=== PATIENT | male | born 1960 | race Caucasian/White ===

== ENCOUNTER 2017-11-12 07:11 | Emergency (ER) | payer OTHER, SELFPAY ==
[2017-11-12 07:16] VITALS: BP 146/86; PULSE 82; RESP 16; TEMP 36.5; O2SAT 99
--- NOTE | 2017-11-12 07:34 | DI.RAD_ITS ---
SYMPTOM/DIAGNOSIS: PAIN LET ASPECT OF DISTAL THUMB LEFT THUMB: Three views. No acute bone or joint abnormality identified. The soft tissues are unremarkable. IMPRESSION: No acute abnormality.
--- NOTE | 2017-11-12 07:57 | W.ED.GENAD ---
Discharge Plan Disposition Patient Disposition: HOME Condition: Good Discharge Details Chief Complaint: Orthopedic Clinical Impression: Contusion Primary Care Provider: Susie Keating ED Provider: Fidel Walker Home Meds and New Rx's Prescriptions: New acetaminophen [Mapap Extra Strength] 500 MG tablet 1,000 mg PO Q6H 5 Days Qty: 60 RF: 0 ibuprofen [Motrin IB] 200 MG tablet 600 mg PO Q6H 5 Days Qty: 60 RF: 0 No Action potassium chloride 10 MEQ capsule, extended release 10 meq PO DAILY Qty: 90 RF: 12 cyanocobalamin (vitamin B-12) [Vitamin B-12] 1,000 MCG tablet 500 mcg PO DAILY Qty: 90 RF: 12 omeprazole 40 MG capsule,delayed release(DR/EC) 40 mg PO BID Qty: 180 RF: 12 metformin [Glucophage] 1,000 MG tablet 1 tab PO BID Qty: 180 RF: 4 insulin aspart U-100 [Novolog Flexpen U-100 Insulin] 100 UNIT/1 ML insulin pen 60 SQ AC Qty: 4 RF: 12 sitagliptin [Januvia] 100 MG tablet 100 mg PO DAILY Qty: 90 RF: 12 atenolol 100 MG tablet 100 mg PO DAILY Qty: 90 RF: 12 lisinopril 40 MG tablet 40 mg PO DAILY Qty: 90 RF: 12 empagliflozin [Jardiance] 25 MG tablet 0.5 - 1 tab PO DAILY Qty: 90 RF: 11 atorvastatin 40 MG tablet 40 mg PO DAILY Qty: 90 RF: 12 gabapentin [Neurontin] 300 MG capsule 300 mg PO TID Qty: 90 RF: 12 Pen Needle, Diabetic [Ultra-Fine Micro Pen Needle] 1 EACH DIS.NEEDLE Miscellaneous TID Qty: 90 RF: 11 albuterol sulfate [ProAir HFA] 8.5 GM HFA aerosol inhaler 1 - 2 puff Inhalation Q4H PRN Qty: 3 RF: 12 tadalafil [Cialis] 5 mg tablet 5 mg PO DAILY Qty: 90 RF: 4 aspirin 81 MG tablet,chewable 81 mg PO DAILY RF: 0 insulin glargine [Lantus Solostar U-100 Insulin] 100 UNIT/1 ML insulin pen 38 unit SQ BID RF: 0 Discharge Instructions Instructions: Contusion in Adults (ED) Additional Instructions: Please use Tylenol, Motrin and ice to your thumb. If you notice any worsening of your symptoms, or any new symptoms such as vomiting, diarrhea, fever, chills, shortness of breath, chest pain, numbness, weakness, or fainting , please return immediately to the emergency department for reevaluation. Please follow up with your primary care provider as soon as possible for reassessment and reevaluation. As always, it was a pleasure participating in your medical care today. Referrals: Susie Keating MD, MD [Primary Care Provider] - Medical Decision Making This is a pleasant 57-year-old male who presents with pain in his left nondominant thumb. He struck it yesterday while taking something out of a bag. He had no laceration. No crush injury. Currently he has a small amount of burning on the lateral aspect, at the distal tip of the thumb. No evidence of trauma or laceration otherwise normal sensation normal movement. We will get an x-ray to evaluate for any potential fracture although I feel this unlikely. We will recommend Tylenol, Motrin and ice on an outpatient basis. X-ray results have returned demonstrate no evidence of significant acute fracture or foreign body. Patient will be discharged home. I have extensively reviewed the treatment plan and discharge instructions with the patient. I have addressed all patient concerns at this time. The patient was made aware of what symptoms to monitor for that would warrant a return to the emergency department. Discussed the plan with the patient, they demonstrate verbal understanding and agreement with our assessment and plan at this time. HPI General Date/Time Provider Initiated Documentation: 11/12/17 07:33. HPI Narrative: This is a 57-year-old male with past medical history of diabetes, hypertension, and high cholesterol who presents today for evaluation of thumb pain. He states yesterday he was pulling his golf club out of the golf bag when his hand slipped and hit the ceiling. It was his thumb that hit it on the lateral aspect. Since then he has had mild pain in the area. He has smoked some marijuana and states that this did help a little, but denies taking any Tylenol or Motrin or using ice. He is right-hand dominant. He denies any numbness or tingling, but does admit to a mild burning sensation on the lateral aspect of the distal tip of the thumb. Is able to flex and extend it well, and has no other complaints. He denies any lacerations, or any previous trauma. There is no exacerbation of his pain except with movement and palpation. He denies any recent surgeries, IV or illicit drug use, or pertinent family history. Related Data Home Medications Medication Instructions Recorded Confirmed potassium chloride 10 meq PO DAILY #90 tab-cap 11/12/17 11/12/17 cyanocobalamin (vitamin B-12) 500 mcg PO DAILY #90 tab 02/09/17 11/12/17 [Vitamin B-12] insulin aspart U-100 [Novolog 60 SQ AC #4 box 02/09/17 Flexpen U-100 Insulin] metformin [Glucophage] 1 tab PO BID #180 tab-cap 02/09/17 11/12/17 omeprazole 40 mg PO BID #180 tab-cap 02/09/17 11/12/17 sitagliptin [Januvia] 100 mg PO DAILY #90 tab-cap 02/09/17 11/12/17 aspirin 81 mg PO DAILY 02/19/17 11/12/17 atenolol 100 mg PO DAILY #90 tab-cap 02/23/17 11/12/17 empagliflozin [Jardiance] 0.5 - 1 tab PO DAILY #90 tab 02/23/17 lisinopril 40 mg PO DAILY #90 tab-cap 02/23/17 11/12/17 atorvastatin 40 mg PO DAILY #90 tab-cap 03/30/17 11/12/17 gabapentin [Neurontin] 300 mg PO TID #90 tab-cap 05/24/17 11/12/17 albuterol sulfate [Proair Hfa] 1 - 2 puff INHALATION Q4H PRN #3 06/08/17 11/12/17 inhaler tadalafil 5 mg tablet 5 mg PO DAILY #90 tab 11/11/17 11/12/17 acetaminophen [Mapap Extra 1,000 mg PO Q6H 5 Days #60 tab 11/12/17 Strength] ibuprofen [Motrin Ib] 600 mg PO Q6H 5 Days #60 tab 11/12/17 insulin glargine [Lantus Solostar] 38 unit SQ BID 11/12/17 11/12/17 Previous Rx's Medication Instructions Recorded potassium chloride 10 meq PO DAILY #90 tab-cap 11/12/16 cyanocobalamin (vitamin B-12) 500 mcg PO DAILY #90 tab 02/09/17 [Vitamin B-12] metformin [Glucophage] 1 tab PO BID #180 tab-cap 02/09/17 omeprazole 40 mg PO BID #180 tab-cap 02/09/17 sitagliptin [Januvia] 100 mg PO DAILY #90 tab-cap 02/09/17 atenolol 100 mg PO DAILY #90 tab-cap 02/23/17 empagliflozin [Jardiance] 0.5 - 1 tab PO DAILY #90 tab 02/23/17 lisinopril 40 mg PO DAILY #90 tab-cap 02/23/17 atorvastatin 40 mg PO DAILY #90 tab-cap 03/30/17 gabapentin [Neurontin] 300 mg PO TID #90 tab-cap 05/24/17 albuterol sulfate [Proair Hfa] 1 - 2 puff INHALATION Q4H PRN #3 06/08/17 inhaler tadalafil 5 mg tablet 5 mg PO DAILY #90 tab 11/11/17 acetaminophen [Mapap Extra 1,000 mg PO Q6H 5 Days #60 tab 11/12/17 Strength] ibuprofen [Motrin Ib] 600 mg PO Q6H 5 Days #60 tab 11/12/17 Allergies Allergy/AdvReac Type Severity Reaction Status Date / Time tiotropium bromide Allergy Severe PT STATES Unverified 06/29/17 11:28 [From Spiriva with SPIR[facility]] CAUSED CHEST PAINS cyclobenzaprine AdvReac Severe DRY MOUTH Unverified 06/29/17 11:28 WOOL AdvReac Intermediate BREAK OUT Uncoded 02/21/17 10:56 General Stated Complaint: Orthopedic JOSE: 4 Review of Systems Review of Systems All systems reviewed & are unremarkable except as noted in HPI and below PFSH Family History Mother Chronic type B viral hepatitis Diabetes Depression Hyperlipidemia Father Chronic type B viral hepatitis Neoplasm Sister Heart disease Brother No problems noted. Brother No problems noted. Daughter Depression Daughter Depression Medical History Asthma Barretts esophagus Diabetes mellitus type II, uncontrolled Diabetic neuropathy associated with diabetes mellitus due to underlying condition Essential hypertension History of colon polyps Hyperlipidemia Social History Smoking/Tobacco Use Status: Former Tobacco Use Surgical History Colonoscopy - IV Sedation (04/15/10) EGD - IV Sedation MULTIPLE NECK OPERATIONS Open Carpal Tunnel release TITANIUM PLATE PUT IN Tonsillectomy Vasectomy Exam Narrative Exam Narrative: 1.Const: Well-nourished, Well-developed, appearing stated age 2.Eyes: PERRL, no conjunctival injection, and symmetrical lids. 3.ENT: Atraumatic external nose and ears. Moist MM. Neck: Symmetric, trachea midline, No thyromegaly. 4.CVS: +S1/S2, No murmurs or gallops. Peripheral pulses 2+ and equal in all extremities. Brisk capillary refill in all extremities. 5.RESP: Unlabored respiratory effort. Clear to auscultation bilaterally. No wheezes rales or rhonchi 6.GI: Soft, Nontender/Nondistended, No hepatosplenomegaly. No guarding or rebound. 7.MSK: Normocephalic/Atraumatic, Extremities w/o deformity or ttp No cyanosis or clubbing, Normal movement of all extremities, normal flexion extension of the distal tip of the thumb. Normal movement at all joints. No crepitus. No deformity. No bleeding or bruising. No evidence of laceration or trauma. Normal sensation, good two-point discrimination. 8.Skin: Warm, Dry. No rashes or lesions. 9.Neuro: biological science aide II-XII grossly intact. Sensation grossly intact, no focal neurologic deficits. 10.Psych: (AAO) x3. Appropriate mood and affect Course Vital Signs Temperature 36.5 C 11/12/17 07:16 Pulse 82 11/12/17 07:16 Respiratory Rate 16 11/12/17 07:16 Blood Pressure 146/86 H 11/12/17 07:16 Pulse Oximetry 99 11/12/17 07:16 Temperature 36.5 C 11/12/17 07:16 Temperature Source Temporal Artery Scan 11/12/17 07:16 Pulse 82 11/12/17 07:16 Respiratory Rate 16 11/12/17 07:16 Respiratory Effort 11/12/17 07:19 Blood Pressure 146/86 H 11/12/17 07:16 Blood Pressure Position Sitting 11/12/17 07:16 Pulse Oximetry 99 11/12/17 07:16 Oxygen Delivery Method Room Air 11/12/17 07:16 Oxygen Flow Rate 0 11/12/17 07:16 Pain Level 5 11/12/17 07:16
== END 2017-11-12 08:14 | disposition home or self-care (01) ==
LOC: ER 08:27
PROVIDERS: Emergency Provider Student in an Organized Health Care Education/Training Program; PCP Family Medicine
DX: S60.012A Contusion of left thumb without damage to nail, initial encounter (principal); W22.8XXA Striking against or struck by other objects, initial encounter; Y93.53 Activity, golf; E11.9 Type 2 diabetes mellitus without complications; Z79.4 Long term (current) use of insulin; I10 Essential (primary) hypertension
CPT/HCPCS: 99283; 73140

== ENCOUNTER 2017-11-22 05:33 | Emergency (ER) | payer OTHER, SELFPAY ==
[2017-11-22 05:37] VITALS: BP 135/75; PULSE 81; RESP 20; TEMP 36.5; O2SAT 97
--- NOTE | 2017-11-22 05:53 | W.ED.GENAD ---
Discharge Plan Disposition Patient Disposition: HOME Condition: Stable Discharge Details Chief Complaint: Cellulitis Clinical Impression: Cellulitis of axilla, right Primary Care Provider: Susie Keating ED Provider: Samuel Lyons Home Meds and New Rx's Prescriptions: New doxycycline hyclate 100 mg tablet 100 mg PO BID Qty: 20 RF: 0 Continue cyanocobalamin (vitamin B-12) [Vitamin B-12] 1,000 MCG tablet 500 mcg PO DAILY Qty: 90 RF: 12 omeprazole 40 MG capsule,delayed release(DR/EC) 40 mg PO BID Qty: 180 RF: 12 metformin [Glucophage] 1,000 MG tablet 1 tab PO BID Qty: 180 RF: 4 insulin aspart U-100 [Novolog Flexpen U-100 Insulin] 100 UNIT/1 ML insulin pen 60 SQ AC Qty: 4 RF: 12 sitagliptin [Januvia] 100 MG tablet 100 mg PO DAILY Qty: 90 RF: 12 atenolol 100 MG tablet 100 mg PO DAILY Qty: 90 RF: 12 lisinopril 40 MG tablet 40 mg PO DAILY Qty: 90 RF: 12 empagliflozin [Jardiance] 25 MG tablet 0.5 - 1 tab PO DAILY Qty: 90 RF: 11 atorvastatin 40 MG tablet 40 mg PO DAILY Qty: 90 RF: 12 gabapentin [Neurontin] 300 MG capsule 300 mg PO TID Qty: 90 RF: 12 Pen Needle, Diabetic [Ultra-Fine Micro Pen Needle] 1 EACH DIS.NEEDLE Miscellaneous TID Qty: 90 RF: 11 albuterol sulfate [ProAir HFA] 8.5 GM HFA aerosol inhaler 1 - 2 puff Inhalation Q4H PRN Qty: 3 RF: 12 tadalafil [Cialis] 5 mg tablet 5 mg PO DAILY Qty: 90 RF: 4 potassium chloride 10 mEq capsule, extended release 10 meq PO DAILY Qty: 90 RF: 12 aspirin 81 MG tablet,chewable 81 mg PO DAILY RF: 0 insulin glargine [Lantus Solostar U-100 Insulin] 100 UNIT/1 ML insulin pen 38 unit SQ BID RF: 0 Discharge Instructions Instructions: Cellulitis (ED) Discharge Data Discharge Physician: Samuel Lyons Medical Decision Making Patient here with a day of right armpit redness that has appearance of cellulitis, no abscess on exam or bedside u/s at htis time. Has no redness of the left arm pit, the lesion feels most likely a cyst and appears to have small area of cellulitis of the buttock. No significant tenderness or crepitus of any lesion so doubt nec fasc. will start doxy (avoiding bactrim given hx of DM to avoid hyperkalemia) and have him f/u with pcp and return precautions given Differential Diagnosis mrsa, cellulitis HPI General Mode of arrival: ambulatory. Date/Time Provider Initiated Documentation: 11/22/17 05:35. Limitations to Documentation: no limitations. Information obtained by: patient. History of Present Illness 57 year old M presents to the emergency department with the chief complaint of right armpit redness, described as mild, with intensity rated at 4. Quality is described as burning, and is localized to the upper extremity. Patient reports no radiation. Patient started experiencing this day(s) (1) No relieving factors improve symptom(s), No exacerbating factors reported . Patient notes no other symptoms.. Patient did receive the following treatments prior to arrival, none Related Data Home Medications Medication Instructions Recorded Confirmed cyanocobalamin (vitamin B-12) 500 mcg PO DAILY #90 tab 02/09/17 11/22/17 [Vitamin B-12] insulin aspart U-100 [Novolog 60 SQ AC #4 box 02/09/17 Flexpen U-100 Insulin] metformin [Glucophage] 1 tab PO BID #180 tab-cap 02/09/17 11/22/17 omeprazole 40 mg PO BID #180 tab-cap 02/09/17 11/22/17 sitagliptin [Januvia] 100 mg PO DAILY #90 tab-cap 02/09/17 11/22/17 aspirin 81 mg PO DAILY 02/19/17 11/22/17 atenolol 100 mg PO DAILY #90 tab-cap 02/23/17 11/22/17 empagliflozin [Jardiance] 0.5 - 1 tab PO DAILY #90 tab 02/23/17 11/22/17 lisinopril 40 mg PO DAILY #90 tab-cap 02/23/17 11/22/17 atorvastatin 40 mg PO DAILY #90 tab-cap 03/30/17 11/22/17 gabapentin [Neurontin] 300 mg PO TID #90 tab-cap 05/24/17 11/22/17 albuterol sulfate [ProAir HFA] 1 - 2 puff INHALATION Q4H PRN #3 06/08/17 11/22/17 inhaler tadalafil 5 mg tablet 5 mg PO DAILY #90 tab 11/11/17 11/22/17 insulin glargine [Lantus Solostar 38 unit SQ BID 11/12/17 11/22/17 U-100 Insulin] potassium chloride ER 10 mEq 10 meq PO DAILY #90 tab-cap 11/16/17 11/22/17 capsule,extended release doxycycline hyclate 100 mg PO BID #20 tab 11/22/17 Previous Rx's Medication Instructions Recorded cyanocobalamin (vitamin B-12) 500 mcg PO DAILY #90 tab 02/09/17 [Vitamin B-12] metformin [Glucophage] 1 tab PO BID #180 tab-cap 02/09/17 omeprazole 40 mg PO BID #180 tab-cap 02/09/17 sitagliptin [Januvia] 100 mg PO DAILY #90 tab-cap 02/09/17 atenolol 100 mg PO DAILY #90 tab-cap 02/23/17 empagliflozin [Jardiance] 0.5 - 1 tab PO DAILY #90 tab 02/23/17 lisinopril 40 mg PO DAILY #90 tab-cap 02/23/17 atorvastatin 40 mg PO DAILY #90 tab-cap 03/30/17 gabapentin [Neurontin] 300 mg PO TID #90 tab-cap 05/24/17 albuterol sulfate [ProAir HFA] 1 - 2 puff INHALATION Q4H PRN #3 06/08/17 inhaler tadalafil 5 mg tablet 5 mg PO DAILY #90 tab 11/11/17 potassium chloride ER 10 mEq 10 meq PO DAILY #90 tab-cap 11/16/17 capsule,extended release doxycycline hyclate 100 mg PO BID #20 tab 11/22/17 Allergies Allergy/AdvReac Type Severity Reaction Status Date / Time tiotropium bromide Allergy Severe PT STATES Unverified 11/22/17 05:41 [From Spiriva with [facility]] CAUSED CHEST PAINS cyclobenzaprine AdvReac Severe DRY MOUTH Unverified 11/22/17 05:41 WOOL AdvReac Intermediate BREAK OUT Uncoded 11/22/17 05:41 General Stated Complaint: Cellulitis JOSE: 3 Review of Systems Review of Systems All systems reviewed & are unremarkable except as noted in HPI and below Constitutional Denies chills, Denies fever(s) and Denies weakness Cardiovascular Denies chest pain and Denies dyspnea Respiratory Denies dyspnea Gastrointestinal Denies abdominal pain, Denies nausea and Denies vomiting Genitourinary Denies dysuria Musculoskeletal Denies joint swelling Integumentary/Breasts Reports rash Neurologic Denies weakness Psychiatric Denies depression Endocrine Denies cold intolerance and Denies heat intolerance Allergic/Immunologic Reports urticaria PFSH Family History Mother Chronic type B viral hepatitis Diabetes Depression Hyperlipidemia Father Chronic type B viral hepatitis Neoplasm Sister Heart disease Brother No problems noted. Brother No problems noted. Daughter Depression Daughter Depression Medical History Asthma Barretts esophagus Diabetes mellitus type II, uncontrolled Diabetic neuropathy associated with diabetes mellitus due to underlying condition Essential hypertension History of colon polyps Hyperlipidemia Social History Smoking/Tobacco Use Status: Former Tobacco Use Surgical History Colonoscopy - IV Sedation (04/15/10) EGD - IV Sedation MULTIPLE NECK OPERATIONS Open Carpal Tunnel release TITANIUM PLATE PUT IN Tonsillectomy Vasectomy Exam Const General: no acute distress Orientation: alert HENMT Head: normal to inspection Ears: external ears normal General nose exam: external nose normal Mouth: moist mucous membranes Eyes General: appearance normal, both eyes and all related structures Neck Neck: normal visual inspection Resp Effort & Inspection: normal respiratory effort and able to speak in complete sentences Cardio Rate: regular rate Skin General skin exam: other (erythema of the right arm pit about 3x4cm, no fluctuance, has small 2cm firm mobile lesion in left arm pit without redness, 1x2cm area of redness of left mid buttock without drainage) Neuro General: alert and oriented x3 Extrem General: normal to inspection Psych Mental Status: mental status grossly normal Course Vital Signs Temperature 36.5 C 11/22/17 05:37 Pulse 81 11/22/17 05:37 Respiratory Rate 20 11/22/17 05:37 Blood Pressure 135/75 11/22/17 05:37 Pulse Oximetry 97 11/22/17 05:37 Temperature 36.5 C 11/22/17 05:37 Temperature Source Temporal Artery Scan 11/22/17 05:37 Pulse 81 11/22/17 05:37 Respiratory Rate 20 11/22/17 05:37 Respiratory Effort 11/22/17 05:37 Blood Pressure 135/75 11/22/17 05:37 Blood Pressure Position Sitting 11/22/17 05:37 Pulse Oximetry 97 11/22/17 05:37 Oxygen Delivery Method Room Air 11/22/17 05:37 Oxygen Flow Rate 0 11/22/17 05:37 Pain Level 5 11/22/17 05:37
[2017-11-22] MEDS: Doxycycline Hyclate 100 MG CAP PO (06:18)
[2017-11-22 06:25] VITALS: BP 135/75; PULSE 81; RESP 20; TEMP 36.5; O2SAT 97
== END 2017-11-22 06:08 | disposition home or self-care (01) ==
PROVIDERS: Emergency Provider Emergency Medicine; PCP Family Medicine
DX: L03.111 Cellulitis of right axilla (principal); E11.9 Type 2 diabetes mellitus without complications; Z79.4 Long term (current) use of insulin; I10 Essential (primary) hypertension
CPT/HCPCS: 99283

== ENCOUNTER 2017-12-01 06:52 | Outpatient (CLI) | payer OTHER, SELFPAY | END 2017-12-01 07:12 | PROVIDERS: PCP Family Medicine; Visit Provider Family Medicine | DX: E11.40 Type 2 diabetes mellitus with diabetic neuropathy, unspecified (principal) | CPT/HCPCS: 36415; 83036 ==

== ENCOUNTER 2018-03-08 09:17 | Outpatient (CLI) | payer OTHER, SELFPAY ==
[2018-03-08 17:19] LABS: COMMENT (LAB VIEW ONLY) 116.81 mg/dL
[2018-03-08 17:34] LABS: ALT 93 U/L (12-78); AST 42 U/L (15-37); Albumin 4.1 g/dL (3.4-5.0); Alkaline Phosphatase 110 U/L (46-116); Anion Gap 7.4 mmol/L (3-11); BUN 23 mg/dL (7-18); Bilirubin, Total 0.5 mg/dL (0.2-1.0); CO2 29.6 mmol/L (21.0-32.0); CREATININE 1.53 mg/dL (0.70-1.30); Calcium 9.3 mg/dL (8.5-10.1); Chloride 101 mmol/L (98-107); Cholesterol 148 mg/dL (50-200); Estimated GFR 46.98 (mL/min/1.73m2); Glucose 158 mg/dL (70-100); HDL Cholesterol 42 mg/dL (40-60); LDL CHOLESTEROL 74 mg/dL (<100); Potassium 4.7 mmol/L (3.5-5.1); Sodium 138 mmol/L (136-145); Total Protein 7.9 g/dL (6.4-8.2); Triglyceride 188 mg/dL (30-150)
[2018-03-08 17:43] LABS: Hemoglobin A1C 8.1 % (4.5-6.2)
== END 2018-03-08 09:37 ==
PROVIDERS: PCP Family Medicine; Visit Provider Family Medicine
DX: E11.9 Type 2 diabetes mellitus without complications (principal); I10 Essential (primary) hypertension
CPT/HCPCS: 36415; 80053; 80061; 83721; 82043; 82570; 83036

== ENCOUNTER 2018-03-15 10:38 | Outpatient (CLI) | payer OTHER, SELFPAY ==
--- NOTE | 2018-03-15 09:20 | DI.RAD_ITS ---
SYMPTOM/DIAGNOSIS: COUGH, SOB, R05 PA AND LATERAL CHEST: Comparison is made with 21 February 2017. Cardiac and mediastinal contours have a normal appearance. The lungs are well inflated and clear. No infiltrate or effusion is seen. There is no evidence of pneumothorax or rib fracture IMPRESSION: Negative chest x-ray
== END 2018-03-15 10:58 ==
PROVIDERS: PCP Family Medicine; Visit Provider Family Medicine
DX: R05 Cough (principal); R06.02 Shortness of breath
CPT/HCPCS: 71046

== ENCOUNTER 2018-03-17 01:57 | Outpatient (CLI) | payer OTHER, SELFPAY ==
[2018-03-17] MEDS: Inhaler, Assist Device 1 EACH MC (11:09)
[2018-03-17] MEDS: Albuterol HFA 18 GM 200 PUFF INH IH (11:09)
--- NOTE | 2018-03-22 14:24 | PFT_ITS ---
PULMONARY FUNCTION TEST DATE OF SERVICE: March 17, 2018 REQUESTING PROVIDER: Dr. Susie Keating Spirometry shows no evidence of obstructive airways disease, but there is significant bronchodilator response. Lung volumes show no evidence of restriction. Diffusion capacity normal. Airways resistance normal. IMPRESSION: While there is no evidence of obstructive or restrictive lung disease, there is significant bronchodilator response, which is likely related to better patient effort. Intrathroacic large airway obstruction also should be evaluated clinically, as there is a flattening of the flow volume loop on the expiratory portion. Clinical correlation recommended. When this study was compared to previous one from 04/14/10, the patient has an overall 750 cc's decline in FVC and FEV1 has declined by 200 cc's. LASHONDA/rafiq
== END 2018-03-17 02:17 ==
PROVIDERS: PCP Family Medicine; Visit Provider Family Medicine
DX: R06.02 Shortness of breath (principal)
CPT/HCPCS: 94060; 94150; 94726; 94729

== ENCOUNTER 2018-03-21 06:48 | Emergency (ER) | payer OTHER, SELFPAY ==
[2018-03-21 06:52] VITALS: BP 121/73; PULSE 97; RESP 19; TEMP 36.4; O2SAT 97
--- NOTE | 2018-03-21 07:21 | DI.RAD_ITS ---
SYMPTOM/DIAGNOSIS; S/P FALL, R/O ACUTE FX RIGHT WRIST: No fracture or dislocation is seen. There are mild degenerative changes at the first carpal, metacarpal joint IMPRESSION: No acute abnormality.
--- NOTE | 2018-03-21 07:21 | DI.CT_ITS ---
SYMPTOM/DIAGNOSIS: S/P FALL AND LOC, R/O ACUTE PROCESS NONCONTRAST HEAD CT: There are no prior comparison exams. No intracranial hemorrhage or skull fracture is seen. The ventricles are normal in size. The sinuses and mastoid air cells appear clear. The orbits are unremarkable. IMPRESSION: Negative head CT. CT CERVICAL SPINE: There has been a previous anterior fusion at C5-6. There are degenerative disc changes, greatest at C6-7 and C4-5. There is no evidence of fracture or subluxation. IMPRESSION: Post surgical and degenerative changes. No acute abnormality.
--- NOTE | 2018-03-21 07:21 | DI.RAD_ITS ---
SYMPTOM/DIAGNOSIS: S/P FALL, R/O ACUTE FX RIGHT TIBIA AND FIBULA: No fracture is identified. There are prominent heel spurs. There is a coarse calcification in the plantar aspect of the foot. There are mild degenerative changes at the ankle. IMPRESSION: No acute abnormality.
--- NOTE | 2018-03-21 07:26 | ED.GENADUL_ITS ---
Discharge Plan Disposition Patient Disposition: HOME Condition: Stable Discharge Details Chief Complaint: Trauma Clinical Impression: Fall, Multiple contusions Primary Care Provider: Susie Keating ED Provider: Soraya Johnson Home Meds and New Rx's Prescriptions: Continued Symbicort 160-4.5 mcg/actuation HFA aerosol inhaler 2 puff IH BID Qty: 10.2 RF: 5 metformin [Glucophage] 1,000 mg tablet 1,000 mg PO BID Qty: 180 RF: 4 Januvia 100 mg tablet 100 mg PO DAILY Qty: 90 RF: 12 cyanocobalamin (vitamin B-12) [Vitamin B-12] 1,000 mcg tablet 500 mcg PO DAILY Qty: 90 RF: 12 ProAir HFA 8.5 GM HFA aerosol inhaler 1 - 2 puff Inhalation Q4H PRN Qty: 3 RF: 12 pen needle, diabetic [Ultra-Thin II Ins Pen Mclain] 29 gauge x 1/2 needle .ROUTE .MEDSUPPLY Qty: 100 RF: 6 OneTouch Ultra Blue Test Strip strip .ROUTE .MEDSUPPLY Qty: 400 RF: 5 omeprazole 40 mg capsule,delayed release(DR/EC) 40 mg PO BID Qty: 180 RF: 12 Novolog Flexpen U-100 Insulin 100 unit/mL insulin pen 60 unit subcut AC Qty: 60 RF: 3 potassium chloride 10 mEq capsule, extended release 10 meq PO DAILY Qty: 90 RF: 12 atenolol 100 mg tablet 100 mg PO DAILY Qty: 90 RF: 12 Jardiance 25 mg tablet 25 mg PO DAILY Qty: 90 RF: 11 atorvastatin 40 mg tablet 40 mg PO DAILY Qty: 90 RF: 12 lisinopril 40 mg tablet 40 mg PO DAILY Qty: 90 RF: 12 aspirin 81 MG tablet,chewable 81 mg PO DAILY RF: 0 Lantus Solostar U-100 Insulin 100 UNIT/1 ML insulin pen 38 unit SQ BID RF: 0 No Action gabapentin [Neurontin] 300 mg capsule 300 mg PO TID Qty: 90 RF: 12 Discharge Instructions Instructions: Contusion in Adults (ED), Fall Prevention (ED) Additional Instructions: Please return immediately to the emergency department if you develop any new or worsening symptoms or if you become otherwise concerned. It is extremely important that you make an appointment to be seen by your primary care doctor as soon as possible in follow-up for this visit. Referrals: Susie Keating MD, [place] [Primary Care Provider] - Discharge Data Discharge Date/Time-TO BE ENTERED AT DEPARTURE: 03/21/18 11:15 Medical Decision Making <Shona Sy DO - Last Filed: 03/22/18 10:36> 57-year-old male with a history of fibromyalgia, asthma, diabetes, obesity who presents status post fall yesterday morning. States he thinks he may have missed a step coming out of his apartment but is unsure and states he had a period where he blacked out. Admits to headache, right-sided neck and shoulder pain, right wrist pain, right lower back pain, and right proximal leg pain. No LOC or vomiting. No chest pain, abdominal pain. No evidence of trauma to head. Normal ENT exam. C-spine/T-spine/L-spine nontender. Normal range of motion of bilateral upper extremities and I do not see any indication for shoulder or clavicle x-rays. Chest and abdomen nontender. No pain with range of motion or tenderness to bilateral hips and bilateral knees. There is tenderness to palpation and superficial abrasions noted to the proximal right tibia. He has right wrist snuffbox tenderness. He has tenderness to palpation to right medial malleolus but there is no edema, pain with range of motion, ecchymosis or edema and I do not see an indication for ankle x-ray. Will obtain a CT head and C-spine, right wrist x-ray, and right tibia x-ray. As patient is unsure of the cause of fall, will obtain labs as well as ekg. EKG notes a rate of 87, sinus, no acute ST findings. 0745 -- Case endorsed to Dr. Johnson to f/u on labs and imaging and if negative, ok to discharge home. Medical Records Medical records reviewed: Yes I reviewed the patient's medical records. ECG Data Attestation: I personally reviewed and interpreted this ECG (s) as follows: Interpretation: 0742 --rate of 87, sinus, no acute ST elevation or depression. QTc 419. QRS 79. <Soraya Johnson MD - Last Filed: 03/31/18 13:43> Received signout from Dr. Sy at time of shift change, labs, imaging pending. Patient ambulating about the emergency department prior to imaging resulted, requesting discharge to home, stating that he feels well. imaging personally visualized by myself in conjunction with radiology, radiology reports as follows: RIGHT WRIST: No fracture or dislocation is seen. There are mild degenerative changes at the first carpal, metacarpal joint IMPRESSION: No acute abnormality. RIGHT TIBIA AND FIBULA: No fracture is identified. There are prominent heel spurs. There is a coarse calcification in the plantar aspect of the foot. There are mild degenerative changes at the ankle. IMPRESSION: No acute abnormality. NONCONTRAST HEAD CT: There are no prior comparison exams. No intracranial hemorrhage or skull fracture is seen. The ventricles are normal in size. The sinuses and mastoid air cells appear clear. The orbits are unremarkable. IMPRESSION: Negative head CT. CT CERVICAL SPINE: There has been a previous anterior fusion at C5-6. There are degenerative disc changes, greatest at C6-7 and C4-5. There is no evidence of fracture or subluxation. IMPRESSION: Post surgical and degenerative changes. No acute abnormality. Labs nondiagnostic, creatinine 1.5 with recent value 1.2. Patient states to me that he is quite sure that fall was mechanical, that he simply missed the step. He denies having any preceding symptoms or loss of consciousness. He is requesting discharge. I had a lengthy discussion with the patient regarding return to emergency department precautions, home care, and importance of outpatient follow-up with his primary care doctor. Patient verbalized understanding of the plan and is amenable. Medical Records Medical records reviewed: Yes I reviewed the patient's medical records. Lab Data Lab results reviewed: Yes I reviewed the patient's lab results. Laboratory Tests Range/Units 03/21/18 03/21/18 08:00 08:00 WBC (4.4-10.8) k/cumm 7.93 RBC (4.50-6.00) m/cumm 4.42 L Hgb (13.5-17.5) g/dL 13.8 Hct (40.0-50.0) % 42.8 MCV (80-95) fL 96.8 H MCH (27.0-33.0) pg 31.2 MCHC (32.0-36.0) g/dL 32.2 RDW (11.8-14.1) % 13.9 Plt Count (130-400) x1000/uL 169 MPV (8.0-11.0) fL 10.4 Immature Gran % 0.3 Neutrophils % 59.9 Lymphocytes % 27.5 Monocytes % 8.4 Eosinophils % 3.5 Basophils % 0.4 Absolute Neutrophils (1.2-6.7) k/cumm 4.75 Absolute Lymphocytes (1.2-3.4) k/cumm 2.18 Absolute Monocytes (0.11-0.7) k/cumm 0.67 Absolute Eosinophils (0.0-0.7) k/cumm 0.28 Absolute Basophils (0.0-0.2) k/cumm 0.03 Sodium (136-145) mmol/L 137 Potassium (3.5-5.1) mmol/L 4.8 Chloride (98-107) mmol/L 102 Carbon Dioxide (21.0-32.0) mmol/L 23.7 Anion Gap (3-11) mmol/L 11.3 H BUN (7-18) mg/dL 26 H Creatinine (0.70-1.30) mg/dL 1.51 H Estimated GFR/1.73 m2 (mL/min/1.73m2) 47.70 Glucose (70-100) mg/dL 258 H Calcium (8.5-10.1) mg/dL 9.0 Magnesium (1.8-2.4) mg/dL 1.6 L Total Bilirubin (0.2-1.0) mg/dL 0.4 AST (15-37) U/L 49 H ALT (12-78) U/L 109 H Alkaline Phosphatase (46-116) U/L 99 Troponin I (0.00-0.06) ng/mL < 0.02 Total Protein (6.4-8.2) g/dL 7.6 Albumin (3.4-5.0) g/dL 3.6 HPI <Shona Sy DO - Last Filed: 03/22/18 10:36> General Mode of arrival: ambulatory . Date/Time Provider Initiated Documentation: 03/21/18 07:07 . Limitations to Documentation: no limitations . Information obtained by: patient . HPI Narrative: Pt is a 57yo male with a history of fibromyalgia, asthma, diabetes, GERD, hypertension, hyperlipidemia and obesity who presents with right neck, right shoulder, right wrist, right lower back and right leg pain after fall yesterday morning. Patient states he was walking out of his apartment building and thinks he may have missed a step but states he is unsure and all he remembers is everything going black and he woke up on the ground. Patient denies any chest pain, shortness of breath, palpitations or dizziness at any time prior to or since fall. Patient has not taken anything for pain. Patient states he drank 3 beers last night watching the game to help with the pain. Patient does complain of some frontal headache and thinks he may have hit the back of his head but he denies any LOC or vomiting. Related Data Home Medications Medication Instructions Recorded Confirmed aspirin 81 mg PO DAILY 02/19/17 03/22/18 ProAir HFA 1 - 2 puff INHALATION Q4H PRN #3 06/08/17 03/22/18 inhaler Lantus Solostar U-100 Insulin 38 unit SQ BID 11/12/17 03/22/18 cyanocobalamin (vit B-12) 1,000 500 mcg PO DAILY #90 tab 12/09/17 03/22/18 mcg tablet metformin 1,000 mg tablet 1,000 mg PO BID #180 tab-cap 12/09/17 03/22/18 sitagliptin 100 mg tablet 100 mg PO DAILY #90 tab-cap 12/09/17 03/22/18 blood sugar diagnostic strips #400 each 02/14/18 03/22/18 pen needle, diabetic 29 gauge x #100 each 02/14/18 03/22/18 1/2 insulin aspart U- 100 100 unit/mL 60 unit SUBCUT AC #60 ml 02/17/18 03/22/18 subcutaneous pen omeprazole 40 mg capsule,delayed 40 mg PO BID #180 tab-cap 02/17/18 03/22/18 release potassium chloride ER 10 mEq 10 meq PO DAILY #90 tab-cap 02/17/18 03/22/18 capsule,extended release atenolol 100 mg tablet 100 mg PO DAILY #90 tab-cap 03/03/18 03/22/18 atorvastatin 40 mg tablet 40 mg PO DAILY #90 tab-cap 03/03/18 03/22/18 empagliflozin 25 mg tablet 25 mg PO DAILY #90 tab 03/03/18 03/22/18 lisinopril 40 mg tablet 40 mg PO DAILY #90 tab-cap 03/03/18 03/22/18 budesonide-formoterol HFA 160 2 puff IH BID #10.2 gm 03/15/18 03/22/18 mcg-4.5 mcg/actuation aerosol inhaler gabapentin 300 mg capsule 300 mg PO TID #90 tab-cap 03/22/18 03/22/18 Previous Rx's Medication Instructions Recorded ProAir HFA 1 - 2 puff INHALATION Q4H PRN #3 06/08/17 inhaler cyanocobalamin (vit B-12) 1,000 500 mcg PO DAILY #90 tab 12/09/17 mcg tablet metformin 1,000 mg tablet 1,000 mg PO BID #180 tab-cap 12/09/17 sitagliptin 100 mg tablet 100 mg PO DAILY #90 tab-cap 12/09/17 blood sugar diagnostic strips #400 each 02/14/18 pen needle, diabetic 29 gauge x #100 each 02/14/18 1/2 insulin aspart U- 100 100 unit/mL 60 unit SUBCUT AC #60 ml 02/17/18 subcutaneous pen omeprazole 40 mg capsule,delayed 40 mg PO BID #180 tab-cap 02/17/18 release potassium chloride ER 10 mEq 10 meq PO DAILY #90 tab-cap 02/17/18 capsule,extended release atenolol 100 mg tablet 100 mg PO DAILY #90 tab-cap 03/03/18 atorvastatin 40 mg tablet 40 mg PO DAILY #90 tab-cap 03/03/18 empagliflozin 25 mg tablet 25 mg PO DAILY #90 tab 03/03/18 lisinopril 40 mg tablet 40 mg PO DAILY #90 tab-cap 03/03/18 budesonide-formoterol HFA 160 2 puff IH BID #10.2 gm 03/15/18 mcg-4.5 mcg/actuation aerosol inhaler gabapentin 300 mg capsule 300 mg PO TID #90 tab-cap 03/22/18 Allergies Allergy/AdvReac Type Severity Reaction Status Date / Time tiotropium bromide Allergy Severe PT STATES Verified 03/22/18 15:56 [From Spiriva with SPIRIVA [facility]] CAUSED CHEST PAINS cyclobenzaprine AdvReac Severe DRY MOUTH Verified 03/22/18 15:56 General Stated Complaint: Trauma JOSE: 3 Review of Systems <Shona Sy DO - Last Filed: 03/22/18 10:36> Review of Systems All systems reviewed & are unremarkable except as noted in HPI and below Constitutional Reports as per HPI, Denies chills and Denies fever(s) Eyes Denies blurry vision ENT Denies dizziness, Denies sore throat and Denies throat swelling Cardiovascular Denies chest pain and Denies dyspnea Respiratory Denies cough and Denies dyspnea Gastrointestinal Denies abdominal pain, Denies diarrhea and Denies vomiting Genitourinary Denies hematuria and Denies dysuria Musculoskeletal Reports back pain and Denies numbness Integumentary/Breasts Denies lesions and Denies rash Neurologic Denies dizziness, Denies focal weakness and Denies numbness Allergic/Immunologic Denies throat swelling PFSH <Shona Sy DO - Last Filed: 03/22/18 10:36> Medical History Diabetic retinopathy (Chronic ~11/30/17) Ulcer of foot (Chronic 03/30/17) Tubular adenoma (Chronic 04/01/17) Sebaceous cyst (Chronic 03/19/14) Persistent testicular pain (Chronic) Partial edentulism, unspecified (Chronic) Lumbar radiculopathy (Chronic 06/25/14) Increased body mass index (Chronic) Hyperlipidemia (Chronic 09/06/12) Foot callus (Chronic 01/14/15) Essential hypertension (Chronic 11/08/12) Diabetic neuropathy (Chronic 12/06/12) Diabetic nephropathy associated with type 2 diabetes mellitus (Chronic 03/19/14) Degeneration of cervical intervertebral disc (Chronic) Carpal tunnel syndrome (Resolved) Barretts esophagus (Chronic) Balance disorder (Chronic 06/24/15) Asthma (Chronic) Cyanocobalamin deficiency (Resolved 10/13/10) Asthma Barretts esophagus Diabetes mellitus type II, uncontrolled Diabetic neuropathy associated with diabetes mellitus due to underlying condition Essential hypertension History of colon polyps Hyperlipidemia Surgical History Colonoscopy - IV Sedation (04/15/10) EGD - IV Sedation MULTIPLE NECK OPERATIONS Open Carpal Tunnel release TITANIUM PLATE PUT IN Tonsillectomy Vasectomy Family History Mother Chronic type B viral hepatitis Diabetes Depression Hyperlipidemia Father Chronic type B viral hepatitis Cancer Diabetes Hypertension Hyperlipidemia Sister Heart disease Brother Alcohol abuse Depression Hypertension Heart disease Hyperlipidemia Substance abuse Brother No problems noted. Daughter Depression Daughter Depression Social History household members: spouse highest education level completed: GED or equivalent current occupational status: disabled pets and animals: No frequency: 1-2 times per week duration: 15-30 minutes/day Smoking and Tabacco status: Former Tobacco Use quit date: 02/15/13 how long ago did patient quit smokin06/03/13- QUIT 3-4 YRS AGO. second hand exposure: Yes alcohol intake: current alcohol intake frequency: a few times a month Alcohol type: hard liquor substance use type: marijuana tray/anglican: No preference special tray needs: No Exam <Shona Sy DO - Last Filed: 03/22/18 10:36> Const General: cooperative, healthy appearing and no acute distress HENMT Head: normal to inspection Face and sinus: normal facial exam Eyes General: appearance normal, both eyes and all related structures Pupils: PERRL EOM: EOM intact bilaterally Neck Neck: normal visual inspection and No submandibular swelling Lymphatic: no lymphadenopathy noted Chest Chest: normal inspection of the chest and no tenderness Resp Effort & Inspection: normal respiratory effort and able to speak in complete sentences Auscultation: clear to auscultation bilaterally Cardio Rate: regular rate Rhythm: regular rhythm GI Inspection: normal to inspection and no abdominal wall ecchymosis Palpation: soft, not firm, not rigid and nontender Auscultation: normal bowel sounds Back/Spine/Pelvis Cervical Spine: cervical muscular tenderness (bilateral) and No cervical spinal tenderness Thoracic/Lumbar Spine: thoracic and lumbar spine normal to inspection, No thoracic spinal tenderness and No lumbar spinal tenderness Pelvis: no pain with anterior-posterior compression Skin General skin exam: no rashes or lesions noted Neuro General: alert, awake, oriented x3, gait normal and moves all extremities Cognition: normal cognition Speech: speech normal Motor: muscle tone normal throughout Sensory Exam: no sensory deficits noted Extrem Right upper extremity: shoulder/upper arm Details: normal to inspection and normal ROM; no tenderness, elbow/forearm Details: normal to inspection and normal ROM; no tenderness, wrist Details: tenderness Location: of the anatomic snuffbox and hand Details: normal to inspection and normal ROM of fingers; no tenderness Left upper extremity: shoulder/upper arm Details: inspection abnormal and normal ROM; no tenderness and no swelling, elbow/forearm Details: normal to inspection and normal ROM; no tenderness and no swelling, wrist Details: normal to inspection; no tenderness and no swelling and hand Details: normal ROM of fingers Right lower extremity: hip/thigh Details: normal ROM; no tenderness and no swelling, knee Details: normal ROM; no tenderness and no swelling, lower leg Details: tenderness Location: of the proximal tibia and abrasion (Superficial noted on lateral aspect of proximal leg), ankle Details: tenderness (No deformity, no pain with range of motion.) Location: of the medial malleolus; no swelling and foot Details: normal capillary refill, normal to inspection and vascular exam Details: dorsalis pedis pulse present and posterior tibial pulse present Left lower extremity: normal to inspection, full ROM, hip/thigh Details: normal to inspection and normal ROM; no tenderness, knee Details: normal to inspection and normal ROM; no tenderness, ankle Details: normal to inspection and normal ROM; no tenderness and foot Details: normal to inspection and vascular exam Details: dorsalis pedis pulse present and posterior tibial pulse present; no tenderness Other: Chronic appearing nonpitting edema to bilateral lower extremities Psych Appearance: grossly normal Mental Status: mental status grossly normal Speech and Movement: speech and movement normal Affect: normal affect Course <Shona Sy, DO - Last Filed: 03/22/18 10:36> Vital Signs Temperature 97.5 F L 03/21/18 06:52 Pulse 97 H 03/21/18 06:52 Respiratory Rate 03/21/18 06:52 Blood Pressure 121/73 03/21/18 06:52 Pulse Oximetry 97 03/21/18 06:52 Temperature 97.5 F L 03/21/18 06:52 Temperature Source Temporal Artery Scan 03/21/18 06:52 Pulse 97 H 03/21/18 06:52 Respiratory Rate 03/21/18 06:52 Respiratory Effort Non-Labored 03/21/18 06:58 Blood Pressure 121/73 03/21/18 06:52 Blood Pressure Position Sitting 03/21/18 06:52 Pulse Oximetry 97 03/21/18 06:52 Oxygen Delivery Method Room Air 03/21/18 06:52 Oxygen Flow Rate 0 03/21/18 06:52 Pain Level 8 03/21/18 06:52 Sign Out <Shona Sy DO - Last Filed: 03/22/18 10:36> Sign Out Data: Sign Out Comment: Follow-up on labs and imaging and final disposition. Last updated by Shona Sy DO at 03/21/18 07:48
[2018-03-21 08:16] LABS: Abs Immature Grans 0.02 k/cumm (0.0-0.09); Absolute Basophil Count 0.03 k/cumm (0.0-0.2); Absolute Eosinophil Count 0.28 k/cumm (0.0-0.7); Absolute Lymphocyte Count 2.18 k/cumm (1.2-3.4); Absolute Monocyte Count 0.67 k/cumm (0.11-0.7); Absolute Neutrophil Count 4.75 k/cumm (1.2-6.7); Basophils % 0.4; Eosinophils % 3.5; HCT 42.8 % (40.0-50.0); HGB 13.8 g/dL (13.5-17.5); Immature Grans % 0.3; Lymphocytes % 27.5; Mean Corp. HGB Concentration 32.2 g/dL (32.0-36.0); Mean Corpuscular Hemoglobin 31.2 pg (27.0-33.0); Mean Corpuscular Volume 96.8 fL (80-95); Mean Platelet Volume 10.4 fL (8.0-11.0); Monocytes % 8.4; Neutrophils % 59.9; Platelet Count 169 x1000/uL (130-400); RBC 4.42 m/cumm (4.50-6.00); RBC Distribution Width 13.9 % (11.8-14.1); White Blood Cell Count 7.93 k/cumm (4.4-10.8)
[2018-03-21 08:27] LABS: ALT 109 U/L (12-78); AST 49 U/L (15-37); Albumin 3.6 g/dL (3.4-5.0); Alkaline Phosphatase 99 U/L (46-116); Anion Gap 11.3 mmol/L (3-11); BUN 26 mg/dL (7-18); Bilirubin, Total 0.4 mg/dL (0.2-1.0); CO2 23.7 mmol/L (21.0-32.0); CREATININE 1.51 mg/dL (0.70-1.30); Chloride 102 mmol/L (98-107); Glucose 258 mg/dL (70-100); Magnesium 1.6 mg/dL (1.8-2.4); Potassium 4.8 mmol/L (3.5-5.1); Sodium 137 mmol/L (136-145); Total Protein 7.6 g/dL (6.4-8.2)
[2018-03-21 08:28] LABS: Troponin I < 0.02 ng/mL (0.00-0.06)
== END 2018-03-21 11:15 | disposition home or self-care (01) ==
PROVIDERS: Physician Assistant; Emergency Provider Student in an Organized Health Care Education/Training Program; PCP Family Medicine
DX: M25.531 Pain in right wrist (principal); R51 Headache; M54.2 Cervicalgia; M25.511 Pain in right shoulder; M54.5 Low back pain; S80.811A Abrasion, right lower leg, initial encounter; I10 Essential (primary) hypertension; E11.9 Type 2 diabetes mellitus without complications; W10.8XXA Fall (on) (from) other stairs and steps, initial encounter; Z79.4 Long term (current) use of insulin
CPT/HCPCS: 36415; 80053; 93005; 99285; 70450; 72125; 73110; 73590; 83735; 84484; 85025; 93010

== ENCOUNTER 2018-04-20 10:29 | Outpatient (CLI) | payer OTHER, SELFPAY ==
--- NOTE | 2018-04-20 10:00 | DI.RAD_ITS ---
SYMPTOMS/DIAGNOSIS: LOW BACK PAIN, LUMBAR RADICULOPATHY, M54.16, FELL 6 WKS AGO LUMBAR SPINE: AP, lateral and bilateral oblique views. Comparison 02/02/12. There are five lumbar type vertebral bodies. There is normal alignment. No spondylolysis or spondylolisthesis is identified. There is a disc space narrowing and a vacuum disc at L 5 - S 1. Endplate osteophytes are seen in the lumbar spine particularly at the L 3 - 4 through L 5 - S 1 disc level. Degenerative changes of the facets are present at multiple levels. No acute fractures or subluxations are seen. There is extensive calcium in the abdominal aorta. IMPRESSION: Moderate degenerative changes in the lumbar spine.
== END 2018-04-20 10:49 ==
PROVIDERS: PCP Family Medicine; Visit Provider Family Medicine
DX: M54.16 Radiculopathy, lumbar region (principal); M47.27 Other spondylosis with radiculopathy, lumbosacral region
CPT/HCPCS: 72110

== ENCOUNTER 2018-05-23 19:31 | Outpatient (REF) | payer OTHER, SELFPAY | END 2018-05-23 19:51 | LOC: LBN 19:31 | PROVIDERS: PCP Family Medicine; Visit Provider Family Medicine | DX: J06.9 Acute upper respiratory infection, unspecified (principal) | CPT/HCPCS: 87449 ==

== ENCOUNTER 2018-05-28 07:33 | Emergency (ER) | payer OTHER, SELFPAY ==
[2018-05-28 07:40] VITALS: BP 166/103; PULSE 85; RESP 16; TEMP 36.5; O2SAT 97
--- NOTE | 2018-05-28 13:12 | ED.GENADUL_ITS ---
Discharge Plan Disposition Patient Disposition: HOME Condition: Stable Discharge Details Chief Complaint: Sorethroat Clinical Impression: Sialadenitis Primary Care Provider: Susie Keating ED Provider: Fidel Otero Home Meds and New Rx's Prescriptions: No Action prednisone 20 mg tablet See Rx Instructions PO DAILY Qty: 11 RF: 0 metformin [Glucophage] 1,000 mg tablet 1,000 mg PO BID Qty: 180 RF: 4 Januvia 100 mg tablet 100 mg PO DAILY Qty: 90 RF: 12 cyanocobalamin (vitamin B-12) [Vitamin B-12] 1,000 mcg tablet 500 mcg PO DAILY Qty: 90 RF: 12 gabapentin [Neurontin] 300 mg capsule 300 mg PO TID Qty: 90 RF: 12 albuterol sulfate [ProAir HFA] 8.5 GM HFA aerosol inhaler 1 - 2 puff Inhalation Q4H PRN Qty: 3 RF: 12 pen needle, diabetic [Ultra-Thin II Ins Pen [place]] 29 gauge x 1/2 needle .ROUTE .MEDSUPPLY Qty: 100 RF: 6 OneTouch Ultra Blue Test Strip strip .ROUTE .MEDSUPPLY Qty: 400 RF: 5 omeprazole 40 mg capsule,delayed release(DR/EC) 40 mg PO BID Qty: 180 RF: 12 Novolog Flexpen U-100 Insulin 100 unit/mL insulin pen 60 unit subcut AC Qty: 60 RF: 3 potassium chloride 10 mEq capsule, extended release 10 meq PO DAILY Qty: 90 RF: 12 atenolol 100 mg tablet 100 mg PO DAILY Qty: 90 RF: 12 Jardiance 25 mg tablet 25 mg PO DAILY Qty: 90 RF: 11 atorvastatin 40 mg tablet 40 mg PO DAILY Qty: 90 RF: 12 lisinopril 40 mg tablet 40 mg PO DAILY Qty: 90 RF: 12 aspirin 81 MG tablet,chewable 81 mg PO DAILY RF: 0 Lantus Solostar U-100 Insulin 100 UNIT/1 ML insulin pen 38 unit SQ BID RF: 0 Discharge Instructions Additional Instructions: 1. Drink plenty of fluids. 2. Continue all medications as prescribed. 3. Acetaminophen 1000mg every 4 hours (up to 5 time a day) and/or ibuprofen 600mg every 6 hours as needed for fever or pain. 4. Use sour candies 5. Frequent warm compresses. Return to the Emergency Department (ED) if your condition worsens, does not improve as expected, or for ANY other concerns. Specifically, return if you have new or uncontrolled pain, worsening fever, difficulty breathing, vomiting, or are unable to drink fluids. Referrals: ENT,[facility] [OTHER] - Medical Decision Making 58-year-old who presents with worsening right submandibular swelling, pain, and tenderness over the past few days. Onset associated with a viral syndrome. Of note, swelling feels subjectively improved from earlier in the morning. Exam is significant for local submandibular fullness and tenderness consistent with sialadenitis. Bedside ultrasound diagnostic for glandular hyperplasia with no evidence of abscess. Discussed likely diagnosis being viral in nature versus bacterial, especially in the setting of improved symptoms of swelling and discomfort since onset. Discharged with plan for OTC analgesia, sour lemon candies, warm compresses, and ENT follow-up. Pt evaluated immediately prior to discharge with improved symptoms, normal vital signs, and tolerating PO. The patient feels appropriate for discharge home. Discussed clinical/diagnostic findings. Discharged with a clear plan for outpatient follow up. Given usual and customary return instructions prior to discharge. Medical Records Medical records reviewed: Yes I reviewed the patient's medical records. Imaging Data Radiologic Study: Attestation: I personally reviewed and interpreted this imaging study as follows: Imaging: Ultrasound (Bedside soft tissue) My impression: Limited soft tissue bedside Ultrasound. Findings include submandibular glandular hyperplasia. Images obtained, reviewed, and interpreted independently by myself. Images saved on ultrasound system for review. HPI Is a 8-year-old gent with a past medical history which includes IDDM, asthma, MADDIE, arthritis, and hypertension. Recently diagnosed with the flu and had generalized flulike symptoms. These have improved. However he has noted increased discomfort and swelling in his right submandibular region. Denies a significant soft tissue swelling of his oral tissues or difficulty swallowing. Denies fever/chills, dyspnea, palpitations, or chest pressure. He has had no recent trauma. General Date/Time Provider Initiated Documentation: 05/28/18 09:10 . Related Data Home Medications Medication Instructions Recorded Confirmed aspirin 81 mg PO DAILY 02/19/17 05/28/18 albuterol sulfate [ProAir HFA] 1 - 2 puff INHALATION Q4H PRN #3 06/08/17 05/28/18 inhaler Lantus Solostar U-100 Insulin 38 unit SQ BID 11/12/17 05/28/18 cyanocobalamin (vit B-12) 1,000 500 mcg PO DAILY #90 tab 12/09/17 05/28/18 mcg tablet metformin 1,000 mg tablet 1,000 mg PO BID #180 tab-cap 12/09/17 05/28/18 sitagliptin 100 mg tablet 100 mg PO DAILY #90 tab-cap 12/09/17 05/28/18 blood sugar diagnostic strips #400 each 02/14/18 05/23/18 pen needle, diabetic 29 gauge x #100 each 02/14/18 05/23/18 1/2 insulin aspart U- 100 100 unit/mL 60 unit SUBCUT AC #60 ml 02/17/18 05/28/18 subcutaneous pen omeprazole 40 mg capsule,delayed 40 mg PO BID #180 tab-cap 02/17/18 05/28/18 release potassium chloride ER 10 mEq 10 meq PO DAILY #90 tab-cap 02/17/18 05/28/18 capsule,extended release atenolol 100 mg tablet 100 mg PO DAILY #90 tab-cap 03/03/18 05/28/18 atorvastatin 40 mg tablet 40 mg PO DAILY #90 tab-cap 03/03/18 05/28/18 empagliflozin 25 mg tablet 25 mg PO DAILY #90 tab 03/03/18 05/28/18 lisinopril 40 mg tablet 40 mg PO DAILY #90 tab-cap 03/03/18 05/28/18 gabapentin 300 mg capsule 300 mg PO TID #90 tab-cap 03/22/18 05/28/18 prednisone 20 mg tablet See Rx Instructions PO DAILY #11 05/23/18 05/28/18 tab Previous Rx's Medication Instructions Recorded albuterol sulfate [ProAir HFA] 1 - 2 puff INHALATION Q4H PRN #3 06/08/17 inhaler cyanocobalamin (vit B-12) 1,000 500 mcg PO DAILY #90 tab 12/09/17 mcg tablet metformin 1,000 mg tablet 1,000 mg PO BID #180 tab-cap 12/09/17 sitagliptin 100 mg tablet 100 mg PO DAILY #90 tab-cap 12/09/17 blood sugar diagnostic strips #400 each 02/14/18 pen needle, diabetic 29 gauge x #100 each 12/31/18 1/2 insulin aspart U- 100 100 unit/mL 60 unit SUBCUT AC #60 ml 02/17/18 subcutaneous pen omeprazole 40 mg capsule,delayed 40 mg PO BID #180 tab-cap 02/17/18 release potassium chloride ER 10 mEq 10 meq PO DAILY #90 tab-cap 02/17/18 capsule,extended release atenolol 100 mg tablet 100 mg PO DAILY #90 tab-cap 03/03/18 atorvastatin 40 mg tablet 40 mg PO DAILY #90 tab-cap 03/03/18 empagliflozin 25 mg tablet 25 mg PO DAILY #90 tab 03/03/18 lisinopril 40 mg tablet 40 mg PO DAILY #90 tab-cap 03/03/18 gabapentin 300 mg capsule 300 mg PO TID #90 tab-cap 03/22/18 prednisone 20 mg tablet See Rx Instructions PO DAILY #11 05/23/18 tab Allergies Allergy/AdvReac Type Severity Reaction Status Date / Time tiotropium bromide Allergy Severe PT STATES Verified 05/28/18 07:45 [From Spiriva with SPIRIVA [employer]] CAUSED CHEST PAINS cyclobenzaprine AdvReac Severe DRY MOUTH Verified 05/28/18 07:45 General Stated Complaint: Sorethroat JOSE: 3 Review of Systems Review of Systems All systems reviewed & are unremarkable except as noted in HPI and below PFSH Medical History Diabetic retinopathy (Chronic ~11/30/17) Ulcer of foot (Chronic 03/30/17) Tubular adenoma (Chronic 04/01/17) Sebaceous cyst (Chronic 03/19/14) Persistent testicular pain (Chronic) Partial edentulism, unspecified (Chronic) Lumbar radiculopathy (Chronic 06/25/14) Increased body mass index (Chronic) Hyperlipidemia (Chronic 09/06/12) Foot callus (Chronic 01/14/15) Essential hypertension (Chronic 11/08/12) Diabetic neuropathy (Chronic 12/06/12) Diabetic nephropathy associated with type 2 diabetes mellitus (Chronic 03/19/14) Degeneration of cervical intervertebral disc (Chronic) Carpal tunnel syndrome (Resolved) Barretts esophagus (Chronic) Balance disorder (Chronic 06/24/15) Asthma (Chronic) Cyanocobalamin deficiency (Resolved 10/13/10) Asthma Barretts esophagus Diabetes mellitus type II, uncontrolled Diabetic neuropathy associated with diabetes mellitus due to underlying condition Essential hypertension History of colon polyps Hyperlipidemia Surgical History Colonoscopy - IV Sedation (04/15/10) EGD - IV Sedation MULTIPLE NECK OPERATIONS Open Carpal Tunnel release TITANIUM PLATE PUT IN Tonsillectomy Vasectomy Family History Mother Chronic type B viral hepatitis Diabetes Depression Hyperlipidemia Father Chronic type B viral hepatitis Cancer Diabetes Hypertension Hyperlipidemia Sister Heart disease Brother Alcohol abuse Depression Hypertension Heart disease Hyperlipidemia Substance abuse Brother No problems noted. Daughter Depression Daughter Depression Social History Smoking/Tobacco Use Status: Former Tobacco Use Quit Date: 02/15/13 Second Hand Exposure: Yes Alcohol Intake: current Alcohol Intake frequency: a few times a month Alcohol type: hard liquor Drug use: Occasionally Substance use type: marijuana Household members: spouse Pets and animals: No Duration: 15-30 minutes/day Frequency: 1-2 times per week Ara/Zoroastrianism: No preference Special ara needs: No Do you feel safe at home: Yes Do you feel safe in your relationship?: Yes Exam Narrative Exam Narrative: Nursing note and vital signs have been reviewed and noted. GENERAL: alert, active, no acute distress, well -hydrated, well-nourished HEENT: atraumatic/normocephalic, PERRLA, EOMI, conjunctiva clear, external ears/canals normal, nasal mucosa normal; tender mass palpable right submandibular region consistent with sialadenitis. NECK: supple, full range of motion CARDIOVASCULAR: nl pulses, no edema PULMONARY: nl effort, no audible wheezing or stridor ABDOMEN: non-distended EXTREMITY: normal muscle tone, all joints with FROM, no deformity NUERO: normal mentation, moving all extremities, normal stance and gait, PSYCH: alert and oriented SKIN: no new rashes or lesions Course Vital Signs Temperature 97.7 F 05/28/18 07:40 Pulse 85 05/28/18 07:40 Respiratory Rate 16 05/28/18 07:40 Blood Pressure 166/103 H 05/28/18 07:40 Pulse Oximetry 97 05/28/18 07:40 Temperature 97.7 F 05/28/18 07:40 Temperature Source Temporal Artery Scan 05/28/18 07:40 Pulse 85 05/28/18 07:40 Respiratory Rate 16 05/28/18 07:40 Respiratory Effort Non-Labored 05/28/18 07:43 Blood Pressure 166/103 H 05/28/18 07:40 Blood Pressure Position Sitting 05/28/18 07:40 Pulse Oximetry 97 05/28/18 07:40 Oxygen Delivery Method Room Air 05/28/18 07:40 Oxygen Flow Rate 0 05/28/18 07:40 Pain Level 5 05/28/18 09:30
--- NOTE | 2018-05-30 09:45 | NUR.NOTE ---
Nursing Note: Faxed tp ENT the referral and the MD note for follow up. Cierra Brown.
== END 2018-05-28 09:29 | disposition home or self-care (01) ==
PROVIDERS: Emergency Provider Emergency Medicine; PCP Family Medicine
DX: K11.21 Acute sialoadenitis (principal); I10 Essential (primary) hypertension
CPT/HCPCS: 99284

== ENCOUNTER 2018-07-18 05:39 | Outpatient (CLI) | payer OTHER, SELFPAY ==
[2018-07-18 07:53] LABS: Hemoglobin A1C 8.7 % (4.5-6.2)
== END 2018-07-18 05:59 ==
PROVIDERS: PCP Family Medicine; Visit Provider Family Medicine
DX: E11.21 Type 2 diabetes mellitus with diabetic nephropathy (principal)
CPT/HCPCS: 36415; 83036

== ENCOUNTER 2018-07-21 10:44 | Outpatient (REF) | payer OTHER, SELFPAY ==
--- NOTE | 2018-07-21 09:30 | SKI_PTH ---
PATIENT: Reji Krishnamurthy LOC: [facility] U#:[id number] AGE/SX: 58/M ROOM: RE07/21/[address]: Susie Keating MD, DC : 1960 BED: DIS: 07/21/2018 SPEC #: [id number] RECD: 07/21/18 12:30 STATUS: OFELIA REQ #: [id number] SHAYY: 07/21/18 09:[address]: Susie Keating DEPT: Surgical Specimen RECD BY: Yaima Mejía Tissues: 1 - SKIN BIOPSY(SHAVE/PUNCH) Procedures: SKIN LEVEL 4 Comments: [id number]
== END 2018-07-21 11:04 ==
LOC: LBN 10:44
PROVIDERS: PCP Family Medicine; Visit Provider Family Medicine
DX: D18.01 Hemangioma of skin and subcutaneous tissue (principal)
CPT/HCPCS: 88305

== ENCOUNTER 2018-07-29 09:06 | Day surgery (SDC) | payer OTHER, SELFPAY ==
[2018-07-29 09:20] VITALS: BP 121/73; PULSE 79; RESP 18; TEMP 37; O2SAT 95
--- NOTE | 2018-07-29 10:49 | SKI_PTH ---
PATIENT: Reji Krishnamurthy LOC: [facility] U#:[id number] AGE/SX: 58/M ROOM: RE07/29/[address]: Haley Greene : 1960 BED: DIS: 07/29/2018 SPEC #: [id number] RECD: 07/29/18 12:10 STATUS: OFELIA REQ #: [id number] SHAYY: 07/29/18 10:[address]: Haley Greene DEPT: Surgical Specimen RECD BY: Yaima Mejía ENTERED: 07/29/18 12:11 SP TYPE: NAKIA ALBA DR: Susie Keating MD, DC Tissues: 1 - SKIN CYST/TAG/DEBRIDEMENT Procedures: SKIN BIOPSY LEVEL 3 Comments: [id number]
--- NOTE | 2018-07-29 11:09 | W.PM.DSUDISC ---
Discharge Plan Disposition Patient Disposition: HOME Condition: Good Discharge Details Reason For Visit: excision cyst Attending Provider: Haley Greene Primary Care Provider: Susie Keating Home Meds and New Rx's Prescriptions: No Action gabapentin [Neurontin] 300 mg capsule 300 mg PO BID RF: 0 metformin [Glucophage] 1,000 mg tablet 1,000 mg PO BID Qty: 180 RF: 4 Januvia 100 mg tablet 100 mg PO DAILY Qty: 90 RF: 12 cyanocobalamin (vitamin B-12) [Vitamin B-12] 1,000 mcg tablet 500 mcg PO DAILY Qty: 90 RF: 12 Novolog Flexpen U-100 Insulin 100 unit/mL insulin pen 60 unit subcut AC RF: 0 doxycycline hyclate 100 mg capsule 100 mg PO BID Qty: 14 RF: 0 albuterol sulfate [ProAir HFA] 8.5 GM HFA aerosol inhaler 1 - 2 puff Inhalation Q4H PRN Qty: 3 RF: 12 EnovexTouch Ultra Blue Test Strip strip .ROUTE .MEDSUPPLY Qty: 400 RF: 5 omeprazole 40 mg capsule,delayed release(DR/EC) 40 mg PO BID Qty: 180 RF: 12 potassium chloride 10 mEq capsule, extended release 10 meq PO DAILY Qty: 90 RF: 12 atenolol 100 mg tablet 100 mg PO DAILY Qty: 90 RF: 12 Jardiance 25 mg tablet 25 mg PO DAILY Qty: 90 RF: 11 atorvastatin 40 mg tablet 40 mg PO DAILY Qty: 90 RF: 12 lisinopril 40 mg tablet 40 mg PO DAILY Qty: 90 RF: 12 pen needle, diabetic [Ultra-Thin II Ins Pen [place]] 29 gauge x 1/2 needle .ROUTE .MEDSUPPLY Qty: 100 RF: 6 Lantus Solostar U-100 Insulin 100 unit/mL (3 mL) insulin pen 38 unit subcut BID Qty: 60 RF: 7 aspirin 81 MG tablet,chewable 81 mg PO DAILY RF: 0 Discharge Instructions Additional Instructions: Caring for Your Incision You?ll need to help care for your incision after surgery and certain medical procedures. To close an incision, your healthcare provider used stitches (sutures), special strips of surgical tape called Steri-Strips, surgical debra, or surgical skin glue. Follow the tips on this sheet to help stop bleeding, speed healing, and prevent infection of your incision. Pain Control Use ice! Ice keeps the swelling down and swelling is what causes pain. Never apply ice directly to the skin. Wrap it in a towel or cloth. Apply ice 20 minutes on and 20 minutes off for pain control. Use as needed. Take tylenol 325 mg by mouth with food every 4 hours as needed for pain. Or ibuprofen 400 mg by mouth with food every 4 hours as needed for pain. Do not take tylenol if you have a history of heavy drinking , hepatits C or liver problems. Do not take ibuprofen if you have a history of stomach ulcers/problems, bleeding problem or kidney issues. Types of incision closures - Surgical stitches (sutures) are placed by sewing the edges of an incision together with surgical thread. Sutures are either absorbable or non-absorbable. Absorbable sutures break down in the body over time. Non-absorbable sutures need to be removed. Home care - Always wash your hands before touching your incision. -Keep the incision clean, dry, and out of water, keep the incision out of water. -Do not to pick at the scabs. Scabs help protect the wound. -You can take a shower in 24 hours and wash the incision with soap and water. Pat dry/don?t scrub. It?s OK to wash around the incision. But don?t spray water directly on it. -Pat stitches dry if they get wet. Don't rub. -Check the incision site daily for pain, redness, drainage, swelling, or separation of the incision edges. -If there is a bandage (dressing) over the incision, change this every 24 hours as instructed by your provider. Using clean hands change the dressing as directed by your healthcare provider. Always wash your hands before changing your dressing. -Make sure any clothing that touches the incision is loose-fitting. This will prevent rubbing. If the incision is on the head, keep your child from wearing caps or other head coverings. These may rub against the incision. -Try to avoid from rough play, contact sports, or physical activities for two weeks. This can put you at risk of opening the incision. -Make sure you avoid doing things that could cause dirt or sweat to get in or on the incision. As your incision heals, the skin may appear pink or red. It may also feel slightly bumpy or raised. This is called a healing ridge. Over time, the color should fade and the raised skin will become less noticeable. Care for specific closures -Sutures or debra. Once you no longer need to keep these dry, clean the incision or wound daily, generally after the first 24 hours. First remove the bandage using clean hands. Then wash the area gently with soap and warm water. Use a wet cotton swab to loosen and remove any blood or crust that forms. After cleaning, put a thin layer of antibiotic ointment on. Then put on a new bandage. Follow-up care [place] or sutures generally need to be removed in 7-10 days. 5 days for the face. Be sure to return for suture or staple removal as directed. If dissolving stitches were used in your mouth, these will not need to be removed. They should fall out or dissolve on their own. If tape closures were used, remove them yourself when your healthcare provider tells you to if they have not fallen off on their own. When to seek medical care Call your healthcare provider right away if you have any of these: - More pain, redness, swelling, bleeding, or foul-smelling discharge around the incision area - Fever of 101?F (38.3?C) or higher, or as directed by your child's healthcare provider - Shaking chills - Vomiting or nausea that doesn?t go away - Numbness, coldness, or tingling around the incision area, or changes in skin color - Opening of the sutures or wound Stitches or debra come apart or fall out or surgical tape falls off before 7 days, or as directed by your healthcare provider Activity:: no strenuous activity or heavy lifintg x 72 hrs Remove Dressings/Wound Care:: 24 hours Shower/Bathe:: 24 hours Diet:: Carb Counting DS: Diagnosis Discharge Diagnosis (1) Sebaceous cyst of scrotum: Status: Acute
--- NOTE | 2018-07-29 11:23 | ROE_ITS ---
Date of service: 07/29/18 Time of Service: 11:21 Operative Note DATE OF PROCEDURE: 07/29/18 PRE-OP DIAGNOSIS: infected danielle cysts x2 POST-OP DIAGNOSIS: same PROCEDURE: excision of cycsts x2 SURGEON: Haley Greene ANESTHESIA: local ESTIMATED BLOOD LOSS: 5 PATHOLOGY: other COMPLICATIONS: None Patient was transported to: same day Patient's condition: stable Indications: infection Procedure Description: Procedure Name Lesion Removal: danielle cyst x2 infected PMx, PSx, and social Hx are reviewed and updated in [facility] . Indication The patient is seen at the request of the PCP. The pt presents for lesion removal. We have discussed this procedure, including option of not performing surgery, technique of surgery and potential for bleeding/infection/scarring/need for removal of more tissue and post-procedural care. Patient is able to do post procedural dressing changes and understands what is expected. OBJECTIVE: Patient appears well. Vitals are normal. The patient has no allergies to lidocaine or suture material. The patient not on any blood thinners. Informed consent was obtained prior to beginning the procedure. The area was marked and doubled checked/ID?ed with the pt. PAUSE for the CAUSE completed. The risks of lesion removal include but are not limited to: bleeding, infection, scarring, reoccurrence, and the need for removal of more tissue, and complications of anesthesia. Location ASSESSMENT: The lesion is _Cm in size. Differential diagnosis includes:_ Location: LEFT post mid upper thigh and posterior scrotume- each is 1cm Procedural Sedation .25% Marcaine _20cc Technique Patient appears well. Vitals are normal. The patient has no allergies to marcaine or suture material. The patient not on any blood thinners. THe pt has no hostory of keloids or problems with healing in the past. Skin: see HPI Informed consent was obtained prior to beginning the procedure. The area was marked and doubled checked/ID?ed with the pt. PAUSE for the CAUSE completed. The risks of lesion removal include but are not limited to: bleeding, infection, scarring, reoccurrence, and the need for removal of more tissue, and complications of anesthesia. After informed consent was obtained, using Chloroprep for cleansing and 1% Buffered Lidocaine for anesthetic; using sterile technique, PROCEDURE: excision of infect ed sebaceous cyst was performed. The lesion is _1cm in sizex2 . The incision was 1.5_Cm long x2. An Antibiotic salve and sterile dressing is applied, and wound care instructions provided. The procedure was well tolerated without complications. The scrotum was closed w/ vicryl adn should fall out, Plan: The patient will follow up in 10 days for suture removal (the wound on the leg was closed w/ prolene adn this will need to be removed) and review of pathology. If there is any bleeding/redness/drainage/swelling/pain or tenderness- call the clinic. Patient was given instructions in wound care, acivity, warning signs, appointment for follow up. If the patient has any questions or concerns, should call our clinic or go to ER/urgent care after hours. Patient expressed understanding in directions for care and was given a written copy of instructions. Rx=none Pt tolerated the procedure well without complications Patient was given instruction in activity restrictions, wound care and dressing changes. Medication usage, diet, warning signs to look for (and what to do if they occur), and an appointment for follow-up. see SDU d/c summary
== END 2018-07-29 11:40 | disposition home or self-care (01) ==
PROVIDERS: PCP Family Medicine; Visit Provider Surgery
PROC: (CPT 11422; principal; 2018-07-29 10:00)
DX: L72.3 Sebaceous cyst (principal); E11.22 Type 2 diabetes mellitus with diabetic chronic kidney disease; E11.42 Type 2 diabetes mellitus with diabetic polyneuropathy
CPT/HCPCS: 11422; 11402; 88304; 88305

== ENCOUNTER 2018-09-14 09:20 | Emergency (ER) | payer OTHER, SELFPAY ==
[2018-09-14 09:24] VITALS: BP 131/90; PULSE 80; RESP 16; TEMP 36.8; O2SAT 100
--- NOTE | 2018-09-14 09:24 | ED.GENADUL_ITS ---
Discharge Plan Disposition Patient Disposition: HOME Condition: Good Discharge Details Chief Complaint: Orthopedic Clinical Impression: Trapezius muscle spasm, Contusion of knee, Acute neck pain Primary Care Provider: Susie Keating ED Provider: Dotty Pollard Home Meds and New Rx's Prescriptions: New diazepam [Valium] 5 mg tablet 5 mg PO TID PRN (Reason: muscle spasm) Qty: 7 RF: 0 Continued gabapentin [Neurontin] 300 mg capsule 300 mg PO BID RF: 0 metformin [Glucophage] 1,000 mg tablet 1,000 mg PO BID Qty: 180 RF: 4 Januvia 100 mg tablet 100 mg PO DAILY Qty: 90 RF: 12 cyanocobalamin (vitamin B-12) [Vitamin B-12] 1,000 mcg tablet 500 mcg PO DAILY Qty: 90 RF: 12 albuterol sulfate [ProAir HFA] 8.5 GM HFA aerosol inhaler 1 - 2 puff Inhalation Q4H PRN Qty: 3 RF: 12 (DME) OneTouch Ultra Blue Test Strip strip See Dose Instructions .ROUTE .MEDSUPPLY Qty: 400 RF: 5 omeprazole 40 mg capsule,delayed release(DR/EC) 40 mg PO BID Qty: 180 RF: 12 potassium chloride 10 mEq capsule, extended release 10 meq PO DAILY Qty: 90 RF: 12 atenolol 100 mg tablet 100 mg PO DAILY Qty: 90 RF: 12 Jardiance 25 mg tablet 25 mg PO DAILY Qty: 90 RF: 11 atorvastatin 40 mg tablet 40 mg PO DAILY Qty: 90 RF: 12 lisinopril 40 mg tablet 40 mg PO DAILY Qty: 90 RF: 12 (DME) pen needle, diabetic [Ultra-Thin II Ins Pen [place]] 29 gauge x 1/2 needle See Dose Instructions .ROUTE .MEDSUPPLY Qty: 100 RF: 6 Lantus Solostar U-100 Insulin 100 unit/mL (3 mL) insulin pen 38 unit subcut BID Qty: 60 RF: 7 Novolog Flexpen U-100 Insulin 100 unit/mL insulin pen 60 unit subcut AC Qty: 60 RF: 4 aspirin 81 MG tablet,chewable 81 mg PO DAILY RF: 0 Discharge Instructions Instructions: Contusion in Adults (ED), Muscle Spasm (ED), Neck Pain (ED) Additional Instructions: Encourage hydration. Tylenol and ibuprofen as needed for discomfort. You may try topical options to help with the discomfort such as Salonpas or Lidoderm patches. He may use Valium as needed to help with muscle spasm of the neck. Please encourage gentle stretching and frequent ambulation. In regard to the right knee, encourage rest, ice, elevation. You may continue the Jose A wrap to help with compression and stability. Please follow-up with primary care in 1 week for reevaluation if symptoms persist. If you develop weakness, increased pain, sensation changes, fever/chills or other new/worsening symptoms please seek care urgently once again. Referrals: Susie Keating MD, [place] [Primary Care Provider] - Discharge Data Discharge Date/Time-TO BE ENTERED AT DEPARTURE: 09/14/18 10:38 Medical Decision Making Patient is a 58 year old male with complicated past medical history presenting today with c/c of bilateral knee and neck pain. Fell out of bed last night and landed on hands and knees. No LOC, did not strike his head. Was able to ambulate immediately after. No visual changes, no weakness, no sensory deficits. States initially he had no pain but now has severe neck and right knee pain. Knee is without visual or palpable deformity on exam. Ligamentously intact. Full ROM. No effusion. He is point tender over the patella. Will obtain XR to evaluate for possible fx of patella. Patietn able to straight leg raise. Patient is also endorsing severe neck pain, worse on the left side. Patient has had multiple surgeries in the past, unclear as to what surgeries does not have been. States that his pain is largely improved after his last surgery. No midline tenderness. Limited ROM, particularly with extension, unclear if this is new or from previous injuries. Neuro exam is intact. Trauma exam is otherwise benign Spoke with the radiologist regarding patient's imaging. Advised that the C5-C6 fusion appears unchanged, no acute fracture or bony abnormality. The x-rays of the right knee show degenerative changes but no acute fracture dislocation. Discussed these findings with the patient. We will place the patient right knee. Encourage rest, ice, elevation. Tylenol and ibuprofen for discomfort. In regard to the neck pain, he does have pain running along the trapezius with associated with tightness. I feel that he is likely suffering muscle spasm. Will prescribe muscle relaxant to help with symptomatic management. I advised him to follow-up with his primary care within the next week for reevaluation if symptoms persist. He was given strict return precautions. All his questions and concerns were addressed this plan. Patient was advised not to drive while taking the Valium. Reports he takes the bus. HPI General Mode of arrival: ambulatory . Date/Time Provider Initiated Documentation: 09/14/18 09:23 . Limitations to Documentation: no limitations . Information obtained by: patient and RN notes reviewed . HPI Narrative: Patient is a 58-year-old male, extensive past medical history, with chief complaint of bilateral knee and neck pain after fall last night. He reports that he fell out of bed and awoke on his hands and knees next to his bed. States that he did not go for furniture at the time that he felt. States that immediately he was not endorsing any discomfort, was able to get up, ambulate about the house and go back to bed. However, when he woke normal time this morning, he noted severe bilateral knee pain, worse in the right than the left and neck pain. Patient has had surgery in the neck historically x3. Was not having any neck pain since most recent surgical intervention. Denies striking his head, no loss of consciousness. No headache. Denies other injuries from the incident. Patient is not on any anticoagulants. He has not had surgery in these historically per Related Data Home Medications Medication Instructions Recorded Confirmed aspirin 81 mg PO DAILY 02/19/17 09/14/18 albuterol sulfate [ProAir HFA] 1 - 2 puff INHALATION Q4H PRN #3 06/08/17 09/14/18 inhaler cyanocobalamin (vitamin B-12) 500 mcg PO DAILY #90 tab 12/09/17 09/14/18 1,000 mcg tablet metformin 1,000 mg tablet 1,000 mg PO BID #180 tab-cap 12/09/17 09/14/18 sitagliptin 100 mg tablet 100 mg PO DAILY #90 tab-cap 12/09/17 09/14/18 blood sugar diagnostic #400 each 02/14/18 08/02/18 omeprazole 40 mg capsule,delayed 40 mg PO BID #180 tab-cap 02/17/18 09/14/18 release potassium chloride 10 mEq 10 meq PO DAILY #90 tab-cap 02/17/18 09/14/18 capsule,extended release atenolol 100 mg tablet 100 mg PO DAILY #90 tab-cap 03/03/18 09/14/18 atorvastatin 40 mg tablet 40 mg PO DAILY #90 tab-cap 03/03/18 09/14/18 empagliflozin 25 mg tablet 25 mg PO DAILY #90 tab 03/03/18 09/14/18 lisinopril 40 mg tablet 40 mg PO DAILY #90 tab-cap 03/03/18 09/14/18 gabapentin 300 mg capsule 300 mg PO BID tab-cap 05/31/18 09/14/18 pen needle, diabetic 29 gauge x #100 each 06/07/18 08/02/18 1/2 insulin glargine 100 unit/mL (3 38 unit SUBCUT BID #60 ml 07/03/18 09/14/18 mL) subcutaneous pen insulin aspart U-100 100 unit/mL 60 unit SUBCUT AC #60 ml 08/04/18 09/14/18 (3 mL) subcutaneous pen diazepam [Valium] 5 mg PO TID PRN #7 tab 09/14/18 Previous Rx's Medication Instructions Recorded albuterol sulfate [ProAir HFA] 1 - 2 puff INHALATION Q4H PRN #3 06/08/17 inhaler cyanocobalamin (vitamin B-12) 500 mcg PO DAILY #90 tab 12/09/17 1,000 mcg tablet metformin 1,000 mg tablet 1,000 mg PO BID #180 tab-cap 12/09/17 sitagliptin 100 mg tablet 100 mg PO DAILY #90 tab-cap 12/09/17 blood sugar diagnostic #400 each 02/14/18 omeprazole 40 mg capsule,delayed 40 mg PO BID #180 tab-cap 02/17/18 release potassium chloride 10 mEq 10 meq PO DAILY #90 tab-cap 02/17/18 capsule,extended release atenolol 100 mg tablet 100 mg PO DAILY #90 tab-cap 03/03/18 atorvastatin 40 mg tablet 40 mg PO DAILY #90 tab-cap 03/03/18 empagliflozin 25 mg tablet 25 mg PO DAILY #90 tab 03/03/18 lisinopril 40 mg tablet 40 mg PO DAILY #90 tab-cap 03/03/18 pen needle, diabetic 29 gauge x #100 each 06/07/18 1/2 insulin glargine 100 unit/mL (3 38 unit SUBCUT BID #60 ml 07/03/18 mL) subcutaneous pen insulin aspart U-100 100 unit/mL 60 unit SUBCUT AC #60 ml 08/04/18 (3 mL) subcutaneous pen diazepam [Valium] 5 mg PO TID PRN #7 tab 09/14/18 Allergies Allergy/AdvReac Type Severity Reaction Status Date / Time tiotropium bromide Allergy Severe PT STATES Verified 08/08/18 15:10 [From Spiriva with SPIRIVA [facility]] CAUSED CHEST PAINS cyclobenzaprine AdvReac Severe DRY MOUTH Verified 08/08/18 15:10 General JOSE: 3 Review of Systems Constitutional Reports as per HPI, Denies chills, Denies fatigue, Denies fever(s), Denies headache(s) and Denies weakness Eyes Reports as per HPI, Denies blurry vision, Denies change in vision and Denies loss of vision ENT Denies abnormal hearing, Denies headache(s) and Reports neck pain Cardiovascular Reports as per HPI, Denies chest pain and Denies dyspnea Respiratory Reports as per HPI, Denies cough, Denies pain on inspiration, Denies pain with cough and Denies dyspnea Gastrointestinal Reports as per HPI, Denies abdominal pain, Denies nausea and Denies vomiting Genitourinary Reports as per HPI and Denies urinary incontinence Musculoskeletal Reports as per HPI, Denies abnormal gait, Reports back pain (chronic back pain), Reports arthralgias (bilateral knees), Denies joint swelling, Denies limited range of motion and Reports neck pain Integumentary/Breasts Reports as per HPI and Denies rash Neurologic Reports as per HPI, Denies abnormal hearing, Denies abnormal movements, Denies abnormal speech, Denies abnormal gait, Denies headache(s), Denies lack of sports medicine coordinator rdination, Denies focal weakness, Denies loss of vision, Denies seizure-like activity, Denies paresthesias and Denies weakness Endocrine Denies fatigue [facility] Medical History Asthma Asthma (Chronic) Balance disorder (Chronic 06/24/15) Barretts esophagus Barretts esophagus (Chronic) Carpal tunnel syndrome (Resolved) Cyanocobalamin deficiency (Resolved 10/13/10) Degeneration of cervical intervertebral disc (Chronic) Diabetes mellitus type II, uncontrolled Diabetic nephropathy associated with type 2 diabetes mellitus (Chronic 03/19/14) Diabetic neuropathy (Chronic 12/06/12) Diabetic neuropathy associated with diabetes mellitus due to underlying condition Diabetic retinopathy (Chronic ~11/30/17) Essential hypertension Essential hypertension (Chronic 11/08/12) Foot callus (Chronic 01/14/15) History of colon polyps Hyperlipidemia Hyperlipidemia (Chronic 09/06/12) Increased body mass index (Chronic) Lumbar radiculopathy (Chronic 06/25/14) Partial edentulism, unspecified (Chronic) Persistent testicular pain (Chronic) Sebaceous cyst (Chronic 03/19/14) Sebaceous cyst of scrotum (Acute) Tubular adenoma (Chronic 04/01/17) Ulcer of foot (Chronic 03/30/17) Surgical History Colonoscopy - IV Sedation (04/15/10) EGD - IV Sedation MULTIPLE NECK OPERATIONS Open Carpal Tunnel release TITANIUM PLATE PUT IN Tonsillectomy Vasectomy Social History Smoking/Tobacco Use Status: Never Second Hand Exposure: Yes Alcohol Intake: current Alcohol Intake frequency: a few times a month Alcohol type: hard liquor Drug use: Occasionally Substance use type: marijuana Household members: spouse Pets and animals: No Duration: 15-30 minutes/day Frequency: 1-2 times per week Ara/Anglican: No preference Special ara needs: No Do you feel safe at home: Yes Do you feel safe in your relationship?: Yes Exam Const General: cooperative, healthy appearing, comfortable, no acute distress, well developed and well groomed Nutritional Appearance: well nourished and obese Orientation: alert, awake and oriented x3 HENMT Head: normal to inspection, no palpable skull fracture, normocephalic and atraumatic Ears: hearing grossly normal bilaterally, external ears normal and TM's normal bilaterally General nose exam: external nose normal Mouth: oral mucosae normal, lip normal, tongue normal and No moist mucous membranes abnormal (patient appears dry) Throat: posterior oropharynx normal Eyes General: appearance normal, both eyes and all related structures Visual Mathew: normal visual mathew by confrontation Alignment and Position: alignment normal Periorbital: periorbital findings normal Eyelids: eyelids normal Conjunctivae: conjunctivae normal Pupils: PERRL EOM: EOM intact bilaterally Neck Neck: no lymphadenopathy, no meningeal signs, trachea midline and supple Chest Chest: normal inspection of the chest, normal palpation of entire chest wall, no crepitus and no localized rib tenderness Resp Effort & Inspection: normal respiratory effort, able to speak in complete sentences and no respiratory distress Auscultation: clear to auscultation bilaterally, no rales, no rhonchi and no wheezes Cardio Rate: regular rate Rhythm: regular rhythm Heart Sounds: S1 normal and S2 normal GI Inspection: normal to inspection, no abdominal wall ecchymosis, no edema, non- distended and obesity Palpation: soft, no hepatosplenomegaly, not firm, no guarding, no pulsatile masses, not rigid and nontender Auscultation: normal bowel sounds Back/Spine/Pelvis Back: no CVA tenderness Cervical Spine: loss of normal cervical lordosis, scars present (midline incision, well healed), No cervical spinal tenderness (pain on left side, no midline tenderness), No step off deformity and cervical ROM abnormal (limited extension) Thoracic/Lumbar Spine: thoracic and lumbar spine normal to inspection, thoraco- lumbar ROM normal, No thoraco-lumbar ROM limited, No thoraco-lumbar spasm and No thoracic spinal tenderness Pelvis: no pain with anterior-posterior compression and no pain with lateral compression Skin General skin exam: no rashes or lesions noted Lesions: no lesions Rashes: no rashes Trauma: no lacerations or abrasions Wounds: no wounds Neuro General: alert, awake, oriented x3, gait normal, tone normal and moves all extremities Cranial Nerves: CN's II-XI intact bilaterally Cognition: normal cognition Speech: speech normal Gait: normal gait Motor: muscle tone normal throughout and strength 5/5 throughout Sensory Exam: no sensory deficits noted (no saddle paresthesias) Extrem General: normal capillary refill, no pedal edema, no calf tenderness and normal gait Right lower extremity: full ROM, normal capillary refill, no joint enlargement and knee Details: tenderness Location: of the patella (diffuse), normal ROM and knee ligament exam normal Details: anterior drawer test normal, posterior drawer test normal, valgus stress test normal and varus stress test normal; no swelling; no edema Left lower extremity: normal to inspection, full ROM, normal capillary refill, no joint enlargement and knee Details: normal to inspection, normal ROM and knee ligament exam normal Details: anterior drawer test normal, posterior drawer test normal, valgus stress test normal and varus stress test normal; no swelling; no edema Psych Appearance: grossly normal and well kempt Mental Status: mental status grossly normal Speech and Movement: speech and movement normal
--- NOTE | 2018-09-14 10:33 | DI.CT_ITS ---
SYMPTOMS/DIAGNOSIS: FALL, PAIN ON LT SIDE, HX OF HARDWARE CERVICAL SPINE CT: The noncontrast enhanced examination was carried out according to the usual protocol. There is straightening of the normal cervical lordosis which may be on the basis of spasm or positioning. The vertebral bodies are intact with note made of fusion of the bodies of C 5 and C 6. Disc narrowing is noted at C 4 - 5 and C 6 - 7 and hypertrophic changes are evident. There is some bony compromise of the left neural foramen at C 6 - 7 bilaterally. The facet joints are intact. Posterior elements are intact. The odontoid is intact and is closely applied to the anterior arch of C 1. SUMMARY: No evidence of an acute fracture or subluxation.
--- NOTE | 2018-09-14 10:45 | DI.RAD_ITS ---
SYMPTOMS/DIAGNOSIS: FELL ON PATELLA LAST NIGHT RIGHT KNEE: The medial and lateral tibiofemoral joints are well maintained and hypertrophic spurring is identified at the insertion of the quadriceps tendon on the patella.
[2018-09-14] MEDS: diazePAM 5 MG TAB PO (11:20)
[2018-09-14] MEDS: Lidocaine 5% Patch 1 PATCH TP (11:20)
--- NOTE | 2018-09-14 11:42 | NUR.NOTE ---
mario wrapped applied to r knee dc/rx reviewed with pt ambulatory steady on dc Nursing Note:
== END 2018-09-14 10:38 | disposition home or self-care (01) ==
PROVIDERS: Emergency Provider Physician Assistant; PCP Family Medicine
DX: M62.830 Muscle spasm of back (principal); S80.01XA Contusion of right knee, initial encounter; M54.2 Cervicalgia; W06.XXXA Fall from bed, initial encounter
CPT/HCPCS: 99284; 72125; 73564

== ENCOUNTER 2018-12-16 00:55 | Outpatient (CLI) | payer OTHER, SELFPAY ==
[2018-12-16 08:17] LABS: Hemoglobin A1C 8.9 % (4.5-6.2)
[2018-12-16 08:59] LABS: ALT 100 U/L (16-63); AST 44 U/L (15-37); Albumin 3.9 g/dL (3.4-5.0); Alkaline Phosphatase 97 U/L (46-116); Anion Gap 12.2 mmol/L (3-11); BUN 20 mg/dL (7-18); Bilirubin, Total 0.4 mg/dL (0.2-1.0); CO2 22.8 mmol/L (21.0-32.0); CREATININE 1.24 mg/dL (0.70-1.30); Calcium 8.8 mg/dL (8.5-10.1); Calculated LDL 71 mg/dL; Chloride 104 mmol/L (98-107); Cholesterol 157 mg/dL (50-200); Estimated GFR 59.67 (mL/min/1.73m2); Glucose 167 mg/dL (70-100); HDL Cholesterol 37 mg/dL (40-60); Potassium 4.6 mmol/L (3.5-5.1); Sodium 139 mmol/L (136-145); Total Protein 7.3 g/dL (6.4-8.2); Triglyceride 245 mg/dL (30-150)
[2018-12-16 09:41] LABS: COMMENT (LAB VIEW ONLY) 70.47 mg/dL
== END 2018-12-16 01:15 ==
PROVIDERS: PCP Family Medicine; Visit Provider Family Medicine
DX: I10 Essential (primary) hypertension (principal); E11.21 Type 2 diabetes mellitus with diabetic nephropathy
CPT/HCPCS: 36415; 80053; 80061; 82043; 82570; 83036

== ENCOUNTER 2019-02-27 14:17 | Outpatient (CLI) | payer OTHER, SELFPAY ==
--- NOTE | 2019-02-27 14:36 | DI.RAD_ITS ---
EXAM: XR LUMBAR SPINE COMPLETE INDICATION: pain M54.9 DORSALGIA. COMPARISON: Lumbar Spine Complete from 04/20/2018 TECHNIQUE: 2D digital imaging was performed. FINDINGS: There are 5 lumbar type vertebral bodies. There is no spondylolysis or spondylolisthesis. There are endplate osteophytes throughout the lumbar spine. At L5-S1, there is disc space narrowing and vacuu m disc present. There are degenerative changes of the facet joints. Atherosclerosis of the abdomina l aorta is noted. No acute fracture or subluxation is seen. IMPRESSION: Moderate degenerative changes seen in the lumbar spine.
== END 2019-02-27 14:37 ==
PROVIDERS: PCP Family Medicine; Visit Provider Internal Medicine
DX: M54.5 Low back pain (principal); M51.37 Other intervertebral disc degeneration, lumbosacral region; M47.817 Spondylosis without myelopathy or radiculopathy, lumbosacral region
CPT/HCPCS: 72110

== ENCOUNTER 2019-03-23 10:54 | Outpatient (CLI) | payer OTHER, SELFPAY ==
[2019-03-23 13:48] LABS: Hemoglobin A1C 9.6 % (3.8-5.6)
[2019-03-24 08:56] LABS: PSA, Screening 0.9 ng/mL (0.0-3.5)
== END 2019-03-23 11:14 ==
PROVIDERS: PCP Family Medicine; Visit Provider Family Medicine
DX: Z00.00 Encounter for general adult medical examination without abnormal findings (principal); Z13.1 Encounter for screening for diabetes mellitus; Z12.5 Encounter for screening for malignant neoplasm of prostate
CPT/HCPCS: 36415; 84153; 83036

== ENCOUNTER 2019-04-18 02:41 | Outpatient (CLI) | payer OTHER, SELFPAY ==
--- NOTE | 2019-04-18 13:30 | DI.CTLCSR_ITS ---
EXAM: CT CHEST LUNG CANCER SCREEN CLINICAL HISTORY: z12.2 Screening for lung cancer z87.891 pers hx nicotine dependence, TECHNIQUE: Low-dose noncontrast COMPARISON: RIGHT RIBS PA CXR-3 VIEWS from 02/21/2017 XR CHEST 2V PA LATERAL from 03/15/2018 FINDINGS: The heart size is normal. Coronary artery calcifications and mild aortic calcifications are seen. There are no pleural or pericardial effusions or evidence of adenopathy. There is mild bilateral sym metric gynecomastia. The visualized portions of the upper abdominal organs are unremarkable. No pul monary nodules are identified. No suspicious bony lesions are seen. IMPRESSION: Lung rads category 1, negative. Annual low-dose screening chest CT is recommended.
== END 2019-04-18 03:01 ==
PROVIDERS: PCP Family Medicine; Visit Provider Family Medicine
DX: Z12.2 Encounter for screening for malignant neoplasm of respiratory organs (principal); Z87.891 Personal history of nicotine dependence; N62 Hypertrophy of breast
CPT/HCPCS: G0297

== ENCOUNTER 2019-08-07 22:35 | Outpatient (REF) | payer OTHER, SELFPAY ==
--- NOTE | 2019-08-07 16:00 | SKI_PTH ---
PATIENT: Reji Krishnamurthy LOC: [facility] U#:[id number] AGE/SX: 59/M ROOM: RE08/07/[address]: Susie Keating MD, DC : 1960 BED: DIS: 08/07/2019 SPEC #: [id number] RECD: 08/08/19 12:37 STATUS: OFELIA REQ #: [id number] SHAYY: 08/07/19 16:[address]: Susie Keating DEPT: Surgical Specimen RECD BY: Yaima Mejía Tissues: 1 - SKIN BIOPSY(SHAVE/PUNCH) Procedures: SKIN LEVEL 4 Comments: [id number]
== END 2019-08-07 22:55 ==
LOC: LBN 22:35
PROVIDERS: PCP Family Medicine; Visit Provider Family Medicine
DX: L82.1 Other seborrheic keratosis (principal)
CPT/HCPCS: 88305

== ENCOUNTER 2019-09-20 07:30 | Outpatient (CLI) | payer OTHER, SELFPAY ==
--- NOTE | 2019-09-20 07:59 | DI.RAD_ITS ---
EXAM: XR CERVICAL SPINE COMP 4-5V CLINICAL HISTORY: neck and arm pain,CERVICAL RADICULOPATHY C 6,M54.12 TECHNIQUE: COMPARISON: CR CERV SP.WITH OBL OR FLEX/EXT from 11/22/2012 FINDINGS: Seven views were obtained. There is an anterior fusion with plate and screw fixation at the C5-6 lev el. There are moderate hypertrophic changes of the endplates and facet joints throughout the cervica l region. There is a moderate cervical kyphosis. There is disc space narrowing at C6-7. Neural foramina on the left appear narrowed at the C5-6 C6-7 and C7-T1 levels. Neural foramina on th e right appear narrowed at the C5-6 and C6-7 levels. No additional significant bony findings. Prevertebral soft tissues appear intact. IMPRESSION: Degenerative changes of the cervical spine with C5-6 anterior fusion as described above.
== END 2019-09-20 07:50 ==
PROVIDERS: PCP Family Medicine; Visit Provider Family Medicine
DX: M47.22 Other spondylosis with radiculopathy, cervical region (principal); M40.202 Unspecified kyphosis, cervical region
CPT/HCPCS: 72050

== ENCOUNTER 2019-11-07 02:43 | Outpatient (CLI) | payer OTHER, SELFPAY ==
[2019-11-07 10:43] LABS: Hemoglobin A1C 8.7 % (<5.7)
[2019-11-07 10:56] LABS: ALT 90 U/L (16-63); AST 38 U/L (15-37); Albumin 3.6 g/dL (3.4-5.0); Alkaline Phosphatase 116 U/L (46-116); Anion Gap 9.4 mmol/L (3-11); BUN 28 mg/dL (7-18); Bilirubin, Total 0.6 mg/dL (0.2-1.0); CO2 25.6 mmol/L (21.0-32.0); CREATININE 1.47 mg/dL (0.70-1.30); Calcium 8.8 mg/dL (8.5-10.1); Chloride 105 mmol/L (98-107); Estimated GFR 48.86 (mL/min/1.73m2); Glucose 203 mg/dL (74-106); Potassium 4.9 mmol/L (3.5-5.1); Sodium 140 mmol/L (136-145)
[2019-11-10 17:05] LABS: Herpesvirus 7 IgM Ab <1:20
== END 2019-11-07 03:03 ==
PROVIDERS: PCP Family Medicine; Visit Provider Family Medicine
DX: E11.65 Type 2 diabetes mellitus with hyperglycemia (principal); L98.9 Disorder of the skin and subcutaneous tissue, unspecified
CPT/HCPCS: 36415; 80053; 86790; 83036

== ENCOUNTER 2019-11-29 01:40 | Outpatient (CLI) | payer OTHER, SELFPAY ==
--- NOTE | 2019-11-29 06:30 | DI.MRI_ITS ---
EXAM: MR CERVICAL SPINE WO/W CLINICAL HISTORY: C5-6 radiculopathy-HAD SX IN PAST,RADICULOPATHY,M54.12 TECHNIQUE: Multiplanar multisequence MRI of the cervical spine was performed. CONTRAST MATERIAL: IV Contrast: 20 ML of Dotarem contrast administered. COMPARISON: CR XR CERVICAL SPINE COMP 4-5V from 09/20/2019 FINDINGS: BONES: Vertebral body heights are maintained. Postsurgical changes of anterior cervical disc fusion a t C5 and C6 is again noted. Alignment is normal. Bone marrow signal intensity is within normal limit s. CERVICAL CORD: Craniovertebral junction is unremarkable. The cervical cord is normal size and signal intensity. No lesion is present. SOFT TISSUES: Unremarkable. ENHANCEMENT: No suspicious enhancement identified. C2-3: No disc herniation or bulge is identified. No significant central spinal canal or neural forami nal stenosis. C3-4: No disc herniation or bulge is identified. No significant central spinal canal or neural forami nal stenosis C4-5: Asymmetric prominence of the osteophyte disc complex to the right. Mild narrowing of the centr al spinal canal. Mild narrowing of the right neural foramen. No left neural foraminal stenosis. C5-6: No disc herniation or bulge is identified. No significant central spinal canal stenosis. Mild bilateral neural foraminal narrowing. C6-7: Prominence of the osteophyte disc complex. Mild narrowing of the central spinal canal. Modera te narrowing of the right neural foramen and moderately severe narrowing of the left neural foramen. C7-T1: Mild diffuse disc bulge. No significant central spinal canal or neural foraminal stenosis IMPRESSION: 1. Status post anterior cervical disc fusion at C5-C6. 2. Degenerative changes in the cervical spine particularly at C4-5 and C6-C7 resulting in mild centra l spinal canal stenosis and neural foraminal stenosis as described above. The findings are most marke d at the C6-C7 level. DATA REPOSITORY:
[2019-11-29] MEDS: Gadoterate meglumine 20 ML VIAL 10 ML IVP (09:45)
== END 2019-11-29 02:00 ==
PROVIDERS: PCP Family Medicine; Visit Provider Family Medicine
DX: M47.22 Other spondylosis with radiculopathy, cervical region (principal); M48.02 Spinal stenosis, cervical region; Z98.1 Arthrodesis status
CPT/HCPCS: 72156

== ENCOUNTER 2020-02-13 03:12 | Outpatient (CLI) | payer OTHER, SELFPAY ==
[2020-02-13 07:49] LABS: Hemoglobin A1C 8.7 % (<5.7)
[2020-02-13 08:30] LABS: COMMENT (LAB VIEW ONLY) 96.07 mg/dL; Microalb ug/mg Crea 29.1 ug/mg Cr
[2020-02-13 08:33] LABS: ALT 87 U/L (16-63); AST 39 U/L (15-37); Albumin 3.9 g/dL (3.4-5.0); Alkaline Phosphatase 108 U/L (46-116); Anion Gap 10.2 mmol/L (3-11); BUN 18 mg/dL (7-18); Bilirubin, Total 0.6 mg/dL (0.2-1.0); CO2 25.8 mmol/L (21.0-32.0); CREATININE 1.47 mg/dL (0.70-1.30); Calcium 8.6 mg/dL (8.5-10.1); Calculated LDL 69 mg/dL (<100); Chloride 104 mmol/L (98-107); Cholesterol 161 mg/dL (<200); Estimated GFR 48.86 (mL/min/1.73m2); Glucose 137 mg/dL (74-106); HDL Cholesterol 43 mg/dL (40-60); Potassium 4.5 mmol/L (3.5-5.1); Sodium 140 mmol/L (136-145); Total Protein 7.3 g/dL (6.4-8.2); Triglyceride 245 mg/dL (<150)
[2020-02-13 17:36] LABS: PSA, Screening 0.8 ng/mL (0.0-4.5)
== END 2020-02-13 03:32 ==
PROVIDERS: PCP Family Medicine; Visit Provider Family Medicine
DX: Z00.00 Encounter for general adult medical examination without abnormal findings (principal); I10 Essential (primary) hypertension; E11.21 Type 2 diabetes mellitus with diabetic nephropathy; Z12.5 Encounter for screening for malignant neoplasm of prostate
CPT/HCPCS: 36415; 80053; 80061; 84153; 82043; 82570; 83036

== ENCOUNTER 2020-04-08 10:23 | Outpatient (REF) | payer OTHER, SELFPAY ==
[2020-04-11 09:12] LABS: 2-Hydroxy Ethyl Flurazepam Not Detected ng/mL (Cutoff: 10); 6-monoacetylmorphine Not Detected ng/mL (Cutoff: 25); Alpha-Hydroxy Midazolam Not Detected ng/mL (Cutoff: 10); Alpha-Hydroxy Triazolam Not Detected ng/mL (Cutoff: 10); Alpha-Hydroxyalprazolam Not Detected ng/mL (Cutoff: 10); Alpha-OH-alprazolam Glucuronid Not Detected ng/mL (Cutoff: 50); Alprazolam Not Detected ng/mL (Cutoff: 10); Amphetamines Negative ng/mL (Cutoff: 500); Barbiturates Negative ng/mL (Cutoff: 200); Buprenorphine Not Detected ng/mL (Cutoff: 5); Chlordiazepoxide Not Detected ng/mL (Cutoff: 10); Clobazam Not Detected ng/mL (Cutoff: 10); Clonazepam Not Detected ng/mL (Cutoff: 10); Cocaine Negative ng/mL (Cutoff: 150); Codeine Not Detected ng/mL (Cutoff: 25); Comment Normal; Creatinine, U 71.5 mg/dL; Diazepam Not Detected ng/mL (Cutoff: 10); Dihydrocodeine Not Detected ng/mL (Cutoff: 25); EDDP Not Detected ng/mL (Cutoff: 25); Fentanyl Not Detected ng/mL (Cutoff: 2); Flurazepam Not Detected ng/mL (Cutoff: 10); Hydrocodone Not Detected ng/mL (Cutoff: 25); Hydromorphone Not Detected ng/mL (Cutoff: 25); Hydromorphone-3-beta-glucuroni Not Detected ng/mL (Cutoff: 100); Lorazepam Not Detected ng/mL (Cutoff: 10); Lorazepam Glucuronide Not Detected ng/mL (Cutoff: 50); Meperidine Not Detected ng/mL (Cutoff: 25); Methadone Not Detected ng/mL (Cutoff: 25); Midazolam Not Detected ng/mL (Cutoff: 10); Morphine Not Detected ng/mL (Cutoff: 25); N-Desmethylclobazam Not Detected ng/mL (Cutoff: 200); N-desmethyltapentadol Not Detected ng/mL (Cutoff: 50); Naloxone Not Detected ng/mL (Cutoff: 25); Norbuprenorphine Not Detected ng/mL (Cutoff: 5); Norfentanyl Not Detected ng/mL (Cutoff: 2); Norhydrocodone Not Detected ng/mL (Cutoff: 25); Normeperidine Not Detected ng/mL (Cutoff: 25); Noroxycodone Not Detected ng/mL (Cutoff: 25); Noroxymorphone Not Detected ng/mL (Cutoff: 25); O-desmethyltramadol Not Detected ng/mL (Cutoff: 25); Oxazepam Glucuronide Not Detected ng/mL (Cutoff: 50); Phencyclidine Negative ng/mL (Cutoff: 25); Prazepam Not Detected ng/mL (Cutoff: 10); Propoxyphene Not Detected ng/mL (Cutoff: 25); Specific Gravity 1.012; Tapentadol Not Detected ng/mL (Cutoff: 25); Temazepam Not Detected ng/mL (Cutoff: 10); Temazepam Glucuronide Not Detected ng/mL (Cutoff: 50); Tetrahydrocannabinol Presumptive Positive ng/mL (Cutoff: 50); Tramadol Not Detected ng/mL (Cutoff: 25); Triazolam Not Detected ng/mL (Cutoff: 10); Zolpidem Phenyl-4-Carboxy acid Not Detected ng/mL (Cutoff: 10)
[2020-04-16 23:36] LABS: Carboxy-THC Interpretation Positive.; Delta-9 CarboxyThc by LC-MS/MS 32 ng/mL (Cutoff:<3)
== END 2020-04-08 10:24 | disposition home or self-care (01) ==
LOC: LBN 10:23
PROVIDERS: PCP Family Medicine; Visit Provider Nurse Practitioner Family
DX: M54.12 Radiculopathy, cervical region (principal); Z79.899 Other long term (current) drug therapy
CPT/HCPCS: 80307; 80347; 80349; 80364

== ENCOUNTER 2020-06-28 01:38 | Outpatient (CLI) | payer OTHER, SELFPAY ==
[2020-06-28 13:37] LABS: Hemoglobin A1C 8.1 % (<5.7)
== END 2020-06-28 01:39 | disposition home or self-care (01) ==
LOC: LOS 01:38
PROVIDERS: PCP Family Medicine; Visit Provider Family Medicine
DX: E11.9 Type 2 diabetes mellitus without complications (principal)
CPT/HCPCS: 36415; 83036

== ENCOUNTER 2020-09-17 08:56 | Outpatient (CLI) | payer OTHER, SELFPAY ==
[2020-09-17 09:32] LABS: Hemoglobin A1C 8.7 % (<5.7)
[2020-09-17 10:07] LABS: ALT 66 U/L (16-63); AST 33 U/L (15-37); Albumin 4.1 g/dL (3.4-5.0); Alkaline Phosphatase 105 U/L (46-116); Anion Gap 9.5 mmol/L (3-11); BUN 18 mg/dL (7-18); Bilirubin, Total 0.6 mg/dL (0.2-1.0); CO2 27.5 mmol/L (21.0-32.0); CREATININE 1.3 mg/dL (0.70-1.30); Calcium 9.2 mg/dL (8.5-10.1); Chloride 104 mmol/L (98-107); Estimated GFR 56.12 (mL/min/1.73m2); Glucose 144 mg/dL (74-106); Potassium 4.9 mmol/L (3.5-5.1); Sodium 141 mmol/L (136-145); Total Protein 7.8 g/dL (6.4-8.2)
== END 2020-09-17 08:57 | disposition home or self-care (01) ==
LOC: LBO 09:08
PROVIDERS: PCP Family Medicine; Visit Provider Family Medicine
DX: N28.9 Disorder of kidney and ureter, unspecified (principal); E11.9 Type 2 diabetes mellitus without complications
CPT/HCPCS: 36415; 80053; 83036

== ENCOUNTER 2020-10-25 03:31 | Outpatient (CLI) | payer OTHER, SELFPAY ==
[2020-10-25 14:15] LABS: Abs Immature Grans 0.01 10^3/uL (0.0-0.06); Absolute Basophil Count 0.03 10^3/uL (0.0-0.2); Absolute Eosinophil Count 0.15 10^3/uL (0.0-0.7); Absolute Monocyte Count 0.47 10^3/uL (0.1-0.8); Absolute Neutrophil Count 3.51 10^3/uL (1.2-6.7); Basophils % 0.5; Eosinophils % 2.6; HCT 39.6 % (40.0-50.0); HGB 12.3 g/dL (13.5-17.5); Immature Grans % 0.2; Lymphocytes % 27.7; MCH 28.4 pg (27.0-33.0); MCHC 31.1 % (32.0-36.0); MCV 91.5 fL (80-95); MPV 10.3 fL (8.0-11.0); Monocytes % 8.1; Neutrophils % 60.9; Nucleated RBC 0 %; Platelet Count 146 10^3/uL (130-400); RBC 4.33 10^6/uL (4.36-5.78); RDW 15.1 % (11.8-14.1); RDW-SD 50.8 fL; WBC 5.77 10^3/uL (4.4-10.8)
[2020-10-25 14:40] LABS: Hemoglobin A1C 7.8 % (<5.7)
[2020-10-25 15:04] LABS: ALT 53 U/L (16-63); AST 26 U/L (15-37); Albumin 3.7 g/dL (3.4-5.0); Alkaline Phosphatase 96 U/L (46-116); Anion Gap 8.3 mmol/L (3-11); BUN 15 mg/dL (7-18); Bilirubin, Total 0.4 mg/dL (0.2-1.0); CO2 26.7 mmol/L (21.0-32.0); CREATININE 1.2 mg/dL (0.70-1.30); Calcium 8.4 mg/dL (8.5-10.1); Chloride 106 mmol/L (98-107); Glucose 178 mg/dL (74-106); Potassium 4.3 mmol/L (3.5-5.1); Sodium 141 mmol/L (136-145)
== END 2020-10-25 03:32 | disposition home or self-care (01) ==
LOC: LBO 03:31
PROVIDERS: PCP Family Medicine; Visit Provider Family Medicine
DX: E11.9 Type 2 diabetes mellitus without complications (principal); R19.7 Diarrhea, unspecified
CPT/HCPCS: 36415; 80053; 83036; 85025

== ENCOUNTER 2021-01-29 01:20 | Outpatient (CLI) | payer OTHER, SELFPAY ==
[2021-01-29 08:34] LABS: Hemoglobin A1C 6.4 % (<5.7)
[2021-01-29 09:04] LABS: ALT 68 U/L (16-63); AST 34 U/L (15-37); Albumin 3.7 g/dL (3.4-5.0); Alkaline Phosphatase 117 U/L (46-116); Anion Gap 6.1 mmol/L (3-11); BUN 13 mg/dL (7-18); Bilirubin, Total 0.5 mg/dL (0.2-1.0); CO2 28.9 mmol/L (21.0-32.0); CREATININE 1.2 mg/dL (0.70-1.30); Calcium 8.7 mg/dL (8.5-10.1); Calculated LDL 73 mg/dL (<100); Chloride 105 mmol/L (98-107); Cholesterol 141 mg/dL (<200); Glucose 61 mg/dL (74-106); HDL Cholesterol 49 mg/dL (40-60); Potassium 4.3 mmol/L (3.5-5.1); Sodium 140 mmol/L (136-145); Total Protein 7.1 g/dL (6.4-8.2); Triglyceride 99 mg/dL (<150)
== END 2021-01-29 01:21 | disposition home or self-care (01) ==
PROVIDERS: PCP Family Medicine; Visit Provider Family Medicine
DX: Z00.00 Encounter for general adult medical examination without abnormal findings (principal); E11.65 Type 2 diabetes mellitus with hyperglycemia; E78.5 Hyperlipidemia, unspecified
CPT/HCPCS: 36415; 80053; 80061; 83036; 84443

== ENCOUNTER 2021-03-20 07:09 | Emergency (ER) | payer OTHER, SELFPAY ==
[2021-03-20 07:15] VITALS: BP 106/75; PULSE 96; RESP 12; TEMP 36.6; O2SAT 97
--- NOTE | 2021-03-20 07:15 | DI.RAD_ITS ---
Exam(s) XR ANKLE LT COMPLETE EXAM: XR ANKLE LT COMPLETE CLINICAL HISTORY: left medial and lateral ankle pain TECHNIQUE: COMPARISON: No exams were available for comparison FINDINGS: Three views were obtained. There are degenerative changes of the joints of the ankle and hindfoot. There is no evidence of acute fracture or dislocation. IMPRESSION: RADIATION DOSE DELIVERED: Total DLP
--- NOTE | 2021-03-20 07:15 | DI.RAD_ITS ---
Exam(s) XR SHOULDER LT COMPLETE 2+V EXAM: XR SHOULDER LT COMPLETE 2+V CLINICAL HISTORY: fall, left shoulder pain TECHNIQUE: COMPARISON: No exams were available for comparison FINDINGS: Five views were obtained. There is no evidence of acute fracture or dislocation. There is deformity of the humeral head which appears to be old. There are moderate degenerative changes at the glenohu meral and acromioclavicular joints. IMPRESSION: RADIATION DOSE DELIVERED: Total DLP
--- NOTE | 2021-03-20 07:15 | DI.CT_ITS ---
Exam(s) CT HEAD CERVICAL SPINE WO EXAM: CT HEAD CERVICAL SPINE WO COMPARISON: CT CT CERVICAL SPINE WO from 09/14/2018 FINDINGS: CT examination of the cervical spine was performed without contrast administration. There is C5-6 fusion with anterior plate and screw fixation. There is no evidence of acute fracture or dislocation. There are degenerative changes particularly at C5-6 and C6-7. There may be some nohemy e chronic narrowing of the spinal canal on the AP diameter secondary to these hypertrophic endplate c hanges. There is no evidence of acute cervical spine fracture or dislocation. Intervertebral disc spaces are well maintained. Tracheolaryngeal structures appear intact. No cervical mass or adenopathy. Noncontrast cranial CT was performed. Ventricular system is normal in appearance. No evidence of acute intracranial hemorrhage, mass effect, or midline shift. No calvarial fracture. The orbital and temporal bone structures appear intact. Visualized mastoid air cells and paranasal sinuses appear clear. IMPRESSION: No evidence of acute cervical spine injury. No evidence of acute intracranial injury. RADIATION DOSE DELIVERED: 2,185.13mGy.cm Total DLP 2,185.13mGy.cm Total DLP CTDIvol DATA REPOSITORY: All CT scans at this facility are submitted to the National Radiology Data Registry (NRDR) Dose Index Registry (DIR) with the [employer] ([employer]). RADIATION OPTIMIZATION: All CT scans at this facility use at least one of these dose optimization te chniques: automated exposure control; mA and/or kV adjustment per patient size (includes targeted exa ms where dose is matched to clinical indication); or iterative reconstruction.
--- NOTE | 2021-03-20 07:25 | W.ED.GENAD ---
Discharge Plan Disposition Patient Disposition: HOME Condition: Improving Discharge Details Clinical Impression: Contusion of ankle or foot, left Primary Care Provider: Susie Keating ED Provider: Max Monroe Home Meds and New Rx's Prescriptions: New methocarbamol 500 mg tablet 500 mg PO Q6H PRN (Reason: Back pain or spasm) Qty: 14 RF: 0 Continued atenolol 100 mg tablet 100 mg PO DAILY Qty: 90 RF: 12 (DME) blood sugar diagnostic Strip See Dose Instructions .ROUTE .MEDSUPPLY Qty: 400 RF: 5 lisinopril 40 mg tablet 40 mg PO DAILY Qty: 90 RF: 12 omeprazole 40 mg capsule,delayed release(DR/EC) 40 mg PO BID Qty: 180 RF: 12 (DME) pen needle, diabetic [Ultra-Thin II Ins Pen [place]] 29 gauge x 1/2 needle See Dose Instructions .ROUTE .MEDSUPPLY Qty: 100 RF: 6 Januvia 100 mg tablet 100 mg PO DAILY Qty: 90 RF: 12 Ozempic 1 mg/dose (2 mg/1.5 mL) pen injector 1 mg subcut QWEEK Qty: 9 RF: 5 gabapentin [Neurontin] 300 mg capsule 300 mg PO BID Qty: 180 RF: 5 albuterol sulfate [ProAir HFA] 8.5 GM HFA aerosol inhaler 1 - 2 puff Inhalation Q4H PRN Qty: 3 RF: 12 sildenafil 100 mg tablet 100 mg PO DAILY PRN (Reason: sexual activity) Qty: 7 RF: 4 insulin aspart U-100 [Novolog Flexpen U-100 Insulin] 100 unit/mL (3 mL) insulin pen 60 unit subcut AC Qty: 60 RF: 6 Lantus Solostar U-100 Insulin 100 unit/mL (3 mL) insulin pen 55 unit subcut BID Qty: 0 RF: 0 (DME) blood-glucose meter Misc See Rx Instructions .ROUTE .MEDSUPPLY Qty: 1 RF: 0 triamcinolone acetonide 0.1 % cream 1 applic topical BID Qty: 80 RF: 4 atorvastatin 40 mg tablet 40 mg PO DAILY Qty: 90 RF: 12 aspirin 81 MG tablet,chewable 81 mg PO DAILY RF: 0 Discharge Instructions Instructions: Contusion in Adults (ED) Additional Instructions: Apply ice to areas of discomfort. Tylenol as needed for pain. May use methocarbamol, as prescribed, as needed for muscular pain or spasm of the back. You may have increasing muscular soreness over the next 24 hours. Return to the emergency department for any concerns. Medical Decision Making <Fidel Walker DO - Last Filed: 03/20/21 07:37> 60-year-old male with a past medical history of type 2 diabetes, Martin's esophagus, asthma, presents today for evaluation after fall. Patient states she was walking his into the hospital when he slipped on the ice, hit his head, had pain in his neck and his left ankle and left shoulder. He denies any loss of consciousness. He is on an aspirin but he is not on any blood thinners otherwise. He does have diminished sensation regularly in his lower extremities secondary to his diabetes, but does state that he has denied burning sensation in his left ankle which is atypical. He denies any chest or abdominal pain. He denies any other complaints at this time... Worse with movement. Improved by nothing. Patient has been placed in c-collar. Physical exam demonstrates midline tenderness over C6. No thoracic or lumbar spine tenderness. Mild tenderness in the left ankle. Minimal tenderness over the left AC joint. We will get x-rays for these location, and imaging of the neck. Will monitor closely and reassess. Does not want anything for pain currently. <Max Monroe MD - Last Filed: 03/20/21 09:57> Patient with unremarkable CT of the head and cervical spine. Degenerative changes present of the ankle and hindfoot, no fracture or dislocation. Patient did begin to develop some lumbar back tightness and discomfort. He was referred for a lumbar spine x-ray unremarkable process. We will place him on methocarbamol for lumbar strain. He is stable and appropriate for outpatient management. HPI <Fidel Walker DO - Last Filed: 03/20/21 07:37> General Date/Time Provider Initiated Documentation: 03/20/21 07:22. HPI Narrative: 60-year-old male with a past medical history of type 2 diabetes, Martin's esophagus, asthma, presents today for evaluation after fall. Patient states she was walking his into the hospital when he slipped on the ice, hit his head, had pain in his neck and his left ankle and left shoulder. He denies any loss of consciousness. He is on an aspirin but he is not on any blood thinners otherwise. He does have diminished sensation regularly in his lower extremities secondary to his diabetes, but does state that he has denied burning sensation in his left ankle which is atypical. He denies any chest or abdominal pain. He denies any other complaints at this time... Worse with movement. Improved by nothing. Patient has been placed in c-collar. Related Data Home Medications Medication Instructions Recorded Confirmed aspirin 81 mg PO DAILY 02/19/17 03/20/21 albuterol sulfate [ProAir HFA] 1 - 2 puff INHALATION Q4H PRN #3 06/08/17 03/20/21 inhaler sildenafil 100 mg tablet 100 mg PO DAILY PRN #7 tab 04/29/20 03/20/21 insulin aspart U-100 100 unit/mL 60 unit SUBCUT AC #60 ml 06/19/20 03/20/21 (3 mL) subcutaneous pen gabapentin 300 mg capsule 300 mg PO BID #180 tab-cap 10/07/20 03/20/21 semaglutide 1 mg/dose (2 mg/1.5 1 mg SUBCUT QWEEK #9 ml 10/07/20 03/20/21 mL) subcutaneous pen injector insulin glargine 100 unit/mL (3 55 unit SUBCUT BID #0 ml 10/30/20 03/20/21 mL) subcutaneous pen blood-glucose meter #1 ea 12/02/20 03/20/21 atenolol 100 mg tablet 100 mg PO DAILY #90 tab-cap 12/16/20 03/20/21 blood sugar diagnostic #400 each 12/16/20 03/20/21 lisinopril 40 mg tablet 40 mg PO DAILY #90 tab-cap 12/16/20 03/20/21 omeprazole 40 mg capsule,delayed 40 mg PO BID #180 tab-cap 12/16/20 03/20/21 release pen needle, diabetic 29 gauge x #100 each 12/16/20 03/20/2102/16 sitagliptin 100 mg tablet 100 mg PO DAILY #90 tab-cap 12/16/20 03/20/21 triamcinolone acetonide 0.1 % 1 applic TOPICAL BID #80 g 12/23/20 03/20/21 topical cream atorvastatin 40 mg tablet 40 mg PO DAILY #90 tab-cap 01/20/21 03/20/21 methocarbamol 500 mg PO Q6H PRN #14 tab 03/20/21 Previous Rx's Medication Instructions Recorded albuterol sulfate [ProAir HFA] 1 - 2 puff INHALATION Q4H PRN #3 06/08/17 inhaler sildenafil 100 mg tablet 100 mg PO DAILY PRN #7 tab 04/29/20 insulin aspart U-100 100 unit/mL 60 unit SUBCUT AC #60 ml 06/19/20 (3 mL) subcutaneous pen gabapentin 300 mg capsule 300 mg PO BID #180 tab-cap 10/07/20 semaglutide 1 mg/dose (2 mg/1.5 1 mg SUBCUT QWEEK #9 ml 10/07/20 mL) subcutaneous pen injector insulin glargine 100 unit/mL (3 55 unit SUBCUT BID #0 ml 10/30/20 mL) subcutaneous pen blood-glucose meter #1 ea 12/02/20 atenolol 100 mg tablet 100 mg PO DAILY #90 tab-cap 12/16/20 blood sugar diagnostic #400 each 12/16/20 lisinopril 40 mg tablet 40 mg PO DAILY #90 tab-cap 12/16/20 omeprazole 40 mg capsule,delayed 40 mg PO BID #180 tab-cap 12/16/20 release pen needle, diabetic 29 gauge x #100 each 12/16/20 12 sitagliptin 100 mg tablet 100 mg PO DAILY #90 tab-cap 12/16/20 triamcinolone acetonide 0.1 % 1 applic TOPICAL BID #80 g 12/23/20 topical cream atorvastatin 40 mg tablet 40 mg PO DAILY #90 tab-cap 01/20/21 methocarbamol 500 mg PO Q6H PRN #14 tab 03/20/21 Allergies Allergy/AdvReac Type Severity Reaction Status Date / Time tiotropium bromide Allergy Severe PT STATES Verified 03/20/21 07:54 [From Spiriva with SPIRIVA [facility]] CAUSED CHEST PAINS cyclobenzaprine AdvReac Severe DRY MOUTH Verified 03/20/21 07:54 General Stated Complaint: Trauma JOSE: 3 Review of Systems <DO Mitchell Layton Last Filed: 03/20/21 07:37> All systems reviewed & are unremarkable except as noted in HPI and below PFSH <Fidel Walker DO - Last Filed: 03/20/21 07:37> All Active Problems (Updated 03/20/21 @ 08:33 by Max Monroe MD) Contusion of ankle or foot, left (Acute) Bruise of both arms (Acute) Renal insufficiency (Chronic) Peripheral neuropathy (Acute) Cervical radiculopathy at C6 (Acute) Diabetes mellitus type 2, uncontrolled (Acute) Hidradenitis axillaris (Acute) Diabetic retinopathy (Chronic ~11/30/17) 11/30/17 [place]; MILD/RIGHT EYE-KB 03/25/20 [place]; MILD LEFT EYE-KB Persistent testicular pain (Chronic) LOW TESTOSTERONE; reduced libido Partial edentulism, unspecified (Chronic) upper Lumbar radiculopathy (Chronic 06/25/14) Increased body mass index (Chronic) Hyperlipidemia (Chronic 09/06/12) Essential hypertension (Chronic 11/08/12) Diabetic neuropathy (Chronic 12/06/12) Diabetic nephropathy associated with type 2 diabetes mellitus (Chronic 03/19/14) Degeneration of cervical intervertebral disc (Chronic) C-6; S/P SURGERY 2000; REPEAT FIXATION 2001. Disability secondary to pain. Barretts esophagus (Chronic) Balance disorder (Chronic 06/24/15) Asthma (Chronic) Annual physical exam (Acute 11/19/16) Medical History Acute bilateral thoracic back pain (06/24/15) Alcohol abuse Arthritis, lumbar spine xray 04/2018 Calcaneal spur of right foot (02/23/17) Chest pain (11/24/16) 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) Cyst Diabetes mellitus type II, uncontrolled Diabetic neuropathy associated with diabetes mellitus due to underlying condition Diarrhea Epistaxis (11/14/15) Foot callus (01/14/15) History of colon polyps Hypokalemia (11/12/16) Inflamed skin tag (09/18/14) Left carpal tunnel syndrome Piriformis syndrome of right side (07/30/16) Sebaceous cyst of scrotum Shoulder pain Smoker Tubular adenoma (04/01/17) Ulcer of foot (03/30/17) URI (upper respiratory infection) Surgical History Colonoscopy - IV Sedation (04/15/10) EGD - IV Sedation 04/15/10 10/03/12 History of esophagogastroduodenoscopy History of surgical procedure MULTIPLE NECK OPERATIONS Open Carpal Tunnel release Status post carpal tunnel release Status post tonsillectomy Status post vasectomy TITANIUM PLATE PUT IN Tonsillectomy Vasectomy Family History Mother , ? NC at age 74. Chronic type B viral hepatitis Diabetes Depression Hyperlipidemia Cancer Father , HEPATIC CANCER at age 56. Chronic type B viral hepatitis Cancer Diabetes Hypertension Hyperlipidemia Sister , < 1 MONTH Heart disease Brother Alcohol abuse Depression Hypertension Heart disease Hyperlipidemia Substance abuse Brother No problems noted. Daughter Depression Daughter Depression Social History Smoking/Tobacco Use Status: Former Tobacco Use tobacco type: cigarettes, pipe and cigars Quit Date: 02/15/13 Tobacco: How many years used: 14 Second Hand Exposure: Yes Smoking risk assessment performed?: Yes Alcohol Intake: current Alcohol Intake frequency: holidays/special occasions only Alcohol type: beer and hard liquor Drug use: Occasionally Substance use type: marijuana Caregiver/Support person: No Household members: spouse Housing: apartment Number of Children: 2 number of grandchildren: 3 Do you need help understanding health information?: Often Pets and animals: No Sexually active: Yes Do you think of yourself as: straight/heterosexual Current gender identity: male What is your relationship status?: How often do you talk on the phone with friends or family?: once per week How often do you get together with friends or relatives?: once per week Do you belong to any clubs or organized social groups?: no Panel score (0-1 are the most socially isolated patients): 1 Duration: 15-30 minutes/day Frequency: 3-4 times per week Ara/Oriental Orthodox: No preference Special ara needs: No Seatbelt use: sometimes Helmet use: No Drive 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 3.ENT: Atraumatic external nose and ears. Moist MM. Neck: Symmetric, trachea midline, No thyromegaly. There is no evidence of raccoon eyes, steward sign, CSF rhinorrhea, mastoid tenderness, cranial crepitus, hemotympanum, exophthalmos, or hyphema. Patient demonstrates intact dentition with no signs of tooth avulsion or fracture, no signs of jaw deformity, no evidence of a LeFort's fracture, with an intact palate, nose and orbital region. There is no evidence of a nasal septal hematoma. No proptosis. Jaw closes symmetrically. Airway is clear. 4.CVS: +S1/S2, No murmurs or gallops. Peripheral pulses 2+ and equal in all extremities. Brisk capillary refill in all extremities. 5.RESP: Unlabored respiratory effort. Clear to auscultation bilaterally. No wheezes rales or rhonchi 6.GI: Soft, Nontender/Nondistended, No hepatosplenomegaly. No guarding or rebound. 7.MSK: No tenderness in the thighs, knees Or upper extremities. Mild subjective achiness over the AC joint. Good strength movements of the upper extremities bilaterally. Left ankle demonstrates mild swelling and edema in the medial lateral aspect. Mild tenderness over the proximal foot. Patient is able to flex and extend the ankle otherwise. No tenderness over the mid or proximal tib/fib. Mild midline C5-C6 tenderness. No tenderness over the scalp. No tenderness over the thoracic or lumbar spine. 8.Skin: Warm, Dry. No rashes or lesions. 9.Neuro: consulting nurse II-XII grossly intact. Sensation grossly intact, no focal neurologic deficits. 10.Psych: (AAO) x3. Appropriate mood and affect Course <Fidel Walker DO - Last Filed: 03/20/21 07:37> Vital Signs Vital signs: Vital Signs Temperature 36.6 C 03/20/21 07:15 Pulse 96 H 03/20/21 07:15 Respiratory Rate 12 03/20/21 07:15 Blood Pressure 106/75 03/20/21 07:15 Pulse Oximetry 97 03/20/21 07:15 Temperature 36.6 C 03/20/21 07:15 Temperature Source Temporal Artery Scan 03/20/21 07:15 Pulse 96 H 03/20/21 07:15 Respiratory Rate 12 03/20/21 07:15 Blood Pressure 106/75 03/20/21 07:15 Blood Pressure Position Sitting 03/20/21 07:15 Pulse Oximetry 97 03/20/21 07:15 Oxygen Delivery Method Room Air 03/20/21 07:15 Oxygen Flow Rate 0 03/20/21 07:15 Pain Level 7 03/20/21 07:15 Sign Out <Fidel Walker DO - Last Filed: 03/20/21 07:37> Sign Out Data: Sign Out Comment: Follow-up on CT scan and x-rays after fall. Last updated by Fidel Walker DO at 03/20/21 07:57
--- NOTE | 2021-03-20 08:30 | DI.RAD_ITS ---
Exam(s) XR LUMBAR SPINE AP, LAT EXAM: XR LUMBAR SPINE AP, LAT CLINICAL HISTORY: fall, pain TECHNIQUE: COMPARISON: CR XR LUMBAR SPINE COMPLETE from 02/27/2019 FINDINGS: Three views were obtained. There is a mild right convex lumbar scoliosis. There are moderate hypert rophic degenerative changes involving the facet joints and endplates throughout the lumbar region. T here is loss of disc height, particularly at L4-5 and L5-S1, consistent with disc degeneration. There is no evidence of acute fracture or dislocation. IMPRESSION: DJD, no evidence of acute injury. RADIATION DOSE DELIVERED: Total DLP
[2021-03-20] MEDS: Methocarbamol 500 MG TAB 1000 MG PO (08:35)
[2021-03-20] MEDS: Acetaminophen 500 MG TAB 1000 MG PO (08:35)
== END 2021-03-20 11:26 | disposition home or self-care (01) ==
PROVIDERS: Emergency Provider Emergency Medicine; PCP Family Medicine
DX: S90.02XA Contusion of left ankle, initial encounter (principal); M54.2 Cervicalgia; M25.512 Pain in left shoulder; S09.8XXA Other specified injuries of head, initial encounter; W00.0XXA Fall on same level due to ice and snow, initial encounter
CPT/HCPCS: 99284; 70450; 72100; 72125; 73030; 73610; 99283

== ENCOUNTER 2021-05-14 03:18 | Outpatient (CLI) | payer OTHER, SELFPAY ==
[2021-05-14 14:06] LABS: Hemoglobin A1C 9.2 % (<5.7)
[2021-05-15 15:02] LABS: COMMENT (LAB VIEW ONLY) 94.12 mg/dL; Microalb ug/mg Crea 37.4 ug/mg Cr
== END 2021-05-14 03:19 | disposition home or self-care (01) ==
LOC: LBO 03:18
PROVIDERS: PCP Family Medicine; Visit Provider Family Medicine
DX: E11.9 Type 2 diabetes mellitus without complications (principal)
CPT/HCPCS: 36415; 82043; 82570; 83036

== ENCOUNTER 2021-06-05 11:13 | Outpatient (CLI) | payer OTHER, SELFPAY ==
[2021-06-05 10:23] LABS: Anion Gap 6.7 mmol/L (3-11); BUN 20 mg/dL (7-18); CO2 24.3 mmol/L (21.0-32.0); CREATININE 1.3 mg/dL (0.70-1.30); Calcium 8.6 mg/dL (8.5-10.1); Chloride 99 mmol/L (98-107); Estimated GFR 55.94 (mL/min/1.73m2); Glucose 451 mg/dL (74-106); Potassium 4.7 mmol/L (3.5-5.1); Sodium 130 mmol/L (136-145)
[2021-06-05 10:31] LABS: Hemoglobin A1C 9.5 % (<5.7)
== END 2021-06-05 11:14 | disposition home or self-care (01) ==
LOC: LBO 11:14
PROVIDERS: PCP Family Medicine; Visit Provider Family Medicine
DX: E11.9 Type 2 diabetes mellitus without complications (principal); U07.1 COVID-19
CPT/HCPCS: 36415; 80048; 83036

== ENCOUNTER 2021-08-11 03:50 | Outpatient (CLI) | payer OTHER, SELFPAY ==
[2021-08-11 16:04] LABS: ALT 66 U/L (16-63); AST 26 U/L (15-37); Albumin 3.8 g/dL (3.4-5.0); Alkaline Phosphatase 120 U/L (46-116); BUN 23 mg/dL (7-18); Bilirubin, Total 0.5 mg/dL (0.2-1.0); CREATININE 1.4 mg/dL (0.70-1.30); Calcium 9.1 mg/dL (8.5-10.1); Chloride 103 mmol/L (98-107); Estimated GFR 51.35 (mL/min/1.73m2); Glucose 258 mg/dL (74-106); Potassium 4.4 mmol/L (3.5-5.1); Sodium 138 mmol/L (136-145); Total Protein 7.9 g/dL (6.4-8.2)
== END 2021-08-11 03:51 | disposition home or self-care (01) ==
PROVIDERS: PCP Family Medicine; Visit Provider Family Medicine
DX: E11.9 Type 2 diabetes mellitus without complications (principal)
CPT/HCPCS: 36415; 80053; 83036

== ENCOUNTER 2021-08-18 06:51 | Emergency (ER) | payer OTHER, SELFPAY ==
[2021-08-18 06:59] VITALS: BP 133/61; PULSE 72; RESP 18; TEMP 36.5; O2SAT 98
[2021-08-18 07:35] VITALS: BP 109/69; PULSE 73; O2SAT 98
--- NOTE | 2021-08-18 07:46 | ED.GENADUL_ITS ---
Discharge Plan Disposition Patient Disposition: HOME Condition: Stable Discharge Details Clinical Impression: Abnormality, skin, Foot callus Primary Care Provider: Susie Keating ED Provider: Hima Woo Home Meds and New Rx's Prescriptions: New clindamycin HCl 300 mg capsule 300 mg PO QID 7 Days Qty: 28 0RF No Action atenolol 100 mg tablet 100 mg PO DAILY Qty: 90 12RF (DME) blood sugar diagnostic Strip See Dose Instructions .ROUTE .MEDSUPPLY Qty: 400 5RF Dose Instruction: As directed Rx Instructions: As directed AC and HS E11.40 lisinopril 40 mg tablet 40 mg PO DAILY Qty: 90 12RF omeprazole 40 mg capsule,delayed release(DR/EC) 40 mg PO BID Qty: 180 12RF Januvia 100 mg tablet 100 mg PO DAILY Qty: 90 12RF (DME) FreeStyle Taylor 2 Sensor Kit See Rx Instructions .Route Qty: 1 12RF Rx Instructions: As directed; E11.9 (DME) FreeStyle Taylor 2 Goessel Misc See Rx Instructions .Route Qty: 1 2RF Rx Instructions: As directed. E11.9 Ozempic 1 mg/dose (2 mg/1.5 mL) pen injector 1 mg subcut QWEEK Qty: 9 5RF gabapentin [Neurontin] 300 mg capsule 300 mg PO BID Qty: 180 5RF Tresiba FlexTouch U-200 200 unit/mL (3 mL) insulin pen 64 unit subcut BID Qty: 27 4RF albuterol sulfate [ProAir HFA] 8.5 GM HFA aerosol inhaler 1 - 2 puff Inhalation Q4H PRN Qty: 3 12RF sildenafil 100 mg tablet 100 mg PO DAILY PRN (Reason: sexual activity) Qty: 7 4RF Rx Instructions: administer 30 minutes to 4 hours before activity (DME) blood-glucose meter Misc See Rx Instructions .ROUTE .MEDSUPPLY Qty: 1 0RF Rx Instructions: TID testing. E11.9 (Accu check) atorvastatin 40 mg tablet 40 mg PO DAILY Qty: 90 12RF insulin aspart U-100 [Novolog Flexpen U-100 Insulin] 100 unit/mL (3 mL) insulin pen 60 unit subcut AC Qty: 60 6RF (DME) pen needle, diabetic [Ultra-Thin II Ins Pen [place]] 29 gauge x 1/2 needle See Dose Instructions .ROUTE .MEDSUPPLY Qty: 100 6RF Dose Instruction: As directed Rx Instructions: As directed aspirin 81 MG tablet,chewable 81 mg PO DAILY Discharge Instructions Instructions: Acute Wounds (ED) Additional Instructions: Please follow-up with your accounts receivable bookkeeper as soon as possible. Please check your feet daily. Please return to the emergency department if you develop any redness swelling fevers chills or any other signs of infection. Medical Decision Making 61-year-old male history of diabetes presents with skin changes to bilateral feet in the setting of recently having bunions excised at base of bilateral fifth digits, blood blister appearance on right foot without erythema induration or lymphangitic streaking, serous material below skin surface plantar aspect of left foot, mild warmth to the site without erythema or lymphangitic streaking. Afebrile nontoxic. Findings likely the result of recent callus removal. Must consider early infection. Given diabetic high risk for skin infection of the feet will start on clindamycin will encourage close follow-up with accounts receivable bookkeeper and strict return precautions given to return to the emergency department for any worsening symptoms. HPI General Date/Time Provider Initiated Documentation: 08/18/21 07:24 . HPI Narrative: 61-year-old male history of diabetes recent bunion shaving performed by his accounts receivable bookkeeper last week presents with slight discoloration to his skin near bunion removal. Denies fevers chills nausea vomiting redness or streaking up the leg or systemic signs of illness. His accounts receivable bookkeeper out of town until mid month. At which point he has a follow-up appointment Related Data Home Medications Medication Instructions Recorded Confirmed aspirin 81 mg chewable tablet 81 mg PO DAILY 02/19/17 08/18/21 albuterol sulfate 90 mcg/actuation 1 - 2 puff inhalation Q4H PRN ##3 06/08/17 08/18/21 aerosol inhaler (ProAir HFA) sildenafil 100 mg tablet 100 mg PO DAILY PRN sexual 04/29/20 08/18/21 activity #7 tabs gabapentin 300 mg capsule 300 mg PO BID #180 tab-caps 10/07/20 08/18/21 (Neurontin) semaglutide 1 mg/dose (2 mg/1.5 1 mg (0.75 mL) subcut QWEEK #9 mL 10/07/20 08/18/21 mL) subcutaneous pen injector (Ozempic) blood-glucose meter #1 ea 12/02/20 08/18/21 atenolol 100 mg tablet 100 mg PO DAILY #90 tab-caps 12/16/20 08/18/21 blood sugar diagnostic #400 ea 12/16/20 08/18/21 lisinopril 40 mg tablet 40 mg PO DAILY #90 tab-caps 12/16/20 08/18/21 omeprazole 40 mg capsule,delayed 40 mg PO BID #180 tab-caps 12/16/20 08/18/21 release sitagliptin 100 mg tablet (Januvia) 100 mg PO DAILY #90 tab-caps 12/16/20 08/18/21 atorvastatin 40 mg tablet 40 mg PO DAILY #90 tab-caps 01/20/21 08/18/21 insulin aspart U-100 100 unit/mL 60 unit (0.6 mL) subcut AC #60 mL 04/06/21 08/18/21 (3 mL) subcutaneous pen (Novolog Flexpen U-100 Insulin aspart) flash glucose scanning reader #1 ea 05/28/21 08/18/21 (FreeStyle Taylor 2 Goessel) flash glucose sensor (FreeStyle #1 ea 05/28/21 08/18/21 Taylor 2 Sensor kit) pen needle, diabetic 29 gauge x #100 ea 07/07/21 08/18/21 1/2 (Ultra-Thin II Insulin Pen [place]) insulin degludec 200 unit/mL (3 64 unit (0.32 mL) subcut BID #27 mL 08/14/21 08/18/21 mL) subcutaneous pen (Tresiba FlexTouch U-200 insulin) clindamycin HCl 300 mg capsule 300 mg PO QID 7 days #28 caps 08/18/21 Previous Rx's Medication Instructions Recorded albuterol sulfate 90 mcg/actuation 1 - 2 puff inhalation Q4H PRN ##3 06/08/17 aerosol inhaler (ProAir HFA) sildenafil 100 mg tablet 100 mg PO DAILY PRN sexual 04/29/20 activity #7 tabs gabapentin 300 mg capsule 300 mg PO BID #180 tab-caps 10/07/20 (Neurontin) semaglutide 1 mg/dose (2 mg/1.5 1 mg (0.75 mL) subcut QWEEK #9 mL 10/07/20 mL) subcutaneous pen injector (Ozempic) blood-glucose meter #1 ea 12/02/20 atenolol 100 mg tablet 100 mg PO DAILY #90 tab-caps 12/16/20 blood sugar diagnostic #400 ea 12/16/20 lisinopril 40 mg tablet 40 mg PO DAILY #90 tab-caps 12/16/20 omeprazole 40 mg capsule,delayed 40 mg PO BID #180 tab-caps 12/16/20 release sitagliptin 100 mg tablet (Januvia) 100 mg PO DAILY #90 tab-caps 12/16/20 atorvastatin 40 mg tablet 40 mg PO DAILY #90 tab-caps 01/20/21 insulin aspart U-100 100 unit/mL 60 unit (0.6 mL) subcut AC #60 mL 04/06/21 (3 mL) subcutaneous pen (Novolog Flexpen U-100 Insulin aspart) flash glucose scanning reader #1 ea 05/28/21 (FreeStyle Taylor 2 Goessel) flash glucose sensor (FreeStyle #1 ea 05/28/21 Taylor 2 Sensor kit) pen needle, diabetic 29 gauge x #100 ea 07/07/21 1/2 (Ultra-Thin II Insulin Pen [place]) insulin degludec 200 unit/mL (3 64 unit (0.32 mL) subcut BID #27 mL 08/14/21 mL) subcutaneous pen (Tresiba FlexTouch U-200 insulin) clindamycin HCl 300 mg capsule 300 mg PO QID 7 days #28 caps 08/18/21 Allergies Allergy/AdvReac Type Severity Reaction Status Date / Time tiotropium bromide Allergy Severe PT STATES Verified 08/14/21 08:51 [From Spiriva with SPIRIVA HandiHaler] CAUSED CHEST PAINS cyclobenzaprine AdvReac Severe DRY MOUTH Verified 08/14/21 08:51 General Stated Complaint: RashLesion JOSE: 3 Review of Systems Narrative: Review of Systems Constitutional: negative Eyes: negative ENT: negative Cardiovascular: negative Respiratory: negative Gastrointestinal: negative : negative Musculoskeletal: negative Skin: Skin discoloration Neurologic: negative Psych: negative PFSH All Active Problems (Updated 08/18/21 @ 07:53 by Hima Woo MD) Abnormality, skin (Acute) Foot callus (Acute) COVID-19 (Acute) 06/04/21 Obesity (BMI 30-39.9) (Acute) Bruise of both arms (Acute) Renal insufficiency (Chronic) Peripheral neuropathy (Acute) Cervical radiculopathy at C6 (Acute) Diabetes mellitus type 2, uncontrolled (Acute) Hidradenitis axillaris (Acute) Diabetic retinopathy (Chronic ~11/30/17) 11/30/17 [place]; MILD/RIGHT EYE-KB 03/25/20 [place]; MILD LEFT EYE-KB Persistent testicular pain (Chronic) LOW TESTOSTERONE; reduced libido Partial edentulism, unspecified (Chronic) upper Lumbar radiculopathy (Chronic 06/25/14) Increased body mass index (Chronic) Hyperlipidemia (Chronic 09/06/12) Essential hypertension (Chronic 11/08/12) Diabetic neuropathy (Chronic 12/06/12) Diabetic nephropathy associated with type 2 diabetes mellitus (Chronic 03/19/14) Degeneration of cervical intervertebral disc (Chronic) C-6; S/P SURGERY 2000; REPEAT FIXATION 2001. Disability secondary to pain. Barretts esophagus (Chronic) Balance disorder (Chronic 06/24/15) Asthma (Chronic) Annual physical exam (Acute 11/19/16) Medical History Acute bilateral thoracic back pain (06/24/15) Alcohol abuse Arthritis, lumbar spine xray 04/2018 Calcaneal spur of right foot (02/23/17) Chest pain (11/24/16) 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) Cyst Diabetes mellitus type II, uncontrolled Diabetic neuropathy associated with diabetes mellitus due to underlying condition Diarrhea Epistaxis (11/14/15) Foot callus (01/14/15) History of colon polyps Hypokalemia (11/12/16) Inflamed skin tag (09/18/14) Left carpal tunnel syndrome Piriformis syndrome of right side (07/30/16) Sebaceous cyst of scrotum Shoulder pain Smoker Tubular adenoma (04/01/17) Ulcer of foot (03/30/17) URI (upper respiratory infection) Surgical History Colonoscopy - IV Sedation (04/15/10) EGD - IV Sedation 04/15/10 10/03/12 History of esophagogastroduodenoscopy History of surgical procedure MULTIPLE NECK OPERATIONS Open Carpal Tunnel release Status post carpal tunnel release Status post tonsillectomy Status post vasectomy TITANIUM PLATE PUT IN Tonsillectomy Vasectomy Family History Mother , ? [place] at age 74. Chronic type B viral hepatitis Diabetes Depression Hyperlipidemia Cancer Father , HEPATIC CANCER at age 56. Chronic type B viral hepatitis Cancer Diabetes Hypertension Hyperlipidemia Sister , < 1 MONTH Heart disease Brother Alcohol abuse Depression Hypertension Heart disease Hyperlipidemia Substance abuse Brother No problems noted. Daughter Depression Daughter Depression Social History Smoking/Tobacco Use Status: Former Tobacco Use tobacco type: cigarettes, pipe and cigars Quit Date: 02/15/13 Tobacco: How many years used: 14 Second Hand Exposure: Yes Smoking risk assessment performed?: Yes Alcohol Intake: current Alcohol Intake frequency: holidays/special occasions only Alcohol type: beer and hard liquor Drug use: Occasionally Substance use type: marijuana Caregiver/Support person: No Household members: spouse Housing: apartment Number of Children: 2 number of grandchildren: 3 Do you need help understanding health information?: Often Pets and animals: No Sexually active: Yes Do you think of yourself as: straight/heterosexual Current gender identity: male What is your relationship status?: How often do you talk on the phone with friends or family?: once per week How often do you get together with friends or relatives?: once per week Do you belong to any clubs or organized social groups?: no Panel score (0-1 are the most socially isolated patients): 1 Duration: 15-30 minutes/day Frequency: 3-4 times per week Ara/Protestant: No preference Special ara needs: No Seatbelt use: sometimes Helmet use: No Drive intox or ride w/intox wrecker driver: No Do you feel safe at home: Yes Do you feel safe in your relationship?: Yes Exam Narrative Exam Narrative: Physical Examination General: alert, awake, cooperative, resting comfortably, no acute distress HEENT: normocephalic, atraumatic; PERRL, EOM intact, conjunctiva normal; no nasal discharge; moist mucous membranes, oral and pharyngeal mucosa normal, tolerating secretions Neck: supple, trachea midline; full ROM Chest: normal to inspection Respiratory: normal respiratory effort, speaking in full sentences, clear to auscultation, no wheezing, rales or rhonchi Cardiac: regular rate, regular rhythm, S1S2 intact, no murmurs rubs or gallops GI: abdomen soft, non-tender, non-distended; no palpable mass or hepatosplenomegaly Skin: Right foot: Blood blister under callus lateral aspect of foot near base of fifth digit nonfluctuant nontender no induration erythema or streaking; left foot: Serous blister plantar aspect under base of fifth digit with mild erythema no lymphangitic streaking Neuro: AAOx3, normal speech, moving all extremities Extremities: See skin Psych: Appropriate mood and affect Course Vital Signs Vital signs: Vital Signs Temperature 36.5 C 08/18/21 06:59 Pulse 72 08/18/21 06:59 Respiratory Rate 18 08/18/21 06:59 Blood Pressure 133/61 08/18/21 06:59 Pulse Oximetry 98 08/18/21 06:59 Temperature 36.5 C 08/18/21 06:59 Temperature Source Temporal Artery Scan 08/18/21 06:59 Pulse 73 08/18/21 07:35 Respiratory Rate 18 08/18/21 06:59 Respiratory Effort Non-Labored 08/18/21 07:11 Blood Pressure 109/69 08/18/21 07:35 Blood Pressure Position Supine 08/18/21 06:59 Pulse Oximetry 98 08/18/21 07:35 Oxygen Delivery Method Room Air 08/18/21 07:35 Oxygen Flow Rate 0 08/18/21 07:35 PAWSS Have you Been Recently Intoxicated or Drunk Within the Last 30 days?: No Have you Ever Experienced Previous Episodes of Alcohol Withdrawal?: No Have you ever Experienced Withdrawal Seizures?: No Have you ever Experienced Delirium Tremens(DT)s?: No Have you ever undergone Alcohol Rehabilitation Treatment (i.e, inpt ot outpatient treatment programs)?: No Have you ever Experienced Blackouts?: No Have you ever Combined Alcohol with other Downers within the last 90 days?: No Have you ever Combined Alcohol with any other Substance of Abuse during the last 90 days?: No Positive Blood Alcohol level on Presentation? [PCS.BAL]: No Evidence of Increased Autonomic Activity (i.e. HR>120, tremor, sweating, agitation, nausea)?: No Result: 0
[2021-08-18] MEDS: Clindamycin 150 MG CAP 450 MG PO (07:51)
[2021-08-18 07:53] VITALS: BP 120/57; PULSE 78; O2SAT 98
== END 2021-08-18 08:02 | disposition home or self-care (01) ==
PROVIDERS: Emergency Provider Emergency Medicine; PCP Family Medicine
DX: L84 Corns and callosities (principal); E11.40 Type 2 diabetes mellitus with diabetic neuropathy, unspecified; Z79.4 Long term (current) use of insulin; Z87.891 Personal history of nicotine dependence
CPT/HCPCS: 99283; 99284

== ENCOUNTER 2021-12-12 01:40 | Outpatient (CLI) | payer OTHER, SELFPAY ==
--- OUTSIDE RECORDS SUMMARY | 2021-12-12 01:42 | XMS_ITS | Encounter Summary ---
:1960 Author Organization [facility] [place] [address] Care Team Providers Name Role Phone Susie Keating MD Primary Care Provider Encounter Details Date Type Department Care Team Description 12/07/2012 Orders Only [place] [facility] [place]ine [place]agena, S/P cervical spinal [facility] MD fusion (Primary Dx) [place] [address] [address] [phone] NEUROSURGERY DEP [place], [place] [address] Social History Tobacco Use Types Packs/Day Years Used Date Former Smoker Cigarettes 4 38 Quit: 11/26/19 09 Smokeless Tobacco: Never Used Sex Assigned at Date Recorded Not on file documented as of this encounter Progress Notes Carine Cartagena MD - 12/07/2012 8:18 PM EDT Recent x-rays reviewed. On some views it appears that lower screws may reside in disc space below. Will need CT scan to sort this out. Patient wants this done locally - I have ordered and he will notify me when it is completed so we can communicate by phone. If repeat surgery were undertaken, it wouldlikely involve extension of ACDF caudally. Contralateral exposure would necessitate laryngoscopy to ensure normal vocal cord function on the previously operated side. Chepe Cartagena MD documented in this encounter Plan of Treatment Not on filedocumented as of this encounter Visit Diagnoses Diagnosis S/P cervical spinal fusion - Primary Arthrodesis status documented in this encounter Care Teams Mill Set Up Relationship Specialty Start Date End Date Susie Keating MD PCP - General 11/22/12 [address] [place] [address] documented as of this encounter
--- OUTSIDE RECORDS SUMMARY | 2021-12-12 01:42 | XMS_ITS | Encounter Summary ---
:1960 Author Organization [facility] [place] [address] Care Team Providers Name Role Phone Susie Keating MD Primary Care Provider Reason for Visit Reason Comments GI Problem Encounter Details Date Type Department Care Team Description 01/31/2013 Office Visit Gastroenterology at [facility] [place] Sharita Cunningham, Epigastric pain [facility] Yamilex poe APRN (Primary Dx) [place] [address] [facility] [phone] [facility] [place] [address] Social History Tobacco Use Types Packs/Day Years Used Date Former Smoker Cigarettes 4 38 Quit: 11/26/19 09 Smokeless Tobacco: Never Used Sex Assigned at Date Recorded Not on file documented as of this encounter Last Filed Vital Signs Vital Sign Reading Time Taken Comments Blood Pressure 130/76 01/31/2013 9:38 AM EST Pulse 78 01/31/2013 9:38 AM EST Temperature - - Respiratory Rate - - Oxygen Saturation - - Inhaled Oxygen Concentration - - Weight 127 kg (280 lb) 01/31/2013 9:38 AM EST Height 185.4 cm (6' 1) 01/31/2013 9:38 AM EST Body Mass Index 36.94 01/31/2013 9:38 AM EST documented in this encounter Progress Notes Sharita Cunningham, RN - 01/31/2013 9:57 AM EST Section of Gastroenterology and Hepatology [address] [place] [id number] .Reji Krishnamurthy : 1960 Patient is here for further evaluation of gastrointestinal symptoms at the request of Susie Keating MD. HPI: Long hx of reflux. 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 Repeat upper endoscopy in 2013, bx of stomach and esophagus, overall were unrevealing, just some very mild lower esophageal inflammation. During this egd per pt, food was in my stomach and I went for another test that showed my stomach empties fine. Test done [facility]. Egd reports not available, only bx reports. Pt takes Omeprazole 40mg qd and Zantac 300mg qhs. Recently had a flare while taking ppi only. Was placed on H2 deepak and recently sx have been better. At this time is not having reflux. Stomach acheshave improved as well. Denies dysphagia, no longer having the stuck sensation. No odynophagia, n/v, ent concerns. However, continues with a dull ache of the epigastric area. No radiation of this pain. But notes oneepisode of tingling of right arm which lasted 30 seconds. Pt mentions he had a normal stress tresttwo years ago. Appetite is good. Weight stable. No food allergies. Reviewed diet. At times eats late at night. Can cause sx at night. No chronic nsaids. Colonoscopy 2010, one TA polyp. Normal pattern is every 3 days. No laxative use. No hard stools or straining. No blood in stool. No abdominal pain, cramping, urgency. No incontinence. History Social History ??? Marital Status: Spouse Name: N/A Number of Children: N/A ??? Years of Education: N/A Occupational History ??? Not on file. Social History Main Topics ??? Smoking status: Former Smoker -- 4.0 packs/day for 38 years Types: Cigarettes Quit date: 11/25/2008 ??? Smokeless tobacco: Never Used ??? Alcohol Use: Not on file ??? Drug Use: Not on file ??? Sexually Active: Not on file Other Topics Concern ??? Not on file Social History Narrative ??? No narrative on file Medical History: diabetes, htn, gerd/Martin's, high cholesterol, chronic pain, asthma Surgical History: nexk operations x 2, tonsillectomy Family History: knows very little about family hx Allergies Allergen Reactions ??? Spiriva With Handihaler (Tiotropium [place]) Chest Pain Current outpatient prescriptions:metFORMIN (GLUCOPHAGE) 1,000 mg tablet, Take 1,000 mg by mouth 2 times daily (with meals). 1000 mg BID, 500 mg @@ noon, Disp: , Rfl: ; simvastatin (ZOCOR) 20 mg tablet,Take 20 mg by mouth nightly., Disp: , Rfl: ; sildenafil (VIAGRA) 100 mg tablet, Take 100 mg by mouthas needed., Disp: , Rfl: ; aspirin 81 mg EC tablet, Take 81 mg by mouth daily., Disp: , Rfl: PREGABALIN (LYRICA ORAL), Take 50 mg by mouth 3 times daily., Disp: , Rfl: ; insulin aspart (NOVOLOG) 100 unit/mL pen injection, Inject 60-70 Units subcutaneously 3 times daily (with meals)., Disp: , Rfl: ; insulin glargine (LANTUS) 100 unit/mL vial injection, Inject 80 Units subcutaneously every morni ng., Disp: , Rfl: ; omeprazole (PRILOSEC) 20 mg capsule, Take 40 mg by mouth every morning., Disp: ,Rfl: ranitidine (ZANTAC) 150 mg tablet, Take 300 mg by mouth nightly., Disp: , Rfl: ; atenolol-chlorthalidone (TENORETIC) 100-25 mg per tablet, 100/25, PO, Once daily, Disp: , Rfl: ; lisinopril (PRINIVIL;ZESTRIL) 10 mg tablet, 10mg, PO, Once daily, Disp: , Rfl: ; [DISCONTINUED] albuterol (PROVENTIL HFA;VENTOLIN HFA) 90 mcg/actuation inhaler, Inhale 2 puffs into the lungs as needed. Use with spacer, Disp: , Rfl: [DISCONTINUED] metFORMIN (GLUCOPHAGE) 1,000 mg tablet, 1000MG, PO, Twice [id number], PO, Twice daily. Take 1 (ONE)Tablet(s) (1000MG = 1 Tablet(s)) at 7 AM.Take 1/2 (ONE HALF)Tablet(s) (500MG = 1/2 Tablet(s)) at 12 Noon.Take 1 (ONE)Tablet(s) (1000MG = 1 Tablet(s)) at 5 PM.On a daily basis., Disp: , Rfl: ; [DISCONTINUED] simvastatin (ZOCOR) 40 mg tablet, 40mg, PO, Once daily, Disp: , Rfl: Review of Systems - Negative except General: Cardiac: see medical hx, controlled Resp: GI: see above : MS: Neuro: Skin: Psyche: Sleep: Endo: overall is controlled, it is the holidays, 200 this morning. Impression: 1. Gerd/Martin's: Omeprazole 40mg bid, 30 minutes before breakfast and supper. D/c zantac. Better to increase ppi to bid then to do qd and add H2 deepak. H2 can interfere to ppi. 2. Epigastric discomfort: very well could be gi related. Consider abdominal u/s.(will be done at [facility]). Pt to f/u with pcp about possible cardiac evaluation. Pt seeing pcp in February. 3. Will obtain egd/colo reports from [facility] as well as gastric emptying study. 4. Pt has gi contact information. I spent a total of 50 minutes face to face with this patient; 31 minutes were spent counseling the patient in the medical problems described above. Sincerely, Sharita Cunningham NP Section of Gastroenterology and Hepatology documented in this encounter Plan of Treatment Not on filedocumented as of this encounter Visit Diagnoses Diagnosis Epigastric pain - Primary Abdominal pain, epigastric documented in this encounter Care Teams Video Systems Engineer Relationship Specialty Start Date End Date Susie Keating MD PCP - General 11/22/[address] [place] [address] [address] [facility] [address] [place] [address] documented as of this encounter
--- OUTSIDE RECORDS SUMMARY | 2021-12-12 01:42 | XMS_ITS | Encounter Summary ---
:1960 Author Organization [facility] [place] [address] Care Team Providers Name Role Phone Susie Keating MD Primary Care Provider Encounter Details Date Type Department Care Team Description 12/11/2012 External Results XRay at [facility] [place] Provider, Sc[address] [place] [address] Social History Tobacco Use Types Packs/Day Years Used Date Former Smoker Cigarettes 4 38 Quit: 11/26/19 09 Smokeless Tobacco: Never Used Sex Assigned at Date Recorded Not on file documented as of this encounter Plan of Treatment Not on filedocumented as of this encounter Procedures Procedure Name Priority Date/Time Associated Diagnosis Comme nts DIAGNOSTIC RADIOLOGY SCAN Routine 02/02/2012 documented in this encounter Results Scan Doc: Diagnostic Radiology (02/02/2012) Anatomical Region Laterality Modality Other Narrative This result has an attachment that is no t available. Scanning Provider MEDIA MGR SCAN EXT ORDR/RSLT documented in this encounter Visit Diagnoses Not on filedocumented in this encounter Care Teams Home Health Administrator Relationship Specialty Start Date End Date Susie Keating MD PCP - General 11/22/[address] [place] [address] documented as of this encounter
--- OUTSIDE RECORDS SUMMARY | 2021-12-12 01:42 | XMS_ITS | Encounter Summary ---
:1960 Author Organization [facility] Address [address] [place] [address] Care Team Providers Name Role Phone Susie Keating MD Primary Care Provider Encounter Details Date Type Department Care Team Description 12/03/2016 Orders Only [place] [facility] [place] Quintana, Chest pain, unspecified type ; [facility] MD Abnormal stress ECG; Drive [facility] Essential hypertension; [place], [place] Hyperlipidemia, unspecified hyperlipidem ia type [id number] CARDIOLOGY DEPT. [phone] [place], [place] [address] Social History Tobacco Use Types Packs/Day Years Used Date Former Smoker Cigarettes 4 38 Quit: 11/26/19 09 Smokeless Tobacco: Never Used Sex Assigned at Date Recorded Not on file documented as of this encounter Progress Notes Jessica Luo RN - 12/03/2016 11:[address] Quintana: Reji Krishnamurthy - 12/03/16 More Detail >> ?? Albert Quintana MD ?? Sent: [facility] December 03, 2016 10:34 AM ? To: Jessica Luo RN ? Message ? Please call to find suitable time for coronary angiography in coming week or so Cardiac Catheterization orders and will ask schedulers to arrange procedure with the patient. Jessica Luo RN 11:30 AM 12/03/2016 documented in this encounter Plan of Treatment Not on filedocumented as of this encounter Procedures Procedure Name Priority Date/Time Associated Diagnosis Comme nts CARDIAC CATHETERIZATION Routine 12/08/2016 9:38 Chest pain, R esults for this AM EDT unspecified type procedure are in Abnormal stress ECG the results Essential section. hypertension Hyperlipidemia, unspecified hyperlipidemia type documented in this encounter Results CARDIAC CATHETERIZATION (12/08/2016 9:38 AM EDT) Anatomical Region Laterality Modality Other Specimen (Source) Anatomical Location Collection Method / Collectio n Time Received Time / Laterality Volume Narrative 12/08/2016 9:53 AM EDT ?[facility] ? Cardiac Cathete rization/Intervention Report ? Patient Name: Raghu, Reji ? Procedure Date: 12/08/2016 ? A #: [id number] ? Primary Physician: Guerin, Du J ? Case #: [id number] ? File Name: [id number] ? Catheterization Order Number: [id number] ? [facility] ? Final Report [place], [place] ? Patient Name: ? Reji Raghu ? ID#: ?[id number] ? : ?1960 ? Procedure Date: ? October 24, 201 7 ? Case #: ? [id number] ? Room: ? 1 ? Case Physician: ? Du jiang, M.D. ? Start: ?09:04 ?Fellow: ? Micheal jiang MAnshul. ? Admission: ??12/08/2016 ? Referring Physician: ??Susie Keating M.D. ? Procedures: ?* Coronary Angiography ?* Left Heart Catheterization ?* Coronary Instantaneous Wave-F ree Ratio (iFR) ? History ?Reji Krishnamurthy is a 56 year old m an. He has hypertension. The patient has a ?history of smoking. He has hype rcholesterolemia managed with lipid ?therapy. The patient has insuli n dependent diabetes mellitus. He has ?stable angina and a history of chest pain. The patient has a history of ?an arrhythmia. He has a history of chronic obstructive pulmonary disease. ?The patient also has a history of an abnormal stress test. Prior to the ?initiation of this procedure, t he patient was designated as ASA Class ?III. ? Patient Status at Catheterization: ?The patient presented with: sta ble angina (w/i 42 days). Citizen Of [place] ?Cardiovascular Society angina c lass was II. This patient was on beta ?blockers prior to the procedure . A standard exercise stress test was ?performed and results were Inde terminant. ? Technique: ?A 6Fr sheath was inserted in th e right radial artery utilizing the ?Seldinger technique. The left c oronary artery was injected utilizing a ?5Fr Tig 4.5 catheter. A 5Fr Tig 4.5 catheter was used to inject the right ?coronary artery. Left ventricul ar pressure was performed with a 5Fr Tig ?4.5 catheter. 10,000 units of h eparin were administered. A total of 100cc ?of Omnipaque were opened, 55cc of Omnipaque were administered and 45cc of ?Omnipaque were wasted. Radiatio n: Fluoro time was 4.3 minutes, dose area ?product was 47,068 mGYcm2 and a ir kerma was 880 mGY. ?The patient received the follow ing medications prior to and during the ?procedure: Aspirin (any) and Un fractionated Heparin (any). ? Hemodynamics: ?Left Heart Pressures ? Resting: ? Syst D iast ? EDP ?a ?v ? m ?Ao 127 ?? 70 ?93 ?LV 135 ? 19 ? Coronary Angiography: ?Dominance: Right ?Left Main ? The left main was normal . ?Left Anterior Descending ? There was mild diffuse d isease of the entire vessel segment of the ? left anterior descending artery (LAD). ??The LAD was large. ?Left Circumflex ? There was mild diffuse d isease of the entire vessel segment of the ? left circumflex artery ( LCX). ??The LCX was large. ?Right Coronary Artery ? There was mild diffuse d isease of the entire vessel segment of the ? right coronary artery (R CA). ??The RCA was large. ??The proximal ? segment of the RCA had a single discrete 50% stenosis. ? Intravascular Imaging/Physiology: ?Instantaneous wave-free ratio ( iFR) was determined across the 50% ?stenosis in the proximal RCA us ing a 6 Fr JR 4 guiding catheter and a ?Verrata wire. ??Wire delivery w as successful. ??The IFR across the 50% ?proximal RCA lesion was 1.00. ? ?This lesion was not hemodynamically ?significant. ? Vascular Access: ?Vascular Access Management: ? Mechanical Compression o f the right radial artery access site was ? performed. ? Conclusions: ?* One vessel coronary artery di sease (RCA) ?* Elevated left ventricular end diastolic pressure ?* Moderate stenosis proximal RC A not hemodynamically significant ?(iFR=1.0). ? Complications/Events: ?The patient had no complication s during these procedures. ? Recommendations: ?Based upon the results of this procedure, it was recommended that the ?patient be managed with medical therapy. ?The attending physician was presen t for the entire procedure. ?Dr. Du Guerin M.D. was pre sent during the moderate sedation ?intraservice time as documented by the sedation nurse. ??Case time = 00:28. ?Dr. Du Guerin M.D. perform ed the coronary angiography, left heart ?catheterization and IFR-coronary. ? Du Guerin M.D. ? Electronically Signed by: uD alexandra M.D. ? Report Finalized: 12/08/2016 ??09:45 ? Procedure Note Du Guerin MD - 12/08/2016Format ting of this note might be different from the original. [facility] Cardiac Catheterization/Intervention Re port Patient Name: Reji Krishnamurthy Procedure Date: 12/08/2016 A #: [id number] Primary Physician: Du Guerin Case #: [id number] File Name: [id number] Catheterization Order Number: [id number] [facility] Final Report [place], [place] Patient Name: Reji Krishnamurthy ID#: [id number] : 1960 Procedure Date: December 08, 2016 Case #: [id number] Room: 1 Case Physician: Du Guerin M.D. S tart: 09:04 Fellow: Micheal Cintron M.D. Admission: 1 Referring Physician: Susie Keating M.D. Procedures: * Coronary Angiography * Left Heart Catheterization * Coronary Instantaneous Wave-Free Rati o (iFR) History Reji Krishnamurthy is a 56 year old man. He h as hypertension. The patient has a history of smoking. He has hypercholest erolemia managed with lipid therapy. The patient has insulin depend ent diabetes mellitus. He has stable angina and a history of chest pa in. The patient has a history of an arrhythmia. 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 The patient also has a history of an ab normal stress test. Prior to the initiation of this procedure, the patie nt was designated as ASA Class III. Patient Status at Catheterization: The patient presented with: stable mariusz na (w/i 42 days). Citizen Of [place] Cardiovascular Society angina class was II. This patient was on beta blockers prior to the procedure. A anil dard exercise stress test was performed and results were Indeterminan t. Technique: A 6Fr sheath was inserted in the right radial artery utilizing the Seldinger technique. The left coronary artery was injected utilizing a 5Fr Tig 4.5 catheter. A 5Fr Tig 4.5 cat heter was used to inject the right coronary artery. Left ventricular press ure was performed with a 5Fr Tig 4.5 catheter. 10,000 units of heparin w ere administered. A total of 100cc of Omnipaque were opened, 55cc of Omnip aque were administered and 45cc of Omnipaque were wasted. Radiation: Fluor o time was 4.3 minutes, dose area product was 47,068 mGYcm2 and air kerma was 880 mGY. The patient received the following medi cations prior to and during the procedure: Aspirin (any) and Unfraction ated Heparin (any). Hemodynamics: Left Heart Pressures Resting: Syst Diast EDP a v m Ao 127 70 93 LV 135 19 Coronary Angiography: Dominance: Right Left Main The left main was normal. Left Anterior Descending There was mild diffuse disease of the e ntire vessel segment of the left anterior descending artery (LAD). The LAD was large. Left Circumflex There was mild diffuse disease of the e ntire vessel segment of the left circumflex artery (LCX). The LCX w as large. Right Coronary Artery There was mild diffuse disease of the e ntire vessel segment of the right coronary artery (RCA). The RCA wa s large. The proximal segment of the RCA had a single discret e 50% stenosis. Intravascular Imaging/Physiology: Instantaneous wave-free ratio (iFR) was determined across the 50% stenosis in the proximal RCA using a 6 Fr JR 4 guiding catheter and a Verrata wire. Wire delivery was success ful. The IFR across the 50% proximal RCA lesion was 1.00. This lesi on was not hemodynamically significant. Vascular Access: Vascular Access Management: Mechanical Compression of the right rad ial artery access site was performed. Conclusions: * One vessel coronary artery disease (R CA) * Elevated left ventricular end diastol ic pressure * Moderate stenosis proximal RCA not he modynamically significant (iFR=1.0). Complications/Events: The patient had no complications during these procedures. Recommendations: Based upon the results of this procedur e, it was recommended that the patient be managed with medical therapy . The attending physician was present for the entire procedure. Dr. Du Guerin M.D. was present during the moderate sedation intraservice time as documented by the sedation nurse. Case time = 00:28. Dr. Du Guerin M.D. performed th e coronary angiography, left heart catheterization and IFR-coronary. Du Guerin M.D. Electronically Signed by: uD alexandra M.D. Report Finalized: 12/08/2016 09:45 Albert Quintana MD CARDIAC CATH ORDERABLES documented in this encounter Visit Diagnoses Diagnosis Chest pain, unspecified type Abnormal stress ECG Other nonspecific abnormal cardiovascula r system function study Essential hypertension Unspecified essential hypertension Hyperlipidemia, unspecified hyperlipidem ia type Essential hypertension Unspecified essential hypertension Abnormal stress ECG Other nonspecific abnormal cardiovascula r system function study Hyperlipidemia, unspecified hyperlipidem ia type Chest pain, unspecified type documented in this encounter 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
--- OUTSIDE RECORDS SUMMARY | 2021-12-12 01:42 | XMS_ITS | Encounter Summary ---
:1960 Author Organization [facility] [place] [address] Care Team Providers Name Role Phone Susie Keating MD Primary Care Provider Encounter Details Date Type Department Care Team Description 12/12/2012 Orders Only Neurosurgery at [facility] [place] Carine Cartagena MD [address] [place] [address] NEUROSURGERY DEPT. [phone] [place], [place] [address] (Wo rk) Social History Tobacco Use Types Packs/Day Years Used Date Former Smoker Cigarettes 4 38 Quit: 11/26/19 09 Smokeless Tobacco: Never Used Sex Assigned at Date Recorded Not on file documented as of this encounter Plan of Treatment Pending Results Name Type Priority Associated Diagnoses Date/Ti ne Film Library- Storage Imaging Routine 2012 7:[address] Spine documented as of this encounter Visit Diagnoses Not on filedocumented in this encounter Care Teams Musical String Maker Relationship Specialty Start Date End Date Susie Keating MD PCP - General 11/22/[address] [place] [address] documented as of this encounter
--- OUTSIDE RECORDS SUMMARY | 2021-12-12 01:42 | XMS_ITS | Encounter Summary ---
:1960 [place] [address] Care Team Providers Name Role Phone Susie Keating MD Primary Care Provider Reason for Visit Auth/Cert Specialty Diagnoses / Procedures Referred By Contact Refer red To Contact Diagnoses Abnormal stress ECG [R94.39] Procedures CARDIAC CATHETERIZATION Referral ID Status Reason Start Date Expiration Date Visits Requ ested Visits Authorized [id number] 1 1 Encounter Details Date Type Department Care Team Description 12/08/2016 Hospital Encounter Same Day Program at [facility] Chest pain, Coni Cobb MD unspecified type [facility] [address] [id number] [phone] Social History Tobacco Use Types Packs/Day Years Used Date Former Smoker Cigarettes 4 38 Quit: 11/26/19 09 Smokeless Tobacco: Never Used Alcohol Use Standard Drinks/Week Comments Yes 1 (1 standard drink = 0.6 oz pure alcoho l) Sex Assigned at Date Recorded Not on file documented as of this encounter Last Filed Vital Signs Vital Sign Reading Time Taken Comments Blood Pressure 129/94 12/08/2016 12:00 PM EDT Pulse 74 12/08/2016 12:00 PM EDT Temperature 36.9 ??C (98.4 ??F) 12/08/2016 12:00 PM EDT Respiratory Rate 18 12/08/2016 12:10 PM EDT Oxygen Saturation 95% 12/08/2016 12:10 PM EDT Inhaled Oxygen Concentration - - Weight 126.1 kg (278 lb) 12/08/2016 7:52 AM EDT Height 185.4 cm (6' 1) 12/08/2016 7:52 AM EDT Body Mass Index 36.68 12/08/2016 7:52 AM EDT documented in this encounter Discharge Summaries [facility] MD - 12/08/2016 9:57 AM EDT [facility] SAME DAY DISCHARGE SUMMARY Reji Krishnamurthy [id number] 12/08/2016 Primary Care Provider: Susie Keating MD Referring Hospital Pharmacy Director: Albert Quintana MD Procedures: Left heart catheterization, coronary angiography, coronary instantaneous wave- free ratio (iFR). Indication: Reji Krishnamurthy is a 56 y.o. male with hx of Htn, HLD, T2DM, COPD, and prior tobacco use who is referred for cardiac catheterization by Dr. Quintana for evaluation of exertional chest pain. Mr. Krishnamurthy reports several months of exertional chest pain occurring even when walking up a small hill. During a subsequentexercise EKG stress test he achieved 7 METs and was limited by chest pain. There were PVCs and bigeminy but no significant ST abnormalities. Given his risk factors and history of chest pain with a concerning, although not diagnostic stress test, he is now referred for left heart catheterization with coronary angiography for further assessment of coronary anatomy and disease. ?? Hospital Course: After obtaining informed consent, cardiac catheterization was performed via the right radial artery using 5 Fr catheters. Hemostasis was obtained with mechanical compression. The procedure was well tolerated and there were no complications. The findings (see below) were reviewed with Mr. Krishnamurthy and his as well as with Dr. Quintana. Plans are for continued medical therapy and lifestyle modification.After observation and ambulation in Same Day Surgery, Mr. Krishnamurthy was discharged. He was discharged on his usual medications. Cardiology follow-up will continue with Dr. Quintana. Findings: 1. One vessel coronary artery disease (RCA) 2. Moderate stenosis proximal RCA not hemodynamically significant (iFR=1.0) 3. Elevated left ventricular end diastolic pressure (LV = 135/19 mmHg). [facility] MD, [facility] Staff Hospital Pharmacy Director 12/08/2016 documented in this encounter Discharge Instructions Discharge InstructionsHadlock, Sho E, RN - 12/08/2016 12:10 PM EDT Activity If you are discharged the same day as your procedure, do not drive yourself home. Arrange to have another person drive. You may walk around when you get home, but keep your activity at a minimum until the morning. Do not bend over, strain, or lift heavy objects for 24 hours after the procedure. Do not participatein active sports for 48 hours. You may engage in sexual activity after 48 hours. These restrictions will not apply if the catheter was placed in a blood vessel in your arm. Catheter Insertion Area Care Take the band-aid off the catheter insertion area the morning following the procedure. You may take a shower if you wish. Wash the area with soap and water. Look for signs of infection over the next several days. A little spot of blood at the catheter insertion area is not unusual. A bruise or small lump under the skin is normal; they generally disappear in 3-4 days. For the first several days at home if you cough or sneeze, hold your groin to help prevent bleeding. Expect some mild tenderness over the area where the catheter was inserted. You will notice this after the local anesthetic (numbing medicine) wears off. This should improve during the 24-48 hours afterthe procedure. Take tylenol if needed. Contact your doctor if the discomfort worsens. Problems to Watch For If there is bright red blood flowing from the catheter insertion area: *stop what you are doing and lie down *Hold pressure steadily on the area for 15 minutes *Call for Help *If the bleeding does not stop in 15 minutes call 911 for an ambulance. If there is swelling with black and blue color at the catheter insertion area, there may be bleeding inside. Contact the doctor if there is any increase in size. Look at the insertion site for the first few days at home. Signs of infection are: *redness *Swelling *Yellow, white, green or brown foul smelling drainage. *increased soreness If you think there is an infection, take your temperature. Then call your doctor. The limb on the side where you had your catheterization should look and feel normal in its color, sensation, and temperature. If your leg becomes cool, pale, blue or changing color with numbness and tingling, contact your doctor. If you feel faint or dizzy, lie down with your feet elevated. Have someone call the doctor. If you are alert, drink fluids. How to Deal with Chest pain If you had only the cardiac catheterization, treat any angina or chest discomfort as instructed. Stop what you are doing, and sit or lie down. If prescribed, take nitroglycerin under your tongue. If the angina isn't relieved, take another nitroglycerine in 5 minutes. After another 5 minutes, a third ni troglycerine may be taken. If the angina isn't improved you should call for an ambulance to bring you to the nearest hospital emergency room. If your angina is more frequent or more sever than before, contact your doctor. We usually would not expect to have angina after an angioplasty. If you do get angina, treat it as you did before but also contact your doctor. Return to Work The doctor will usually have told you when to return to work. If you do not perform heavy physical labor, most people can return to work in a few days. Diet Follow your previous diet unless otherwise instructed. Cardiac Risk Factors If you have coronary artery disease, it is important that you help control it by reducing your cardiac risk factors. If you smoke, we urge you to stop now. If you think this is going to be a problem, let us know so that we may help you. We have dieticians who can help you learn about low fat, low cholesterol diet. Cardiac rehabilitation programs can help you set up a regular exercise program. Work with your doctor if you have high blood pressure or sugar diabetes to keep these under control. Medications ____Take your usual medications ____Medication changes: If you are taking medicines prescribed by your doctor, do not take any rubr-kob-mhhloox medicines orherbal preparations without first discussing this with your doctor or pharmacist. There is the possibility of side effect and interactions when these are combined. Follow up Care Who to Call with Questions or Problems If there are any questions or problems that you think might be related to your cardiac cath or angioplasty, contact the cupola melter helper venereal disease control head by calling [facility] at . documented in this encounter Medications at Time of Discharge Medication Sig Dispensed Refills Start Date End Date gabapentin (NEURONTIN) 0 10/15/2016 300 mg Capsule potassium chloride 0 11/12/2016 (MICRO-K) 10 mEq Capsule, Sustained Release JANUVIA 100 mg Tablet 0 11/02/2016 cyanocobalamin 1,000 Take 1,000 mcg by mouth 0 mcg Tablet daily. aspirin 81 mg Tablet, Take 81 mg by mouth 30 tablet 3 12/03 Chewable daily. atorvastatin (LIPITOR) Take 1 tablet by mouth 90 tablet 3 1 40 mg Tablet daily. nitroGLYcerin Place 1 tablet under 20 tablet 12 12/03/2016 (NITROSTAT) 0.4 mg the tongue every 5 Tablet, Sublingual minutes as needed for Chest pain. metFORMIN (GLUCOPHAGE) Take 1,000 mg by mouth 0 1,000 mg tablet 2 times daily (with meals). 1000 mg BID, 500 mg @@ noon omeprazole (PRILOSEC) Take 1 capsule by mouth 60 capsule 11 1 04/03/2012 40 mg capsule 2 times daily. insulin aspart Inject 60-70 Units 0 (NOVOLOG) 100 unit/mL subcutaneously 3 times pen injection daily (with meals). insulin glargine Inject 80 Units 0 (LANTUS) 100 unit/mL subcutaneously every vial injection morning. atenolol-chlorthalidone 100/25, PO, Once daily 0 03/30/2006 (TENORETIC) 100-25 mg per tablet documented as of this encounter Progress Notes Luna Chaparro RN - 12/08/2016 12:34 PM EDT Patient alert and oriented, vital signs stable. Reviewed discharge instructions; patient and verbalized understanding. Copy of instruction sheet with contact numbers for questions/concerns. Pain assessment documented. Patient escorted out of department via wheelchair with . documented in this encounter H&P Notes Micheal Cintron MD - 12/08/2016 8:04 AM EDT Reji Krishnamurthy is a 56 y.o. male with hx of Htn, HLD, T2DM, COPD, and prior tobacco use who is referred for cardiac catheterization by Dr. Quintana for evaluation of exertional chest pain. He reports several months of exertional chest pain occurring even when walking up a small hill. Notes some intermittent palpitations with this as well. He subsequently had an exercise EKG stress test during which he achieved 7 METs, was limited by chest pain, and had no significant ST abnormalities. He did have exercise induced PVCs and bigeminy. Given his risk factors and history of chest pain with a concerning, although not diagnostic stress test, he is now referred for left heart catheterization with coronary angiography for further assessment of coronary anatomy and disease. There have not been any changes in health status since last seen in clinic. No fevers, no chills, no bleeding. Outpatient Prescriptions Marked as Taking for the 12/08/16 encounter (Hospital Encounter) Medication Sig Dispense Refill ??? gabapentin (NEURONTIN) 300 mg Capsule ??? potassium chloride (MICRO-K) 10 mEq Capsule, Sustained Release ??? JANUVIA 100 mg Tablet ??? cyanocobalamin 1,000 mcg Tablet Take 1,000 mcg by mouth daily. ??? aspirin 81 mg Tablet, Chewable Take 81 mg by mouth daily. 30 tablet 3 ??? atorvastatin (LIPITOR) 40 mg Tablet Take 1 tablet by mouth daily. 90 tablet 3 ??? metFORMIN (GLUCOPHAGE) 1,000 mg tablet Take 1,000 mg by mouth 2 times daily (with meals). 1000 mg BID, 500 mg @@ noon ??? omeprazole (PRILOSEC) 40 mg capsule Take 1 capsule by mouth 2 times daily. 60 capsule 11 ??? insulin aspart (NOVOLOG) 100 unit/mL pen injection Inject 60-70 Units subcutaneously 3 times daily (with meals). ??? insulin glargine (LANTUS) 100 unit/mL vial injection Inject 80 Units subcutaneously every morning. ??? atenolol-chlorthalidone (TENORETIC) 100-25 mg per tablet 100/25, PO, Once daily BP 125/76 Pulse 74 Temp 36.4 ??C (97.5 ??F) (Temporal) Resp 16 Ht 185.4 cm (6' 1) Wt (!) 126.1 kg (278 lb) SpO2 99% BMI 36.68 kg/m2 Gen: Alert, comfortable appearing, obese, WM in NAD HEENT: EOMI, MMM Neck: Supple, no JVD CV: RRR, no M/R/G appreciated, normal S1/S2, PMI not palpated Resp: CTAB, no W/R/R Abd: Soft, NT/ND, +BS Ext: No edema, clubbing, or cyanosis. Warm and well perfused. Neuro: CN grossly intact, moving all extremities Psych: Appropriate affect Pulses: 2+ bilateral radial pulses, Type B Barbeau test on the right, 2+ bilateral femoral pulses, no femoral bruit appreciated, 2+ bilateral DP pulses Labs reviewed and notable for: WBC 7.12 Hgb 14.3 Plts 201 Na 139 K 3.5 Cl 101 HCO3 31 BUN 14 SCr 1.11 Glu 142 INR 1.1 A/P 56 y.o. male here for cardiac catheterization for evaluation of exertional chest pain. Will proceed with left heart catheterization with coronary angiography for further assessment of coronary anatomy and disease. I have personally discussed the procedure, including benefits and risks, with the patient who agrees to proceed. - proceed as planned - consent signed - FULL code Micheal Cintron MD Fellow, Interventional Cardiology 12/08/2016 8:08 AM documented in this encounter Plan of Treatment Not on filedocumented as of this encounter Procedures Procedure Name Priority Date/Time Associated Diagnosis Comme nts POCT GLUCOSE Routine 12/08/2016 12:04 PM Results for this EDT procedure are i n the results section . POCT GLUCOSE Routine 12/08/2016 7:56 AM Results f or this EDT procedure are i n the results section . documented in this encounter Results POCT Glucose (12/08/2016 12:04 PM EDT) P athologist Signature POC Glucose 133 65 - 199 [facility] mg/dL [facility] Comment: Supplemental ranges: <140 mg/dL before meals <180 mg/dL all other times of the day Specimen Anatomical Collection Method Collection Time Receive d Time (Source) Location / / Volume Laterality Blood specimen 12/08/2016 12:04 7 (specimen) PM EDT 12:04 PM EDT [facility] MD POINT OF CARE TEST ORDERABLE S Performing Organization Address City/State/[place] [address] POCT Glucose (12/08/2016 7:56 AM EDT) P athologist Signature POC Glucose 144 65 - 199 [facility] mg/dL [facility] Comment: Supplemental ranges: <140 mg/dL before meals <180 mg/dL all other times of the day Specimen Anatomical Collection Method Collection Time Receive d Time (Source) Location / / Volume Laterality Blood specimen 12/08/2016 7:56 AM 017 7:56 (specimen) EDT AM EDT [facility] MD POINT OF CARE TEST ORDERABLE S Performing Organization Address City/State/ZIP Code Phon e Number [place] [phone] [facility] [address] documented in this encounter Visit Diagnoses Diagnosis Chest pain, unspecified type documented in this encounter Administered Medications Inactive Administered Medications - up to 3 most recent administrations Medication Order MAR Action Action Date Dose Rate Site nitroGLYcerin (NITROSTAT) SL tablet 0.4 mg 0.4 mg, Sublingual, EVERY 5 MIN PRN, Sta rting on Wed12/08/16 at 0942, Until Wed12/08/16 at 1443, Chest pain, May repeat every 5 minut es for a total of three doses. Notify provider if chest pain not relieved with nitroglycerin. Do not administer nitroglycerin if the patinet has received o r taken phosphodiesterase (PDE-5) inhibitors such as sildenafil, t adalafil or vardenafil within the last 24 to 72 hours., Recovery (Recovery-Hospital Unit), Routi elizabeth sodium chloride 0.9% infusion New Bag 12/08/2016 9:50 AM EDT 125 mL/hr 125 mL/hr 125 mL/hr, Intravenous, CONTINUOUS, Starting on Wed12/08/16 at 1000, Until Wed12/08/16 at 1159, Recovery (Recovery-Hospital Unit) documented in this encounter Active and Recently Administered Medications Times are shown in EDT. Continuous Medication Order 12/06/2016 12/07/2016 12/08/2016 sodium chloride 0.9% infusion 09 50 (New Bag - Provider: Karen Neal RN) 125 mL/hr, at 125 mL/hr, Intravenous, CO NTINUOUS, Starting Wed12/08/16 at 1000, Until Wed12/08/16 at 1159, Recovery (Recovery-Hospital Unit) PRN Medication Order 12/06/2016 12/07/2016 12/08/2016 heparin (porcine) injection (CANCELED) 908 (Given - Provider: Wilmer Barron, RN)09 (Given - Provider: Gene Banegas RN) ONCE PRN, Starting Wed12/08/16 at 0909, Until Wed12/08/16 at 1233, Cath (Intra-Procedure), Routine iohexol (OMNIPAQUE) 350 mg/mL solution (CANCELED) 935 (Given - Provider: Wilmer Barron, RODOLFO) ONCE PRN, Starting Wed12/08/16 at 0936, Until Wed12/08/16 at 1233, Cath (Intra-Procedure), Routine nitroGLYcerin (NITROSTAT) SL tablet 0.4 mg 0.4 mg, Sublingual, EVERY 5 MIN PRN, Sta rting Wed12/08/16 at 0942, Until Wed12/08/16 at 1443, Chest pain, May repeat every 5 minutes for a total of three doses. Notify provider if chest pain not relie bibiana with nitroglycerin. Do not administe r nitroglycerin if the patinet has received or taken phosphodiesterase (PDE-5) inhibitors such as sildenafil, tadalafil or vardenafil within the last 24 to 72 hours., Recovery (Recovery- Hospital Unit), Routine nitroGLYcerin 100 mcg/mL intracoronary dilution (CANCELED) 09 (Given - Provider: Micheal Cintron MD)0924 (Given - Provider: Micheal Cintron MD) ONCE PRN, Starting Wed12/08/16 at 0905, Until Wed12/08/16 at 1233, Cath (Intra-Procedure), Routine verapamil (ISOPTIN) injection (CANCELED) 904 (Given - Provider: Micheal Cintron MD) ONCE PRN, Starting Wed12/08/16 at 0905, Until Wed12/08/16 at 1233, Administer over 2 Minutes, Cath (Intra-Procedure) documented in this encounter Care Teams Nurse'S Companion Relationship Specialty Start Date End Date Susie Keating MD PCP - General 11/22/[address] [place] [address] [address] [place] [address] documented as of this encounter
--- OUTSIDE RECORDS SUMMARY | 2021-12-12 01:42 | XMS_ITS | Clinical Summary ---
:1960 Author Organization [facility] [place] [address] Care Team Providers Name Role Phone Susie Keating MD Primary Care Provider Allergies Active Allergy Reactions Severity Noted Date Comments Tiotropium Warren 11/22/2012 Chest Jonah n Medications Medication Sig Dispensed Refills Start Date End Date Status atenolol-chlorthalid 100/25, PO, Once 0 03/30/2006 Active one (TENORETIC) daily 100-25 mg per tablet insulin aspart Inject 60-70 Units 0 Active (NOVOLOG) 100 subcutaneously 3 unit/mL pen times daily (with injection meals). insulin glargine Inject 80 Units 0 Active (LANTUS) 100 unit/mL subcutaneously every vial injection morning. metFORMIN Take 1,000 mg by 0 Act janis (GLUCOPHAGE) 1,000 mouth 2 times daily mg tablet (with meals). 1000 mg BID, 500 mg @@ noon omeprazole Take 1 capsule by 60 capsule 11 01/31/2013 Active (PRILOSEC) 40 mg mouth 2 times daily. capsule gabapentin 0 10/15/2016 Active (NEURONTIN) 300 mg Capsule potassium chloride 0 11/12/2016 Active (MICRO-K) 10 mEq Capsule, Sustained Release JANUVIA 100 mg 0 11/02/2016 Acti ve Tablet cyanocobalamin 1,000 Take 1,000 mcg by 0 Active mcg Tablet mouth daily. aspirin 81 mg Take 81 mg by mouth 30 tablet 3 12/03/2016 Active Tablet, Chewable daily. atorvastatin Take 1 tablet by 90 tablet 3 12/03/2016 Active (LIPITOR) 40 mg mouth daily. Tablet nitroGLYcerin Place 1 tablet under 20 tablet 12 12/03/2016 Active (NITROSTAT) 0.4 mg the tongue every 5 Tablet, Sublingual minutes as needed for Chest pain. Active Problems Problem Noted Date Chest pain 12/03/2016 Abnormal stress ECG 12/03/2016 Essential hypertension 12/03/2016 Hyperlipidemia 12/03/2016 Esophageal reflux 01/31/2013 Immunizations Name Administration Dates Next Due Influenza Vaccine, Whole 01/14/2006 Td, adult 02/27/2003 Family History Medical History Relation Comments Heart Failure Neg Hx Heart Surgery Neg Hx Myocardial Infarction Neg Hx Social History Tobacco Use Types Packs/Day Years Used Date Former Smoker Cigarettes 4 38 Quit: 11/26/19 09 Smokeless Tobacco: Never Used Alcohol Use Standard Drinks/Week Comments Yes 1 (1 standard drink = 0.6 oz pure alcoho l) Sex Assigned at Date Recorded Not on file Last Filed Vital Signs Vital Sign Reading [...] Mass Index 36.68 12/08/2016 7:52 AM EDT Plan of Treatment Health Maintenance Due Date Last Done Comments Covid-19 Vaccine (#1) 1960 HIV screen 05/08/1977 Hepatitis C Screening 05/08/1977 Tdap adult 05/08/1978 Colonoscopy 05/08/2004 Zoster vaccine (1 of 2) 05/08/2009 Tetanus vaccine 02/27/2013 02/27/2003 Advance Directive 05/08/2014 Influenza (Flu) vaccine (1 of 1 - Influenza standard 10/16/2021 01/14/2006 series) Insurance Payer Benefit Plan / Subscriber ID Effective Dates Phone Addre ss Type Group MEDICARE MEDICARE PART [id number] 2003-Prese [id number] [place] [id number] HEALTH PLANS HEALTH PLANS [id number] 2014-Sant[place] [phone] [address] [place] [address] Advance Directives Latest Code Status on File Code Status Date Activated Date Inactivated Comments Full Code 12/08/2016 9:41 AM Does patient have capacity to make decision: Yes Full Code 12/08/2016 8:09 AM 12/08/2016 9:41 AM Does patient have capacity to make decision: Yes Care Teams Medical Advisor Relationship Specialty Start Date End Date Susie Keating MD PCP - General 11/22/[address] [place] [address]
--- OUTSIDE RECORDS SUMMARY | 2021-12-12 01:42 | XMS_ITS | Encounter Summary ---
:1960 Author Organization [place] [address] Care Team Providers Name Role Phone Susie Keating MD Primary Care Provider Encounter Details Date Type Department Care Team Description 11/22/[address] Orders [address] [place] [facility] Carine Cartagena MD [facility] [place] [address] NEUROSURGERY DEPT. [phone] [place], [place] [address] (Wo rk) Social History Tobacco Use Types Packs/Day Years Used Date Former Smoker Cigarettes 4 38 Quit: 11/26/19 09 Smokeless Tobacco: Never Used Sex Assigned at Date Recorded Not on file documented as of this encounter Plan of Treatment Not on filedocumented as of this encounter Procedures Procedure Name Priority Date/Time Associated Diagnosis Comme nts FILM LIBRARY Routine 11/22/2012 10:25 AM Results for this STORAGE ONLY DX EDT procedure ar e in SPINE the results section. documented in this encounter Results Film Library- Storage only DX Spine (11/22/2012 10:25 AM EDT) Specimen (Source) Anatomical Collection Method Collection Time Re ceived Time Location / / Volume Laterality 11/22/2012 10:25 AM EDT Narrative RAD - 10/11/2013 4:46 PM EDT This is a non-reportable exam. Procedure Note Refugio Ibarra - 10/11/2013Formatti ng of this note might be different from the original. This is a non-reportable exam. Authorizing Provider Result Gerardo Cartagena MD G FILM LIBRARY ORDERABLES Performing Organization Address City/State/ZIP Code Phon e Number [facility] [address] [facility] [address] documented in this encounter Visit Diagnoses Not on filedocumented in this encounter Care Teams Mat Roller Relationship Specialty Start Date End Date Susie Keating MD PCP - General 11/22/[address] [place] [address] documented as of this encounter
--- OUTSIDE RECORDS SUMMARY | 2021-12-12 01:42 | XMS_ITS | Encounter Summary ---
:1960 [place] [address] Care Team Providers Name Role Phone Susie Keating MD Primary Care Provider Reason for Visit Auth/Cert Specialty Diagnoses / Procedures Referred By Contact Refer red To Contact Diagnoses Abnormal stress ECG [R94.39] Procedures CARDIAC CATHETERIZATION Referral ID Status Reason Start Date Expiration Date Visits Requ ested Visits Authorized [id number] 1 1 Encounter Details Date Type Department Care Team Description 12/08/2016 Surgery Lead Manufacturing Engineer Du Buchanan , CARDIAC CATHETERIZATION [facility] [place] [address] CARDIOLOGY DEPT. [phone] [place], [place] [address] (Wo rk) Social History Tobacco [...] Sign Reading Time Taken Comments Blood Pressure 125/76 12/08/2016 7:52 AM EDT Pulse 74 12/08/2016 7:52 AM EDT Temperature 36.4 ??C (97.5 ??F) 12/08/2016 7:52 AM EDT Respiratory Rate 16 12/08/2016 7:52 AM EDT Oxygen Saturation 99% 12/08/2016 7:52 AM EDT Inhaled Oxygen Concentration - - Weight 126.1 kg (278 lb) 12/08/2016 7:52 AM EDT Height 185.4 cm (6' 1) 12/08/2016 7:52 AM EDT Body Mass Index 36.68 12/08/2016 7:52 AM EDT documented in this encounter Discharge Summaries Du Guerin MD - 12/08/2016 9:57 AM EDT [facility] SAME DAY DISCHARGE SUMMARY Reji Krishnamurthy [id number] 12/08/2016 Primary Care Provider: Susie Keating MD Referring Pool Installer: Albert Quintana MD Procedures: Left heart catheterization, [...] (LV = 135/19 mmHg). Du Guerin MD, [facility] Staff Pool Installer 12/08/2016 documented in this encounter Discharge Instructions Discharge InstructionsSho Sampson RN - 12/08/2016 12:10 PM EDT Activity [...] by your doctor, do not take any xvdm-zom-vubplbo medicines orherbal preparations without first discussing this with your doctor or pharmacist. There is the possibility of side effect and interactions when these are combined. Follow up Care Who to Call with Questions or Problems If there are any questions or problems that you think might be related to your cardiac cath or angioplasty, contact the scheme technician employee relations administrator by calling [facility] at . documented in this encounter Medications [...] documented as of this encounter Progress Notes Lnua Chaparro RN - 12/08/2016 12:34 PM EDT [...] Results POCT Glucose (12/08/2016 12:04 PM EDT) athologist Signature POC Glucose 133 65 - 199 [facility] mg/dL [facility] Comment: Supplemental ranges: <140 mg/dL before meals <180 mg/dL all other times of the day Specimen Anatomical Collection Method Collection Time Receive d Time (Source) Location / / Volume Laterality Blood specimen 12/08/2016 12:04 7 (specimen) PM EDT 12:04 PM EDT Du Guerin MD POINT OF CARE TEST ORDERABLE S Performing Organization Address City/State/[place] [address] POCT Glucose (12/08/2016 7:56 AM EDT) P athologist Signature POC Glucose 144 65 - 199 [facility] mg/dL [facility] Comment: Supplemental ranges: <140 mg/dL before meals <180 mg/dL all other times of the day Specimen Anatomical Collection Method Collection Time Receive d Time (Source) Location / / Volume Laterality Blood specimen 12/08/2016 7:56 AM 017 7:56 (specimen) EDT AM EDT Du Guerin MD POINT OF CARE TEST ORDERABLE S Performing Organization Address City/State/[place] [address] documented in this encounter Visit Diagnoses Diagnosis Chest pain, unspecified type Essential hypertension Unspecified essential hypertension Abnormal stress ECG Other nonspecific abnormal cardiovascula r system function study Hyperlipidemia, unspecified hyperlipidem ia type Chest pain, unspecified type documented in this encounter Administered Medications Inactive Administered Medications - up to 3 most recent administrations Medication Order MAR Action Action Date Dose Rate Site heparin (porcine) injection Given 12/08/2016 9:20 AM EDT 5,000 Units ONCE PRN, Starting on Wed12/08/16 at 0909, Until Wed12/08/16 at 1233, Cath (Intra-Procedure), Routine Given 12/08/2016 9:09 AM EDT 5,000 Units iohexol (OMNIPAQUE) 350 mg/mL solution Given 12/08/2016 9:36 AM EDT 55 mLs ONCE PRN, Starting on Wed12/08/16 at 0936, Until Wed12/08/16 at 1233, [...] 24 to 72 hours., Recovery (Recovery-Hospital Unit), Analy johnson nitroGLYcerin 100 mcg/mL intracoronary Given 12/08/2016 9:24 AM EDT 200 mcg dilution ONCE PRN, Starting on Wed12/08/16 at 0905, Until Wed12/08/16 at 1233, Cath (Intra-Procedure), Routine Given 12/08/2016 9:05 AM EDT 150 mcg sodium chloride 0.9% infusion New Bag 12/08/2016 9:50 AM EDT 125 mL/hr 125 mL/hr 125 mL/hr, Intravenous, CONTINUOUS, Starting on Wed12/08/16 at 1000, Until Wed12/08/16 at 1159, Recovery (Recovery-Hospital Unit) verapamil (ISOPTIN) injection Given 12/08/2016 9:05 AM EDT 2.5 mg ONCE PRN, Starting on Wed12/08/16 at 0905, Until Wed12/08/16 at 1233, Administer over 2 Minutes, Cath (Intra-Procedure) documented in this encounter Active and Recently Administered Medications Times are shown in EDT. Continuous Medication Order 12/06/2016 12/07/2016 12/08/2016 sodium chloride 0.9% infusion 09 50 (New Bag - Provider: Karen Neal RN) 125 mL/hr, at 125 mL/hr, Intravenous, CO NTINUOUS, Starting Wed12/08/16 at 1000, Until Wed12/08/16 at 1159, Recovery (Recovery-Hospital Unit) PRN Medication Order 12/06/2016 12/07/2016 12/08/2016 heparin (porcine) injection (CANCELED) 0909 (Given - Provider: Wilmer Barron, RODOLFO)0920 (Given - Provider: Gene Banegas RN) ONCE PRN, Starting Wed12/08/16 at 0909, Until Wed12/08/16 at 1233, Cath (Intra-Procedure), Routine iohexol (OMNIPAQUE) 350 mg/mL solution (CANCELED) 0936 (Given - Provider: Wilmer Barron RN) ONCE PRN, Starting Wed12/08/16 at 0936, Until [...] Routine nitroGLYcerin 100 mcg/mL intracoronary dilution (CANCELED) 904 (Given - Provider: Michael Cintron MD)09 (Given - Provider: Micheal Cintron MD) ONCE PRN, Starting Wed12/08/16 at 0905, Until Wed12/08/16 at 1233, Cath (Intra-Procedure), Routine verapamil (ISOPTIN) injection (CANCELED) 904 (Given - Provider: Micheal Cintron MD) ONCE PRN, Starting Wed12/08/16 at 0905, Until Wed12/08/16 at 1233, Administer over 2 Minutes, Cath (Intra-Procedure) documented in this encounter Care Teams Front Desk Relationship Specialty Start Date End Date Susie Keating MD PCP - General 11/22/[address] [place] [address] [address] [place] [address] documented as of this encounter
--- OUTSIDE RECORDS SUMMARY | 2021-12-12 01:42 | XMS_ITS | Encounter Summary ---
:1960 Author Organization [facility] [place] [address] Care Team Providers Name Role Phone Susie Keating MD Primary Care Provider Encounter Details Date Type Department Care Team Description 03/07/2013 Orders Only Gastroenterology at [facility] O'Karely, Tracia, Martin's esophagus [facility] Yamilex poe APRN (Primary Dx) [place] [address] [facility] [phone] [place] [address] Social History Tobacco Use Types Packs/Day Years Used Date Former Smoker Cigarettes 4 38 Quit: 11/26/19 09 Smokeless Tobacco: Never Used Sex Assigned at Date Recorded Not on file documented as of this encounter Plan of Treatment Not on filedocumented as of this encounter Visit Diagnoses Diagnosis Martin's esophagus - Primary documented in this encounter Care Teams Suspender Maker Relationship Specialty Start Date End Date Susie Keating MD PCP - General 11/22/[address] [place] [address] documented as of this encounter
--- OUTSIDE RECORDS SUMMARY | 2021-12-12 01:42 | XMS_ITS | Encounter Summary ---
:1960 Author Organization [facility] Address [place] [address] Care Team Providers Name Role Phone Susie Keating MD Primary Care Provider Encounter Details Date Type Department Care Team Description 11/17/2012 External Results [place] [facility] [place], [address] [place] [address] Social History Tobacco Use Types Packs/Day Years Used Date Never Assessed Sex Assigned at Date Recorded Not on file documented as of this encounter Plan of Treatment Not on filedocumented as of this encounter Procedures Procedure Name Priority Date/Time Associated Diagnosis Comme nts MRI/MRA SCAN Routine 11/01/2012 documented in this encounter Results Scan Doc: MRI/MRA (11/01/2012) Anatomical Region Laterality Modality Other Narrative This result has an attachment that is no t available. Scanning Provider MEDIA MGR SCAN EXT ORDR/RSLT documented in this encounter Visit Diagnoses Not on filedocumented in this encounter Care Teams Compressed Air Pile Driver Operator Relationship Specialty Start Date End Date Susie Keating MD PCP - General 01/07/10 11/21/12 [address] [place] [address] documented as of this encounter
--- OUTSIDE RECORDS SUMMARY | 2021-12-12 01:42 | XMS_ITS | Encounter Summary ---
:1960 Author Organization [facility] [place] [address] Care Team Providers Name Role Phone Susie Keating MD Primary Care Provider Encounter Details Date Type Department Care Team Description 02/02/2012 Orders Only Neurosurgery at [facility] Carine Cartagena MD [facility] [place] [address] NEUROSURGERY DEPT. [phone] [place], [place] [address] (Wo rk) Social History Tobacco Use Types Packs/Day Years Used Date Never Assessed Sex Assigned at Date Recorded Not on file documented as of this encounter Plan of Treatment Not on filedocumented as of this encounter Procedures Procedure Name Priority Date/Time Associated Diagnosis Comme nts FILM LIBRARY Routine 02/02/2012 10:25 AM Results for this STORAGE ONLY DX EST procedure ar e in SPINE the results section. documented in this encounter Results Film Library- Storage only DX Spine (02/02/2012 10:25 AM EST) Specimen (Source) Anatomical Collection Method Collection Time Re ceived Time Location / / Volume Laterality 02/02/2012 10:25 AM EST Narrative RAD - 10/11/2013 4:48 PM EDT This is a non-reportable exam. Procedure Note Refugio Ibarra - 10/11/2013Formatti ng of this note might be different from the original. This is a non-reportable exam. Authorizing Provider Result Gerardo Cartagena MD IMG FILM LIBRARY ORDERABLES Performing Organization Address City/State/ZIP Code Phon e Number [facility] RAD [address] [facility] [address] documented in this encounter Visit Diagnoses Not on filedocumented in this encounter Care Teams Third Loader Relationship Specialty Start Date End Date Susie Keating MD PCP - General 11/22/[address] [place] [address] [address] [facility] [address] [place] [address] documented as of this encounter
--- OUTSIDE RECORDS SUMMARY | 2021-12-12 01:42 | XMS_ITS | Encounter Summary ---
:1960 Author Organization [facility] [place] [address] Care Team Providers Name Role Phone Susie Keating MD Primary Care Provider Encounter Details Date Type Department Care Team Description 03/07/2013 Telephone Gastroenterology at [facility] Sharita Cunningham APRN [facility] [place] [address] GASTROENTEROLOGY [phone] [place]PT. [place], [place] [address] (Wo rk) Social History Tobacco Use Types Packs/Day Years Used Date Former Smoker Cigarettes 4 38 Quit: 11/26/19 09 Smokeless Tobacco: Never Used Sex Assigned at Date Recorded Not on file documented as of this encounter Miscellaneous Notes Telephone Encounter - Sharita Cunningham RN - 03/07/2013 1:30 PM EST Reviewed egd/colo from [facility]. Will repeat egd, last one 2010, bx showed barretts. [place] not due until 2016. documented in this encounter Plan of Treatment Not on filedocumented as of this encounter Visit Diagnoses Not on filedocumented in this encounter Care Teams Platinum And Palladium Kettle Tender Relationship Specialty Start Date End Date Susie Keating MD PCP - General 11/22/[address] [place], [place] [id number] documented as of this encounter
--- OUTSIDE RECORDS SUMMARY | 2021-12-12 01:42 | XMS_ITS | Encounter Summary ---
:1960 Author Organization [facility] [place] [address] Care Team Providers Name Role Phone Susie Keating MD Primary Care Provider Encounter Details Date Type Department Care Team Description 12/03/2016 Telephone Cardiology at [place] Jessica Luo, [place] [address] Social History Tobacco Use Types Packs/Day Years Used Date Former Smoker Cigarettes 4 38 Quit: 11/26/19 09 Smokeless Tobacco: Never Used Sex Assigned at Date Recorded Not on file documented as of this encounter Miscellaneous Notes Telephone Encounter - Jessica Luo RN - 12/03/2016 11:06 AM EDT ----- Message from Albert Quitnana MD sent at 12/03/2016 10:34 AM EDT ----- Please call to find suitable time for coronary angiography in coming week or so documented in this encounter Plan of Treatment Not on filedocumented as of this encounter Visit Diagnoses Not on filedocumented in this encounter Care Teams Machine Shop Apprentice Relationship Specialty Start Date End Date Susie Keating MD PCP - General 11/22/[address] [place] [address] documented as of this encounter
--- OUTSIDE RECORDS SUMMARY | 2021-12-12 01:42 | XMS_ITS | Encounter Summary ---
:1960 Author Organization [facility] [place] [address] Care Team Providers Name Role Phone Susie Keating MD Primary Care Provider Encounter Details Date Type Department Care Team Description 11/01/2012 Orders Only [place]surgery [place] [facility] Carine Cartagena MD [facility] [place] [address] NEUROSURGERY DEPT. [phone] [place], [place] [address] (Wo rk) Social History Tobacco Use Types Packs/Day Years Used Date Never Assessed Sex Assigned at Date Recorded Not on file documented as of this encounter Plan of Treatment Not on filedocumented as of this encounter Procedures Procedure Name Priority Date/Time Associated Diagnosis Comme nts FILM LIBRARY Routine 11/01/2012 11:27 AM Results for this STORAGE ONLY MR EDT procedure ar e in SPINE the results section. documented in this encounter Results Film Library- Storage only MR Spine (11/01/2012 11:27 AM EDT) Anatomical Region Laterality Modality Other Specimen (Source) Anatomical Collection Method Collection Time Re ceived Time Location / / Volume Laterality 11/01/2012 11:27 AM EDT Narrative 04/04/2013 6:31 PM EST This is a non-reportable exam. Procedure Note Isacc Ibarra - 04/04/2013Formatting of t his note might be different from the original. This is a non-reportable exam. Carine Cartagena MD IMG FILM LIBRARY ORDERABLES documented in this encounter Visit Diagnoses Not on filedocumented in this encounter Care Teams Mold Bunch Trimmer Relationship Specialty Start Date End Date Susie Keating MD PCP - General 01/07/10 11/21/12 [address] [place] [address] documented as of this encounter
--- OUTSIDE RECORDS SUMMARY | 2021-12-12 01:42 | XMS_ITS | Encounter Summary ---
:1960 Author Organization [facility] [place] [address] Care Team Providers Name Role Phone Susie Keating MD Primary Care Provider Reason for Visit Reason Comments Chest Pain Consultation (Urgent) - Closed Specialty Diagnoses / Procedures Referred By Contact Refer red To Contact Cardiology Diagnoses CHEST PAIN, ? CARDIAC CATH NEEDED Susie Keating MD [facility] 4a Procedures NONE [address] [place], [place] [address] [address] [place] [address] Referral ID Status Reason Start Date Expiration Date Visits V isits Requested Authorized [id number] Closed Consult, 11/24/2016 11/24/2017 1 1 [facility] Encounter Details Date Type Department Care Team Description 12/03/2016 Office Visit Cardiology at [facility] Albert Quintana, Chest pain, unspecified type (Primary Dx); [facility] Abnormal stress ECG; [facility] Essential hypertension; [place], [place] Hyperlipidemia, unspecified hyperlipidem ia type [id number] CARDIOLOGY DEPT. [phone] [place], [place] [address] Social History Tobacco Use Types Packs/Day Years Used Date Former Smoker Cigarettes 4 38 Quit: 11/26/19 09 Smokeless Tobacco: Never Used Sex Assigned at Date Recorded Not on file documented as of this encounter Last Filed Vital Signs Vital Sign Reading Time Taken Comments Blood Pressure 137/82 12/03/2016 9:44 AM EDT Pulse 79 12/03/2016 9:44 AM EDT Temperature - - Respiratory Rate - - Oxygen Saturation 95% 12/03/2016 9:44 AM EDT Inhaled Oxygen Concentration - - Weight 126.1 kg (278 lb) 12/03/2016 9:44 AM EDT Height 185.4 cm (6' 1) 12/03/2016 9:44 AM EDT Body Mass Index 36.68 12/03/2016 9:44 AM EDT documented in this encounter Progress Notes Albert Quintana MD - 12/03/2016 10:00 AM EDT Images from the original note were not included. [facility] [place] [address] [address] CARDIOLOGY OUTPATIENT NEW PATIENT NOTE PRIMARY CARE PROVIDER: Susie Keating MD Subjective: Patient ID: Reji Krishnamurthy is a 56 y.o. male. Chief Complaint Patient presents with ??? Chest Pain HPI Comments: # Chest discomfort, exertional # Abnormal stress ECG # HTN # Dyslipidemia # Type 2 diabetes mellitus, on insulin # History of heavy smoking # Obesity # COPD # GERD Social History: He lives with his . They have grown children and grandchildren. 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 Smoking heavily (up to 4 packs daily) until about 5 years ago. Drinks about 1 whiskey nightly. Exercise: Participates in non-monitored cardiac rehab locally twice weekly (~1 mile on the Nu[employer]). He is referred by Dr. Keating for exertional chest discomfort. For months now, he has noted a central substernal chest discomfort that is most prominent with physical activity (ie walking [place] the [place] or using the [place]); this causes him to slow down or stop, and the discomfort gradually abates. He also experiences it under conditions of emotional stress. Interestingly, he also notes a resting discomfort that is frequently present and is sometimes associated with a water brash sensation; he has known GERD. Dyspnea on exertion is an associated symptom with the chest discomfort. Denies lightheadedness, syncope, palpitations, orthopnea, PND, and edema. Outpatient stress ECG was performed; exercise capacity was limited--he developed dyspnea and worsened chest discomfort; frequent PVCs noted; on the basis of his symptoms and abnormal stress, Dr. Keating referred him for discussion of catheterization. Review of Systems Constitutional: Positive for fatigue. Negative for chills, diaphoresis, fever and unexpected weight change. HENT: Positive for nosebleeds and trouble swallowing. Respiratory: Positive for wheezing. Negative for apnea and cough. Cardiovascular: See HPI. Gastrointestinal: Positive for abdominal pain. Negative for blood in stool, diarrhea, nausea and vomiting. Genitourinary: Negative for difficulty urinating. Musculoskeletal: Positive for arthralgias and myalgias. Skin: Negative for rash. Neurological: Positive for weakness (Tingling in hands intermittently). Negative for speech difficulty and numbness. Hematological: Does not bruise/bleed easily. Psychiatric/Behavioral: Positive for dysphoric mood and sleep disturbance. The patient is nervous/anxious. Current Outpatient Prescriptions Medication Sig Dispense Refill ??? gabapentin (NEURONTIN) 300 mg Capsule ??? potassium chloride (MICRO-K) 10 mEq Capsule, Sustained Release ??? JANUVIA 100 mg Tablet ??? cyanocobalamin 1,000 mcg Tablet Take 1,000 mcg by mouth daily. ??? metFORMIN (GLUCOPHAGE) 1,000 mg tablet Take [...] mg per tablet 100/25, PO, Once daily ??? aspirin 81 mg Tablet, Chewable Take 81 mg by mouth daily. 30 tablet 3 ??? atorvastatin (LIPITOR) 40 mg Tablet Take 1 tablet by mouth daily. 90 tablet 3 ??? nitroGLYcerin (NITROSTAT) 0.4 mg Tablet, Sublingual Place 1 tablet under the tongue every 5 minutes as needed for Chest pain. 20 tablet 12 No current facility-administered medications for this visit. Family history: No family history on file. Social History Substance Use Topics ??? Smoking status: Former Smoker Packs/day: 4.00 Years: 38.00 Types: Cigarettes Quit date: 11/25/2008 ??? Smokeless tobacco: Never Used ??? Alcohol use Not on file See visit encounter for past medical and surgical history. Objective: Most Recent Vitals: 12/03/16 0944 BP: 137/82 Pulse: 79 SpO2: 95% Physical Exam Constitutional: He appears well-developed and well-nourished. No distress. HENT: Head: Normocephalic and atraumatic. Eyes: No scleral icterus. Neck: No JVD present. Normal carotid upstrokes Cardiovascular: Normal rate, regular rhythm, normal heart sounds and intact distal pulses. Exam reveals no gallop and no friction rub. No murmur heard. Pulmonary/Chest: Effort normal and breath sounds normal. No respiratory distress. He has no wheezes.He has no rales. Abdominal: Soft. Bowel sounds are normal. He exhibits no distension. There is no tenderness. Musculoskeletal: He exhibits no edema. Neurological: He is alert. Skin: Skin is warm and dry. He is not diaphoretic. Psychiatric: He has a normal mood and affect. Recent Results (from the past 72 hour(s)) EKG 12 Lead Result Value Ventricular rate 77 Atrial Rate 77 P-R Interval 126 QRS Duration 86 Q-T Interval 400 QTC Calculated (Bezet) 452 Calculated P [place] 48 Calculated R [place] 10 Calculated T [place] 10 INTERPRETATION Normal sinus rhythm Nonspecific T wave abnormality Abnormal ECG No previous ECGs available I have reviewed the pertinent laboratory data and imaging studies. ECG is normal today. Reviewed outside scanned records. Assessment and Plan: # Chest discomfort, exertional # Abnormal stress ECG # HTN # Dyslipidemia # Type 2 diabetes mellitus, on insulin # History of heavy smoking # Obesity # COPD # GERD He describes a chest discomfort syndrome that sounds like it could represent typical angina. Stable pattern. His pretest probability is certainly high on the basis of multiple risk factors. The stress ECG was concerning, although not definitively diagnostic. We discussed options. Although a stress imaging test could be considered, we would run the risk of afalse positive. Given our desire for a definite answer, we have agreed on coronary angiography as the next step. Reviewed potential risks of the procedure with him. Obtain labs today or tomorrow. Start ASA 81 mg daily and atorvastatin 40 mg daily now. Continue BB. BP is reasonable. I gave him PRN NTG as well and instructed him in use; stop sildenafil for the time being. -Cardiology follow-up scheduled for: 3 months. I appreciate the opportunity to participate in this patient's cardiovascular care. Albert Quintana MD, FACC, FASE documented in this encounter Plan of Treatment Not on filedocumented as of this encounter Procedures Procedure Name Priority Date/Time Associated Diagnosis Comme nts EKG 12-LEAD Routine 12/03/2016 9:52 AM Chest pain, Results f or this EDT unspecified type procedure a re in the results section. documented in this encounter Results EKG 12 Lead (12/03/2016 9:52 AM EDT) Component Value Ref Range Test Analysis Performed Pathologis t Method Time At Signature Ventricular rate 77 BPM MUSE SYSTEM Atrial Rate 77 BPM MUSE SYSTEM P-R Interval 126 ms MUSE SYSTEM QRS Duration 86 ms MUSE SYSTEM Q-T Interval 400 ms MUSE SYSTEM QTC Calculated 452 ms MUSE SYSTEM (Bezet) Calculated P [place] 48 degrees MUSE SYSTEM Calculated R [place] 10 degrees MUSE SYSTEM Calculated T [place] 10 degrees MUSE SYSTEM INTERPRETATION Normal sinus rhythm MUSE SYSTEM Nonspecific T wave abnormality Abnormal ECG No previous ECGs available Confirmed by MD Melissa, Wesly ([id number]) on 12/03/2016 4:45:2 9 PM Specimen Anatomical Collection Method Collection Time Receive d Time (Source) Location / / Volume Laterality 12/03/2016 9:52 AM 7 4:45 EDT PM EDT Albert Quintana MD ECG ORDERABLES Performing Organization Address City/State/ZIP Code Phon e Number MUSE SYSTEM documented in this encounter Visit Diagnoses Diagnosis Chest pain, unspecified type - Primary Abnormal stress ECG Other nonspecific abnormal cardiovascula r system function study Essential hypertension Unspecified essential hypertension Hyperlipidemia, unspecified hyperlipidem ia type documented in this encounter Care Teams Shorthand Teacher Relationship Specialty Start Date End Date Susie Keating MD PCP - General 11/22/[address] [place] [address] documented as of this encounter
--- OUTSIDE RECORDS SUMMARY | 2021-12-12 01:42 | XMS_ITS | Encounter Summary ---
:1960 Author Organization [facility] [place] [address] Care Team Providers Name Role Phone Susie Keating MD Primary Care Provider Reason for Visit Reason Comments Neck And Shoulder Pain right shoulder pain Encounter Details Date Type Department Care Team Description 11/22/2012 Office Visit [facility] Cervical stenosis of Joao RIVERA spinal canal ([facility] Dx) Drive [place] NEUROSURGERY DEP T. [address] [place] [address] [phone] Social History Tobacco Use Types Packs/Day Years Used Date Former Smoker Cigarettes 4 38 Quit: 11/26/19 09 Smokeless Tobacco: Never Used Sex Assigned at Date Recorded Not on file documented as of this encounter Last Filed Vital Signs Vital Sign Reading Time Taken Comments Blood Pressure 120/72 11/22/2012 8:07 AM EDT Pulse 98 11/22/2012 8:07 AM EDT Temperature - - Respiratory Rate - - Oxygen Saturation - - Inhaled Oxygen Concentration - - Weight 128.4 kg (283 lb) 11/22/2012 8:07 AM EDT Height 185.4 cm (6' 1) 11/22/2012 8:07 AM EDT Body Mass Index 37.34 11/22/2012 8:07 AM EDT documented in this encounter Progress Notes [facility] MD - 11/22/2012 8:37 AM EDT The patient is referred by Dr. Keating for evaluation of cervical spinal stenosis. Mr. Krishnamurthy is a 52-year-old man with a history of two prior neck surgeries. These were done by Dr. Yadiel Skinner, and it sounds as though they were done for cervical myelopathy. He first underwent a posterior cervical decompression about 11 years ago, and this was followed a year later by an anterior cervical diskectomy and fusion. He reports that since surgery he has had persistent right hand and scapular numbness that has been stable and has not worsened. He has also had posterior cervical neck pain, which radiates to his lower back and sometimes to his right leg and foot. This axial pain is worse with bending, lifting, and twisting. He says that its severity has been pretty constant since the second operation, but now he is just more exasperated by it. Some time ago, he had some left upper extremity paresthesia, but this has resolved. He denies new dexterity problems or falls at home. I reviewed his MRI, which was an open MRI and therefore of limited quality. It appears to show previous anterior instrumentation at the C5-C6 level. It is possible that the lower screws are now residing in the C6-C7 disk space. There does appear to be solid arthrodesis, at least as best as I can tell on this MRI. The most notable other finding is central and bilateral foraminal stenosis at C6-C7, the level below the previous fusion. Past medical history is significant for diabetes, peripheral neuropathy (Neurology evaluation is pending today), gastroesophageal reflux, asthma, prior anterior cervical diskectomy and fusion, obesity, hypertension, and hypercholesterolemia. Medications and allergies are up-to-date. The patient does take an aspirin daily. Family history is negative for bleeding disorders or anesthetic complications. Social History: The patient is disabled. He was told by the [facility] office that this was not solely for neck and back problems, but for everything. He previously smoked but does not any more. Review of systems is otherwise negative. Physical examination reveals an obese man in no outward distress. Speech is fluent and affect appropriate. Gait is slightly broad based but not stiff or obviously myelopathic. He does have a little bit of difficulty with tandem walking. He is able to toe walk and able to heel walk. Strength is 5/5 in the deltoids and biceps bilaterally. There may be trace weakness in the triceps, but it is hard to be certain. Track Watchman and hand intrinsic strength is 5/5. Strength in the lower extremities is 5/5 throughout. Pinprick light touch discrimination is diminished in the glove and stocking distribution starting at the palm on the right and then above the left wrist on the left. Similarly, there appears to be a loss of sensation below about the mid calf in both legs. Reflexes are present but not increased: The biceps is 1+, brachioradialis 1+, Errol sign is negative, patellar reflexes are 2+, and ankle jerks are 1+. Impression: Mr. Krishnamurthy is a 52-year-old man with a prior posterior and anterior neck surgery who presents with a chief complaint of axial neck pain. I would like to get some x-rays to confirm that he had a solid arthrodesis and that the cervical hardware has not migrated into the C6-C7 disk space. This would represent a cause of neck pain that might be ameliorated with surgery. If, however, there is solid arthrodesis and the screws are in appropriate position, then I do not think surgery is likely to help his principal complaint. The other issue is his cervical spinal stenosis at C6-C7. While the patient does have some neurologic symptoms, these are non progressive, having been present for over a decade. Moreover, the distribution of his sensory loss is arguably more consistent with a peripheral neuropathy. In the absence of a progressive functional deficit, I would not favor surgical intervention for the C6-C7 stenosis. On the other hand, if he develops worsening upper and lower extremity function, surgery down the road could be considered. Plan: The patient will get some x-rays locally and send us a disc for our review. I will call him after I have had a chance to review these. Twenty minutes of this 35-minute visit were spent in direct [id number] counseling regarding radiological findings and prognosis. documented in this encounter Plan of Treatment Not on filedocumented as of this encounter Visit Diagnoses Diagnosis Cervical stenosis of spinal canal - Prim mat Spinal stenosis in cervical region documented in this encounter Care Teams Tool Honing Machine Set Up Operator Relationship Specialty Start Date End Date Susie Keating MD PCP - General 11/22/[address] [place] [address] documented as of this encounter
--- OUTSIDE RECORDS SUMMARY | 2021-12-12 01:43 | XMS_ITS | Clinical Summary ---
:1960 Author Organization [facility] Address [address] [place] [address] Care Team Providers Name Role Phone Susie Keating MD Primary Care Provider Social History Tobacco Use Types Packs/Day Years Used Date Never Assessed Sex Assigned at Date Recorded Not on file Plan of Treatment Health Maintenance Due Date Last Done Comments Hepatitis C Screen 1960 COVID-19 Vaccine (#1) 1960 Insurance Payer Benefit Plan Subscriber ID Effective Phone Address Typ e / Group Dates [employer] PLANS [id number] 2013-Pres [phone] [address] [employer] [address] [address] (Home) [address] [place] [address] Reji Krishnamurthy Personal/Family Self [address] [place] [address] (Home) [address] [place] [address] RaghuReji acuña Personal/Family Self [address] [place] [address] (Home) [address] [place] [address] Reji Krishnamurthy Personal/Family Self [address] [place] [address] (Home) [address] [place] [address] Reji Krishnamurthy Personal/Family Self [address] [place] [address] (Home) [address] [place] [address] Care Teams Franchise Sales Representative Relationship Specialty Start Date End Date Susie Keating MD PCP - General 10/07/[address] [place] [id number]
--- OUTSIDE RECORDS SUMMARY | 2021-12-12 01:43 | XMS_ITS | Encounter Summary ---
:1960 Author Organization [facility] Address [address] [place] [address] Care Team Providers Name Role Phone Susie Keating MD Primary Care Provider Encounter Details Date Type Department Care Team Description 08/28/2015 Results Only [facility] Emily Galeano, DO [phone] [facility] [place] [address] (Wo rk) Social History Tobacco Use Types Packs/Day Years Used Date Never Assessed Sex Assigned at Date Recorded Not on file documented as of this encounter Plan of Treatment Not on filedocumented as of this encounter Procedures Procedure Name Priority Date/Time Associated Diagnosis Comme nts SURGICAL PATHOLOGY Routine 08/28/2015 9:44 EDT Re sults for this procedure are i n the results section. documented in this encounter Results SURGICAL PATHOLOGY (08/28/2015 9:44 EDT) Pathology Report: SURGICAL PATHOLOGY REPORT [facility] [[email or web address]] MEDICA L Reports generated via electronic interface conta in original data; [facility] however they are lacking the format of the original re port. SERVICES Caution should be taken when reading/interpreting unfo rmatted reports. Name: ? EDILBERTO ROBBINS ? Accession #: ? [id number] ? : ? 1960 (Age: [age]) ??F ? Collect Date: ? 08/28/2015 ? Location: ? [facility] ? Receive Date: ? 08/29/19 16 ? Provider: EMILY GALEANO DO Copy to: SUSIE KEATING MD ? Final Pathologic Diagnosis: A. GASTROESOPHAGEAL JUNCTION, BIOPSY: - Squamous mucosa with mild reactive changes. - Fundic type mucosa with no specific pathologic featu res. - Negative for intestinal metaplasia; Negative for dys plasia. ?? B. COLON, SIGMOID, POLYP, BIOPSY: - Hyperplastic/inflammatory polyp. Document reviewed and electronically signed by: MAURA GUZMAN MD Report ??Date: 09/02/2015 10:45 By the signature above, the attending physician certif ies that he/she has personally conducted a gross and/or microscopic examin ation of the described specimens and rendered or confirmed the above diagnosi s. Specimen(s) Received: A. ??Bx GE junction B. ??Sigmoid polyps x2 Clinical History: Martin's esophagus; colorec doug CA scr; clinical diagnosis code: K22.70, Z12.11 Gross Description: A. ?Received in formalin labelled with proper p atient identification (initials M, K) and bx GE junction are four membrano us soft pale monteiro to nguyen-brown tissues ranging from 0.3 x 0.2 x 0.1 cm to 0 .3 x 0.3 x 0.2 cm. Entirely submitted in A1 and A2. B. ?Received in formalin labelled with proper p atient identification (initials M, K) and sigmoid polyps x2 are two nguyen-br own nodular tissues averaging 0.3 x 0.3 x 0.2 cm. Entirely submitted in B1 . Madelaine Petit 08/29/2015 11:18 AM End of Report Specimen Performing Organization Address City/State/ZIP Code Phon e Number [facility] [address] [place] [address] SERVICES documented in this encounter Visit Diagnoses Not on filedocumented in this encounter Care Teams Dobby Loom Weaver Relationship Specialty Start Date End Date Susie Keating MD PCP - General 10/07/[address] [place] [address] [address] [place] [address] documented as of this encounter
--- OUTSIDE RECORDS SUMMARY | 2021-12-12 01:43 | XMS_ITS | Encounter Summary ---
:1960 Author Organization [facility] Address [address] [place] [address] Care Team Providers Name Role Phone Susie Keating MD Primary Care Provider Encounter Details Date Type Department Care Team Description 05/03/2015 Hospital Encounter [facility] [place] Unknown, Provider, [facility] [address] [facility] [phone] [place] [address] (Work) [phone] Social History Tobacco Use Types Packs/Day Years Used Date Never Assessed Sex Assigned at Date Recorded Not on file documented as of this encounter Discharge Disposition Disposition Code Departure Means Destination Home or Self Detention documented in this encounter Plan of Treatment Not on filedocumented as of this encounter Visit Diagnoses Not on filedocumented in this encounter Care Teams Machine Tailer Relationship Specialty Start Date End Date Susie Keating MD PCP - General 10/07/[address] [place] [id number] documented as of this encounter
--- OUTSIDE RECORDS SUMMARY | 2021-12-12 01:43 | XMS_ITS | Encounter Summary ---
:1960 Author Organization [facility] Address [address] [place] [address] Care Team Providers Name Role Phone Unavailable Primary Care Provider Unavailable Encounter Details Date Type Department Care Team Description 03/26/2004 Results Only [facility] Ariadna An, conversion DDS [address] [place], [place] [id number] [place] [id number] (Wo rk) Social History Tobacco Use Types Packs/Day Years Used Date Never Assessed Sex Assigned at Date Recorded Not on file documented as of this encounter Plan of Treatment Not on filedocumented as of this encounter Procedures Procedure Name Priority Date/Time Associated Diagnosis Comme nts SURGICAL PATHOLOGY Routine 03/26/2004 0:00 EST Re sults for this procedure are i n the results section. documented in this encounter Results SURGICAL PATHOLOGY (03/26/2004 0:00 EST) Pathology Report: SURGICAL PATHOLOGY REPORT [facility] Reports generated via electronic interface contain acosta ginal data; LAB however they are lacking the format of the original re port. Caution should be taken when reading/interpreting unfo rmatted reports. Name: ? EDILBERTO ROBBINS ? Accession #: ? [id number] ? : ? 1960 (Age: 43) ??F ? Collect Date: ? 03/26/2004 ? Location: ? [facility] ? Receive Date: ? 005 ? Provider: Ariadna LINDSEY DDS Copy to: LINDA BOWLING MD ? Final Pathologic Diagnosis: ? Oral mucosa, mid palatal lesion, excision: - Subepithelial fibrosis (irritation fibroma). Document reviewed and electronically signed by: BRY ULCIO MD Report ??Date: 03/30/2004 11:09 By the signature above, the attending physician certif ies that he/she has personally conducted a gross and/or microscopic examin ation of the described specimens and rendered or confirmed the above diagnosi s. Specimen(s) Received: ? 2-4 mm well demarcated mid palatal soft tissue lesion Clinical History: ? Present several years, occasionally irritated, Imp: Fibroma Gross Description: ? Received in formalin labelled Raghu and oral lesion palate is a 1.0 x 0.5 cm unoriented mucosal excision excis ed to a maximum depth of 0.2 cm. ??The white-pink glistening mucosa displays a central, 0.3 x 0.2 x 0.1 cm well circumscribed fibrous nodule , less than 0.1 cm from the margin. ??The specimen is inked, sectioned and submitted in its entirety as foll ows: BLOCK DANG A1 ?Body A2 ?Tips, reverse en face (Shay Ascencio)/tmg ?? End of Report Specimen Performing Organization Address City/State/ZIP Code Phon e Number [facility] [address] [place] [address] SERVICES [facility] [address] [place] [address] documented in this encounter Visit Diagnoses Not on filedocumented in this encounter
--- OUTSIDE RECORDS SUMMARY | 2021-12-12 01:43 | XMS_ITS | Encounter Summary ---
:1960 Author Organization [facility] Address [address] [place] [address] Care Team Providers Name Role Phone Susie Keating MD Primary Care Provider Encounter Details Date Type Department Care Team Description 03/23/2019 Lab Requisition [facility] Unknown, Provider, Pathology & Laboratory [facility] [address] [place] [address] [place] [address] Social History Tobacco Use Types Packs/Day Years Used Date Never Assessed Sex Assigned at Date Recorded Not on file documented as of this encounter Plan of Treatment Not on filedocumented as of this encounter Procedures Procedure Name Priority Date/Time Associated Comments Diagnosis PSA TOTAL, Routine 03/23/2019 10:57 Results for this DIAGNOSTIC EST procedure are i n the results section. documented in this encounter Results PSA TOTAL, DIAGNOSTIC (03/23/2019 10:57 EST) Pathologist Sig nature PSA 0.9 0.0 - 3.5 ng/mL [facility] Specimen Blood - Venous blood (substance) Narrative [facility] - 03/24/2019 8:51 EST NOTE: Serum PSA concentration should not be in terpreted as absolute evidence for the presence or absence of malignant disease. Assayed on Siemens ADVIA Centaur XPT usi ng chemiluminescent technology.??Values obtained by using different assay methods cannot be used interchangeably. Performing Organization Address City/State/ZIP Code Phon e Number [facility] [address] [place] [address] SERVICES documented in this encounter Visit Diagnoses Not on filedocumented in this encounter Care Teams Inside Barrel Polisher Relationship Specialty Start Date End Date Susie Keating MD PCP - General 10/07/[address] [place] [address] [address] [place] [address] documented as of this encounter
--- OUTSIDE RECORDS SUMMARY | 2021-12-12 01:43 | XMS_ITS | Encounter Summary ---
:1960 Author Organization [facility] Address [address] [place] [address] Care Team Providers Name Role Phone Susie Keating MD Primary Care Provider Encounter Details Date Type Department Care Team Description 08/08/2019 Lab Requisition [facility] Susie Keating, Encounter for other Pathology & MD general examination Laboratory Medicine [address] [place] [address] [address] [place] [id number] [phone] Social History Tobacco Use Types Packs/Day Years Used Date Never Assessed Sex Assigned at Date Recorded Not on file documented as of this encounter Plan of Treatment Not on filedocumented as of this encounter Procedures Procedure Name Priority Date/Time Associated Diagnosis Comme nts SURGICAL PATHOLOGY Today 08/07/2019 16:00 Encounter for othe r Results for this EDT general examination procedur e are in the results section. documented in this encounter Results SURGICAL PATHOLOGY (08/07/2019 16:00 EDT) Final Diagnosis A. SKIN OF ANABAPTISM, RIGHT, SHAVE BIOPSY: UV MEDICAL Electronically - Seborrheic keratosis. CENTER sign ed by AMRITA Arango M D on SERVICES 08/09/2019 at 11 44 Attestation By the signature [facility] Electronica lly below, the attending CENTER signed by Nba physician certifies LABORATORY Jennifer Erwin MD on that they have 1) SERVICES 08/09/2019 at 1144 personally conducted a gross and/or microscopic examination of the described specimen(s), and/or personally interpreted the results of laboratory testing of the described specimen(s), and 2) personally rendered or confirmed the above diagnosis. Microscopic The stratum corneum [facility] Description is thickened by CENTER laminated LABORATORY orthohyperkeratosis. SERVICES The epidermis is hyperplastic with papillomatosis and acanthosis. There is formation of horn pseudocysts. The keratinocytes have a basaloid appearance with round regular nuclei and a moderate amount of cytoplasm. Clinical History 3 mm brown papule R [facility] sikhism; wart vs. CENTER malignancy LABORATORY SERVICES Gross Description A. Received in formalin labe lled with proper patient identification (initials M, K) and RT sikhism 3 mm is a 0.7 x 0.5 x 0.3 cm ovoid shave of papillary nguyen skin. The margin is inked. The specimen is bisected and entirely submitted in A1. [facility] Abeba Caitlin 08/08/2019 16:21 SERVICES Scanned Images [facility] SERVICES Specimen Tissue - Skin (tissue) specimen (specime n) Performing Organization Address City/State/ZIP Code Phon e Number [facility] [address] [place] [address] SERVICES documented in this encounter Visit Diagnoses Diagnosis Encounter for other general examination documented in this encounter Care Teams Transplant Rn Relationship Specialty Start Date End Date Susie Keating MD PCP - General 10/07/[address] [place] [phone] documented as of this encounter
--- OUTSIDE RECORDS SUMMARY | 2021-12-12 01:43 | XMS_ITS | Encounter Summary ---
:1960 Author Organization [facility] Address [address] [place] [address] Care Team Providers Name Role Phone Susie Keating MD Primary Care Provider Encounter Details Date Type Department Care Team Description 07/21/2018 Results Only [facility] Susie Keating MD [phone] [place] [address] (Wo rk) Social History Tobacco Use Types Packs/Day Years Used Date Never Assessed Sex Assigned at Date Recorded Not on file documented as of this encounter Plan of Treatment Not on filedocumented as of this encounter Procedures Procedure Name Priority Date/Time Associated Diagnosis Comme nts SURGICAL PATHOLOGY Routine 07/21/2018 22:28 Resul ts for this EDT procedure are i n the results section. documented in this encounter Results SURGICAL PATHOLOGY (07/21/2018 22:28 EDT) Pathology Report: SURGICAL PATHOLOGY REPORT [facility] Reports generated via electronic interface contain acosta ginal data; LABORATORY however they are lacking the format of the original re port. SERVICES Caution should be taken when reading/interpreting unfo rmatted reports. Name: ? EDILBERTO ROBBINS ? Accession #: ? [id number] ? : ? 1960 (Age: [age]) ??F ? Collect Date: ? 07/21/2018 ? Location: ? [facility] ? Receive Date: ? 9 ? Provider: SUSIE KEATING MD Copy to: ? Final Pathologic Diagnosis: SKIN OF BACK, RIGHT UPPER, BIOPSY: - Hemangioma. Microscopic Description: There is a dome-shaped papule formed by a proliferatio n of small vascular channels that has a lobular architecture. ??The vessel s are lined by an attenuated endothelium. ??Some of the vessels are casey ested. ??The overlying epidermis has a diminished rete ridge pattern. ??(Dr. Arango)/jds Document reviewed and electronically signed by: YANIRA ARANGO MD Report ??Date: 07/22/2018 17:02 By the signature above, the attending physician certif ies that he/she has personally conducted a gross and/or microscopic examin ation of the described specimens and rendered or confirmed the above diagnosi s. Specimen(s) Received: 3 mm R upper back punch biopsy Clinical History: Pedunculated, vascular papule R upper back; DDx: ??ski n Ca (squamous cell) Gross Description: ? Received in formalin labelled with proper patient identification (initials M, K) and upper back is an ovoid granu lar monteiro-brown tissue, 0.4 x 0.2 x 0.2 cm. Orientation is not obvious. Entirely submitted in 1. CORINNE Ruiz (ASCP) 07/22/2018 7:19 AM End of Report Specimen Performing Organization Address City/State/ZIP Code Phon e Number [facility] [address] [place] [address] SERVICES documented in this encounter Visit Diagnoses Not on filedocumented in this encounter Care Teams Lighting Director Relationship Specialty Start Date End Date Susie Keating MD PCP - General 10/07/[address] [place] [address] documented as of this encounter
--- OUTSIDE RECORDS SUMMARY | 2021-12-12 01:43 | XMS_ITS | Encounter Summary ---
:[address] [facility] Address [address] [place] [address] Care Team Providers Name Role Phone Susie Keating MD Primary Care Provider Encounter Details Date Type Department Care Team Description 07/21/2018 Hospital Encounter [facility] Unknown, Provider, [facility] [address] [facility] [phone] [place] [address] (Work) [phone] Social History Tobacco Use Types Packs/Day Years Used Date Never Assessed Sex Assigned at Date Recorded Not on file documented as of this encounter Discharge Disposition Disposition Code Departure Means Destination Home or Self Senior Care documented in this encounter Plan of Treatment Not on filedocumented as of this encounter Visit Diagnoses Not on filedocumented in this encounter Care Teams Personal Banking Advisor Relationship Specialty Start Date End Date Susie Keating MD PCP - General 10/07/[address] [place] [phone] documented as of this encounter
--- OUTSIDE RECORDS SUMMARY | 2021-12-12 01:43 | XMS_ITS | Encounter Summary ---
:1960 Author Organization [facility] Address [address] [place] [address] Care Team Providers Name Role Phone Linda Keating MD Primary Care Provider Encounter Details Date Type Department Care Team Description 05/03/2015 Results Only [facility] Marc Peña, [address] [phone] (Wo rk) Social History Tobacco Use Types Packs/Day Years Used Date Never Assessed Sex Assigned at Date Recorded Not on file documented as of this encounter Plan of Treatment Not on filedocumented as of this encounter Procedures Procedure Name Priority Date/Time Associated Diagnosis Comme nts SURGICAL PATHOLOGY Routine 05/03/2015 10:41 Resul ts for this EDT procedure are i n the results section. documented in this encounter Results SURGICAL PATHOLOGY (05/03/2015 10:41 EDT) Pathology Report: SURGICAL PATHOLOGY REPORT [facility] Reports generated via electronic interface conta in original data; CENTER LABORATORY however they are lacking the format of the original re port. SERVICES Caution should be taken when reading/interpreting unfo rmatted reports. Name: ? EDILBERTO ROBBINS ? Accession #: ? [id number] ? : ? 1960 (Age: [age]) ??F ? Collect Date: ? 05/03/2015 ? Location: ? [facility] ? Receive Date: ? 05/04/19 16 ? Provider: MARC PEÑA DPM Copy to: LINDA KEATING MD ? Final Pathologic Diagnosis: BONE, RIGHT GREAT TOE, EXCISION: - ??Benign fibroconnective tissue and focal devitalize d bone with remodeling changes. See comment. - ??Negative for acute osteomyelitis. Comment: These features may represent chronic osteomyelitis how ever correlation with clinical history and radiogr aphic findings is recommended. There is no evidence of acute osteomyelitis. Dr. Vidal 05/14/2015 4:57 PM Document reviewed and electronically signed by: HARLEY VIDAL MD Report ??Date: 05/14/2015 16:57 By the signature above, the attending physician certif ies that he/she has personally conducted a gross and/or microscopic examin ation of the described specimens and rendered or confirmed the above diagnosi s. Specimen(s) Received: Bone right great toe IPJ Clinical History: Chronic ulceration right great toe at IPJ level; DM ty pe 2; osteo ? Gross Description: ? Received in formalin labelled with proper patient identification (initials M, K) and bone right great toe are two portions of tissue. The first is a 0.8 x 0.7 x 0.2 cm nguyen and dull westfall soft tissue fragment. The second is a 2.0 x 0.6 x 0.2 cm similar tissue which includes bone. The speci mens are entirely submitted in 1 and 2 following decalcification. Madelaine Petit 05/06/2015 11:17 AM End of Report Specimen Performing Organization Address City/State/ZIP Code Phon e Number [facility] [address] [place] [address] SERVICES documented in this encounter Visit Diagnoses Not on filedocumented in this encounter Care Teams Aging Room Hand Relationship Specialty Start Date End Date Linda Keating MD PCP - General 10/07/[address] [place] [phone] documented as of this encounter
--- OUTSIDE RECORDS SUMMARY | 2021-12-12 01:43 | XMS_ITS | Encounter Summary ---
:[address] [facility] Address [address] [place] [address] Care Team Providers Name Role Phone Unknown, Provider Primary Care Provider Encounter Details Date Type Department Care Team Description 10/03/2012 Results Only [facility] Abdulaziz Dozier MD Laboratory Services - [address] [place] [address] [place] [address] [place] [address] [phone] Social History Tobacco Use Types Packs/Day Years Used Date Never Assessed Sex Assigned at Date Recorded Not on file documented as of this encounter Plan of Treatment Not on filedocumented as of this encounter Procedures Procedure Name Priority Date/Time Associated Diagnosis Comme nts SURGICAL PATHOLOGY Routine 10/03/2012 22:19 Resul ts for this EDT procedure are i n the results section. documented in this encounter Results SURGICAL PATHOLOGY (10/03/2012 22:19 EDT) Pathology Report: SURGICAL PATHOLOGY REPORT [facility] Reports generated via electronic interface contain acosta ginal data; LAB however they are lacking the format of the original re port. Caution should be taken when reading/interpreting unfo rmatted reports. Name: ? EDILBERTO ROBBINS ? Accession #: ? [id number] ? : ? 1960 (Age: 52) ??F ? Collect Date: ? 10/03/2012 ? Location: ? [facility] ? Receive Date: ? 013 ? Provider: ABDULAZIZ DOZIER MD Copy to: LINDA BOWLING MD ? Final Pathologic Diagnosis: A. STOMACH, ANTRUM, BIOPSY: - ??Antral mucosa with mild reactive foveolar changes. - ??Antral-oxyntic mucosa with no specific histopathol ogic diagnosis. - ??No characteristic features of active gastritis, go blet cells, intestinal metaplasia, H.pylori-like ?? microorganisms, ulcer/erosion, dysplasia, or fermin malignancy. B. STOMACH, BODY, BIOPSY: - ??Oxyntic mucosa with no specific histopathologic di agnosis. - ??No characteristic features of active gastritis, go blet cells, intestinal metaplasia, H.pylori-like ?? microorganisms, ulcer/erosion, dysplasia, or fermin malignancy. C. ESOPHAGUS, 45 CM, SHORT SEGMENT RESTREPO'S, BIOPSY : - ??Squamocolumnar junctional mucosa with ? - ??Mild chronic inflammation. ? - ??Mild reactive epithelial changes. - ??Squamous epithelium with ballooning change of keratinocytes. ??See comment. - ??No goblet cells, intestinal metaplasia, dysplasia, or fermin malignancy. D. ESOPHAGUS, LOW, 40 CM, BIOPSY: - ??Squamous mucosa with a f ocal ballooning change of superficial keratinocytes, otherwise unremarkable. ?? See comment. - ??No characteristic features of active esophagitis, goblet cells, intestinal metaplasia, intraepithelial ?? eosinophils or neutrophils, ulcer/er osion, dysplasia, or fermin malignancy. E. ESOPHAGUS, MID, 20 CM, BIOPSY: - ??Squamous mucosa with no specific histopathologic d iagnosis. - ??No characteristic features of active esophagitis, goblet cells, intestinal metaplasia, intraepithelial ?? eosinophils or neutrophils, ulcer/er osion, dysplasia, or fermin malignancy. Comment: Although non-diagnostic, bal looning change of the keratinocytes in the esophagus can be seen in gastroesophag eal reflux. ??Correlation with clinical features and endoscopic findings is recommended. ? Dr. Prather 10/05/2012 12:47 PM Document reviewed and electronically signed by: Abdiaziz Prather MD Report ??Date: 10/05/2012 19:48 By the signature above, the attending physician certif ies that he/she has personally conducted a gross and/or microscopic examin ation of the described specimens and rendered or confirmed the above diagnosi s. Specimen(s) Received: A. ??Bx gastric antrum B. ??Bx body of stomach C. ??Bx 45 cm, short seg Restrepo's D. ??Bx 40 cm, lower esophagus E. ??Bx 20 cm, mid esophagus Clinical History: DM II; short seg Restrepo's and retrosternal pain Gross Description: A. ?Received in formalin labelled with proper p atient identification (initials M, K) and #1 bx gastric body are two pink-nguyen tissues (0.3 x 0.3 x 0.3 cm and 0.4 x 0.2 x 0.2 cm). Entirely submitted in A1. B. ?Received in formalin labelled with proper p atient identification (initials M, K) and #2 bx b steve of stomach are two pink-nguyen tissues (0.3 x 0.3 x 0.2 cm and 0.4 x 0.3 x 0.2 cm). Entirely submitted i n B1. C. ?Received in formalin labelled with proper p atient identification (initials M, K) and #3 bx 45 cm, short seg Restrepo's is a single pink-nguyen tissue fragment (0.4 x 0.2 x 0.2 cm). Submitted intact in C1. D. ?Received in formalin labelled with proper p atient identification (initials M, K) and #4 bx 4 0 cm, lower esophagus are three pink-white tissues (0.3 x 0.3 x 0.2 cm to 0.4 x 0.3 x 0.2 cm). Entirely s ubmitted in D1. E. ?Received in formalin labelled with proper p atient identification (initials M, K) and #5 bx 20 cm, mid esophagus are three pink-white tissues (0.4 x 0.2 x 0.2 cm to 0.5 x 0.3 x 0.1 cm). Entirely s ubmitted in E1. Trice David 10/04/2012 10:38 AM End of Report Specimen Performing Organization Address City/State/ZIP Code Phon e Number [facility] [address] [place] [address] SERVICES [facility] [address] [place] [address] documented in this encounter Visit Diagnoses Not on filedocumented in this encounter Care Teams Pecan Sheller Relationship Specialty Start Date End Date Unknown, Provider, PCP - General 05/07/10 10/06/12 documented as of this encounter
--- OUTSIDE RECORDS SUMMARY | 2021-12-12 01:43 | XMS_ITS | Encounter Summary ---
:1960 Author Organization [facility] Address [address] [place] [address] Care Team Providers Name Role Phone Susie Keating MD Primary Care Provider Encounter Details Date Type Department Care Team Description 02/13/2020 Lab Requisition [facility] Outr Resulting Lab, Pathology & Laboratory Provider [facility] [address] [place] [address] Social History Tobacco Use Types Packs/Day Years Used Date Never Assessed Sex Assigned at Date Recorded Not on file documented as of this encounter Plan of Treatment Not on filedocumented as of this encounter Procedures Procedure Name Priority Date/Time Associated Comments Diagnosis PSA TOTAL, Routine 02/13/2020 7:10 EST Results for this DIAGNOSTIC procedure are i n the results section. documented in this encounter Results PSA TOTAL, DIAGNOSTIC (02/13/2020 7:10 EST) Pathologist Sig nature PSA 0.8 0.0 - 4.5 ng/mL [facility] Specimen Blood - Venous blood (substance) Narrative [facility] - 02/13/2020 17:31 EST NOTE: Serum PSA concentration should not be in terpreted as absolute evidence for the presence or absence of malignant disease. Assayed on Siemens ADVIA Centaur XPT usi ng chemiluminescent technology.??Values obtained by using different assay methods cannot be used interchangeably. Performing Organization Address City/State/ZIP Code Phon e Number [facility] [address] [place] [address] SERVICES documented in this encounter Visit Diagnoses Not on filedocumented in this encounter Care Teams Tractor Drill Operator Relationship Specialty Start Date End Date Susie Keating MD PCP - General 10/07/[address] [place] [address] [address] [place] [phone] documented as of this encounter
--- OUTSIDE RECORDS SUMMARY | 2021-12-12 01:43 | XMS_ITS | Encounter Summary ---
:1960 Author Organization [facility] Address [address] [place] [address] Care Team Providers Name Role Phone Unavailable Primary Care Provider Unavailable Encounter Details Date Type Department Care Team Description 05/05/2010 Results Only [facility] Abdulaziz Dozier MD Laboratory Services - [address] [place] [address] [place] [address] [place] [address] [phone] Social History Tobacco Use Types Packs/Day Years Used Date Never Assessed Sex Assigned at Date Recorded Not on file documented as of this encounter Plan of Treatment Not on filedocumented as of this encounter Procedures Procedure Name Priority Date/Time Associated Diagnosis Comme nts SURGICAL PATHOLOGY Routine 05/05/2010 0:00 EDT Re sults for this procedure are i n the results section. documented in this encounter Results SURGICAL PATHOLOGY (05/05/2010 0:00 EDT) Pathology Report: SURGICAL PATHOLOGY REPORT ? PREMA ALLEN Reports generated via electr [employer] interface contain original data; ? LAB however they are lacking the format of the original report. ? Caution should be taken when reading/interpreting unformatted reports. ? Name: ? ITZEL, EDILBERTO L ? Accession #: ? [id number] ? : ? 1960 (Age: 49) ??F ? Collec t Date: ? 05/05/2010 ? Location: ? [facility] ? R eceive Date: ? 05/05/2010 ? Provider: ABDULAZIZ WALKO MD ? Copy to: LINDA M DOBBERTIN M D ? Final Pathologic Diagnosis: ? A. ?Stomach, lisset dy, biopsies: ? 1. ?Oxyntic-typ e mucosa with no pathologic features. ? B. ?Esophagus, 44 cm, biopsy: ? 1. 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 ? 2. ? Negative for dyspla macy. ? C. ?Colon, richter sverse, polyps, biopsies: ? 1. ?Tubular ellie nomas. ? Document reviewed and electr onically signed by: ? FAISAL CULLEN MD ? Report ??Date: 05/08/2010 15 :18 ? By the signature above, the attending physician certifies that he/she has ? personally conducted a gross and/or microscopic examination of the described ? specimens and rendered or co nfirmed the above diagnosis. ? Specimen(s) Received: ? EGD: ? A. ?Bx gastric body (#1) ? B. ? Bx esophagus 44 cm (#2) ? Colonoscopy: ? C. Transverse colon polyps x 2 (#3) ? Clinical History: ? A. GERD; B. ? Martin 's; C. Colorectal cancer screen ? Gross Description: ? Received in formalin labelled Edilberto Krishnamurthy and bx gastric body are two nguyen-pink irregular soft tiss ue fragments measuring 0.2 x 0.2 x 0.1 cm and 0.3 x 0.3 x 0.2 cm. ??The specimen is entirely submitted as (A). ? Received in formalin zac d Edilberto Krishnamurthy and bx esophagus 44 cm, ? Martin's is a nguyen-pink 0.3 x 0.2 x 0.2 cm soft tissue fragment. ??The specimen is entirely submitted as (B) . ? Received in formalin zac Edilberto Gifford and transverse colon polyps x2 ?? are two nguyen-pink irregular s oft tissue fragments averaging 0.3 x 0.3 x 0.2 cm. ?? The specimen is entirely sub mitted as (C). ??/zuhair ? End of Report ? Specimen Performing Organization Address City/State/ZIP Code Phon e Number [facility] [address] [place] [address] SERVICES [facility] [address] [place] [address] documented in this encounter Visit Diagnoses Not on filedocumented in this encounter
[2021-12-12 12:58] LABS: ALT 55 U/L (16-63); AST 32 U/L (15-37); Albumin 3.6 g/dL (3.4-5.0); Alkaline Phosphatase 99 U/L (46-116); BUN 18 mg/dL (7-18); Bilirubin, Total 0.7 mg/dL (0.2-1.0); Calcium 8.8 mg/dL (8.5-10.1); Chloride 105 mmol/L (98-107); Glucose 131 mg/dL (74-106); Magnesium 1.5 mg/dL (1.8-2.4); Potassium 4.4 mmol/L (3.5-5.1); Sodium 137 mmol/L (136-145); Total Protein 7.5 g/dL (6.4-8.2)
[2021-12-12 12:59] LABS: Hemoglobin A1C 6.4 % (<5.7)
== END 2021-12-12 01:41 | disposition home or self-care (01) ==
LOC: LOS 01:41
PROVIDERS: PCP Family Medicine; Visit Provider Family Medicine
DX: E11.65 Type 2 diabetes mellitus with hyperglycemia (principal); N28.9 Disorder of kidney and ureter, unspecified
CPT/HCPCS: 36415; 80053; 83036; 83735

== ENCOUNTER → 2022-01-16 12:25 | Outpatient (CLI) | payer OTHER, SELFPAY ==
[2022-01-16] MEDS: Barium Sulfate 2% W/V-Berry Smoothie 450 ML BTL 900 ML PO (09:57)
[2022-01-16 10:04] LABS: CREATININE 1.2 mg/dL (0.70-1.30); Estimated GFR 68.38 (mL/min/1.73m2)
--- NOTE | 2022-01-16 11:43 | DI.CT_ITS ---
Exam(s) CT ABDOMEN PELVIS W EXAM: CT ABDOMEN PELVIS W CLINICAL HISTORY: R/O acute appendicitis, abd pain, R10.9. TECHNIQUE: Imaging Protocol: Axial computed tomography images with coronal and sagittal reformatted images were created and reviewed CONTRAST MATERIAL: Intravenous: Omnipaque 350 Contrast volume:100 ml Oral: yes COMPARISON: No exams were available for comparison FINDINGS: ABDOMEN: Lung Bases: Normal where visualized. Liver: Mildly enlarged. Fatty infiltration. No measurable mass. Gallbladder and biliary tract: No radiodense calculus or dilation. Pancreas: Normal density, no abnormal calcifications or inflammatory process. Spleen: Normal. Kidneys: Normal size, contour and axis. No radiodense stones or obstructive uropathy. No masses seen. Adrenal glands: No masses seen. Abdominal Aorta: Abdominal portion non-dilated. Atherosclerotic changes. PELVIS: Bladder: Nearly empty, cannot be evaluated. Bowel: No obstruction or bowel wall thickening. Appendix normal.Normal quantity of stool. Peritoneal cavity: No ascites, collection or mesenteric inflammatory response. Bones: Degenerative changes lower lumbar spine. Reproductive organs: Within normal limits. Lymph nodes: Unremarkable. Impression: No evidence of appendicitis. No acute abnormality. RADIATION DOSE DELIVERED: 1,459.7mGy.cm Total DLP DATA REPOSITORY: All CT scans at this facility are submitted to the National Radiology Data Registry (NRDR) Dose Index Registry (DIR) with the [employer] (ACR). RADIATION OPTIMIZATION: All CT scans at this facility use at least one of these dose optimization te chniques: automated exposure control; mA and/or kV adjustment per patient size (includes targeted exa ms where dose is matched to clinical indication); or iterative reconstruction.
[2022-01-16] MEDS: Omnipaque 350 MG/ML 100 ML BTL IJ (11:52)
--- OUTSIDE RECORDS SUMMARY | 2022-01-16 12:44 | XMS_ITS | Encounter Summary ---
:1960 [place] [address] Care Team Providers Name Role Phone Susie Keating MD Primary Care Provider Reason for Visit Auth/Cert Specialty Diagnoses / Procedures Referred By Contact Refer red To Contact Diagnoses Abnormal stress ECG [R94.39] Procedures CARDIAC CATHETERIZATION Referral ID Status Reason Start Date Expiration Date Visits Requ ested Visits Authorized [id number] 1 1 Encounter Details Date Type Department Care Team Description 12/08/2016 Hospital Encounter Same Day Program at [facility] Chest pain, Coni Cobb MD unspecified type [facility] [address] [address] [phone] Social History Tobacco Use Types Packs/Day Years Used Date Smoking Tobacco: Former Cigarettes 4 38 Quit : 11/25/2008 Smokeless Tobacco: Never Alcohol Use Standard Drinks/Week Comments Yes 1 [...] Guerin MD - 12/08/2016 9:57 AM EDT [facility] SAME DAY DISCHARGE SUMMARY Reji Krishnamurthy [id number] 12/08/2016 Primary Care Provider: Susie Keating MD Referring Blind Installer: Albert Quintana MD Procedures: Left heart [...] (LV = 135/19 mmHg). [facility] MD, [facility] Staff Blind Installer 12/08/2016 documented in this encounter Discharge [...] by your doctor, do not take any zaxo-ysl-gyjoyvr medicines orherbal preparations without first discussing this with your doctor or pharmacist. There is the possibility of side effect and interactions when these are combined. Follow up Care Who to Call with Questions or Problems If there are any questions or problems that you think might be related to your cardiac cath or angioplasty, contact the anesthesia technician oim consultant by calling [facility] at . documented in this encounter Medications [...] Signature POC Glucose 133 65 - 199 [facility] mg/dL [facility] Comment: Supplemental ranges: <140 mg/dL before meals <180 mg/dL all other times of the day Specimen Anatomical Collection Method Collection Time Receive d Time (Source) Location / / Volume Laterality Blood specimen 12/08/2016 12:04 7 (specimen) PM EDT 12:04 PM EDT [facility] MD POINT OF CARE TEST ORDERABLE S Performing Organization Address City/State/[place]IP [place] [address] POCT Glucose (12/08/2016 7:56 AM EDT) P athologist Signature POC Glucose 144 65 - [address] [facility] Comment: Supplemental ranges: <140 mg/dL before meals <180 mg/dL all other times of the day Specimen Anatomical Collection Method Collection Time Receive d Time (Source) Location / / Volume Laterality Blood specimen 12/08/2016 7:56 AM 017 7:56 (specimen) EDT AM EDT [facility] MD POINT OF CARE TEST ORDERABLE S Performing Organization Address City/State/ZIP Code Phon e Number [address] documented in this encounter Visit [...] to 72 hours., Recovery (Recovery-Hospital Unit), Routi ne sodium chloride 0.9% infusion New Bag 12/08/2016 [...] (CANCELED) 09 (Given - Provider: Micheal Cintron MD)09 (Given - Provider: Micheal Cintron MD) ONCE PRN, Starting Wed12/08/16 at 0905, Until Wed12/08/16 at 1233, Cath (Intra-Procedure), Routine verapamil (ISOPTIN) injection (CANCELED) 904 (Given - Provider: Micheal Cintron MD) ONCE PRN, Starting Wed12/08/16 at 0905, Until Wed12/08/16 at 1233, Administer over 2 Minutes, Cath (Intra-Procedure) documented in this encounter Care Teams Ion Exchange Operator Relationship Specialty Start Date End Date Susie Keating MD PCP - General 11/22/12 [facility] [address] [place] [address] documented as of this encounter
--- OUTSIDE RECORDS SUMMARY | 2022-01-16 12:44 | XMS_ITS | Encounter Summary ---
:1960 Author Organization [facility] [place] [address] Care Team Providers Name Role Phone Susie Keating MD Primary Care Provider Encounter Details Date Type Department Care Team Description 12/07/2012 Orders Only Neurosurgery at [facility] Carine Cartagena, S/P cervical spinal [facility] fusion (Primary Dx) [place] [address] NEUROSURGERY [place], [place] [address] Social History Tobacco Use Types Packs/Day Years Used Date Smoking Tobacco: Former Cigarettes 4 38 Quit : 11/25/2008 Smokeless Tobacco: Never Sex Assigned at Date Recorded Not on [...] status documented in this encounter Care Teams Controller Operations And Hr Manager Relationship Specialty Start Date End Date Susie Keating MD PCP - General 11/22/[address] [place] [address] [address] [facility] [address] [place] [address] documented as of this encounter
--- OUTSIDE RECORDS SUMMARY | 2022-01-16 12:44 | XMS_ITS | Encounter Summary ---
:1960 Author Organization [facility] Address [facility] [place] [address] Care Team Providers Name Role Phone Susie Keating MD Primary Care Provider Encounter Details Date Type Department Care Team Description 12/14/2012 Telephone Neurosurgery at [facility] Carine Cartagena MD [facility] [place] [address] NEUROSURGERY DEPT. [phone] [place], [place] [address] (Wo rk) Social History Tobacco Use Types Packs/Day Years Used Date Smoking Tobacco: Former Cigarettes 4 38 Quit : 11/25/2008 Smokeless Tobacco: Never Sex Assigned at Date Recorded Not on file documented as of this encounter Miscellaneous Notes Telephone Encounter - Carine Cartagena MD - 12/14/2012 4:[address] shows caudal screws in C6-7 disc space. This level corresponds to the level of significant stenosis on the MRI. I called the patient and informed him of the findings. I explained that this may be a cause of neck pain that could be improved with surgery. In this case, this would likely involve removal of the existing plate, ACDF at C6-7 and plating C5-7. The patient feels his pain is tolerable and is not interested in surgery at this time. I told him to contact us if his symptoms are worsening andhe agreed to do so. No scheduled follow-up is required. Sarah Cartagena MD Neurosurgery documented in this encounter Plan of Treatment Not on filedocumented as of this encounter Visit Diagnoses Diagnosis Cervical spinal stenosis - Primary Spinal stenosis in cervical region documented in this encounter Care Teams Entomology Professor Relationship Specialty Start Date End Date Susie Keating MD PCP - General 11/22/[address] [place] [address] documented as of this encounter
--- OUTSIDE RECORDS SUMMARY | 2022-01-16 12:44 | XMS_ITS | Encounter Summary ---
:1960 Author Organization [facility] [place] [address] Care Team Providers Name Role Phone Susie Keating MD Primary Care Provider Encounter Details Date Type Department Care Team Description 12/03/2016 Telephone Cardiology at [facility] Jessica Luo, [place] [address] Social History Tobacco Use Types Packs/Day Years Used Date Smoking Tobacco: Former Cigarettes 4 38 Quit : 11/25/2008 Smokeless Tobacco: Never Sex Assigned at Date Recorded Not on file documented as of this encounter Miscellaneous Notes Telephone Encounter - Jessica Luo RN - 12/03/2016 11:06 AM EDT ----- Message from Albert Quintana MD sent at 12/03/2016 10:34 AM EDT ----- Please call to find suitable time for coronary angiography in coming week or so documented in this encounter Plan of Treatment Not on filedocumented as of this encounter Visit Diagnoses Not on filedocumented in this encounter Care Teams Manager Trading Relationship Specialty Start Date End Date Susie Keating MD PCP - General 11/22/[address] [place] [address] documented as of this encounter
--- OUTSIDE RECORDS SUMMARY | 2022-01-16 12:44 | XMS_ITS | Encounter Summary ---
:1960 Author Organization [facility] [place] [address] Care Team Providers Name Role Phone Susie Keating MD Primary Care Provider Reason for Visit Reason Comments Neck And Shoulder Pain right shoulder pain Encounter Details Date Type Department Care Team Description 11/22/2012 Office Visit Spine Center at [facility] Cervical stenosis of Joao RIVERA spinal canal (Primary [facility] Dx) Drive [address] [place] NEUROSURGERY DEP T. [address] [place] [address] [phone] Social History Tobacco Use Types Packs/Day Years [...] is disabled. He was told by the [facility] office that this was not solely [...] but it is hard to be certain. 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 Strength [...] this 35-minute visit were spent in direct xiwo-hy-mfdz counseling regarding radiological findings and prognosis. documented in this encounter Plan of Treatment Not on filedocumented as of this encounter Visit Diagnoses Diagnosis Cervical stenosis of spinal canal - Prim mat Spinal stenosis in cervical region documented in this encounter Care Teams Back Winder Relationship Specialty Start Date End Date Susie Keating MD PCP - General 11/22/[address] [place] [address] documented as of this encounter
--- OUTSIDE RECORDS SUMMARY | 2022-01-16 12:44 | XMS_ITS | Encounter Summary ---
:1960 Author Organization [facility] Address [facility] [place] [address] Care Team Providers Name Role Phone Susie Keating MD Primary Care Provider Encounter Details Date Type Department Care Team Description 12/03/2016 Orders Only Cardiology at [facility] Albert Quintana, Chest pain, unspecified type ; [facility] Abnormal stress ECG; Drive [facility] Essential hypertension; [place], [place] Hyperlipidemia, unspecified hyperlipidem ia type [address] CARDIOLOGY DEPT. [phone] [place], [place] [address] Social History Tobacco Use Types Packs/Day Years Used Date Smoking Tobacco: Former Cigarettes 4 38 Quit : 11/25/2008 Smokeless Tobacco: Never Sex Assigned at Date Recorded Not on file documented as of this encounter Progress Notes Jessica Luo RN - 12/03/2016 11:[address] Quintana: Reji Krishnamurthy - 12/03/16 More Detail >> ?? Albert Quintana MD ?? Sent: [facility] December 03, 2016 10:34 AM ? [...] Laterality Volume Narrative 12/08/2016 9:53 AM EDT ?[facility] ? Cardiac Cathete rization/Intervention Report ? Patient Name: Reji Krishnamurthy ? Procedure Date: 12/08/2016 ? A #: [id number] ? Primary Physician: Truong, Du J ? Case #: [id number] ? File Name: [id number] ? Catheterization Order Number: [id number] ? [facility] ? Final Report [place], [place] ? Patient Name: ? Reji Raghu ? ID#: ?[id number] ? : ?1960 ? Procedure Date: ? October 24, 201 7 ? Case #: ? [id number] ? Room: ? 1 ? Case Physician: ? Du jiang MBertrand ? Start: ?09:04 ?Fellow: ? Micheal jiang M.D. ? Admission: ??12/08/2016 ? Referring Physician: ??Susie [...] with: sta ble angina (w/i 42 days). [place] ?Cardiovascular Society angina c lass was II. [...] [facility] M.D. ? Electronically Signed by: Du alexandra M.D. ? Report Finalized: 12/08/2016 ??09:45 ? Procedure Note [facility] MD - 12/08/2016Format ting of this note might be different from the original. [facility] Cardiac Catheterization/Intervention Re port Patient Name: Reji Krishnamurthy Procedure Date: 12/08/2016 A #: [id number] Primary Physician: [facility] Case #: [id number] File Name: [id number] Catheterization Order Number: [id number] [facility] Assistant [facility] Final Report [place], [place] Patient Name: Reji Krishnamurthy ID#: [id number] : 1960 Procedure Date: December 08, [...] an arrhythmia. 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 The patient also has a history of an ab normal stress test. Prior to the initiation of this procedure, the patie nt was designated as ASA Class III. Patient Status at Catheterization: The patient presented with: stable mariusz na (w/i 42 days). [place] [employer] angina class was II. This [...] IFR-coronary. [facility] M.D. Electronically Signed by: Du alexandra M.D. Report Finalized: 12/08/2016 09:45 Albert [...] type documented in this encounter Care Teams Computer Forensics Examiner Relationship Specialty Start Date End Date Susie Keating MD PCP - General 11/22/[address] [place] [address] [address] [place] [address] documented as of this encounter
--- OUTSIDE RECORDS SUMMARY | 2022-01-16 12:44 | XMS_ITS | Encounter Summary ---
:1960 Author Organization [facility] [place] [address] Care Team Providers Name Role Phone Susie Keating MD Primary Care Provider Encounter Details Date Type Department Care Team Description 11/29/2012 Abstract Spine Center at [facility] non Provider, [place] [address] Social History Tobacco Use Types Packs/Day Years Used Date Smoking Tobacco: Former Cigarettes 4 38 Quit : 11/25/2008 Smokeless Tobacco: Never Sex Assigned at Date Recorded Not on file documented as of this encounter Plan of Treatment Not on filedocumented as of this encounter Procedures Procedure Name Priority Date/Time Associated Diagnosis Comme nts *XR GENERIC CERVICAL SPINE Routine 11/22/2012 documented in this encounter Results *XR generic cervical spine (11/22/2012) Anatomical Region Laterality Modality Radiographic Imaging Narrative This result has an attachment that is no t available. Historical Provider MD JERONIMO DX ORDERABLES documented in this encounter Visit Diagnoses Not on filedocumented in this encounter Care Teams Pedigree Researcher Relationship Specialty Start Date End Date Susie Keating MD PCP - General 11/22/[address] [place] [address] documented as of this encounter
--- OUTSIDE RECORDS SUMMARY | 2022-01-16 12:44 | XMS_ITS | Encounter Summary ---
:1960 Author Organization [facility] Address [facility] [place] [address] Care Team Providers Name Role Phone Susie Keating MD Primary Care Provider Encounter Details Date Type Department Care Team Description 12/12/2012 Orders Only Neurosurgery at [facility] Carine Cartagena MD [facility] [place] [address] NEUROSURGERY DEPT. [phone] [place], [place] [address] (Wo rk) Social History Tobacco Use Types Packs/Day Years Used Date Smoking Tobacco: Former Cigarettes 4 38 Quit : 11/25/2008 Smokeless Tobacco: Never Sex Assigned at Date Recorded Not on file documented as of this encounter Plan of Treatment Pending Results Name Type Priority Associated Diagnoses Date/Ti ky Film Library- Storage Imaging Routine 2012 7:[address] Spine documented as of this encounter Visit Diagnoses Not on filedocumented in this encounter Care Teams Egg Pasteurizer Relationship Specialty Start Date End Date Susie Keating MD PCP - General 11/22/[address] [place] [address] documented as of this encounter
--- OUTSIDE RECORDS SUMMARY | 2022-01-16 12:44 | XMS_ITS | Encounter Summary ---
:1960 Author Organization [facility] [place] [address] Care Team Providers Name Role Phone Susie Keating MD Primary Care Provider Reason for Visit Reason Comments GI Problem Encounter Details Date Type Department Care Team Description 01/31/2013 Office Visit Gastroenterology at [facility] Sharita Cunningham, Epigastric pain [facility] Yamilex poe APRN (Primary Dx) [place] [address] [facility] [phone] [facility] [place] [address] Social History Tobacco Use Types Packs/Day Years [...] AM EST Section of Gastroenterology and Hepatology [address] [place] [address] .Reji Krishnamurthy : 1960 Patient is here [...] showed my stomach empties fine. Test done [facility]. Egd reports not available, only bx reports. [...] Allergen Reactions ??? Spiriva With Handihaler (Tiotropium [place]) Chest Pain Current outpatient prescriptions:metFORMIN (GLUCOPHAGE) 1,000 [...] (GLUCOPHAGE) 1,000 mg tablet, 1000MG, PO, Twice [id number], PO, Twice daily. Take 1 (ONE)Tablet(s) (1000MG [...] related. Consider abdominal u/s.(will be done at [facility]). Pt to f/u with pcp about possible cardiac evaluation. Pt seeing pcp in February. 3. Will obtain egd/colo reports from [facility] as well as gastric emptying study. 4. [...] epigastric documented in this encounter Care Teams Data Developer Relationship Specialty Start Date End Date Susie Keating MD PCP - General 11/22/[address] [place] [address] [address] [place] [address] documented as of this encounter
--- OUTSIDE RECORDS SUMMARY | 2022-01-16 12:44 | XMS_ITS | Encounter Summary ---
:1960 Author Organization [facility] Address [facility] [address] [place] [address] Care Team Providers Name Role Phone Susie Keating MD Primary Care Provider Encounter Details Date Type Department Care Team Description 11/01/2012 Orders Only Neurosurgery at [facility] Carine Cartagena MD [facility] [place] [address] NEUROSURGERY DEPT. [phone] [place], [place] [address] (Wo rk) Social History Tobacco Use Types Packs/Day Years Used Date Smoking Tobacco: Never Assessed Sex Assigned at Date Recorded [...] on filedocumented in this encounter Care Teams Laundry Equipment Operator Relationship Specialty Start Date End Date Susie Keating MD PCP - General 01/07/10 11/21/12 [address] [place] [address] documented as of this encounter
--- OUTSIDE RECORDS SUMMARY | 2022-01-16 12:44 | XMS_ITS | Encounter Summary ---
:1960 Author Organization [facility] [place] [address] Care Team Providers Name Role Phone Susie Keating MD Primary Care Provider Reason for Visit Reason Comments Chest Pain Consultation (Urgent) - Closed Specialty Diagnoses / Procedures Referred By Contact Refer red To Contact Cardiology Diagnoses CHEST PAIN, ? CARDIAC CATH NEEDED Susie Keating MD [facility] Cardiology 4a Procedures NONE [address] [place], [place] [address] 1 [place] [address] Referral ID Status Reason Start Date Expiration Date Visits V isits Requested Authorized [id number] Closed Consult, 11/24/2016 11/24/2017 1 1 [facility] Encounter Details Date Type Department Care Team Description 12/03/2016 Office Visit Cardiology at [facility] Albert Quintana, Chest pain, unspecified type (Primary Dx); [facility] Abnormal stress ECG; [facility] Essential hypertension; [place], [place] Hyperlipidemia, unspecified hyperlipidem ia type [id number] CARDIOLOGY DEPT. [phone] [place], [place] [address] Social History Tobacco Use Types [...] from the original note were not included. [facility] 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 Smoking heavily (up to 4 packs daily) until about 5 years ago. Drinks about 1 whiskey nightly. Exercise: Participates in non-monitored cardiac rehab locally twice weekly (~1 [address] [place] He is referred by Dr. Keating for [...] 400 QTC Calculated (Bezet) 452 Calculated P Denniston 48 Calculated R Denniston 10 Calculated T Denniston 10 INTERPRETATION Normal sinus rhythm Nonspecific T [...] 452 ms MUSE SYSTEM (Bezet) Calculated P Denniston 48 degrees MUSE SYSTEM Calculated R Denniston 10 degrees MUSE SYSTEM Calculated T Denniston 10 degrees MUSE SYSTEM INTERPRETATION Normal sinus [...] type documented in this encounter Care Teams Online Merchandising Manager Relationship Specialty Start Date End Date Susie Keating MD PCP - General 11/22/[address] [place] [address] documented as of this encounter
--- OUTSIDE RECORDS SUMMARY | 2022-01-16 12:44 | XMS_ITS | Clinical Summary ---
:1960 Author Organization [facility] [place] [address] Care Team Providers Name Role Phone Susie Keating MD Primary Care Provider Allergies Active Allergy Reactions Severity Noted Date Comments Tiotropium Ralls 11/22/2012 Chest Jonah n Medications Medication Sig [...] Addre ss Type Group MEDICARE MEDICARE PART [id number] 2003-Prese [address] [place] [id number] HEALTH PLANS HEALTH PLANS [id number] 2014-Presen [phone] [address] [employer] [address] [place] [address] Advance Directives Latest Code Status on File Code Status Date Activated Date Inactivated Comments Full Code 12/08/2016 9:41 AM Question Answer Comments Does patient have capacity to make decision: Yes Code Status History Code Status Date Activated Date Inactivated Comments Full Code 12/08/2016 8:09 AM 12/08/2016 9:41 AM Question Answer Comments Does patient have capacity to make decision: Yes Care Teams Shop Girl Relationship Specialty Start Date End Date Susie Keating MD PCP - General 11/22/[address] [place] [address]
--- OUTSIDE RECORDS SUMMARY | 2022-01-16 12:44 | XMS_ITS | Encounter Summary ---
:1960 [place] [address] Care Team Providers Name Role Phone Susie Keating MD Primary Care Provider Reason for Visit Auth/Cert Specialty Diagnoses / Procedures Referred By Contact Refer red To Contact Diagnoses Abnormal stress ECG [R94.39] Procedures CARDIAC CATHETERIZATION Referral ID Status Reason Start Date Expiration Date Visits Requ ested Visits Authorized [id number] 1 1 Encounter Details Date Type Department Care Team Description 12/08/2016 Surgery Cook Tortilla Du Buchanan , CARDIAC CATHETERIZATION [facility] [place] [address] CARDIOLOGY DEPT. [phone] [place], [place] [address] (Wo rk) Social History Tobacco [...] HOSPITAL SAME DAY DISCHARGE SUMMARY Reji Krishnamurthy [id number] 12/08/2016 Primary Care Provider: Susie Keating MD Referring Chief Optometry Service: Albert Quintana MD Procedures: Left heart catheterization, [...] (LV = 135/19 mmHg). Du Guerin MD, [facility] Staff Chief Optometry Service 12/08/2016 documented in this encounter Discharge Instructions [...] by your doctor, do not take any ojpg-ybo-lzxbbnb medicines orherbal preparations without first discussing this with your doctor or pharmacist. There is the possibility of side effect and interactions when these are combined. Follow up Care Who to Call with Questions or Problems If there are any questions or problems that you think might be related to your cardiac cath or angioplasty, contact the material handling equipment stevedore air intercept controller supervisor by calling [facility] at . documented in this encounter Medications [...] Signature POC Glucose 133 65 - 199 [facility] mg/dL [facility] Comment: Supplemental ranges: <140 mg/dL before meals <180 mg/dL all other times of the day Specimen Anatomical Collection Method Collection Time Receive d Time (Source) Location / / Volume Laterality Blood specimen 12/08/2016 12:04 7 (specimen) PM EDT 12:04 PM EDT Du Guerin MD POINT OF CARE TEST ORDERABLE S Performing Organization Address City/State/Z[place] [address] POCT Glucose (12/08/2016 7:56 AM EDT) P athologist Signature POC Glucose 144 65 - 199 [facility] mg/dL [facility] Comment: Supplemental ranges: <140 mg/dL before meals <180 mg/dL all other times of the day Specimen Anatomical Collection Method Collection Time Receive d Time (Source) Location / / Volume Laterality Blood specimen 12/08/2016 7:56 AM 017 7:56 (specimen) EDT AM EDT Du Guerin MD POINT OF CARE TEST ORDERABLE S Performing Organization Address City/State/ZIP Code Phon e Number [address] documented in this encounter [...] 72 hours., Recovery (Recovery-Hospital Unit), Routi ne nitroGLYcerin 100 mcg/mL intracoronary Given 12/08/2016 9:24 [...] 09 50 (New Bag - Provider: Karen Neal, RODOLFO) 125 mL/hr, at 125 mL/hr, Intravenous, CO [...] solution (CANCELED) 0936 (Given - Provider: Wilmer Barron, RODOLFO) ONCE [...] intracoronary dilution (CANCELED) 904 (Given - Provider: Micheal Cintron MD)09 (Given - Provider: Micheal Cintron MD) ONCE PRN, Starting Wed12/08/16 at 0905, Until Wed12/08/16 at 1233, Cath (Intra-Procedure), Routine verapamil (ISOPTIN) injection (CANCELED) 904 (Given - Provider: Micheal Cintron MD) ONCE PRN, Starting Wed12/08/16 at 0905, Until Wed12/08/16 at 1233, Administer over 2 Minutes, Cath (Intra-Procedure) documented in this encounter Care Teams Human Resources Benefits Administrator Relationship Specialty Start Date End Date Susie Keating MD PCP - General 11/22/[address] [place], [place] [address] [address] [place] [address] documented as of this encounter
--- OUTSIDE RECORDS SUMMARY | 2022-01-16 12:45 | XMS_ITS | Encounter Summary ---
:1960 Author Organization [facility] Address [address] [place] [address] Care Team Providers Name Role Phone Susie Keating MD Primary Care Provider Encounter Details Date Type Department Care Team Description 02/02/2012 Orders Only Neurosurgery at [facility] Carine Cartagena MD [facility] [place] [phone] NEUROSURGERY DEPT. [phone] [place], [place] [address] (Wo rk) Social History Tobacco [...] the original. This is a non-reportable exam. S Chepe Cartagena MD IMG FILM LIBRARY ORDERABLES Performing Organization Address City/State/ZIP Code Phon e Number RAD RAD [address] [place] [address] documented in this encounter Visit Diagnoses Not on filedocumented in this encounter Care Teams Tannery Gummer Relationship Specialty Start Date End Date Susie Keating MD PCP - General 11/22/[address] [place] [address] documented as of this encounter
--- OUTSIDE RECORDS SUMMARY | 2022-01-16 12:46 | XMS_ITS | Encounter Summary ---
:[address] [facility] Address [address] [place] [address] Care Team Providers Name Role Phone Susie Keating MD Primary Care Provider Encounter Details Date Type Department Care Team Description 05/03/2015 Hospital Encounter [facility] Unknown, Provider, [facility] [address] [facility] [phone] [place] [address] (Work) [phone] Social History Tobacco Use Types Packs/Day Years Used Date Smoking Tobacco: Never Assessed Sex Assigned at Date Recorded Not on file documented as of this encounter Discharge Disposition Disposition Code Departure Means Destination Home or Self Senior Care documented in this encounter Plan of Treatment Not on filedocumented as of this encounter Visit Diagnoses Not on filedocumented in this encounter Care Teams Forecast Analyst Relationship Specialty Start Date End Date Susie Keating MD PCP - General 10/07/[address] [place] [address] documented as of this encounter
--- OUTSIDE RECORDS SUMMARY | 2022-01-16 12:46 | XMS_ITS | Encounter Summary ---
:1960 Author Organization [facility] Address [address] [place] [address] Care Team Providers Name Role Phone Unknown, Provider Primary Care Provider Encounter Details Date Type Department Care Team Description 10/03/2012 Results Only [facility] Abdulaziz Dozier MD Laboratory Services - [address] [place] [address] [place] [address] [place] [address] [phone] Social History Tobacco Use Types Packs/Day Years Used Date Smoking Tobacco: Never Assessed Sex Assigned at Date Recorded Not on file documented as of this encounter Plan of Treatment Not on filedocumented as of this encounter Procedures Procedure Name Priority Date/Time Associated Diagnosis Comme [facility] SURGICAL PATHOLOGY Routine 10/03/2012 22:19 Resul ts for this EDT procedure are i n the results section. documented in this encounter Results SURGICAL PATHOLOGY (10/03/2012 22:19 EDT) Component Value Ref Test Analysis Performed At [facility] Method Time Signature Pathology SURGICAL PATHOLOGY REPORT VENESSA WANG Report: Reports generated via electronic interface contain renita sebastian data; TIFFANY RAMOS however they are lacking the format of the original report. Caution should be taken when reading/interpreting unformatte d reports. Name: ? EDILBERTO ROBBINS ? Accession #: ? [id number] ? : ? 1960 (Age: 52) ??F ? Collect Date: ? 10/03/2012 ? Location: ? [facility] ? Receive Date: ? 10/03/2012 ? Provider: ABDULAZIZ DOZIER MD Copy to: LINDA BOWLING MD ? Final Pathologic Diagnosis: A. STOMACH, ANTRUM, BIOPSY: - ??Antral mucosa with mild reactive foveolar changes. - ??Antral-oxyntic mucosa with no specific histopathologic d iagnosis. - ??No characteristic features of active gastritis, go blet cells, intestinal metaplasia, H.pylori-like ?? microorganisms, ulcer/erosion, dysplasia, or fermin malig evelina. B. STOMACH, BODY, BIOPSY: - ??Oxyntic mucosa with no specific histopathologic diagnosi s. - ??No characteristic features of active gastritis, go blet cells, intestinal metaplasia, H.pylori-like ?? microorganisms, ulcer/erosion, dysplasia, or fermin malig evelina. C. ESOPHAGUS, 45 CM, SHORT SEGMENT RESTREPO'S, BIOPSY: - ??Squamocolumnar junctional mucosa with ? - [...] - ??Squamous mucosa with no specific histopathologic diagnos is. - ??No characteristic features of active esophagitis, [...] the signature above, the attending physician certifies th at he/she has personally conducted a gross and/or microscopic examin ation of the described specimens and rendered or confirmed the above diagnosis. Specimen(s) Received: A. ??Bx gastric antrum B. ??Bx body of stomach C. ??Bx 45 cm, short seg Restrepo's D. ??Bx 40 cm, lower esophagus E. ??Bx 20 cm, mid esophagus Clinical History: DM II; short seg Restrepo's and retrosternal pain Gross Description: A. ?Received in formalin labelled with proper patie nt identification (initials M, K) and #1 bx gastric body are two pink-nguyen tissues (0.3 x 0.3 x 0.3 cm and 0.4 x 0.2 x 0.2 cm). Entirely submitted in A1. B. ?Received in formalin labelled with proper patie nt identification (initials M, K) and #2 bx b steve of stomach are two pink-nguyen tissues (0.3 x 0.3 x 0.2 cm and 0.4 x 0.3 x 0.2 cm). Entirely submitted in B1. C. ?Received in formalin labelled with proper patie nt identification (initials M, K) and #3 bx 45 cm, short seg Restrepo's is a single pink-nguyen tissue fragment (0.4 x 0.2 x 0.2 cm). Submitted intact in C1 . D. ?Received in formalin labelled with proper patie nt identification (initials M, K) and #4 bx 4 0 cm, lower esophagus are three pink-white tissues (0.3 x 0.3 x 0.2 cm to 0.4 x 0.3 x 0.2 cm). Entirely submitt ed in D1. E. ?Received in formalin labelled with proper patie nt identification (initials M, K) and #5 bx 20 cm, mid esophagus are three pink-white tissues (0.4 x 0.2 x 0.2 cm to 0.5 x 0.3 x 0.1 cm). Entirely submitt ed in E1. Trice Medleytte 10/04/2012 10:38 AM End of Report Specimen Anatomical Collection Method Collection Time Receive d Time (Source) Location / / Volume Laterality 10/03/2012 22:19 10/03/2012 EDT 22:19 EDT Abdulaziz Dozier MD PATHOLOGY ORDERABLES Performing Organization Address City/State/ZIP Code Phon e Number [facility] [address] [place] [address] SERVICES [facility] [address] [place] [address] documented in this encounter Visit Diagnoses Not on filedocumented in this encounter Care Teams Abrasive Sawyer Relationship Specialty Start Date End Date Unknown, Provider, PCP - General 05/07/10 10/06/12 documented as of this encounter
--- OUTSIDE RECORDS SUMMARY | 2022-01-16 12:46 | XMS_ITS | Encounter Summary ---
:[address] [facility] Address [address] [place] [address] Care Team Providers Name Role Phone Susie Keating MD Primary Care Provider Encounter Details Date Type Department Care Team Description 02/13/[address] [facility] Outr Resulting Lab, Pathology & Laboratory Provider [facility] [address] [place] [id number] Social History Tobacco Use Types Packs/Day Years [...] Results PSA TOTAL, DIAGNOSTIC (02/13/2020 7:10 EST) P athologist Signature PSA 0.8 0.0 - 4.5 02/13/2020 [facility] ng/mL 17:31 EST [facility]ENTER LABORATORY SERVICES Specimen Anatomical Collection Method Collection Time Receive d Time (Source) Location / / Volume Laterality Blood VENOUS BLOOD / 02/13/2020 7:10 02/13/2020 Unknown EST 15:54 EST Narrative [facility]OR[facility]ORY SERVICES - 02/13/2020 17:31 EST NOTE: Serum PSA concentration should not be in terpreted as absolute evidence for the presence or absence of malignant disease. Assayed on Siemens ADVIA [employer] XPT usi ng chemiluminescent technology.??Values obtained by using different assay methods cannot be used interchangeably. Provider Outr Resulting Lab CHEMISTRY & BLOOD GAS ALBINO MEDEROS Performing Organization Address City/State/ZIP Code Phon e Number [facility] [address] [place] [address] SERVICES documented in this encounter Visit Diagnoses Not on filedocumented in this encounter Care Teams Retail Event Assistant Relationship Specialty Start Date End Date Susie Keating MD PCP - General 10/07/[address] [place] [address] documented as of this encounter
--- OUTSIDE RECORDS SUMMARY | 2022-01-16 12:46 | XMS_ITS | Encounter Summary ---
:1960 Author Organization [facility] Address [address] [place] [address] Care Team Providers Name Role Phone Susie Keating MD Primary Care Provider Encounter Details Date Type Department Care Team Description 07/29/2018 Results Only [facility] [place], [place] [phone] [address] [place] [address] Social History Tobacco Use Types Packs/Day Years Used Date Smoking Tobacco: Never Assessed Sex Assigned at Date Recorded Not on file documented as of this encounter Plan of Treatment Not on filedocumented as of this encounter Procedures Procedure Name Priority Date/Time Associated Diagnosis Comme [facility] SURGICAL PATHOLOGY Routine 07/29/2018 15:17 Resul ts for this EDT procedure are i n the results section. documented in this encounter Results SURGICAL PATHOLOGY (07/29/2018 15:17 EDT) Component Value Ref Test Analysis Performed At [facility] Signature Pathology SURGICAL PATHOLOGY REPORT [facility] MED[facility] Report: Reports generated via electronic interface contain origina l data; CENTER however they are lacking the format of the original report. LABORATORY Caution should be taken when reading/interpreting unformat jen reports. SERVICES Name: ? EDILBERTO ROBBINS ? Accession #: ? [id number] ? : ? 1960 (Age: [age]) ??F ? Collect Date: ? 07/29/2018 ? Location: ? [facility] ? Receive Date: ? 07/29/2018 ? Provider: LISSA NEGRETE DO Copy to: SUSIE KEATING MD ? Final Pathologic Diagnosis: SKIN OF LEFT THIGH AND SCROTUM, EXCISIONS: - Follicular cyst, infundibu lar type, with associated inflammation and evidence of rupture (2). Document reviewed and electronically signed by: LISSA ONEIL MD Report ??Date: 08/01/2018 13:35 By the signature above, the attending physician certifies th at he/she has personally conducted a gross and/or microscopic examin ation of the described specimens and rendered or confirmed the above diagnosis. Specimen(s) Received: Left thigh and scrotal cyst Clinical History: Sebaceous cyst thigh and scrotum Gross Description: ? Received in formalin labelled with proper patient identification (initials M, K) and left thigh cyst + scrotal cyst is a rubbery ovoid skin lesion, 1.2 x 1.0 x 0.4 cm. The surface of the lesion is rosalia lated westfall-nguyen. The margin is inked. Sections show a solid cut surface. Entirely submitted in 1. ? Received in the same container is an ovoid skin shave, 2.0 x 1.4 cm and excised to a depth of up to 0.6 cm. There is an eccentricall y located full-thickness defect, 0.8 cm in diameter. The skin allred rface ranges from dull wrinkled nguyen to dusky monteiro-white. The margin is inked. Sections show softened subcutaneous tissues. Trisected and entirely submitted in 2. ? Also received in the same container are three irregular portions of skin and subjacent tissues without obvious orientatio n aggregating 1.5 x 1.4 x 0.3 cm. Entirely submitted in 3. CORINNE Ruiz (ASCP) 07/29/2018 3:45 PM End of Report Specimen Anatomical Collection Method Collection Time Receive d Time (Source) Location / / Volume Laterality 07/29/2018 15:17 07/29/2018 EDT 15:17 EDT Lissa Negrete DO PATHOLOGY ORDERABLES Performing Organization Address City/State/ZIP Code Phon e Number [facility] [address] [place] [address] SERVICES documented in this encounter Visit Diagnoses Not on filedocumented in this encounter Care Teams Fraud Manager Relationship Specialty Start Date End Date Susie Keating MD PCP - General 10/07/[address] [place] [id number] documented as of this encounter
--- OUTSIDE RECORDS SUMMARY | 2022-01-16 12:46 | XMS_ITS | Encounter Summary ---
:1960 Author Organization [facility] Address [address] [place] [address] Care Team Providers Name Role Phone Susie Keating MD Primary Care Provider Encounter Details Date Type Department Care Team Description 07/21/2018 Hospital Encounter [facility] [place] Unknown, Provider, [facility] [address] [facility] [phone] [place] [address] (Work) [phone] Social History Tobacco Use Types Packs/Day Years Used Date Smoking Tobacco: Never Assessed Sex Assigned at Date Recorded Not on file documented as of this encounter Discharge Disposition Disposition Code Departure Means Destination Home or Self Retirement documented in this encounter Plan of Treatment Not on filedocumented as of this encounter Visit Diagnoses Not on filedocumented in this encounter Care Teams Printer Assistant Relationship Specialty Start Date End Date Susie Keating MD PCP - General 10/07/[address] [place] [address] documented as of this encounter
--- OUTSIDE RECORDS SUMMARY | 2022-01-16 12:46 | XMS_ITS | Encounter Summary ---
:[address] [facility] Address [address] [place] [address] Care Team Providers Name Role Phone Unavailable Primary Care Provider Unavailable Encounter Details Date Type Department Care Team Description 05/05/[address] [facility] Abdulaziz Dozier MD Laboratory Services - [address] [place] [address] [place] [address] [place] [address] [phone] Social History Tobacco Use Types Packs/Day Years Used Date Smoking Tobacco: Never Assessed Sex Assigned at Date Recorded Not on file documented as of this encounter Plan of Treatment Not on filedocumented as of this encounter Procedures Procedure Name Priority Date/Time Associated Diagnosis Comme [facility] SURGICAL PATHOLOGY Routine 05/05/2010 0:00 EDT Re sults for this procedure are i n the results section. documented in this encounter Results SURGICAL PATHOLOGY (05/05/2010 0:00 EDT) Component Value Ref Test Analysis Performed At [facility] Method Time Signature Pathology SURGICAL PATHOLOGY REPORT ? CAROL HER Report: Reports generated via [employer] interface contain original data; ? TIFFANY RAMOS however they are lacking the format of the original report. ? Caution should be taken when reading/interpreting unformatted reports. ? Name: ? ITZEL, EDILBERTO L ? Accession #: ? [id number] ? : ? 1960 (Age: 49) ??F ? Collec t Date: ? 05/05/2010 ? Location: ? [facility] ? R eceive Date: ? 05/05/2010 ? Provider: ABDULAZIZ PIPERO MD ? Copy to: LINDA M DOBBERTIN [...] and electr onically signed by: ? FAISAL B SUBHASH MD ? Report ??Date: 05/08/2010 15 :18 [...] ??/zuhair ? End of Report ? Specimen (Source) Anatomical Collection Method Collection Time Re ceived Time Location / / Volume Laterality 05/05/2010 05/05/2010 16:3 3 EDT Abdulaziz Dozier MD PATHOLOGY ORDERABLES Performing Organization Address City/State/ZIP Code Phon e Number [facility] [address] [place] [address] SERVICES [facility] [address] [place] [address] documented in this encounter Visit Diagnoses Not on filedocumented in this encounter
--- OUTSIDE RECORDS SUMMARY | 2022-01-16 12:46 | XMS_ITS | Encounter Summary ---
:1960 Author Organization [facility] Address [address] [place] [address] Care Team Providers Name Role Phone Unavailable Primary Care Provider Unavailable Encounter Details Date Type Department Care Team Description 03/26/2004 Results Only [facility] Ariadna An, conversion DDS [address] [place], [place] [id number] [place] [phone] (Wo rk) Social History Tobacco Use Types Packs/Day Years Used Date Smoking Tobacco: Never Assessed Sex Assigned at Date Recorded Not on file documented as of this encounter Plan of Treatment Not on filedocumented as of this encounter Procedures Procedure Name Priority Date/Time Associated Diagnosis Comme [facility] SURGICAL PATHOLOGY Routine 03/26/2004 0:00 EST Re sults for this procedure are i n the results section. documented in this encounter Results SURGICAL PATHOLOGY (03/26/2004 0:00 EST) Component Value Ref Test Analysis Performed At [facility] Method Time Signature Pathology SURGICAL PATHOLOGY REPORT VENESSA WANG Report: Reports generated via electronic interface contain renita l data; TIFFANY RAMOS however they are lacking the format of the original report. Caution should be taken when reading/interpreting unformatte d reports. Name: ? EDILBERTO ROBBINS ? Accession #: ? [id number] ? : ? 1960 (Age: 43) ??F ? Collect Date: ? 03/26/2004 ? Location: ? [facility] ? Receive Date: ? 03/26/2004 ? Provider: Ariadna CORTEZ DDS Copy to: LINDA BOWLING MD ? Final Pathologic Diagnosis: ? Oral mucosa, mid palatal lesion, excision: - Subepithelial fibrosis (irritation fibroma). Document reviewed and electronically signed by: BRY LUCIO MD Report ??Date: 03/30/2004 11:09 By the signature above, the attending physician certifies th at he/she has personally conducted a gross and/or microscopic examin ation of the described specimens and rendered or confirmed the above diagnosis. Specimen(s) Received: ? 2-4 mm well demarcated mid palatal soft tissue lesion Clinical History: ? Present several years, occasionally irritated, Imp: F ibroma Gross Description: ? Received in formalin labelled [...] sectioned and submitted in its entirety as follows: BLOCK DANG A1 ?Body A2 ?Tips, reverse en face (Shay Ascencio)/tmg ?? End of Report Specimen (Source) Anatomical Collection Method Collection Time Re ceived Time Location / / Volume Laterality 03/26/2004 03/26/2004 15:2 5 EST Ariadna Cortez DDS PATHOLOGY ORDERABLES Performing Organization Address City/State/ZIP Code Phon e Number [facility] [address] [place] [address] SERVICES [facility] [address] [place] [address] documented in this encounter Visit Diagnoses Not on filedocumented in this encounter
--- OUTSIDE RECORDS SUMMARY | 2022-01-16 12:46 | XMS_ITS | Clinical Summary ---
:1960 Author Organization [facility] Address [address] [place] [address] Care Team Providers Name Role Phone Susie [...] e / Group Dates HEALTH HEALTH PLANS [id number] 2013-Hero [phone] [address] [employer] [address] [address] (Home) [address] [place] [address] Reji Krishnamurthy Personal/Family Self [address] [place] [address] (Home) [address] [place] [address] RaghuReji acuña Personal/Family Self [address] [place] [address] (Home) [address] [place] [address] Reji Krishnamurthy Personal/Family Self [address] [place] [address] (Home) [address] [place] [address] Reji Krishnamurthy Personal/Family Self 1960 [address] (Home) [address] [place] [address] Care Teams Mushroom Cutter Relationship Specialty Start Date End Date Susie Keating MD PCP - General 10/07/[address] [place] [phone]
--- OUTSIDE RECORDS SUMMARY | 2022-01-16 12:46 | XMS_ITS | Encounter Summary ---
:1960 Author Organization [facility] Address [address] [place] [address] Care Team Providers Name Role Phone Linda Keating MD Primary Care Provider Encounter Details Date Type Department Care Team Description 05/03/2015 Results Only [facility] Marc Peña, [address] [phone] (Wo rk) Social History Tobacco Use Types Packs/Day Years Used Date Smoking Tobacco: Never Assessed Sex Assigned at Date Recorded Not on file documented as of this encounter Plan of Treatment Not on filedocumented as of this encounter Procedures Procedure Name Priority Date/Time Associated Diagnosis Comme [facility] SURGICAL PATHOLOGY Routine 05/03/2015 10:41 Resul ts for this EDT procedure are i n the results section. documented in this encounter Results SURGICAL PATHOLOGY (05/03/2015 10:41 EDT) Component Value Ref Test Analysis Performed At [facility] Method Time Signature Pathology SURGICAL PATHOLOGY REPORT [facility] Report: Reports generated via electronic interface contain origina l data; CENTER however they are lacking the format of the original report. LABORATORY Caution should be taken when reading/interpreting unformat jen reports. SERVICES Name: ? EDILBERTO ROBBINS ? Accession #: ? [id number] ? : ? 1960 (Age: [age]) ??F ? Collect Date: ? 05/03/2015 ? Location: ? [facility] ? Receive Date: ? 05/04/2015 ? Provider: MARC MATAM Copy to: LINDA KEATING MD ? Final Pathologic Diagnosis: BONE, RIGHT GREAT TOE, EXCISION: - ??Benign fibroconnective tissue and focal devitalize d bone with remodeling changes. See comment. - ??Negative for acute osteomyelitis. Comment: These features may represent chronic osteomyelitis however correlation with clinical history and radiogr aphic [...] or confirmed the above diagnosis. 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 Gross Description: ? Received in formalin labelled with proper patient identification (initials M, K) and bone right great toe are two portions of tissue. The first is a 0.8 x 0.7 x 0.2 cm nguyen and dull westfall soft tissue fragment. The second is a 2.0 x 0.6 x 0.2 cm similar tissue which includes bone. The specimens a re entirely submitted in 1 and 2 following decalcification. Madelaine Petit 05/06/2015 11:17 AM End of Report Specimen Anatomical Collection Method Collection Time Receive d Time (Source) Location / / Volume Laterality 05/03/2015 10:41 05/04/2015 EDT 10:41 EDT Marc Bryan Schein DPM PATHOLOGY ORDERABLES Performing Organization Address City/State/ZIP Code Phon e Number [facility] [address] [place] [address] SERVICES documented in this encounter Visit Diagnoses Not on filedocumented in this encounter Care Teams Dyeing Machine Tender Relationship Specialty Start Date End Date Linda Keating MD PCP - General 10/07/[address] [place] [phone] documented as of this encounter
--- OUTSIDE RECORDS SUMMARY | 2022-01-16 12:46 | XMS_ITS | Encounter Summary ---
:1960 Author Organization [facility] Address [address] [place] [address] Care Team Providers Name Role Phone Susie Keating MD Primary Care Provider Encounter Details Date Type Department Care Team Description 08/08/2019 Lab Requisition [facility] Susie Keating, Encounter for other Pathology & MD general examination Laboratory Medicine [address] [place] [address] [address] [place] [address] [phone] Social History Tobacco Use Types Packs/Day Years [...] encounter Results SURGICAL PATHOLOGY (08/07/2019 16:00 EDT) Component Value Ref Test Analysis Performed At [facility] Method Time Signature Final A. SKIN OF AMISH, RIGHT, SHAVE BIOPSY: 08/09/2019 [facility] Electronically Diagnosis - Seborrheic keratosis. 11:44 EDT CENTER signed by AMRITA Arango MD SERVICES on 08/09/19 20 at 1144 Attestation By the signature 08/09/2019 [facility] MEDICA L Electronically below, the 11:44 EDT CENTER signed by Nba, attending LABORATORY Jennifer fernández MD physician SERVICES on 08/09/19 20 at certifies that 1144 they have 1) personally conducted a gross and/or microscopic examination of the described specimen(s), and/or personally interpreted the results of laboratory testing of the described specimen(s), and 2) personally rendered or confirmed the above diagnosis. Microscopic The stratum 08/09/2019 [facility] Description corneum is 11:44 [facility] thickened by LABORATORY laminated SERVICES orthohyperkeratos is. The epidermis is hyperplastic with papillomatosis and acanthosis. There is formation of horn pseudocysts. The keratinocytes have a basaloid appearance with round regular nuclei and a moderate amount of cytoplasm. Clinical 3 mm brown papule 08/09/2019 [facility] History R yazidism; wart 11:44 [facility] vs. malignancy LABORATORY SERVICES Gross A. Received in formalin labe lled with proper patient identification (initials M, K) and RT yazidism 3 mm is a 0.7 x 0.5 x 0.3 cm ovoid shave of papillary nguyen skin. The margin is inked. The specimen is bisected and entirely submitted in A1. 08/09/2019 [facility] Description 11:44 [facility] Abeba Caitlin 08/08/2019 16:21 SERVICES Scanned Images 08/09/2019 [facility] 11:44 [facility] SERVICES Specimen Anatomical Collection Method Collection Time Receive d Time (Source) Location / / Volume Laterality Tissue TISSUE SPECIMEN 08/07/2019 16:00 08/08/19 20 FROM SKIN / EDT 16:11 EDT Unknown Susie Keating MD PATHOLOGY ORDERABLES Performing Organization Address City/State/ZIP Code Phon e Number [facility] [address] [place] [address] SERVICES documented in this encounter Visit Diagnoses Diagnosis Encounter for other general examination documented in this encounter Care Teams Recreation Facility Attendant Relationship Specialty Start Date End Date Susie Keating MD PCP - General 10/07/[address] [place] [phone] documented as of this encounter
--- OUTSIDE RECORDS SUMMARY | 2022-01-16 12:46 | XMS_ITS | Encounter Summary ---
:1960 Author Organization [facility] Address [address] [place] [address] Care Team Providers Name Role Phone Susie Keating MD Primary Care Provider Encounter Details Date Type Department Care Team Description 08/28/2015 Results Only [facility] Emily Galeano, DO [phone] [facility] [facility] [place] [address] (Wo rk) Social History Tobacco Use Types Packs/Day Years Used Date Smoking Tobacco: Never Assessed Sex Assigned at Date Recorded Not on file documented as of this encounter Plan of Treatment Not on filedocumented as of this encounter Procedures Procedure Name Priority Date/Time Associated Diagnosis Comme [facility] SURGICAL PATHOLOGY Routine 08/28/2015 9:44 EDT Re sults for this procedure are i n the results section. documented in this encounter Results SURGICAL PATHOLOGY (08/28/2015 9:44 EDT) Component Value Ref Test Analysis Performed At [facility] Method Time Signature Pathology SURGICAL PATHOLOGY REPORT [facility] Report: Reports generated via electronic interface contain [facility] data; CENTER however they are lacking the format of the original report. LABORATORY Caution should be taken when reading/interpreting unformat jen reports. SERVICES Name: ? EDILBERTO ROBBINS ? Accession #: ? [id number] ? : ? 1960 (Age: [age]) ??F ? Collect Date: ? 08/28/2015 ? Location: ? [facility] ? Receive Date: ? 08/29/2015 ? Provider: EMILY GALEANO DO Copy to: SUSIE KEATING MD ? Final Pathologic Diagnosis: A. GASTROESOPHAGEAL JUNCTION, BIOPSY: - Squamous mucosa with mild reactive changes. - Fundic type mucosa with no specific pathologic features. - Negative for intestinal metaplasia; Negative for dysplasia . ?? B. COLON, SIGMOID, POLYP, BIOPSY: - Hyperplastic/inflammatory polyp. Document reviewed and electronically signed by: MAURA GUZMAN MD Report ??Date: 09/02/2015 10:45 By the signature above, the attending physician certifies th at he/she has personally conducted a gross and/or microscopic examin ation of the described specimens and rendered or confirmed the above diagnosis. Specimen(s) Received: A. ??Bx GE junction B. ??Sigmoid polyps x2 Clinical History: Martin's esophagus; colorec doug CA scr; clinical diagnosis code: K22.70, Z12.11 Gross Description: A. ?Received in formalin labelled with proper patie nt identification (initials M, K) and bx GE junction are four membranous sof t pale monteiro to nguyen-brown tissues ranging from 0.3 x 0.2 x 0.1 cm to 0.3 x 0 .3 x 0.2 cm. Entirely submitted in A1 and A2. B. ?Received in formalin labelled with proper patie nt identification (initials M, K) and sigmoid polyps x2 are two nguyen-brown no dular tissues averaging 0.3 x 0.3 x 0.2 cm. Entirely submitted in B1. Madelaine Petit 08/29/2015 11:18 AM End of Report Specimen Anatomical Collection Method Collection Time Receive d Time (Source) Location / / Volume Laterality 08/28/2015 9:44 08/29/2015 9 :44 EDT EDT Emily Galeano DO PATHOLOGY ORDERABLES Performing Organization Address City/State/ZIP Code Phon e Number [facility] [address] [place] [address] SERVICES documented in this encounter Visit Diagnoses Not on filedocumented in this encounter Care Teams Eyeglass Lens Cutter Relationship Specialty Start Date End Date Susie Keating MD PCP - General 10/07/[address] [place] [phone] documented as of this encounter
--- OUTSIDE RECORDS SUMMARY | 2022-01-16 12:46 | XMS_ITS | Encounter Summary ---
:1960 Author Organization [facility] Address [address] [place] [address] Care Team Providers Name Role Phone Susie Keating MD Primary Care Provider Encounter Details Date Type Department Care Team Description 08/28/2015 Hospital Encounter [facility] Unknown, Provider, [facility] [address] [facility] [phone] [place] [address] (Work) [phone] Social History Tobacco Use Types Packs/Day Years Used Date Smoking Tobacco: Never Assessed Sex Assigned at Date Recorded Not on file documented as of this encounter Discharge Disposition Disposition Code Departure Means Destination Home or Self [facility] documented in this encounter Plan of Treatment Not on filedocumented as of this encounter Visit Diagnoses Not on filedocumented in this encounter Care Teams Spring Crater Relationship Specialty Start Date End Date Susie Keating MD PCP - General 10/07/[address] [place] [phone] documented as of this encounter
--- OUTSIDE RECORDS SUMMARY | 2022-01-16 12:46 | XMS_ITS | Encounter Summary ---
:1960 Author Organization [facility] Address [address] [place] [address] Care Team Providers Name Role Phone Susie Keating MD Primary Care Provider Encounter Details Date Type Department Care Team Description 03/23/[address] [facility] Unknown, Provider, Pathology & Laboratory [facility] [address] [facility] [place] [address] Social History Tobacco Use Types Packs/Day Years [...] Results PSA TOTAL, DIAGNOSTIC (03/23/2019 10:57 EST) P athologist Signature PSA 0.9 0.0 - 3.5 03/24/2019 [facility] ng/mL 8:51 EST CENTER LABORATORY SERVICES Specimen Anatomical Collection Method Collection Time Receive d Time (Source) Location / / Volume Laterality Blood VENOUS BLOOD / 03/23/2019 10:57 0 Unknown EST 20:35 EST Narrative [facility] - 03/24/2019 8:51 EST NOTE: Serum PSA concentration should not be in terpreted as absolute evidence for the presence or absence of malignant disease. Assayed on Siemens ADVIA [employer] XPT usi ng chemiluminescent technology.??Values obtained by using different assay methods cannot be used interchangeably. Provider Unknown MD CHEMISTRY & BLOOD GAS ORDERA BLES Performing Organization Address City/State/ZIP Code Phon e Number [facility] [address] [place] [address] SERVICES documented in this encounter Visit Diagnoses Not on filedocumented in this encounter Care Teams Environmental Monitoring Technician Relationship Specialty Start Date End Date Susie Keating MD PCP - General 10/07/[address] [place] [phone] documented as of this encounter
== END ==
PROVIDERS: PCP Family Medicine; Visit Provider Nurse Practitioner Family
DX: R10.9 Unspecified abdominal pain (principal)
CPT/HCPCS: 74177; 82565; J3490

== ENCOUNTER 2022-04-07 21:39 | Outpatient (REF) | payer OTHER, SELFPAY ==
[2022-04-07 22:19] LABS: COMMENT (LAB VIEW ONLY) 80.84 mg/dL; Microalb ug/mg Crea 31.7 ug/mg Cr
== END 2022-04-07 21:40 | disposition home or self-care (01) ==
LOC: LBN 21:39
PROVIDERS: PCP Family Medicine; Visit Provider Family Medicine
DX: E11.9 Type 2 diabetes mellitus without complications (principal)
CPT/HCPCS: 82043; 82570

== ENCOUNTER 2022-07-15 04:41 | Outpatient (CLI) | payer OTHER, SELFPAY ==
[2022-07-15 08:19] LABS: Hemoglobin A1C 8.6 % (<5.7)
[2022-07-15 08:20] LABS: Microalb ug/mg Crea 50.9 ug/mg Cr
[2022-07-15 09:00] LABS: ALT 73 U/L (16-63); AST 29 U/L (15-37); Albumin 3.5 g/dL (3.4-5.0); Alkaline Phosphatase 97 U/L (46-116); Anion Gap 7.9 mmol/L (3-11); BUN 23 mg/dL (7-18); Bilirubin, Total 0.5 mg/dL (0.2-1.0); CO2 28.1 mmol/L (21.0-32.0); CREATININE 1.4 mg/dL (0.70-1.30); Calcium 8.5 mg/dL (8.5-10.1); Chloride 107 mmol/L (98-107); Estimated GFR 56.48 (mL/min/1.73m2); Glucose 224 mg/dL (74-106); Potassium 4.3 mmol/L (3.5-5.1); Sodium 143 mmol/L (136-145); Total Protein 7.2 g/dL (6.4-8.2); Uric Acid 4.8 mg/dL (3.5-7.2)
[2022-07-15 09:16] LABS: Calculated LDL 55 mg/dL (<100); Cholesterol 154 mg/dL (<200); HDL Cholesterol 51 mg/dL (40-60); Triglyceride 244 mg/dL (<150)
== END 2022-07-15 04:42 | disposition home or self-care (01) ==
LOC: LBO 04:41
PROVIDERS: PCP Family Medicine; Visit Provider Family Medicine
DX: E11.65 Type 2 diabetes mellitus with hyperglycemia (principal); I10 Essential (primary) hypertension; E78.5 Hyperlipidemia, unspecified; N28.9 Disorder of kidney and ureter, unspecified; G62.9 Polyneuropathy, unspecified
CPT/HCPCS: 36415; 80053; 80061; 82043; 82570; 83036; 84550

== ENCOUNTER 2022-08-12 12:13 | Outpatient (CLI) | payer OTHER, SELFPAY ==
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
== END 2022-08-12 12:14 | disposition home or self-care (01) ==
LOC: DI.CM 12:13
PROVIDERS: PCP Family Medicine; Visit Provider Nurse Practitioner Family
DX: R07.89 Other chest pain (principal); V89.2XXA Person injured in unspecified motor-vehicle accident, traffic, initial encounter
CPT/HCPCS: 93010

== ENCOUNTER 2022-08-12 12:40 | Emergency (ER) | payer OTHER, SELFPAY ==
[2022-08-12 12:58] VITALS: BP 123/74; PULSE 74; RESP 18; TEMP 36.3; O2SAT 99
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
[2022-08-12 14:44] VITALS: BP 125/51; PULSE 61; RESP 18; O2SAT 96
== END 2022-08-12 17:48 | disposition home or self-care (01) ==
PROVIDERS: Emergency Provider Student in an Organized Health Care Education/Training Program; PCP Family Medicine
DX: R55 Syncope and collapse (principal); S80.12XA Contusion of left lower leg, initial encounter; E11.21 Type 2 diabetes mellitus with diabetic nephropathy; E11.40 Type 2 diabetes mellitus with diabetic neuropathy, unspecified; E11.319 Type 2 diabetes mellitus with unspecified diabetic retinopathy without macular edema; I10 Essential (primary) hypertension; E78.5 Hyperlipidemia, unspecified; Z79.82 Long term (current) use of aspirin; Z79.4 Long term (current) use of insulin; F17.200 Nicotine dependence, unspecified, uncomplicated; V47.5XXA Car driver injured in collision with fixed or stationary object in traffic accident, initial encounter
CPT/HCPCS: 36415; 93005; 99285; 70450; 72125; 73590; 93010; 99283

== ENCOUNTER 2022-08-26 17:41 | Outpatient (REF) | payer OTHER, SELFPAY | END 2022-08-26 17:42 | disposition home or self-care (01) | LOC: LBN 17:41 | PROVIDERS: PCP Family Medicine; Visit Provider Nurse Practitioner Family | DX: L03.011 Cellulitis of right finger; L98.8 Other specified disorders of the skin and subcutaneous tissue | CPT/HCPCS: 87070; 87205 ==

== ENCOUNTER 2022-11-03 11:31 | Outpatient (CLI) | payer OTHER, SELFPAY ==
--- NOTE | 2022-11-03 11:30 | RT.EKG_ITS ---
APPROVED REPORT Exam: Resting ECG Reason for Exam: chest pain Patient Location: O HR:68 bpm ECG Measurements Heart Rate 68 AXIS NH 128 P 57 QRSd 74 QRS 11 QT 393 T 22 QTc 418 Conclusion Sinus rhythm...normal P axis, V-rate 50- 99 Low voltage, extremity and precordial leads...extremity<0.5mV, precordial<1.0mV Otherwise normal ECG
== END 2022-11-03 11:32 | disposition home or self-care (01) ==
LOC: DI.CM 11:32
PROVIDERS: PCP Family Medicine; Visit Provider Nurse Practitioner Family
DX: R07.9 Chest pain, unspecified (principal)
CPT/HCPCS: 93010

== ENCOUNTER 2023-01-18 04:14 | Outpatient (CLI) | payer OTHER, SELFPAY ==
[2023-01-18 12:52] LABS: ALT 69 U/L (16-63); AST 27 U/L (15-37); Albumin 3.8 g/dL (3.4-5.0); Alkaline Phosphatase 110 U/L (46-116); BUN 31 mg/dL (7-18); Bilirubin, Total 0.7 mg/dL (0.2-1.0); CREATININE 1.4 mg/dL (0.70-1.30); Calcium 9.5 mg/dL (8.5-10.1); Chloride 105 mmol/L (98-107); Estimated GFR 56.48 (mL/min/1.73m2); Glucose 149 mg/dL (74-106); Potassium 4.3 mmol/L (3.5-5.1); Sodium 141 mmol/L (136-145); Total Protein 7.7 g/dL (6.4-8.2)
[2023-01-18 12:53] LABS: Hemoglobin A1C 10.4 % (<5.7)
== END 2023-01-18 04:15 | disposition home or self-care (01) ==
LOC: LOS 04:14
PROVIDERS: PCP Family Medicine; Visit Provider Family Medicine
DX: N28.9 Disorder of kidney and ureter, unspecified (principal); E11.9 Type 2 diabetes mellitus without complications
CPT/HCPCS: 36415; 80053; 83036

== ENCOUNTER 2023-02-04 11:21 | Outpatient (REF) | payer OTHER, SELFPAY | END 2023-02-04 11:22 | disposition home or self-care (01) | LOC: LBN 11:21 | PROVIDERS: PCP Family Medicine; Visit Provider Podiatrist | DX: L02.612 Cutaneous abscess of left foot (principal) | CPT/HCPCS: 87070; 87075; 87205 ==

== ENCOUNTER → 2023-02-17 18:55 | Outpatient (CLI) | payer OTHER, SELFPAY ==
--- NOTE | 2023-02-17 09:55 | DI.RAD_ITS ---
Exam(s) XR FOOT LT COMPLETE EXAM: XR FOOT LT COMPLETE CLINICAL HISTORY: ulcer L02.612 ABSCESS LEFT FOOT L03.116 CELLULITIS E11.21 TYPE 2 DIABETES. TECHNIQUE: 2D digital imaging was performed. Three views. COMPARISON: CR RIGHT FOOT COMPLETE from 12/16/2012 FINDINGS: BONES: No acute fracture is present. No bony destructive lesion is seen. Small heel spurs. JOINTS: No dislocation present. Degenerative changes intertarsal region. SOFT TISSUE: Normal soft tissue swelling and ulceration at lateral foot at level of 5th MTP joint. N o foreign body. IMPRESSION: Lateral soft tissue ulcer. No evidence of osteomyelitis. DATA REPOSITORY: RADIATION DOSE DELIVERED:
--- NOTE | 2023-02-17 09:55 | DI.RAD_ITS ---
Exam(s) XR FOOT RT COMPLETE EXAM: XR FOOT RT COMPLETE CLINICAL HISTORY: ulcer L97.511 ULCER RT FOOT G62.9 POLYNEUROPATHY E11.65 DIABETES. TECHNIQUE: 2D digital imaging was performed. Three views. COMPARISON: CR RIGHT FOOT COMPLETE from 02/19/2017 FINDINGS: BONES: No acute fracture is present. No bony destructive lesion is seen.Prominent calcaneal spurs. JOINTS: No dislocation present. SOFT TISSUE: Swelling at lateral distal foot at level of MTP joint. No foreign body. No change calc ification plantar fascia. IMPRESSION: No radiographic findings of osteomyelitis. DATA REPOSITORY: RADIATION DOSE DELIVERED:
== END ==
PROVIDERS: PCP Family Medicine; Visit Provider Podiatrist
DX: E11.65 Type 2 diabetes mellitus with hyperglycemia (principal); G62.9 Polyneuropathy, unspecified; L97.511 Non-pressure chronic ulcer of other part of right foot limited to breakdown of skin; L03.116 Cellulitis of left lower limb
CPT/HCPCS: 73630

== ENCOUNTER → 2023-03-31 12:45 | Outpatient (CLI) | payer OTHER, SELFPAY ==
--- NOTE | 2023-03-31 13:06 | DI.RAD_ITS ---
Exam(s) XR FOOT LT COMPLETE EXAM: XR FOOT LT COMPLETE CLINICAL HISTORY: eval for yash involvement/ 5th met head L97.522 ULCER LEFT FOOT. TECHNIQUE: 2D digital imaging was performed of the left foot. Three images were obtained. AP, obli que and lateral views were obtained. COMPARISON: CR XR FOOT LT COMPLETE from 02/17/2023 FINDINGS: BONES: No acute fracture is present. No bony destructive lesion is seen. There is a small plantar sadny caneal spur. There is a small enthesophyte at the posterior calcaneus. JOINTS: No dislocation present. The joint spaces are fairly well maintained. SOFT TISSUE: There is soft tissue swelling lateral to the 5th metatarsophalangeal joint. No radiopaq ue foreign body is seen. IMPRESSION: 1. Soft tissue swelling lateral to the 5th metatarsophalangeal joint. No radiopaque foreign body. 2. No radiographic findings to suggest osteomyelitis. DATA REPOSITORY: RADIATION DOSE DELIVERED:
== END ==
PROVIDERS: PCP Family Medicine; Visit Provider Podiatrist
DX: R22.42 Localized swelling, mass and lump, left lower limb (principal)
CPT/HCPCS: 73630

== ENCOUNTER 2023-04-16 03:08 | Outpatient (CLI) | payer OTHER, SELFPAY ==
[2023-04-16 11:44] LABS: ALT 114 U/L (16-63); AST 36 U/L (15-37); Albumin 3.6 g/dL (3.4-5.0); Alkaline Phosphatase 151 U/L (46-116); Anion Gap 10.8 mmol/L (3-11); BUN 20 mg/dL (7-18); Bilirubin, Total 0.6 mg/dL (0.2-1.0); CO2 25.2 mmol/L (21.0-32.0); CREATININE 1.2 mg/dL (0.70-1.30); Calcium 9.3 mg/dL (8.5-10.1); Chloride 105 mmol/L (98-107); Estimated GFR 67.95 (mL/min/1.73m2); Glucose 198 mg/dL (74-106); Potassium 4.2 mmol/L (3.5-5.1); Sodium 141 mmol/L (136-145); Total Protein 7.6 g/dL (6.4-8.2)
[2023-04-16 12:12] LABS: Hemoglobin A1C 12.3 % (<5.7)
== END 2023-04-16 03:09 | disposition home or self-care (01) ==
LOC: LBO 03:10
PROVIDERS: PCP Family Medicine; Visit Provider Family Medicine
DX: I10 Essential (primary) hypertension (principal); E11.9 Type 2 diabetes mellitus without complications
CPT/HCPCS: 36415; 80053; 83036

== ENCOUNTER → 2023-06-03 08:53 | Outpatient (CLI) | payer OTHER, SELFPAY ==
--- NOTE | 2023-06-03 08:45 | DI.RAD_ITS ---
Exam(s) XR FOOT LT COMPLETE EXAM: XR FOOT LT COMPLETE CLINICAL HISTORY: Attention to 5th met-head,ULCER LT FOOT, PES CAVUS LT FOOD,q66.72,l97.522. TECHNIQUE: 2D digital imaging was performed of the left foot. Six images were obtained. AP, obliqu e and lateral views were obtained. COMPARISON: CR XR FOOT LT COMPLETE from 03/31/2023 FINDINGS: BONES: No acute fracture is present. No bony destructive lesion is seen. There is an enthesophyte at the posterior calcaneus. There is a small plantar calcaneal spur. The sesamoids are intact and unre markable. No fracture is seen. There are no destructive changes. No destructive changes are seen i n the cortex of the head of the 5th metatarsal bone to suggest osteomyelitis. JOINTS: No dislocation present. Mild degenerative changes are seen in the foot. SOFT TISSUE: There is soft tissue swelling lateral to the 5th metatarsophalangeal joint. No radiopaq ue foreign bodies are seen. IMPRESSION: 1. Unremarkable sesamoids seen at the 1st metatarsal head. 2. Soft tissue swelling lateral to the 5th metatarsophalangeal joint. 3. No destructive changes are seen, particularly involving the head of the 5th metatarsal, to suggest osteomyelitis. DATA REPOSITORY: RADIATION DOSE DELIVERED:
== END ==
PROVIDERS: PCP Family Medicine; Visit Provider Podiatrist
DX: L97.522 Non-pressure chronic ulcer of other part of left foot with fat layer exposed (principal); Q66.72 Congenital pes cavus, left foot; M25.872 Other specified joint disorders, left ankle and foot
CPT/HCPCS: 73630

== ENCOUNTER 2023-06-30 20:38 | Emergency (ER) | payer OTHER, SELFPAY ==
[2023-06-30] VITALS (30 sets, daily range): BP systolic 135–178; BP diastolic 59–140; PULSE 64–89; RESP 12–27; TEMP 36.7; O2SAT 92–97
--- NOTE | 2023-06-30 20:45 | RT.EKG_ITS ---
APPROVED REPORT Exam: Resting ECG Reason for Exam: Weakness Patient Location: E HR:84 bpm ECG Measurements Heart Rate 84 AXIS IN 134 P 60 QRSd 74 QRS 0 QT 362 T 72 QTc 422 Conclusion Sinus rhythm...normal P axis, V-rate 60- 99 Atrial premature complex...SV complex w/ short R-R interval Low voltage, precordial leads...precordial leads <1.0mV
--- NOTE | 2023-06-30 20:45 | DI.CT_ITS ---
Exam(s) CT HEAD WO EXAM: CT HEAD WO CLINICAL HISTORY: Weakness. TECHNIQUE: Imaging Protocol: Axial computed tomography images with coronal and sagittal reformatted images were created and reviewed COMPARISON: CT CT HEAD CERVICAL SPINE WO from 08/12/2022 FINDINGS: There are no skull fractures. There is no fluid in the visualized paranasal sinuses. There is no evidence of intracranial hemorrhage, mass effect, or shift of midline structures. There are no extra-axial fluid collections. The ventricles are not enlarged or shifted and there is no blo od within the ventricular system nor within the basal cisterns. IMPRESSION: No acute intracranial findings on this noninfused CT scan of the brain. RADIATION DOSE DELIVERED: 869.59mGy.cm Total DLP DATA REPOSITORY: All CT scans at this facility are submitted to the National Radiology Data Registry (NRDR) Dose Index Registry (DIR) with the [employer] (ACR). RADIATION OPTIMIZATION: All CT scans at this facility use at least one of these dose optimization te chniques: automated exposure control; mA and/or kV adjustment per patient size (includes targeted exa ms where dose is matched to clinical indication); or iterative reconstruction.
--- NOTE | 2023-06-30 20:56 | ED.GENADUL_ITS ---
Discharge Plan Disposition Patient Disposition: Home Condition: Stable Discharge Details Clinical Impression: Lower back pain, Weakness Primary Care Provider: Susie Keating ED Provider: Abeba Quijano Home Meds and New Rx's Prescriptions: Continued (DME) FreeStyle [place] 2 [place] Misc See Rx Instructions .Route Qty: 1 2RF Rx Instructions: As directed. E11.9 sildenafil 100 mg tablet 100 mg PO DAILY PRN (Reason: sexual activity) Qty: 7 4RF Rx Instructions: administer 30 minutes to 4 hours before activity lisinopril 40 mg tablet 40 mg PO DAILY Qty: 90 12RF metoprolol succinate 100 mg tablet extended release 24 hr 100 mg PO DAILY Qty: 90 5RF albuterol sulfate [Ventolin HFA] 90 mcg/actuation HFA aerosol inhaler 2 puff inhalation Q6H PRN (Reason: shortness of breath or wheezing) Qty: 25.5 4RF dapagliflozin propanediol [Farxiga] 10 mg tablet 10 mg PO DAILY Qty: 90 4RF atorvastatin 80 mg tablet 80 mg PO DAILY Qty: 90 12RF povidone-iodine [Betadine] 10 % solution 1 applic topical DAILY Qty: 236 0RF (DME) blood-glucose meter Misc See Rx Instructions .ROUTE .MEDSUPPLY Qty: 1 0RF Rx Instructions: TID testing. E11.9 (Accu check) (DME) blood sugar diagnostic Strip See Dose Instructions .ROUTE .MEDSUPPLY Qty: 400 5RF Dose Instruction: As directed Rx Instructions: As directed AC and HS E11.40 insulin degludec [Tresiba FlexTouch U-200] 200 unit/mL (3 mL) insulin pen 40 unit subcut BID Qty: 27 4RF gabapentin [Neurontin] 300 mg capsule 300 mg PO BID Qty: 180 5RF omeprazole 40 mg capsule,delayed release(DR/EC) 40 mg PO DAILY Qty: 90 6RF insulin aspart U-100 [Novolog FlexPen U-100 Insulin] 100 unit/mL (3 mL) insulin pen 60 unit subcut AC Qty: 60 6RF (DME) FreeStyle Taylor 2 Sensor Kit See Rx Instructions .Route Qty: 8 12RF Rx Instructions: As directed; E11.9 Ozempic 1 mg/dose (4 mg/3 mL) pen injector 1 mg subcut QWEEK MDD 1 mg Qty: 12 3RF Rx Instructions: Inject 1 mg subcutaneously, once weekly as directed. (DME) pen needle, diabetic [Ultra-Thin II Ins Pen [place]] 29 gauge x 1/2 needle See Dose Instructions .ROUTE .MEDSUPPLY Qty: 400 6RF Dose Instruction: As directed Rx Instructions: As directed aspirin 81 MG tablet,chewable 81 mg PO DAILY Discharge Instructions Instructions: Low Back Strain (ED), Weakness (ED) Additional Instructions: At this time no evidence of stroke, heart attack or pneumonia. Your weakness is improved prior to discharge. I do suspect that you are dehydrated. Magnesium was slightly low, your thyroid-stimulating hormone was also elevated. This could indicate hypothyroidism. Please discuss this with your primary care provider. Follow up with primary care provider in 3-5 days. Return to ED sooner if any worsening or concerns. Keep your previously scheduled primary care appointment tomorrow as scheduled. Referrals: Susie Keating MD, [place] [Primary Care Provider] - 1 day HPI General Mode of arrival: wheelchair . Date/Time Provider Initiated Documentation: 06/30/23 20:47 . Limitations to Documentation: no limitations . Information obtained by: patient, family, RN notes reviewed and old records reviewed . HPI Narrative: 63-year-old male with past medical history of insulin-dependent diabetes presents to the ER with a chief complaint of acute onset of weakness. Patient reports this morning he started having funny feelings in his feet that he describes as vomj-zgo-gbteykf reports that he was driving but did have a long drive around 4 hours the weakness became worse. He had to drag himself up stairs to get into the house and then the weakness progressed to where he had to crawl to the car. He denies any pain. He has no focal neurodeficits on exam. Initially unable to raise his right leg off the bed however on second try he was able to do it with no leg drop. Denies any headache blurry vision. BGL 208 upon arrival. He is diaphoretic. Denies any chest pain he also reports some shortness of breath. Past medical history otherwise includes Martin's esophagus., Asthma cervical radiculopathy C6. Related Data Home Medications Medication Instructions Recorded Confirmed aspirin 81 mg chewable tablet 81 mg PO DAILY 01/05/18 05/15/24 blood-glucose meter #1 ea 12/02/20 06/30/23 flash glucose scanning reader #1 ea 05/28/21 06/30/23 (FreeStyle [place] 2 [place]) blood sugar diagnostic #400 ea 01/23/22 06/30/23 albuterol sulfate 90 mcg/actuation 2 puff inhalation Q6H PRN 11/03/22 06/30/23 aerosol inhaler (Ventolin HFA) shortness of breath or wheezing #25.5 grams insulin degludec 200 unit/mL (3 40 unit (0.2 mL) subcut BID #27 mL 12/15/22 06/30/23 mL) subcutaneous pen (Tresiba FlexTouch U-200 insulin) lisinopril 40 mg tablet 40 mg PO DAILY #90 tab-caps 01/21/23 06/30/23 metoprolol succinate 100 mg 100 mg PO DAILY #90 tabs 01/21/23 06/30/23 tablet,extended release 24 hr sildenafil 100 mg tablet 100 mg PO DAILY PRN sexual 01/21/23 06/30/23 activity #7 tabs gabapentin 300 mg capsule 300 mg PO BID #180 tab-caps 01/22/23 06/30/23 (Neurontin) povidone-iodine 10 % topical 1 applic topical DAILY 02/04/23 06/30/23 solution (Betadine) disinfection of wound #236 mL Farxiga 10 mg tablet 10 mg PO DAILY #90 tabs 04/20/23 06/30/23 (dapagliflozin propanediol) atorvastatin 80 mg tablet 80 mg PO DAILY #90 tab-caps 04/20/23 06/30/23 omeprazole 40 mg capsule,delayed 40 mg PO DAILY #90 tab-caps 05/14/23 06/30/23 release insulin aspart U-100 100 unit/mL 60 unit (0.6 mL) subcut AC #60 mL 05/18/23 06/30/23 (3 mL) subcutaneous pen (Novolog FlexPen U-100 Insulin aspart) Ozempic 1 mg/dose (4 mg/3 mL) 1 mg (0.75 mL) subcut QWEEK #12 mL 06/01/23 06/30/23 subcutaneous pen injector (semaglutide) flash glucose sensor (FreeStyle #8 ea 06/01/23 06/30/23 Taylor 2 Sensor kit) pen needle, diabetic 29 gauge x #400 ea 06/01/23 06/30/23 1/2 (Ultra-Thin II Insulin Pen [place]) Previous Rx's Medication Instructions Recorded blood-glucose meter #1 ea 12/02/20 flash glucose scanning reader #1 ea 05/28/21 (FreeStyle [place] 2 [place]) blood sugar diagnostic #400 ea 01/23/22 albuterol sulfate 90 mcg/actuation 2 puff inhalation Q6H PRN 11/03/22 aerosol inhaler (Ventolin HFA) shortness of breath or wheezing #25.5 grams insulin degludec 200 unit/mL (3 40 unit (0.2 mL) subcut BID #27 mL 12/15/22 mL) subcutaneous pen (Tresiba FlexTouch U-200 insulin) lisinopril 40 mg tablet 40 mg PO DAILY #90 tab-caps 01/21/23 metoprolol succinate 100 mg 100 mg PO DAILY #90 tabs 01/21/23 tablet,extended release 24 hr sildenafil 100 mg tablet 100 mg PO DAILY PRN sexual 01/21/23 activity #7 tabs gabapentin 300 mg capsule 300 mg PO BID #180 tab-caps 01/22/23 (Neurontin) povidone-iodine 10 % topical 1 applic topical DAILY 02/04/23 solution (Betadine) disinfection of wound #236 mL Farxiga 10 mg tablet 10 mg PO DAILY #90 tabs 04/20/23 (dapagliflozin propanediol) atorvastatin 80 mg tablet 80 mg PO DAILY #90 tab-caps 04/20/23 omeprazole 40 mg capsule,delayed 40 mg PO DAILY #90 tab-caps 05/14/23 release insulin aspart U-100 100 unit/mL 60 unit (0.6 mL) subcut AC #60 mL 05/18/23 (3 mL) subcutaneous pen (Novolog FlexPen U-100 Insulin aspart) Ozempic 1 mg/dose (4 mg/3 mL) 1 mg (0.75 mL) subcut QWEEK #12 mL 06/01/23 subcutaneous pen injector (semaglutide) flash glucose sensor (FreeStyle #8 ea 06/01/23 Taylor 2 Sensor kit) pen needle, diabetic 29 gauge x #400 ea 06/01/23 1/2 (Ultra-Thin II Insulin Pen [place]) Allergies Allergy/AdvReac Type Severity Reaction Status Date / Time tiotropium bromide Allergy Severe PT STATES Verified 06/30/23 20:49 [From [facility] with [facility]] CAUSED CHEST PAINS General Stated Complaint: GenMedical JOSE: 2 Review of Systems All systems reviewed & are unremarkable except as noted in HPI and below Constitutional Constitutional: Reports as per HPI, Reports excessive sweating and Reports we akness Neurologic Neurologic: Reports weakness Endocrine Endocrine: Reports excessive sweating Exam Narrative Exam Narrative: Constitutional: Alert and oriented x3. Appears stated age. Obese body habitus. Patient is diaphoretic upon arrival. Head: Normocephalic, no trauma. Eyes: Pupils PERRL, Red reflex noted, EOM's intact. Eyelids symmetrical without lesions, discharge, or swelling. ENT: Bilateral TM's WNL, External ear normal to inspection, no mastoid TTP, swelling, or erythema, Nasal turbinates WNL, no nasal discharge. Normal dentition, Posterior pharynx WNL, no exudate. Chest: RRR, Normal S1, S2, distal pulses intact. Resp: Lungs clear to auscultation bilaterally, no wheezes, rales, or rhonchi. Abdomen: Soft, non-distended, Normoactive bowel sounds all 4 quads. Musculoskeletal: Normal gait, Moves all 4 extremities without difficulty. Skin: No suspicious rashes or lesions. Capillary refill less than 2 sec. Neurologic: Cranial nerves II-XII intact. Alert and oriented x 3. Motor: No obvious gross motor neurodeficits noted, slightly weaker in the right lower extremity. Sensory: Intact bilaterally all 4 extremities. Intact dorsal pedal flexion and extension, no pronator drift. No facial droop. Hematologic/Lymphatic: No ecchymosis, no lymphadenopathy. Course Vital Signs Vital signs: Vital Signs Temperature 36.7 C 06/30/23 20:44 Pulse 89 06/30/23 20:44 Respiratory Rate 18 06/30/23 20:44 Blood Pressure 149/88 H 06/30/23 20:44 Pulse Oximetry 95 06/30/23 20:44 Temperature 36.7 C 06/30/23 20:44 Temperature Source Oral 06/30/23 20:44 Pulse 89 06/30/23 20:44 Respiratory Rate 18 06/30/23 20:44 Respiratory Effort Normal 06/30/23 20:51 Blood Pressure 149/88 H 06/30/23 20:44 Pulse Oximetry 95 06/30/23 20:44 Oxygen Delivery Method Room Air 06/30/23 20:44 Oxygen Flow Rate 0 06/30/23 20:44 Pain Level 0 06/30/23 20:44 Medical Decision Making 63-year-old male with past medical history of insulin-dependent diabetes p resents to the ER with a chief complaint of acute onset of weakness. Patient reports this morning he started having funny feelings in his feet that he describes as cikh-mps-bosbikp reports that he was driving but did have a long drive around 4 hours the weakness became worse. He had to drag himself up stairs to get into the house and then the weakness progressed to where he had to crawl to the car. He denies any pain. He has no focal neurodeficits on exam. Initially unable to raise his right leg off the bed however on second try he was able to do it with no leg drop. Denies any headache blurry vision. BGL 208 upon arrival. He is diaphoretic. Denies any chest pain he also reports some shortness of breath. Past medical history otherwise includes Martin's esophagus., Asthma cervical radiculopathy C6. Workup ordered including head CT, cardiac workup including serial troponins PT PTT urine drug screen urinalysis and ethyl alcohol level. TSH added onto labs and tick and Lyme panel. Differential diagnosis includes ischemic stroke, CVA, spinal cord disease, peripheral nerve disease to paralysis, other things such as myasthenia gravis or Guillain-Brady?, alcoholic myopathy hypoglycemia, electrolyte imbalance ACS infection. Road test performed by chief of staff doctor patient visualized walking from stretcher to wheelchair without difficulty. He is complaining of some lower back pain and right hip pain. No weakness no shuffling feet no foot drop noted. Will discharge patient home. I do suspect lumbosacral sprain. Will give him a lidocaine patch prior to discharge and instruct on follow-up and strict return instructions. Pending serial troponin. Patient ambulatory out of department, pleasant, conversive and feeling better. This text was generated using [employer] system, please disregard any oddities of phrase or misspellings. Medical Records Medical records reviewed: Yes I reviewed the patient's medical records. Imaging Data Radiologic Study: Imaging: CT Scan Radiologist's impression: Exam: CT Head Without Contrast Exam date and time: 06/30/2023 21:27 Age: 63 years old Clinical indication: Other: Weakness TECHNIQUE: Imaging protocol: Computed tomography of the head without contrast. COMPARISON: CT HEAD CERVICAL SPINE WO 08/12/2022 13:44 FINDINGS: Brain: Mild cerebral atrophy. No edema or hemorrhage. Cerebral ventricles: No ventriculomegaly. Paranasal sinuses: No acute sinusitis. Mastoid air cells: No mastoid effusion. Orbital cavities: Bilateral exophthalmos. Bones: Unremarkable. No acute fracture. Soft tissues: No suspicious lesions. IMPRESSION: No acute intracranial findings. Thank you for allowing us to participate in the care of your patient. Dictated and Authenticated by: Hanny Anaya MD Radiologic Study #2: Imaging: X-Ray Radiologist's impression: CT CHEST LUNG CANCER SCREEN 07/31/2022 09:52 FINDINGS: Lungs: No consolidation. Pleural spaces: No pleural effusion. No pneumothorax. Heart/Mediastinum: No cardiomegaly. Bones/joints: Cervical spine fixation hardware is partially assessed. No displaced fracture. IMPRESSION: Negative portable chest. Thank you for allowing us to participate in the care of your patient. Dictated and Authenticated by: Hanny Anaya MD Lab Data Lab results reviewed: Yes I reviewed the patient's lab results. Labs: Laboratory Tests Range/Units 06/30/23 06/30/23 21:02 22:01 WBC (4.4-10.8) 10^3/uL 9.61 RBC (4.36-5.78) 10^6/uL 5.12 Hgb (13.5-17.5) g/dL 15.9 Hct (40.0-50.0) % 47.1 MCV (80-95) fL 92 MCH (27.0-33.0) pg 31.1 MCHC (32.0-36.0) % 33.8 RDW (11.8-14.1) % 13.7 Plt Count (130-400) 10^3/uL 186 MPV (8.0-11.0) fL 10.8 Immature Gran % % 0.4 Neutrophils % % 52.0 Lymphocytes % % 36.1 Monocytes % % 9.1 Eosinophils % % 2.0 Basophils % % 0.4 Nucleated RBC % (0.0-0.3) % 0.0 Absolute Neutrophils (1.2-6.7) 10^3/uL 5.00 Absolute Lymphocytes (1.2-3.4) 10^3/uL 3.47 H Absolute Monocytes (0.1-0.8) 10^3/uL 0.87 H Absolute Eosinophils (0.0-0.7) 10^3/uL 0.19 Absolute Basophils (0.0-0.2) 10^3/uL 0.04 PT (9.1-11.1) sec 10.8 INR (0.9-1.1) 1.1 APTT (23.6-32.8) sec 23.3 L Sodium (136-145) mmol/L 141 Potassium (3.5-5.1) mmol/L 4.1 Chloride (98-107) mmol/L 104 Carbon Dioxide (21.0-32.0) mmol/L 22.8 Anion Gap (3-11) mmol/L 14.2 H BUN (7-18) mg/dL 25 H Creatinine (0.70-1.30) mg/dL 1.7 H Est GFR (CKD-EPI 2020) (mL/min/1.73m2) 44.46 Glucose (74-106) mg/dL 268 H Calcium (8.5-10.1) mg/dL 9.3 Magnesium (1.8-2.4) mg/dL 1.7 L Total Bilirubin (0.2-1.0) mg/dL 0.7 AST (15-37) U/L 34 ALT (16-63) U/L 100 H Alkaline Phosphatase (46-116) U/L 128 H Troponin I (< or =60) ng/L < 50 Total Protein (6.4-8.2) g/dL 7.9 Albumin (3.4-5.0) g/dL 3.9 Ethyl Alcohol (<10) mg/dL < 3.0 Add-On Test Request DONE Quality:SDOH Health Related Social Needs: No Data to Display PFSH All Active Problems (Updated 06/30/23 @ 23:50 by Abeba Quijano NP) Weakness (Acute) Lower back pain (Acute) Pes cavus of left foot (Acute) Ulcer of left foot with fat layer exposed (Acute) Diabetes mellitus with foot ulcer due to multiple causes (Acute) Diabetes mellitus with diabetic polyneuropathy (Acute) Cellulitis of foot, left (Acute) Abscess of left foot (Acute) Ulcer of right foot limited to breakdown of skin (Acute) Ulcer of left foot, limited to breakdown of skin (Acute) Plantar wart (Acute) Abdominal pain (Acute) Corns and callosities (Acute) COVID-19 (Acute) 06/04/21 Obesity (BMI 30-39.9) (Acute) Bruise of both arms (Acute) Renal insufficiency (Chronic) Peripheral neuropathy (Acute) Cervical radiculopathy at C6 (Acute) Diabetes mellitus type 2, uncontrolled (Acute) Hidradenitis axillaris (Acute) Diabetic retinopathy (Chronic ~11/30/17) 11/30/17 [place]; MILD/RIGHT EYE-KB 03/25/20 [place]; MILD LEFT EYE-KB Persistent testicular pain (Chronic) LOW TESTOSTERONE; reduced libido Partial edentulism, unspecified (Chronic) upper Lumbar radiculopathy (Chronic 06/25/14) Increased body mass index (Chronic) Hyperlipidemia (Chronic 09/06/12) Essential hypertension (Chronic 11/08/12) Diabetic neuropathy (Chronic 12/06/12) Diabetic nephropathy associated with type 2 diabetes mellitus (Chronic 03/19/14) Degeneration of cervical intervertebral disc (Chronic) C-6; S/P SURGERY 2000; REPEAT FIXATION 2001. Disability secondary to pain. Barretts esophagus (Chronic) Balance disorder (Chronic 06/24/15) Asthma (Chronic) Annual physical exam (Acute 11/19/16) Medical History Diarrhea Shoulder pain Left carpal tunnel syndrome Sebaceous cyst of scrotum Acute bilateral thoracic back pain (06/24/15) Alcohol abuse Epistaxis (11/14/15) Hypokalemia (11/12/16) Inflamed skin tag (09/18/14) Piriformis syndrome of right side (07/30/16) Smoker Cyst URI (upper respiratory infection) Arthritis, lumbar spine xray 04/2018 Ulcer of foot (03/30/17) Tubular adenoma (04/01/17) 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) Foot callus (01/14/15) Chest pain (11/24/16) Calcaneal spur of right foot (02/23/17) History of colon polyps Diabetic neuropathy associated with diabetes mellitus due to underlying condition Diabetes mellitus type II, uncontrolled Surgical History History of esophagogastroduodenoscopy History of surgical procedure Status post carpal tunnel release Status post tonsillectomy Status post vasectomy Vasectomy Tonsillectomy TITANIUM PLATE PUT IN Open Carpal Tunnel release MULTIPLE NECK OPERATIONS EGD - IV Sedation 04/15/10 10/03/12 Colonoscopy - IV Sedation (04/15/10) Family History Mother , ? SC at age 74. Chronic type B viral hepatitis Diabetes Depression Hyperlipidemia Cancer Father , HEPATIC CANCER at age 56. Chronic type B viral hepatitis Cancer Diabetes Hypertension Hyperlipidemia Sister , < 1 MONTH Heart disease Brother Alcohol abuse Depression Hypertension Heart disease Hyperlipidemia Substance abuse Brother No problems noted. Daughter Depression Daughter Depression Social History Smoking/Tobacco Use Status: Former Tobacco Use tobacco type: cigarettes, pipe and cigars Quit Date: 02/15/13 Tobacco: How many years used: 14 Second Hand Exposure: Yes Smoking risk assessment performed?: Yes Alcohol Intake: current Alcohol Intake frequency: holidays/special occasions only Alcohol type: beer and hard liquor Drug use: Daily Substance use type: marijuana Caregiver/Support person: No Household members: spouse Housing: apartment Number of Children: 2 number of grandchildren: 3 Do you need help understanding health information?: Often Pets and animals: No Sexually active: Yes Do you think of yourself as: straight/heterosexual Current gender identity: male What is your relationship status?: How often do you talk on the phone with friends or family?: once per week How often do you get together with friends or relatives?: once per week Do you belong to any clubs or organized social groups?: no Panel score (0-1 are the most socially isolated patients): 1 Duration: 15-30 minutes/day Frequency: 3-4 times per week Ara/Jewish: No preference Special ara needs: No Seatbelt use: sometimes Helmet use: No Drive intox or ride w/intox road driver: No Do you feel safe at home: Yes Do you feel safe in your relationship?: Yes PAWSS Have you Been Recently Intoxicated or Drunk Within the Last 30 days?: No Have you Ever Experienced Previous Episodes of Alcohol Withdrawal?: No Have you ever Experienced Withdrawal Seizures?: No Have you ever Experienced Delirium Tremens(DT)s?: No Have you ever undergone Alcohol Rehabilitation Treatment (i.e, inpt ot outpatient treatment programs)?: No Have you ever Experienced Blackouts?: No Have you ever Combined Alcohol with other Downers within the last 90 days?: No Have you ever Combined Alcohol with any other Substance of Abuse during the last 90 days?: No Positive Blood Alcohol level on Presentation? [PCS.BAL]: No Evidence of Increased Autonomic Activity (i.e. HR>120, tremor, sweating, agitation, nausea)?: No Result: 0
--- NOTE | 2023-06-30 21:00 | DI.RAD_ITS ---
Exam(s) XR CHEST 1V IN DI DEPT EXAM: XR CHEST 1V IN DI DEPT CLINICAL HISTORY: Weakness. TECHNIQUE: 2D digital imaging was performed. COMPARISON: No exams were available for comparison FINDINGS: Single AP portable view. Heart size is upper normal. The mediastinum is not widened. Lungs are clear. No infiltrates nor obvious pleural effusions. IMPRESSION: No acute pulmonary findings on this single AP portable view of the chest. DATA REPOSITORY: RADIATION DOSE DELIVERED:
[2023-06-30 21:15] LABS: Abs Immature Grans 0.04 10^3/uL (0.0-0.06); Absolute Basophil Count 0.04 10^3/uL (0.0-0.2); Absolute Eosinophil Count 0.19 10^3/uL (0.0-0.7); Absolute Lymphocyte Count 3.47 10^3/uL (1.2-3.4); Absolute Monocyte Count 0.87 10^3/uL (0.1-0.8); Basophils % 0.4 %; HCT 47.1 % (40.0-50.0); HGB 15.9 g/dL (13.5-17.5); Immature Grans % 0.4 %; Lymphocytes % 36.1 %; MCH 31.1 pg (27.0-33.0); MCHC 33.8 % (32.0-36.0); MCV 92 fL (80-95); MPV 10.8 fL (8.0-11.0); Monocytes % 9.1 %; Platelet Count 186 10^3/uL (130-400); RBC 5.12 10^6/uL (4.36-5.78); RDW 13.7 % (11.8-14.1); RDW-SD 46.5 fL; WBC 9.61 10^3/uL (4.4-10.8)
[2023-06-30 21:26] LABS: INR 1.1 (0.9-1.1); PTT Activated 23.3 sec (23.6-32.8); Prothrombin Time 10.8 sec (9.1-11.1)
[2023-06-30 21:30] LABS: ALT 100 U/L (16-63); AST 34 U/L (15-37); Albumin 3.9 g/dL (3.4-5.0); Alkaline Phosphatase 128 U/L (46-116); Anion Gap 14.2 mmol/L (3-11); BUN 25 mg/dL (7-18); Bilirubin, Total 0.7 mg/dL (0.2-1.0); CO2 22.8 mmol/L (21.0-32.0); CREATININE 1.7 mg/dL (0.70-1.30); Calcium 9.3 mg/dL (8.5-10.1); Chloride 104 mmol/L (98-107); Estimated GFR 44.46 (mL/min/1.73m2); Glucose 268 mg/dL (74-106); Magnesium 1.7 mg/dL (1.8-2.4); Potassium 4.1 mmol/L (3.5-5.1); Sodium 141 mmol/L (136-145); Total Protein 7.9 g/dL (6.4-8.2)
[2023-06-30 21:50] LABS: ETHANOL BLOOD < 3.0 mg/dL (<10); Troponin I < 50 ng/L (< or =60)
[2023-06-30] MEDS: Magnesium Oxide 400 MG TAB PO (21:55)
[2023-06-30] MEDS: Normal Saline 1,000 ML 1000 ML IV (21:55)
--- NOTE | 2023-06-30 22:11 | DI.VRAD_ITS ---
PROCEDURE INFORMATION: Exam: XR Chest Exam date and time: 06/30/2023 21:31 Age: 63 years old Clinical indication: Other: Weakness TECHNIQUE: Imaging protocol: Radiologic exam of the chest. Views: 1 view. COMPARISON: CT CHEST LUNG CANCER SCREEN 07/31/2022 09:52 FINDINGS: Lungs: No consolidation. Pleural spaces: No pleural effusion. No pneumothorax. Heart/Mediastinum: No cardiomegaly. Bones/joints: Cervical spine fixation hardware is partially assessed. No displaced fracture. IMPRESSION: Negative portable chest. Dictated and Authenticated by: Hanny Anaya MD. Ordering:AZEB Us MD
--- NOTE | 2023-06-30 22:11 | DI.VRAD_ITS ---
PROCEDURE INFORMATION: Exam: CT Head Without Contrast Exam date and time: 06/30/2023 21:27 Age: 63 years old Clinical indication: Other: Weakness TECHNIQUE: Imaging protocol: Computed tomography of the head without contrast. COMPARISON: CT HEAD CERVICAL SPINE WO 08/12/2022 13:44 FINDINGS: Brain: Mild cerebral atrophy. No edema or hemorrhage. Cerebral ventricles: No ventriculomegaly. Paranasal sinuses: No acute sinusitis. Mastoid air cells: No mastoid effusion. Orbital cavities: Bilateral exophthalmos. Bones: Unremarkable. No acute fracture. Soft tissues: No suspicious lesions. IMPRESSION: No acute intracranial findings. Dictated and Authenticated by: Hanny Anaya MD. Ordering:AZEB Us MD
[2023-06-30 22:20] LABS: Lab Add On Test DONE
[2023-06-30 22:28] LABS: TSH (W/Ref FT4) 7.93 uIU/mL (0.36-3.74)
[2023-06-30 22:44] LABS: FREE T4 0.83 ng/dL (0.76-1.46)
--- NOTE | 2023-06-30 23:43 | NUR.NOTE ---
pt WAS AMBULATED IN HALLWAY. PT was able to ambulate without assistance Nursing Note:
[2023-06-30 23:59] LABS: Troponin I < 50 ng/L (< or =60)
[2023-07-01] MEDS: Lidocaine 5% Patch 1 PATCH TP (00:08)
[2023-07-02 11:22] LABS: Lyme Ab w Rflx to Lyme Confirm Negative (Negative)
[2023-07-05 17:36] LABS: Anaplasma phagocytophilum Negative (Negative); B. miyamotoi PCR Negative (Negative); Babesia divergens/MO-1 Negative (Negative); Babesia duncani Negative (Negative); Babesia microti Negative (Negative); Ehrlichia chaffeensis Negative (Negative); Ehrlichia ewingii/canis Negative (Negative); Ehrlichia muris eauclairensis Negative (Negative)
== END 2023-07-01 00:08 | disposition home or self-care (01) ==
PROVIDERS: Emergency Provider Registered Nurse Emergency; PCP Family Medicine
DX: R53.1 Weakness (principal); M54.50 Low back pain, unspecified; E11.21 Type 2 diabetes mellitus with diabetic nephropathy; E11.40 Type 2 diabetes mellitus with diabetic neuropathy, unspecified; E11.319 Type 2 diabetes mellitus with unspecified diabetic retinopathy without macular edema; Z79.4 Long term (current) use of insulin; Z79.84 Long term (current) use of oral hypoglycemic drugs; Z79.85 Long-term (current) use of injectable non-insulin antidiabetic drugs
CPT/HCPCS: 80053; 82962; 87798; 93005; 96360; 99285; 70450; 71045; 80320; 83735; 84439; 84443; 84484; 85025; 85610; 85730; 86618; 93010; 99284

== ENCOUNTER 2023-07-02 01:45 | Outpatient (CLI) | payer OTHER, SELFPAY ==
[2023-07-02 12:31] LABS: Hemoglobin A1C 10.1 % (<5.7)
[2023-07-02 12:36] LABS: ALT 90 U/L (16-63); AST 42 U/L (15-37); Albumin 3.9 g/dL (3.4-5.0); Alkaline Phosphatase 125 U/L (46-116); Anion Gap 5.7 mmol/L (3-11); BUN 26 mg/dL (7-18); Bilirubin, Total 0.8 mg/dL (0.2-1.0); CO2 27.3 mmol/L (21.0-32.0); CREATININE 1.4 mg/dL (0.70-1.30); Calcium 8.8 mg/dL (8.5-10.1); Calculated LDL 38 mg/dL (<100); Chloride 104 mmol/L (98-107); Cholesterol 143 mg/dL (<200); Estimated GFR 56.13 (mL/min/1.73m2); Glucose 222 mg/dL (74-106); HDL Cholesterol 52 mg/dL (40-60); Potassium 4.2 mmol/L (3.5-5.1); Sodium 137 mmol/L (136-145); Total Protein 7.7 g/dL (6.4-8.2); Triglyceride 268 mg/dL (<150)
[2023-07-02 12:54] LABS: COMMENT (LAB VIEW ONLY) 47.19 mg/dL; Microalb ug/mg Crea 64.4 ug/mg Cr
== END 2023-07-02 01:46 | disposition home or self-care (01) ==
LOC: LOS 01:45
PROVIDERS: PCP Family Medicine; Visit Provider Family Medicine
DX: E11.9 Type 2 diabetes mellitus without complications (principal); E03.9 Hypothyroidism, unspecified; I10 Essential (primary) hypertension
CPT/HCPCS: 36415; 80053; 80061; 82043; 82570; 83036; 84443

== ENCOUNTER 2023-11-23 14:42 | Outpatient (CLI) | payer OTHER, SELFPAY ==
--- NOTE | 2023-11-23 15:20 | DI.RAD_ITS ---
Exam(s) XR FOOT LT COMPLETE XR ANKLE LT COMPLETE EXAM: XR ANKLE LT COMPLETE CLINICAL HISTORY: Equinus contracture lt ankle, M24.572 TECHNIQUE: 2D digital imaging was performed. Three views. COMPARISON: CR XR ANKLE LT COMPLETE from 03/20/2021 CR XR FOOT LT COMPLETE from 06/03/2023 CR XR FOOT LT COMPLETE from 11/23/2023 FINDINGS: BONES: No acute fracture is present. No bony destructive lesion is seen. Heel spurs. Spurring at the tips of the malleoli. Small adjacent bony densities appear chronic. JOINTS:The ankle mortise is normally aligned. Mild tibiotalar joint space narrowing. Chronic appea ring deformity between the base of the 5th metatarsal, cuboid and base of 4th metatarsal. Chronic ap pearing deformity of the 5th metatarsal. Mild degenerative changes of the 1st MTP joint. Pes cavus. SOFT TISSUE: Normal. IMPRESSION: Pes cavus. Chronic deformity at the base of the 5th meta tarsal. DATA REPOSITORY: RADIATION DOSE DELIVERED:
--- NOTE | 2023-11-23 15:22 | DI.RAD_ITS ---
Exam(s) XR ANKLE RT COMPLETE XR FOOT RT COMPLETE EXAM: XR ANKLE RT COMPLETE CLINICAL HISTORY: Equinus contracture rt ankle, M24.571. TECHNIQUE: 2D digital imaging was performed. Three views of the ankle and foot. COMPARISON: CR XR FOOT RT COMPLETE from 11/23/2023 FINDINGS: BONES: No acute fracture is present. No bony destructive lesion is seen. Prominent plantar calcane al spur. Prominent spur at the base of the 5th metatarsal. JOINTS: The ankle mortise is normally aligned. Tibiotalar joint space is maintained. SOFT TISSUE: Coarse calcification again noted within plantar fascia. IMPRESSION: No acute abnormality. Stable findings from prior exam. DATA REPOSITORY: RADIATION DOSE DELIVERED:
== END 2023-11-23 15:02 ==
LOC: DI 14:42
PROVIDERS: PCP Family Medicine; Visit Provider Podiatrist
DX: M24.572 Contracture, left ankle (principal); L97.511 Non-pressure chronic ulcer of other part of right foot limited to breakdown of skin; M24.571 Contracture, right ankle; L97.522 Non-pressure chronic ulcer of other part of left foot with fat layer exposed
CPT/HCPCS: 73610; 73630

== ENCOUNTER 2023-11-25 01:14 | Outpatient (CLI) | payer OTHER, SELFPAY ==
--- NOTE | 2023-11-25 09:59 | DI.RAD_ITS ---
Exam(s) XR FOOT RT LIMITED EXAM: XR FOOT RT LIMITED CLINICAL HISTORY: Return for sesamoid view at no charge. TECHNIQUE: 2D digital imaging was performed. Single sesamoid view. COMPARISON: CR XR FOOT LT COMPLETE from 11/23/2023 CR XR FOOT RT COMPLETE from 11/23/2023 CR XR FOOT LT LIMITED from 11/25/2023 FINDINGS: BONES: No acute fracture is present. No bony destructive lesion is seen. JOINTS: No dislocation present. The sesamoid 1st metatarsal joint spaces appear maintained. Minimal periarticular spurring. SOFT TISSUE: Normal. IMPRESSION: Minimal degenerative changes at the sesamoid 1st metatarsal joints. DATA REPOSITORY: RADIATION DOSE DELIVERED:
--- NOTE | 2023-11-25 09:59 | DI.RAD_ITS ---
Exam(s) XR FOOT LT LIMITED EXAM: XR FOOT LT LIMITED CLINICAL HISTORY: Return for sesamoid view at no charge. TECHNIQUE: 2D digital imaging was performed. Two sesamoid views. COMPARISON: CR XR FOOT LT COMPLETE from 11/23/2023 FINDINGS: BONES: No acute fracture is present. No bony destructive lesion is seen. JOINTS: No dislocation present. The sesamoid 1st metatarsal joint spaces are maintained. There is mi ld periarticular spurring. SOFT TISSUE: Normal. IMPRESSION: Mild degenerative changes at the sesamoid 1st metatarsal joints. DATA REPOSITORY: RADIATION DOSE DELIVERED:
== END 2023-11-25 01:34 ==
LOC: DI 01:14
PROVIDERS: PCP Family Medicine; Visit Provider Podiatrist
DX: M19.071 Primary osteoarthritis, right ankle and foot (principal); M19.072 Primary osteoarthritis, left ankle and foot
CPT/HCPCS: 73620

== ENCOUNTER 2023-12-06 13:47 | Outpatient (CLI) | payer OTHER, SELFPAY ==
[2023-12-06 12:26] LABS: ALT 77 U/L (16-63); AST 36 U/L (15-37); Albumin 3.5 g/dL (3.4-5.0); Alkaline Phosphatase 120 U/L (46-116); Anion Gap 7.6 mmol/L (3-11); BUN 21 mg/dL (7-18); Bilirubin, Total 0.69 mg/dL (0.2-1.0); CO2 27.4 mmol/L (21.0-32.0); CREATININE 1.3 mg/dL (0.70-1.30); Calcium 9.1 mg/dL (8.5-10.1); Chloride 107 mmol/L (98-107); Estimated GFR 61.35 (mL/min/1.73m2); Glucose 205 mg/dL (74-106); Potassium 4.3 mmol/L (3.5-5.1); Sodium 142 mmol/L (136-145); Total Protein 7.3 g/dL (6.4-8.2)
[2023-12-06 12:33] LABS: Hemoglobin A1C 7.9 % (<5.7)
[2023-12-06 23:05] LABS: PSA, Screening 1.5 ng/mL (<=4.5)
== END 2023-12-06 13:48 | disposition home or self-care (01) ==
LOC: LBO 13:48
PROVIDERS: PCP Family Medicine; Visit Provider Family Medicine
DX: E11.65 Type 2 diabetes mellitus with hyperglycemia (principal); L97.521 Non-pressure chronic ulcer of other part of left foot limited to breakdown of skin; G62.9 Polyneuropathy, unspecified; Z00.00 Encounter for general adult medical examination without abnormal findings; E11.9 Type 2 diabetes mellitus without complications; I10 Essential (primary) hypertension
CPT/HCPCS: 36415; 80053; 84153; 83036

== ENCOUNTER 2024-01-10 15:12 | Outpatient (CLI) | payer OTHER, SELFPAY ==
--- NOTE | 2024-01-10 15:00 | RT.EKG_ITS ---
APPROVED REPORT Exam: Resting ECG Reason for Exam: chest discomfort Patient Location: O HR:68 bpm ECG Measurements Heart Rate 68 AXIS WY 138 P 66 QRSd 78 QRS 14 QT 391 T 44 QTc 416 Conclusion Sinus rhythm...normal P axis, V-rate 50- 99 Low voltage, extremity leads...all extremity leads <0.5mV
== END 2024-01-10 15:13 | disposition home or self-care (01) ==
LOC: DI.CM 15:12
PROVIDERS: PCP Family Medicine; Visit Provider Nurse Practitioner Family
DX: R07.89 Other chest pain (principal)
CPT/HCPCS: 93010

== ENCOUNTER 2024-01-10 15:50 | Emergency (ER) | payer OTHER, SELFPAY ==
[2024-01-10] VITALS (16 sets, daily range): BP systolic 104–165; BP diastolic 53–78; PULSE 61–84; RESP 16–24; TEMP 37.1; O2SAT 92–97
--- NOTE | 2024-01-10 15:45 | RT.EKG_ITS ---
APPROVED REPORT Exam: Resting ECG Reason for Exam: SOB Patient Location: E HR:60 bpm ECG Measurements Heart Rate 60 AXIS LA 131 P 55 QRSd 78 QRS 7 QT 397 T 28 QTc 395 Conclusion Sinus rhythm...normal P axis, V-rate 60- 99 Low voltage, extremity and precordial leads...extremity<0.5mV, precordial<1.0mV Normal Follett/Interval Normal ST
--- NOTE | 2024-01-10 15:51 | ED.GENADUL_ITS ---
Discharge Plan Disposition Patient Disposition: Home Condition: Good Discharge Details Clinical Impression: Viral URI Primary Care Provider: Susie Keating ED Provider: Peter Palomino Meds and New Rx's Prescriptions: Continued (DME) FreeStyle Taylor 2 [place] Misc See Rx Instructions .Route Qty: 1 2RF Rx Instructions: As directed. E11.9 lisinopril 40 mg tablet 40 mg PO DAILY Qty: 90 12RF metoprolol succinate 100 mg tablet extended release 24 hr 100 mg PO DAILY Qty: 90 5RF insulin degludec [Tresiba FlexTouch U-200] 200 unit/mL (3 mL) insulin pen 50 unit subcut BID Qty: 36 4RF albuterol sulfate [Ventolin HFA] 90 mcg/actuation HFA aerosol inhaler 2 puff inhalation Q6H PRN (Reason: shortness of breath or wheezing) Qty: 25.5 4RF dapagliflozin propanediol [Farxiga] 10 mg tablet 10 mg PO DAILY Qty: 90 4RF atorvastatin 80 mg tablet 80 mg PO DAILY Qty: 90 12RF (DME) blood-glucose meter Misc See Rx Instructions .ROUTE .MEDSUPPLY Qty: 1 0RF Rx Instructions: TID testing. E11.9 (Accu check) (DME) blood sugar diagnostic Strip See Dose Instructions .ROUTE .MEDSUPPLY Qty: 400 5RF Dose Instruction: As directed Rx Instructions: As directed AC and HS E11.40 gabapentin [Neurontin] 300 mg capsule 300 mg PO BID Qty: 180 5RF omeprazole 40 mg capsule,delayed release(DR/EC) 40 mg PO DAILY Qty: 90 6RF insulin aspart U-100 [Novolog FlexPen U-100 Insulin] 100 unit/mL (3 mL) insulin pen 60 unit subcut AC Qty: 60 6RF (DME) FreeStyle Taylor 2 Sensor Kit See Rx Instructions .Route Qty: 8 12RF Rx Instructions: As directed; E11.9 Ozempic 1 mg/dose (4 mg/3 mL) pen injector 1 mg subcut QWEEK MDD 1 mg Qty: 12 3RF Rx Instructions: Inject 1 mg subcutaneously, once weekly as directed. (DME) pen needle, diabetic [Ultra-Thin II Ins Pen Monroe] 29 gauge x 1/2 needle See Dose Instructions .ROUTE .MEDSUPPLY Qty: 400 6RF Dose Instruction: As directed Rx Instructions: As directed sildenafil 100 mg tablet 100 mg PO DAILY PRN (Reason: sexual activity) Qty: 7 4RF Rx Instructions: administer 30 minutes to 4 hours before activity aspirin 81 MG tablet,chewable 81 mg PO DAILY Discharge Instructions Instructions: Upper Respiratory Infection ED Additional Instructions: You were seen in the ED for viral related symptoms and chest pain associated with cough. Your evaluation including EKG, chest x-ray, laboratory studies are reassuring. You should rest and hydrate at home. Use acetaminophen or ibuprofen as needed for discomfort or fever. Discontinue smoking and use your i nhaler every 4-6 hours as needed. Follow-up with primary care next week if not improving. Return to ED for any worsening or persistent chest pain, increasing shortness of breath, confusion, syncope or other concerns. Referrals: Susie Keating MD, [place] [Primary Care Provider] - Discharge Data Discharge Date/Time-TO BE ENTERED AT DEPARTURE: 01/10/24 18:17 HPI General Mode of arrival: ambulatory . Date/Time Provider Initiated Documentation: 01/10/24 15:51 . Limitations to Documentation: no limitations . Information obtained by: patient, RN/, RN notes reviewed and old records reviewed . HPI Narrative: Patient referred to ED from express care with concern for chest pain. Patient reports waking up this morning and feeling mostly okay. However, after breakfast developed headache, body ache, ear pain, increasing cough, chest pain with cough, mild shortness of breath. He has been sleeping most of the day since then. Went to express care this afternoon. He was referred to the ED with concern for possible cardiac chest pain. He was given aspirin prior to leaving. On arrival here patient states she is actually feeling a little better. States that his chest pain is only present when he coughs. Lingers for short period of time. It is not occurring with deep breaths or breathing. He has felt a little short of breath at times but not consistently. He has no abdominal pain or GI symptoms. He has no leg pain or leg swelling. Related Data Home Medications ?Medication ?Instructions ?Recorded ?Confirmed aspirin 81 mg chewable tablet 81 mg PO DAILY 02/19/17 01/10/24 blood-glucose meter #1 ea 12/02/20 01/10/24 flash glucose scanning reader #1 ea 05/28/21 01/10/24 (FreeStyle [place] 2 [place]) blood sugar diagnostic #400 ea 01/23/22 01/10/24 albuterol sulfate 90 mcg/actuation 2 puff inhalation Q6H PRN 11/03/22 01/10/24 aerosol inhaler (Ventolin HFA) shortness of breath or wheezing #25.5 grams lisinopril 40 mg tablet 40 mg PO DAILY #90 tab-caps 01/21/23 01/10/24 metoprolol succinate 100 mg 100 mg PO DAILY #90 tabs 01/21/23 01/10/24 tablet,extended release 24 hr gabapentin 300 mg capsule 300 mg PO BID #180 tab-caps 01/22/23 01/10/24 (Neurontin) Farxiga 10 mg tablet 10 mg PO DAILY #90 tabs 04/20/23 01/10/24 (dapagliflozin propanediol) atorvastatin 80 mg tablet 80 mg PO DAILY #90 tab-caps 04/20/23 01/10/24 omeprazole 40 mg capsule,delayed 40 mg PO DAILY #90 tab-caps 05/14/23 01/10/24 release insulin aspart U-100 100 unit/mL 60 unit (0.6 mL) subcut AC #60 mL 05/18/23 01/10/24 (3 mL) subcutaneous pen (Novolog FlexPen U-100 Insulin aspart) Ozempic 1 mg/dose (4 mg/3 mL) 1 mg (0.75 mL) subcut QWEEK #12 mL 06/01/23 01/10/24 subcutaneous pen injector (semaglutide) flash glucose sensor (FreeStyle #8 ea 06/01/23 01/10/24 Taylor 2 Sensor kit) pen needle, diabetic 29 gauge x #400 ea 06/01/23 01/10/24 1/2 (Ultra-Thin II Insulin Pen Monroe) insulin degludec 200 unit/mL (3 50 unit (0.25 mL) subcut BID #36 mL 08/12/23 01/10/24 mL) subcutaneous pen (Tresiba FlexTouch U-200 insulin) sildenafil 100 mg tablet 100 mg PO DAILY PRN sexual 08/23/23 01/10/24 activity #7 tabs Previous Rx's ?Medication ?Instructions ?Recorded blood-glucose meter #1 ea 12/02/20 flash glucose scanning reader #1 ea 05/28/21 (FreeStyle [place] 2 [place]) blood sugar diagnostic #400 ea 01/23/22 albuterol sulfate 90 mcg/actuation 2 puff inhalation Q6H PRN 11/03/22 aerosol inhaler (Ventolin HFA) shortness of breath or wheezing #25.5 grams lisinopril 40 mg tablet 40 mg PO DAILY #90 tab-caps 01/21/23 metoprolol succinate 100 mg 100 mg PO DAILY #90 tabs 01/21/23 tablet,extended release 24 hr gabapentin 300 mg capsule 300 mg PO BID #180 tab-caps 01/22/23 (Neurontin) Farxiga 10 mg tablet 10 mg PO DAILY #90 tabs 04/20/23 (dapagliflozin propanediol) atorvastatin 80 mg tablet 80 mg PO DAILY #90 tab-caps 04/20/23 omeprazole 40 mg capsule,delayed 40 mg PO DAILY #90 tab-caps 05/14/23 release insulin aspart U-100 100 unit/mL 60 unit (0.6 mL) subcut AC #60 mL 05/18/23 (3 mL) subcutaneous pen (Novolog FlexPen U-100 Insulin aspart) Ozempic 1 mg/dose (4 mg/3 mL) 1 mg (0.75 mL) subcut QWEEK #12 mL 06/01/23 subcutaneous pen injector (semaglutide) flash glucose sensor (FreeStyle #8 ea 06/01/23 [place] 2 Sensor kit) pen needle, diabetic 29 gauge x #400 ea 06/01/23 1/2 (Ultra-Thin II Insulin Pen [place]) insulin degludec 200 unit/mL (3 50 unit (0.25 mL) subcut BID #36 mL 08/12/23 mL) subcutaneous pen (Tresiba FlexTouch U-200 insulin) sildenafil 100 mg tablet 100 mg PO DAILY PRN sexual 08/23/23 activity #7 tabs Allergies Allergy/AdvReac Type Severity Reaction Status Date / Time tiotropium bromide (From Allergy Severe PT STATES Verified 01/10/24 16:01 Spiriva with HandiHaler) SPIRIVA CAUSED CHEST PAINS General JOSE: 2 Review of Systems Narrative: Per HPI Exam Narrative Exam Narrative: Const: Obese male in NAD. VS per triage. HEENT: NC/AT. Normal facial exam. TMs clear bilaterally. Neck: Supple. Trachea midline. Lungs: Normal respiratory effort. Lungs with diffuse wheezing but good exchange. Cor: RRR without murmur. Good radial pulses. No chest wall tenderness. GI: Soft/ND/NT. Neuro: A+O x 3. Normal speech, mentation, gait. Cranial nerves II - XII grossly intact. No gross motor or sensory deficit. Ext: No C/C/E. Medical Decision Making Patient presenting to ED with what is most consistent with a viral illness. Reports to me that his chest pain was only present while coughing and residual which resolved after coughing. Denies any pleuritic component. Denies any persistent component. He does have diffuse wheezing and admits that he has returned to smoking. His EKG here is sinus rhythm with no acute ST changes, similar to EKG done at [facility] as well as a previous per my read. I have little concern for this being related to ACS, PE, dissection. Potentially pneumonia but again most likely viral illness. Nasal swab has been obtained. DuoNeb ordered. Chest x-ray ordered. Laboratory studies including a troponin has been obtained. Patient's laboratory studies are reassuring. White count is normal. Chemistries with minor abnormalities not clinically significant. Troponin is less than 4 after greater than 3 hours of symptoms. Nasal swab negative for COVID, flu, RSV. Chest x-ray per my read with no acute cardiopulmonary process, no infiltrate. Feel the patient likely has a viral URI. He is safe for discharge home. Strongly encouraged to avoid further tobacco use. He may use his inhaler every 4-6 hours. Rest, hydrate, alternate acetaminophen with ibuprofen as needed. Follow-up with PCP next week if not improving. Return precautions provided. Medical Records Medical records reviewed: Yes I reviewed the patient's medical records. Medical records narrative: See [facility] Imaging Data Radiologic Study: Attestation: I personally reviewed and interpreted this imaging study as follows: Imaging: X-Ray My impression: See [facility] Lab Data Lab results reviewed: Yes I reviewed the patient's lab results. Lab results narrative: See [facility] ECG Data Attestation: I personally reviewed and interpreted this ECG (s) as follows: Prior ECG tracings: available for review Interpretation: See [facility] All Active Problems (Updated 01/10/24 @ 18:01 by Peter Palomino MD) Viral URI (Acute) Calcaneal spur of right foot (Acute 02/23/17) Left carpal tunnel syndrome (Acute) Piriformis syndrome of right side (Acute 07/30/16) Contracture of left Achilles tendon (Acute) Equinus contracture of right ankle (Acute) Equinus contracture of left ankle (Acute) Pes cavus of left foot (Acute) Ulcer of left foot with fat layer exposed (Acute) Diabetes mellitus with foot ulcer due to multiple causes (Acute) Abscess of left foot (Acute) Ulcer of right foot limited to breakdown of skin (Acute) Ulcer of left foot, limited to breakdown of skin (Acute) Plantar wart (Acute) Corns and callosities (Acute) Renal insufficiency (Chronic) Hidradenitis axillaris (Acute) Diabetic retinopathy (Chronic ~11/30/17) 11/30/17 [place]; MILD/RIGHT EYE-KB 03/25/20 [place]; MILD LEFT EYE-KB Persistent testicular pain (Chronic) LOW TESTOSTERONE; reduced libido Partial edentulism, unspecified (Chronic) upper Lumbar radiculopathy (Chronic 06/25/14) Degeneration of cervical intervertebral disc (Chronic) C-6; S/P SURGERY 2000; REPEAT FIXATION 2001. Disability secondary to pain. 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 ME at age 74. Chronic type B viral hepatitis Diabetes Depression Hyperlipidemia Cancer Father , HEPATIC CANCER at age 56. Chronic type B viral hepatitis Cancer Diabetes Hypertension Hyperlipidemia Sister , < 1 MONTH Heart disease Brother Alcohol abuse Depression Hypertension Heart disease Hyperlipidemia Substance abuse Brother No problems noted. Daughter Depression Daughter Depression Social History (Updated 01/10/24 @ 16:31 by Peter Palomino MD) Smoking/Tobacco Use Status: Current every day Tobacco: How many years used: 40 Quit status: has quit before Second Hand Exposure: Yes Smoking risk assessment performed?: Yes Alcohol Intake: current Alcohol Intake frequency: holidays/special occasions only Alcohol type: beer and hard liquor Drug use: Daily Substance use type: marijuana Caregiver/Support person: No Household members: spouse Housing: apartment Number of Children: 2 number of grandchildren: 3 Do you need help understanding health information?: Often Pets and animals: No Sexually active: Yes Do you think of yourself as: straight/heterosexual Current gender identity: male What is your relationship status?: How often do you talk on the phone with friends or family?: once per week How often do you get together with friends or relatives?: once per week Do you belong to any clubs or organized social groups?: no Panel score (0-1 are the most socially isolated patients): 1 Duration: 15-30 minutes/day Frequency: 3-4 times per week Ara/Tenriism: No preference Special ara needs: No Seatbelt use: sometimes Helmet use: No Drive intox or ride w/intox trolley coach driver: No Do you feel safe at home: Yes Do you feel safe in your relationship?: Yes
--- NOTE | 2024-01-10 16:00 | DI.RAD_ITS ---
Exam(s) XR CHEST 2V PA LATERAL EXAM: XR CHEST 2V PA LATERAL CLINICAL HISTORY: cough, CP. TECHNIQUE: 2D digital imaging was performed. COMPARISON: CR,XR XR CHEST 1V IN DI DEPT from 06/30/2023 FINDINGS: 2 views: Heart size is normal. The mediastinum is not widened. Lungs are clear. No infiltrates nor pleural effusions. Fusion plate again noted in the lower cervical spine. IMPRESSION: No acute pulmonary findings. DATA REPOSITORY: RADIATION DOSE DELIVERED:
[2024-01-10] MEDS: Albuterol/Ipratropium 3 ML UPD VIAL UPD (16:22)
[2024-01-10 16:27] LABS: Abs Immature Grans 0.04 10^3/uL (0.0-0.06); Absolute Basophil Count 0.05 10^3/uL (0.0-0.2); Absolute Eosinophil Count 0.19 10^3/uL (0.0-0.7); Absolute Lymphocyte Count 2.17 10^3/uL (1.2-3.4); Absolute Monocyte Count 1.01 10^3/uL (0.1-0.8); Basophils % 0.5 %; Eosinophils % 1.8 %; HCT 43.7 % (40.0-50.0); Immature Grans % 0.4 %; Lymphocytes % 20.4 %; MCH 31.1 pg (27.0-33.0); MCV 97 fL (80-95); Monocytes % 9.5 %; Neutrophils % 67.4 %; RDW 13.9 % (11.8-14.1); RDW-SD 50.4 fL; WBC 10.66 10^3/uL (4.4-10.8)
[2024-01-10 16:44] LABS: Diff Comment PLT Morph Reviewed; RBC Morphology Normal
[2024-01-10 16:46] LABS: ALT 90 U/L (16-63); AST 31 U/L (15-37); Albumin 3.5 g/dL (3.4-5.0); Alkaline Phosphatase 132 U/L (46-116); Anion Gap 7.8 mmol/L (3-11); BUN 23 mg/dL (7-18); Bilirubin, Total 0.47 mg/dL (0.2-1.0); CO2 26.2 mmol/L (21.0-32.0); CREATININE 1.3 mg/dL (0.70-1.30); Chloride 109 mmol/L (98-107); Estimated GFR 61.35 (mL/min/1.73m2); Glucose 133 mg/dL (74-106); Magnesium 1.9 mg/dL (1.8-2.4); Potassium 4.2 mmol/L (3.5-5.1); Sodium 143 mmol/L (136-145); Total Protein 7.2 g/dL (6.4-8.2)
[2024-01-10 16:47] LABS: Troponin I < 4 ng/L (<or=76)
[2024-01-10 16:52] LABS: Calcium 8.7 mg/dL (8.5-10.1)
[2024-01-10 17:05] LABS: COVID-19 PCR Negative (Negative); Influenza A PCR Negative (Negative); Influenza B PCR Negative (Negative); RSV PCR Negative (Negative)
[2024-01-10 17:07] LABS: Source Nasopharynx
== END 2024-01-10 18:17 | disposition home or self-care (01) ==
PROVIDERS: Emergency Provider Emergency Medicine; PCP Family Medicine
DX: J06.9 Acute upper respiratory infection, unspecified (principal); B97.89 Other viral agents as the cause of diseases classified elsewhere; I10 Essential (primary) hypertension; E78.5 Hyperlipidemia, unspecified; E11.40 Type 2 diabetes mellitus with diabetic neuropathy, unspecified; Z79.84 Long term (current) use of oral hypoglycemic drugs; Z79.85 Long-term (current) use of injectable non-insulin antidiabetic drugs; Z79.4 Long term (current) use of insulin; Z79.82 Long term (current) use of aspirin
CPT/HCPCS: 36415; 80053; 87637; 93005; 94640; 99285; 71046; 83735; 84484; 85025; 93010; 99284; J7620

== ENCOUNTER 2024-01-27 01:32 | Outpatient (CLI) | payer OTHER, SELFPAY ==
--- NOTE | 2024-01-27 | DI.CT_ITS ---
Exam(s) CT CHEST WO EXAM: CT CHEST WO CLINICAL HISTORY: SOB, smoker, severe dyspnea, R06.02. TECHNIQUE: Multi planar reconstructions were performed. CONTRAST MATERIAL: None COMPARISON: CT CT CHEST LUNG CANCER SCREEN from 07/31/2022 CR XR CHEST 2V PA LATERAL from 01/10/2024 FINDINGS: CHEST: LUNGS: There are 2 tiny benign-appearing 2 mm nodules in the lateral aspect of the right lung unchang ed from 2022. There is a 1 mm benign-appearing nodule in the left upper lobe.. Some scarring in the lateral basal segment of the left lower lobe is unchanged from prior CT scan. There are no new omin ous nodules nor new infiltrates and there are no pleural effusions. No bronchiectasis. MEDIASTINUM: There is no obvious hilar nor mediastinal adenopathy. Visualized thyroid unremarkable.No obvious axillary adenopathy CARDIAC: Heart size is normal. There is no pericardial effusion.Caliber of the thoracic aorta is wit hin normal limits. VISUALIZED UPPER ABDOMEN:No adrenal masses OSSEOUS: No significant osseous lesions.No fractures.. IMPRESSION: 1. Stable benign-appearing lung findings as described individually above. 2. No new significant infiltrates, ominous nodules, nor pleural effusions 3. No significant intrathoracic adenopathy. RADIATION DOSE DELIVERED: 366.3mGy.cm Total DLP DATA REPOSITORY: All CT scans at this facility are submitted to the National Radiology Data Registry (NRDR) Dose Index Registry (DIR) with the [employer] (ACR). RADIATION OPTIMIZATION: All CT scans at this facility use at least one of these dose optimization te chniques: automated exposure control; mA and/or kV adjustment per patient size (includes targeted exa ms where dose is matched to clinical indication); or iterative reconstruction.
--- NOTE | 2024-01-27 | DI.NM_ITS ---
APPROVED REPORT Exam: Pharmacologic Patient Location: Out-Patient Room/Bed: Stress Nurse: Courtney Neal RN Ordering Provider:LINDA BOWLING, Contact Number: [phone] BMI: 37.06 Baseline Rhythm: Sinus Bradycardia Comment: Occasional PAC's, occasional PVC's Indications: SOB and exertional dizziness Medical History Medical History: Obesity, HLD, HTN, alcohol abuse, smoker, diabetic neuropathy, DMT2 uncontrolled, [place] PD Cardiac Medications: Aspirin, atorvastatin, farxiga, advair, novolog, tresiba, lisinopril, metoprolol sucinate, omeprazole, ozempic, sildenafil Allergies: Spiriva Cardiac Risk Factors: Family hx, HTN, HLD, diabetes, asthma, COPD, smoker, obesity Previous Cardiac Procedures: None Pretest Chest Pain Characteristics: None Exercise History: Sedentary Physical Disabilities: Bilat feet Lung Sounds: Clear to auscultation Heart Sounds: Regular Stress Test Details Test: Pharmacologic stress testing performed using 0.4 mg of regadenoson per 5 mL given IV over 10 s econds. Reason for pharmacologic stress test: physical limitation. Nuclear Acquisition: Rest Tc-99m/Stress Tc-99m 1 day Rest Isotope: Tc-99m Sestamibi. Dose: 12.0 Date: 01/27/2024 Injection Time: 0825 Stress Isotope: Tc-99m Sestamibi. Dose: 36.0 Date: 01/27/2024 Injection Time: 1017 HR Resting HR Supine: 59 bpm Max Heart Rate (APMHR): 156 bpm Target HR (85% APMHR): 133 bpm Max HR Achieved: 79 bpm % of APMHR: 51 Recovery HR: 71 bpm BP Resting BP Supine: 132/74 mmHg Max BP: 132/74 mmHg Recovery BP: 120/68 mmHg ECG Resting ECG: Sinus Bradycardia Ectopy: Occasional PAC's, occasional PVC's Stress ECG: Sinus Rhythm ST Change: Nondiagnostic low heart rate Arrhythmia: Occasional PAC's, occasional PVC's Recovery ECG: Sinus Rhythm Recovery ST Change: Nondiagnostic low heart rate Recovery Arrhythmia: Occasional PAC's, occasional PVC's Clinical Stress Symptoms: Mild SOB Angina Score: None Rate Pressure Product: 71051 Stress ECG Conclusion 1. Resting electrocardiogram showed low voltage 2. Patient underwent testing using pharmacologic stress with regadenoson 3. Peak heart rate achieved was 51% of maximal predicted for age 4. The electrocardiographic portion of the test was nondiagnostic 5. There were no significant dysrhythmias 6. See MPI report Stress Test Summary STAGE HR BP SpO2 Symptoms NOTES Supine 59 132/74 1 min post Lexiscan injection 63 130/72 97% Mild SOB 3 min post Lexiscan injection 79 112/70 95% Mild SOB 6 min post Lexiscan injection 71 120/68 SOB resolved Patient left stress lab ambulatory in no apparent distress. MPI Conclusion Myocardial perfusion is normal. There is no ischemia or evidence of prior infarction Calculated EF is 48% but overall appears within the range of normal with normal wall motion
[2024-01-27] MEDS: Regadenoson 0.4 MG/5 ML SYR IVP (10:36)
== END 2024-01-27 01:52 ==
LOC: DI 01:33
PROVIDERS: PCP Family Medicine; Visit Provider Family Medicine
DX: R06.02 Shortness of breath (principal)
CPT/HCPCS: 71250; 78452; 93017; J2785

== ENCOUNTER 2024-01-28 22:07 | Emergency (ER) | payer OTHER, SELFPAY ==
[2024-01-28 22:09] VITALS: BP 155/103; PULSE 78; RESP 20; O2SAT 98
--- NOTE | 2024-01-28 22:18 | ED.GENADUL_ITS ---
Discharge Plan Disposition Patient Disposition: Home Condition: Good Discharge Details Clinical Impression: Foot ulcer Primary Care Provider: Susie Keating ED Provider: Varsha Armstrong Home Meds and New Rx's Prescriptions: Continued (DME) FreeStyle Taylor 2 [place] Misc See Rx Instructions .Route Qty: 1 2RF Rx Instructions: As directed. E11.9 insulin degludec [Tresiba FlexTouch U-200] 200 unit/mL (3 mL) insulin pen 50 unit subcut BID Qty: 36 4RF albuterol sulfate [Ventolin HFA] 90 mcg/actuation HFA aerosol inhaler 2 puff inhalation Q6H PRN (Reason: shortness of breath or wheezing) Qty: 25.5 4RF dapagliflozin propanediol [Farxiga] 10 mg tablet 10 mg PO DAILY Qty: 90 4RF (DME) blood-glucose meter Misc See Rx Instructions .ROUTE .MEDSUPPLY Qty: 1 0RF Rx Instructions: TID testing. E11.9 (Accu check) (DME) blood sugar diagnostic Strip See Dose Instructions .ROUTE .MEDSUPPLY Qty: 400 5RF Dose Instruction: As directed Rx Instructions: As directed AC and HS E11.40 omeprazole 40 mg capsule,delayed release(DR/EC) 40 mg PO DAILY Qty: 90 6RF insulin aspart U-100 [Novolog FlexPen U-100 Insulin] 100 unit/mL (3 mL) insulin pen 60 unit subcut AC Qty: 60 6RF (DME) FreeStyle Taylor 2 Sensor Kit See Rx Instructions .Route Qty: 8 12RF Rx Instructions: As directed; E11.9 (DME) pen needle, diabetic [Ultra-Thin II Ins Pen [place]] 29 gauge x 1/2 needle See Dose Instructions .ROUTE .MEDSUPPLY Qty: 400 6RF Dose Instruction: As directed Rx Instructions: As directed sildenafil 100 mg tablet 100 mg PO DAILY PRN (Reason: sexual activity) Qty: 7 4RF Rx Instructions: administer 30 minutes to 4 hours before activity atorvastatin 80 mg tablet 80 mg PO DAILY Qty: 90 12RF fluticasone propion-salmeterol [Advair Diskus] 500-50 mcg/dose blister with device 1 inh inhalation BID Qty: 180 5RF lisinopril 40 mg tablet 40 mg PO DAILY Qty: 90 12RF metoprolol succinate 100 mg tablet extended release 24 hr 100 mg PO DAILY Qty: 90 5RF prednisone 20 mg tablet See Rx Instructions PO DAILY Qty: 11 0RF Rx Instructions: 2 tabs daily for 3 days; 1 tab daily for 3 days; 0.5 tab daily for 4 days gabapentin [Neurontin] 300 mg capsule 300 mg PO BID Qty: 180 5RF aspirin 81 MG tablet,chewable 81 mg PO DAILY Discontinued Ozempic 1 mg/dose (4 mg/3 mL) pen injector 1 mg subcut QWEEK MDD 1 mg Qty: 12 3RF Rx Instructions: Inject 1 mg subcutaneously, once weekly as directed. Discharge Instructions Instructions: Foot Care for Diabetics Additional Instructions: Keep weight off your foot as much as possible. Continue to wear your insoles and podiatriac shoes when you are walking. Call your production administrative assistant on Wednesday to schedule an appointment for as soon as possible to followup on your visit here. HPI General Mode of arrival: ambulatory . Date/Time Provider Initiated Documentation: 01/28/24 22:08 . Limitations to Documentation: no limitations . Information obtained by: patient and old records reviewed (podiatry visit note 12/23/23) . HPI Narrative: 63yo M with asthma, COPD, HTN, DM, obesity, presenting for lesion to left foot. Has had similar lesions in the past, sees podiatry and has special insoles and footwear. Today was up and walking 'more than I should' and then noted a developing area on his sole near the base of his left toe. Reports that his production administrative assistant had advised him to present to the ED if he notices a new lesion and her office is not open. He is otherwise in his usual state of health with no fevers, chills, significant pain, new numbness, weakness, leg swelling, or other concerns. Related Data Home Medications ?Medication ?Instructions ?Recorded ?Confirmed aspirin 81 mg chewable tablet 81 mg PO DAILY 02/19/17 01/28/24 blood-glucose meter #1 ea 12/02/20 01/28/24 flash glucose scanning reader #1 ea 05/28/21 01/28/24 (FreeStyle Taylor 2 [place]) blood sugar diagnostic #400 ea 01/23/22 01/28/24 albuterol sulfate 90 mcg/actuation 2 puff inhalation Q6H PRN 11/03/22 01/28/24 aerosol inhaler (Ventolin HFA) shortness of breath or wheezing #25.5 grams Farxiga 10 mg tablet 10 mg PO DAILY #90 tabs 04/20/23 01/28/24 (dapagliflozin propanediol) omeprazole 40 mg capsule,delayed 40 mg PO DAILY #90 tab-caps 05/14/23 01/28/24 release insulin aspart U-100 100 unit/mL 60 unit (0.6 mL) subcut AC #60 mL 05/18/23 01/28/24 (3 mL) subcutaneous pen (Novolog FlexPen U-100 Insulin aspart) flash glucose sensor (FreeStyle #8 ea 06/01/23 01/28/24 Taylor 2 Sensor kit) pen needle, diabetic 29 gauge x #400 ea 06/01/23 01/28/2402/16 (Ultra-Thin II Insulin Pen [place]) insulin degludec 200 unit/mL (3 50 unit (0.25 mL) subcut BID #36 mL 08/12/23 01/28/24 mL) subcutaneous pen (Tresiba FlexTouch U-200 insulin) sildenafil 100 mg tablet 100 mg PO DAILY PRN sexual 08/23/23 01/28/24 activity #7 tabs atorvastatin 80 mg tablet 80 mg PO DAILY #90 tab-caps 01/20/24 01/28/24 fluticasone 500 mcg-salmeterol 50 1 inh inhalation BID #180 ea 01/20/24 01/28/24 mcg/dose blistr powdr for inhalation (Advair Diskus) lisinopril 40 mg tablet 40 mg PO DAILY #90 tab-caps 01/20/24 01/28/24 metoprolol succinate 100 mg 100 mg PO DAILY #90 tabs 01/20/24 01/28/24 tablet,extended release 24 hr prednisone 20 mg tablet See Rx Instructions PO DAILY #11 01/20/24 01/28/24 tabs gabapentin 300 mg capsule 300 mg PO BID #180 tab-caps 01/24/24 01/28/24 (Neurontin) Previous Rx's ?Medication ?Instructions ?Recorded blood-glucose meter #1 ea 12/02/20 flash glucose scanning reader #1 ea 05/28/21 (FreeStyle [place] 2 [place]) blood sugar diagnostic #400 ea 01/23/22 albuterol sulfate 90 mcg/actuation 2 puff inhalation Q6H PRN 11/03/22 aerosol inhaler (Ventolin HFA) shortness of breath or wheezing #25.5 grams Farxiga 10 mg tablet 10 mg PO DAILY #90 tabs 04/20/23 (dapagliflozin propanediol) omeprazole 40 mg capsule,delayed 40 mg PO DAILY #90 tab-caps 05/14/23 release insulin aspart U-100 100 unit/mL 60 unit (0.6 mL) subcut AC #60 mL 05/18/23 (3 mL) subcutaneous pen (Novolog FlexPen U-100 Insulin aspart) flash glucose sensor (FreeStyle #8 ea 06/01/23 Taylor 2 Sensor kit) pen needle, diabetic 29 gauge x #400 ea 06/01/23 1 (Ultra-Thin II Insulin Pen [place]) insulin degludec 200 unit/mL (3 50 unit (0.25 mL) subcut BID #36 mL 08/12/23 mL) subcutaneous pen (Tresiba FlexTouch U-200 insulin) sildenafil 100 mg tablet 100 mg PO DAILY PRN sexual 08/23/23 activity #7 tabs atorvastatin 80 mg tablet 80 mg PO DAILY #90 tab-caps 01/20/24 fluticasone 500 mcg-salmeterol 50 1 inh inhalation BID #180 ea 01/20/24 mcg/dose blistr powdr for inhalation (Advair Diskus) lisinopril 40 mg tablet 40 mg PO DAILY #90 tab-caps 01/20/24 metoprolol succinate 100 mg 100 mg PO DAILY #90 tabs 01/20/24 tablet,extended release 24 hr prednisone 20 mg tablet See Rx Instructions PO DAILY #11 01/20/24 tabs gabapentin 300 mg capsule 300 mg PO BID #180 tab-caps 01/24/24 (Neurontin) Allergies Allergy/AdvReac Type Severity Reaction Status Date / Time tiotropium bromide (From Allergy Severe PT STATES Verified 01/28/24 22:25 Spiriva with HandiHaler) SPIRIVA CAUSED CHEST PAINS General Stated Complaint: RashLesion JOSE: 4 Review of Systems Narrative: see HPI Exam Narrative Exam Narrative: General: Alert, well appearing, well nourished, in no acute distress. Head: Normocephalic, atraumatic Neck: Trachea midline, ?Neck supple. Cardiac: ?No cyanosis. Resp: No respiratory distress. CTAB. Abd: Non-distended, Extremities: ?No deformities.?Palpable DP pulse bilaterally. No lesions right foot. Left foot with with hyperkerotic tissue at base of 5th metatarsal Neurologic: GCS 15. ? Moves all extremities freely against gravity Course Vital Signs Vital signs: Vital Signs Pulse 78 01/28/24 22:09 Respiratory Rate 20 01/28/24 22:09 Blood Pressure 155/103 H 01/28/24 22:09 Pulse Oximetry 98 01/28/24 22:09 Temperature Source Temporal Artery Scan 01/28/24 22:09 Pulse 78 01/28/24 22:09 Respiratory Rate 20 01/28/24 22:09 Blood Pressure 155/103 H 01/28/24 22:09 Blood Pressure Position Supine 01/28/24 22:09 Pulse Oximetry 98 01/28/24 22:09 Oxygen Delivery Method Room Air 01/28/24 22:09 Oxygen Flow Rate 0 01/28/24 22:09 Pain Level 1 01/28/24 22:09 Medical Decision Making 63yo M with asthma, COPD, HTN, DM, obesity, presenting for lesion to left foot. Similar lesions in the past which his production administrative assistant has debrided. Hypertensive on arrival, vital signs otherwise reassuring. Systemically well. Exam with area of hyperkeratosis on sole near and slightly lateral to base of 5th toe. Good pulses. No indication of acute limb ischemia or cellulitis. No indication for imaging, labs, or abx. I advised him to stay off his foot as much as possible, wear his podiatriac insoles and shoes, and call his production administrative assistant on wednesday. The importance of immediate followup was stressed, as this is likely to progress if he does not seek care from the appropriate provider. Discharged home; discharge instructions and return precautions were reviewed with patient who verbalized understanding. All questions were answered and his is in agreement with the plan. Quality:SDOH Health Related Social Needs: No Data to Display PFSH All Active Problems (Updated 01/28/24 @ 22:29 by Varsha Armstrong MD) Foot ulcer (Acute) SOB (shortness of breath) (Acute) Viral URI (Acute) Calcaneal spur of right foot (Acute 02/23/17) Left carpal tunnel syndrome (Acute) Piriformis syndrome of right side (Acute 07/30/16) Contracture of left Achilles tendon (Acute) Equinus contracture of right ankle (Acute) Equinus contracture of left ankle (Acute) Pes cavus of left foot (Acute) Ulcer of left foot with fat layer exposed (Acute) Diabetes mellitus with foot ulcer due to multiple causes (Acute) Abscess of left foot (Acute) Ulcer of right foot limited to breakdown of skin (Acute) Ulcer of left foot, limited to breakdown of skin (Acute) Plantar wart (Acute) Corns and callosities (Acute) Renal insufficiency (Chronic) Hidradenitis axillaris (Acute) Diabetic retinopathy (Chronic ~11/30/17) 11/30/17 [place]; MILD/RIGHT EYE-KB 03/25/20 [place]; MILD LEFT EYE-KB Persistent testicular pain (Chronic) LOW TESTOSTERONE; reduced libido Partial edentulism, unspecified (Chronic) upper Lumbar radiculopathy (Chronic 06/25/14) Degeneration of cervical intervertebral disc (Chronic) C-6; S/P SURGERY 2000; REPEAT FIXATION 2001. Disability secondary to pain. 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 [place] at age 74. Chronic type B viral hepatitis Diabetes Depression Hyperlipidemia Cancer Father , HEPATIC CANCER at age 56. Chronic type B viral hepatitis Cancer Diabetes Hypertension Hyperlipidemia Sister , < 1 MONTH Heart disease Brother Alcohol abuse Depression Hypertension Heart disease Hyperlipidemia Substance abuse Brother No problems noted. Daughter Depression Daughter Depression Social History (Updated 01/10/24 @ 16:31 by Peter Palomino MD) Smoking/Tobacco Use Status: Current every day Tobacco: How many years used: 40 Quit status: has quit before Second Hand Exposure: Yes Smoking risk assessment performed?: Yes Alcohol Intake: current Alcohol Intake frequency: holidays/special occasions only Alcohol type: beer and hard liquor Drug use: Daily Substance use type: marijuana Caregiver/Support person: No Household members: spouse Housing: apartment Number of Children: 2 number of grandchildren: 3 Do you need help understanding health information?: Often Pets and animals: No Sexually active: Yes Do you think of yourself as: straight/heterosexual Current gender identity: male What is your relationship status?: How often do you talk on the phone with friends or family?: once per week How often do you get together with friends or relatives?: once per week Do you belong to any clubs or organized social groups?: no Panel score (0-1 are the most socially isolated patients): 1 Duration: 15-30 minutes/day Frequency: 3-4 times per week Ara/Yarsanism: No preference Special ara needs: No Seatbelt use: sometimes Helmet use: No Drive intox or ride w/intox auto carrier driver: No Do you feel safe at home: Yes Do you feel safe in your relationship?: Yes
== END 2024-01-28 22:40 | disposition home or self-care (01) ==
PROVIDERS: Emergency Provider Student in an Organized Health Care Education/Training Program; PCP Family Medicine
DX: E11.621 Type 2 diabetes mellitus with foot ulcer (principal); I10 Essential (primary) hypertension; E66.9 Obesity, unspecified; J45.909 Unspecified asthma, uncomplicated; J44.9 Chronic obstructive pulmonary disease, unspecified
CPT/HCPCS: 36416; 82962; 99283

== ENCOUNTER 2024-05-10 02:18 | Outpatient (CLI) | payer OTHER, SELFPAY ==
[2024-05-10 08:00] LABS: Hemoglobin A1C 7.7 % (<5.7)
[2024-05-10 08:04] LABS: COMMENT (LAB VIEW ONLY) 150.57 mg/dL; Microalb ug/mg Crea 35.7 ug/mg Cr
[2024-05-10 08:08] LABS: ALT 63 U/L (16-63); AST 26 U/L (15-37); Albumin 3.9 g/dL (3.4-5.0); Alkaline Phosphatase 109 U/L (46-116); Anion Gap 11.9 mmol/L (3-11); BUN 19 mg/dL (7-18); Bilirubin, Total 0.6 mg/dL (0.2-1.0); CO2 27.1 mmol/L (21.0-32.0); CREATININE 1.3 mg/dL (0.70-1.30); Calcium 9.1 mg/dL (8.5-10.1); Chloride 108 mmol/L (98-107); Estimated GFR 60.96 (mL/min/1.73m2); Glucose 79 mg/dL (74-106); Potassium 4.1 mmol/L (3.5-5.1); Sodium 147 mmol/L (136-145); Total Protein 7.7 g/dL (6.4-8.2)
== END 2024-05-10 02:19 | disposition home or self-care (01) ==
LOC: LBO 02:18
PROVIDERS: PCP Family Medicine; Visit Provider Family Medicine
DX: I10 Essential (primary) hypertension (principal); E11.9 Type 2 diabetes mellitus without complications
CPT/HCPCS: 36415; 80053; 82043; 82570; 83036

== ENCOUNTER 2024-06-14 12:26 | Outpatient (CLI) | payer OTHER, SELFPAY ==
--- NOTE | 2024-06-14 11:00 | DI.RAD_ITS ---
Exam(s) XR LUMBAR SPINE COMPLETE EXAM: XR LUMBAR SPINE COMPLETE CLINICAL HISTORY: LBP, M54.50; lumbar pain; eval pathology. TECHNIQUE: 2D digital imaging was performed. Five views. COMPARISON: CR XR LUMBAR SPINE AP, LAT from 03/20/2021 FINDINGS: BONES: No fracture or destructive lesion. Vertebral body heights are maintained. DISKS: Mild loss of disc height at L3-4. Moderate loss of disc height at L4-5. Marked loss of d isc height at L5-S1. There are endplate osteophytes at these levels. Facet degenerative changes are also present at these levels. There is also likely bilateral neural foraminal narrowing, greatest a t L5-S1. ALIGNMENT: Lumbar spinal alignment is within normal limits. SOFT TISSUE: The aorta is calcified and normal in diameter. IMPRESSION: Degenerative disc changes and facet degenerative changes, greatest at L5-S1. DATA REPOSITORY: RADIATION DOSE DELIVERED:
== END 2024-06-14 12:27 | disposition home or self-care (01) ==
LOC: DI 12:26 → LBN 13:01
PROVIDERS: PCP Family Medicine; Visit Provider Nurse Practitioner Family
DX: M54.50 Low back pain, unspecified (principal); L98.9 Disorder of the skin and subcutaneous tissue, unspecified
CPT/HCPCS: 72110; 87070; 87205

== ENCOUNTER 2024-08-15 04:00 | Outpatient (CLI) | payer OTHER, SELFPAY ==
[2024-08-15 08:23] LABS: Hemoglobin A1C 6.7 % (<5.7)
[2024-08-15 08:58] LABS: ALT 88 U/L (16-63); AST 29 U/L (15-37); Albumin 3.8 g/dL (3.4-5.0); Alkaline Phosphatase 115 U/L (46-116); Anion Gap 8.8 mmol/L (3-11); BUN 21 mg/dL (7-18); Bilirubin, Total 0.7 mg/dL (0.2-1.0); CO2 28.2 mmol/L (21.0-32.0); Calcium 8.9 mg/dL (8.5-10.1); Calculated LDL 52 mg/dL (<100); Chloride 101 mmol/L (98-107); Cholesterol 131 mg/dL (<200); Estimated GFR 60.96 (mL/min/1.73m2); Glucose 109 mg/dL (74-106); HDL Cholesterol 43 mg/dL (>or=40); Potassium 3.9 mmol/L (3.5-5.1); Sodium 138 mmol/L (136-145); Total Protein 7.3 g/dL (6.4-8.2); Triglyceride 183 mg/dL (<150); Vitamin B12 440 pg/mL (193-986)
== END 2024-08-15 04:01 | disposition home or self-care (01) ==
PROVIDERS: PCP Family Medicine; Visit Provider Family Medicine
DX: E11.9 Type 2 diabetes mellitus without complications (principal); K22.70 Barrett's esophagus without dysplasia; I10 Essential (primary) hypertension
CPT/HCPCS: 36415; 80053; 80061; 82607; 83036

== ENCOUNTER 2024-09-07 08:07 | Outpatient (CLI) | payer OTHER, SELFPAY ==
--- NOTE | 2024-09-07 08:00 | RT.EKG_ITS ---
APPROVED REPORT Exam: Resting ECG Reason for Exam: Preop examination Patient Location: O HR:56 bpm ECG Measurements Heart Rate 56 AXIS AL 134 P 40 QRSd 94 QRS 13 QT 426 T 43 QTc 412 Conclusion Sinus rhythm...normal P axis, V-rate 50- 99 Low voltage, extremity and precordial leads...extremity<0.5mV, precordial<1.0mV Otherwise normal ECG
== END 2024-09-07 08:08 | disposition home or self-care (01) ==
PROVIDERS: PCP Family Medicine; Visit Provider Family Medicine
DX: Z01.818 Encounter for other preprocedural examination (principal); Z01.811 Encounter for preprocedural respiratory examination
CPT/HCPCS: 93010

== ENCOUNTER 2024-09-07 08:34 | Outpatient (CLI) | payer OTHER, SELFPAY ==
[2024-09-07 12:29] LABS: Abs Immature Grans 0.03 10^3/uL (0.0-0.06); HCT 43.7 % (40.0-50.0); HGB 14.3 g/dL (13.5-17.5); Immature Grans % 0.4 %; MCH 32.0 pg (27.0-33.0); MCHC 32.7 % (32.0-36.0); MCV 98 fL (80-95); MPV 11.6 fL (8.0-11.0); Platelet Count 111 10^3/uL (130-400); RBC 4.47 10^6/uL (4.36-5.78); RDW 13.2 % (11.8-14.1); RDW-SD 47.7 fL; WBC 7.33 10^3/uL (4.4-10.8)
[2024-09-07 12:45] LABS: ALT 96 U/L (16-63); AST 40 U/L (15-37); Albumin 3.6 g/dL (3.4-5.0); Alkaline Phosphatase 110 U/L (46-116); Anion Gap 9.5 mmol/L (3-11); BUN 21 mg/dL (7-18); Bilirubin, Total 0.7 mg/dL (0.2-1.0); CO2 24.5 mmol/L (21.0-32.0); Calcium 9.1 mg/dL (8.5-10.1); Chloride 106 mmol/L (98-107); Estimated GFR 67.11 (mL/min/1.73m2); Glucose 101 mg/dL (74-106); Potassium 4.2 mmol/L (3.5-5.1); Sodium 140 mmol/L (136-145); Total Protein 7.2 g/dL (6.4-8.2)
== END 2024-09-07 08:35 | disposition home or self-care (01) ==
PROVIDERS: PCP Family Medicine; Referring Provider Family Medicine; Visit Provider Family Medicine
DX: Z01.811 Encounter for preprocedural respiratory examination (principal); I10 Essential (primary) hypertension
CPT/HCPCS: 36415; 80053; 85025

== ENCOUNTER 2024-09-08 08:59 | Outpatient (CLI) | payer OTHER, SELFPAY ==
--- NOTE | 2024-09-08 09:00 | DI.RAD_ITS ---
Exam(s) XR CHEST 2V PA LATERAL EXAM: XR CHEST 2V PA LATERAL CLINICAL HISTORY: pre op, Z01.811 TECHNIQUE: 2D digital imaging was performed. Two views. COMPARISON: CT CT CHEST WO from 01/27/2024 FINDINGS: HEART: Normal size. Aorta: Not dilated. PULMONARY VASCULATURE: Normal. MEDIASTINUM: Unremarkable. LUNGS: Clear. PLEURAL SPACE: No pleural effusion or pneumothorax. BONE:Unremarkable for age. Hardware lower cervical spine. SOFT TISSUES: Unremarkable. IMPRESSION: No acute abnormality. DATA REPOSITORY: RADIATION DOSE DELIVERED:
== END 2024-09-08 09:19 ==
LOC: DI 09:00
PROVIDERS: PCP Family Medicine; Visit Provider Family Medicine
DX: Z01.811 Encounter for preprocedural respiratory examination (principal)
CPT/HCPCS: 71046

== ENCOUNTER 2024-09-11 07:47 | Day surgery (SDC) | payer OTHER, SELFPAY ==
[2024-09-11 08:25] VITALS: BP 126/102; PULSE 61; RESP 18; TEMP 36.3; O2SAT 98
[2024-09-11] MEDS: Lactated Ringers 1,000 ML 30 ML IV (08:41)
--- NOTE | 2024-09-11 08:55 | W.ANESPRE ---
General Info Date of Service Date Performed: 09/11/24 Height: 6 ft 0.25 in Weight: 127.573 kg Body Mass Index (BMI): 37.8 Surgical Procedure: Operation Date: 09/11/24 09:10 Proposed Procedure Side Surgeon melisa Valdes Planing/ Exostectomy Sub Fifth Metatarsal Head Left Yue Garland DPM Meds Allergies and Home Medications Allergies Allergy/AdvReac Type Severity Reaction Status Date / Time tiotropium bromide (From Allergy Severe PT STATES Verified 09/11/24 08:13 Spiriva with HandiHaler) SPIRIVA CAUSED CHEST PAINS Home Medication ?Medication ?Instructions ?Recorded aspirin 81 mg chewable tablet 81 mg PO DAILY 02/19/17 blood-glucose meter #1 ea 12/02/20 blood sugar diagnostic #400 ea 01/23/22 albuterol sulfate 90 mcg/actuation 2 puff inhalation Q6H PRN 11/03/22 aerosol inhaler (Ventolin HFA) shortness of breath or wheezing #25.5 grams atorvastatin 80 mg tablet 80 mg PO DAILY #90 tab-caps 01/20/24 fluticasone 500 mcg-salmeterol 50 1 inh inhalation BID #180 ea 01/20/24 mcg/dose blistr powdr for inhalation (Advair Diskus) lisinopril 40 mg tablet 40 mg PO DAILY #90 tab-caps 01/20/24 metoprolol succinate 100 mg 100 mg PO DAILY #90 tabs 01/20/24 tablet,extended release 24 hr gabapentin 300 mg capsule 300 mg PO BID #180 tab-caps 01/24/24 (Neurontin) omeprazole 40 mg capsule,delayed 40 mg PO DAILY #90 tab-caps 02/04/24 release spironolactone 50 mg tablet 50 mg PO BID #180 tabs 02/14/24 insulin lispro 100 unit/mL 60 unit (0.6 mL) subcut TID #90 mL 03/06/24 subcutaneous pen insulin glargine U-300 conc 300 45 unit (0.15 mL) subcut BID #30 mL 04/04/24 unit/mL (3 mL) subcutaneous pen (Toujeo Max U-300 SoloStar) Dexcom G7 [employer]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 04/20/24 (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-glucose,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,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) Dexcom G7 Sensor (blood-glucose #10 ea 04/20/24 sensor) Farxiga 10 mg tablet 10 mg PO DAILY #90 tabs 05/22/24 (dapagliflozin propanediol) tirzepatide 2.5 mg/0.5 mL 2.5 mg (0.5 mL) subcut QWEEK #8 mL 06/05/24 subcutaneous pen injector (Milly) sildenafil 100 mg tablet 100 mg PO DAILY PRN sexual 06/26/24 activity #7 tabs imiquimod 5 % topical cream packet 1 applic topical 5XW 6 weeks #24 ea 08/16/24 pen needle, diabetic 29 gauge x #400 ea 09/04/24/2 (Ultra-Thin II Insulin Pen [place]) Current Visit Medications: Current Medications Generic Name Dose Route Start Last Admin Trade Name Freq PRN Reason Stop Dose Admin Ringer's Solution 1,000 mls @ 30 mls/hr 09/11/24 06:00 09/11/24 08:41 IV 09/11/24 23:59 30 mls/hr INFUSION CHERYL Administration Cefazolin Sodium/Dextrose 2 gm in 50 mls @ 100 mls/hr 09/11/24 06:00 Ancef Duplex IVPB 09/11/24 23:59 PREOP CHERYL IV Miscellaneous Supplies 1 each 09/11/24 06:00 Iv Access IV 09/11/24 23:59 DIRECTED CHERYL Sodium Chloride 0 ml 09/11/24 06:00 Normal Saline Flush 10 Ml Syr IV 09/11/24 23:59 PRN PRN Sodium Chloride 0 ml 09/11/24 06:00 Normal Saline 10 Ml Vial IJ 09/11/24 23:59 DIRECTED PRN Sterile Water 0 ml 09/11/24 06:00 Water,Injection,Sterile 10 Ml Vial IJ 09/11/24 23:59 DIRECTED PRN PFSH Active Problems Active Problems: Problem Status Onset Code Elevated LFTs Acute R79.89 Screening for AAA (abdominal aortic aneurysm) Acute Z13.6 Pre-op chest exam Acute Z01.811 Atrophy of calf muscles on left Acute M62.562 Contracture of left Achilles tendon Acute M67.02 Equinus contracture of right ankle Acute M24.571 Equinus contracture of left ankle Acute M24.572 Pes cavus of left foot Acute Q66.72 Ulcer of left foot with fat layer exposed Acute L97.522 Diabetes mellitus with foot ulcer due to multiple causes Acute E11.621, L97.509 Abscess of left foot Acute L02.612 Ulcer of right foot limited to breakdown of skin Acute L97.511 Ulcer of left foot, limited to breakdown of skin Acute L97.521 Plantar wart Acute B07.0 Corns and callosities Acute L84 Renal insufficiency Chronic N28.9 Left carpal tunnel syndrome Acute G56.02 Piriformis syndrome of right side Acute 07/30/16 G57.01 Hidradenitis axillaris Acute L73.2 Diabetic retinopathy Chronic ~11/30/17 E11.319 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 Partial edentulism, unspecified Chronic K08.409 Lumbar radiculopathy Chronic 06/25/14 M54.16 Degeneration of cervical intervertebral disc Chronic M50.30 Calcaneal spur of right foot Acute 02/23/17 M77.31 Barretts esophagus Chronic K22.70 Balance disorder Chronic 06/24/15 R26.89 Asthma Chronic J45.909 Medical History Medical History Obesity (BMI 30-39.9) Hyperlipidemia (09/06/12) Essential hypertension (11/08/12) Alcohol abuse Smoker Arthritis, lumbar spine xray 04/2018 Tubular adenoma (04/01/17) 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) Diabetic neuropathy associated with diabetes mellitus due to underlying condition Diabetes mellitus type II, uncontrolled Surgical History Surgical History History of esophagogastroduodenoscopy Status post carpal tunnel release Status post tonsillectomy Status post vasectomy Vasectomy Tonsillectomy TITANIUM PLATE PUT IN in neck Open Carpal Tunnel release MULTIPLE NECK OPERATIONS EGD - IV Sedation 04/15/10 10/03/12 Colonoscopy - IV Sedation (04/15/10) Tobacco Smoking/Tobacco Use Status: Former Tobacco Use Passive smoking exposure: No Second hand exposure: Yes Alcohol Alcohol Intake: current Alcohol intake frequency: holidays/special occasions only Alcohol type: beer and hard liquor Substance Use Substance use: Daily Substance use type: marijuana Details: Marijuana edibles (for pain, a couple times weekly) and smoked (2-3 hits at bedtime). Vital Signs and Lab Results Vital Signs Most Recent Vital Signs in EMR: Most Recent Vital Signs Temp Pulse Resp BP Pulse Ox 36.3 C L 61 18 126/102 H 98 09/11/24 08:25 09/11/24 08:25 09/11/24 08:25 09/11/24 08:25 09/11/24 08:25 Point of Care Results Point of Care Results: Finger Stick Blood Glucose 158 09/11/24 08:06 Lab Results Complete Blood Count: WBC, (4.4-10.8) 7.33 10^3/uL 09/07/24, 09:24 RBC, (4.36-5.78) 4.47 10^6/uL 09/07/24, 09:24 Hgb, (13.5-17.5) 14.3 g/dL 09/07/24, 09:24 Hct, (40.0-50.0) 43.7 % 09/07/24, 09:24 Plt Count, (130-400) 111 10^3/uL L 09/07/24, 09:24 Complete Metabolic Panel: Sodium, (136-145) 140 mmol/L 09/07/24, 09:24 Potassium, (3.5-5.1) 4.2 mmol/L 09/07/24, 09:24 Chloride, (98-107) 106 mmol/L 09/07/24, 09:24 Carbon Dioxide, (21.0-32.0) 24.5 mmol/L 09/07/24, 09:24 BUN, (7-18) 21 mg/dL H 09/07/24, 09:24 Creatinine, (0.70-1.30) 1.2 mg/dL 09/07/24, 09:24 Est GFR (CKD-EPI 2020), (mL/min/1.73m2) 67.11 09/07/24, 09:24 Calcium, (8.5-10.1) 9.1 mg/dL 09/07/24, 09:24 Albumin, (3.4-5.0) 3.6 g/dL 09/07/24, 09:24 Glucose, (74-106) 101 mg/dL 09/07/24, 09:24 Hemoglobin A1c, (<5.7) 6.7 % H 08/15/24, 07:45 Liver Function Panel: ALT, (16-63) 96 U/L H 09/07/24, 09:24 AST, (15-37) 40 U/L H 09/07/24, 09:24 Imaging and Studies Imaging and Studies Study information below may be from another EMR and interpreted by another provider. Please see original notes in EMR for more complete details. EKG Summary: 09/08/23 Conclusion Sinus rhythm...normal P axis, V-rate 50- 99 Low voltage, extremity and precordial leads...extremity<0.5mV, precordial<1.0mV Otherwise normal ECG Stress Test Summary: 01/27/24 Stress ECG Conclusion 1. Resting electrocardiogram showed low voltage 2. Patient underwent testing using pharmacologic stress with regadenoson 3. Peak heart rate achieved was 51% of maximal predicted for age 4. The electrocardiographic portion of the test was nondiagnostic 5. There were no significant dysrhythmias 6. See MPI report Echocardiogram Summary: 01/25/24 Conclusion Normal left ventricular wall thickness and chamber size. Ejection fraction is 55%. Wall motion is normal Normal right ventricular size and function Both atria are mildly enlarged The aortic valve is mildly sclerotic and trileaflet without stenosis or regurgitation Mild mitral annular calcification. Mild mitral regurgitation Estimated right ventricular systolic pressure is 32 mmHg Pulmonary Function Summary: 03/21/18 IMPRESSION: While there is no evidence of obstructive or restrictive lung disease, there is significant bronchodilator response, which is likely related to better patient effort. Intrathroacic large airway obstruction also should be evaluated clinically, as there is a flattening of the flow volume loop on the expiratory portion. Clinical correlation recommended. When this study was compared to previous one from 04/14/10, the patient has an overall 750 cc's decline in FVC and FEV1 has declined by 200 cc's. Anesthesia Assessment and Plan Anesthesia History Personal History: Delayed Emergence Family History: No Family History of Anesthesia Complications Exercise Tolerance Exercise Tolerance: Metabolic Equivalents<4 Pertinent Negatives Pertinent Negatives: No Symptoms of GERD, No Major Cardiovascular Symptoms or Complaints and No Major Pulmonary Symptoms or Complaints Cardiac & Pulmonary Exam Cardiac Exam: Normal S1/S2 Heart Sounds Pulmonary Exam: Clear Bilateral Breath Sounds Implantable Cardiac Device Does patient have a Pacemaker or an ICD?: No Airway Exam Known Difficult Airway: No Mallampati Class: 2 Mouth Opening: Normal (> 3cm) Thyromental Distance: Greater than 3 cm Neck Range of Motion: Full ROM Neck Circumference: Normal Teeth Condition: Generalized Poor Dentition (few teeth, bottom only, none loose per pt) ASA Classification ASA Score: ASA 3 Emergency Case?: No NPO Status NPO Status: NPO Clears >2 hours, Solids >8 hours Anesthesia Plan Resuscitation Status: Full Code Anesthesia Technique: General Anesthesia Airway Planned: Natural Airway Monitors Used: Standard Monitors Preoperative Comments:: Gluc check 158 Alexandriajamargi last on 08/26/24 Would prefer limited sedation if tolerated.
[2024-09-11 09:24] VITALS: BMI 37.8
[2024-09-11] MEDS: ceFAZolin 2 GM/50 ML BAG IVPB (09:31)
[2024-09-11] MEDS: Lidocaine 1% Pres-Free 30 ML VIAL (09:57)
--- NOTE | 2024-09-11 10:06 | PDOC.DSDIS_ITS ---
Date of service: 09/11/24 Discharge Plan Disposition Patient Disposition: Home Condition: Good Discharge Details Attending Provider: Yue Garland Primary Care Provider: Susie Keating Home Meds and New Rx's Prescriptions: No Action albuterol sulfate [Ventolin HFA] 90 mcg/actuation HFA aerosol inhaler 2 puff inhalation Q6H PRN (Reason: shortness of breath or wheezing) Qty: 25.5 4RF spironolactone 50 mg tablet 50 mg PO BID Qty: 180 4RF (DME) blood-glucose meter Misc See Rx Instructions .ROUTE .MEDSUPPLY Qty: 1 0RF Rx Instructions: TID testing. E11.9 (Accu check) (DME) blood sugar diagnostic Strip See Dose Instructions .ROUTE .MEDSUPPLY Qty: 400 5RF Dose Instruction: As directed Rx Instructions: As directed AC and HS E11.40 atorvastatin 80 mg tablet 80 mg PO DAILY Qty: 90 12RF fluticasone propion-salmeterol [Advair Diskus] 500-50 mcg/dose blister with device 1 inh inhalation BID Qty: 180 5RF lisinopril 40 mg tablet 40 mg PO DAILY Qty: 90 12RF metoprolol succinate 100 mg tablet extended release 24 hr 100 mg PO DAILY Qty: 90 5RF gabapentin [Neurontin] 300 mg capsule 300 mg PO BID Qty: 180 5RF omeprazole 40 mg capsule,delayed release(DR/EC) 40 mg PO DAILY Qty: 90 6RF insulin lispro 100 unit/mL insulin pen 60 unit subcut TID Qty: 90 7RF insulin glargine U-300 conc [Toujeo Max U-300 SoloStar] 300 unit/mL (3 mL) insulin pen 45 unit subcut BID Qty: 30 6RF (DME) Dexcom G7 Sensor Device See Rx Instructions .Route Qty: 10 12RF Rx Instructions: As directed. E11.9 (DME) Dexcom G7 Marketing Services Coordinator Misc See Rx Instructions .Route Qty: 1 12RF Rx Instructions: As directed. E11.9 dispense 3 month supply dapagliflozin propanediol [Farxiga] 10 mg tablet 10 mg PO DAILY Qty: 90 4RF Mounjaro 2.5 mg/0.5 mL pen injector 2.5 mg subcut QWEEK Qty: 8 5RF Rx Instructions: for 4 weeks sildenafil 100 mg tablet 100 mg PO DAILY PRN (Reason: sexual activity) Qty: 7 4RF Rx Instructions: administer 30 minutes to 4 hours before activity imiquimod 5 % cream in packet 1 applic topical 5XW 42 Days Qty: 24 0RF (DME) pen needle, diabetic [Ultra-Thin II Ins Pen [place]] 29 gauge x 1/2 needle See Dose Instructions .ROUTE .MEDSUPPLY Qty: 400 6RF Dose Instruction: As directed Rx Instructions: As directed aspirin 81 MG tablet,chewable 81 mg PO DAILY Discharge Instructions Stand Alone Forms: Podiatry Instructions-DSU Equipment/Supplies: Partial Weight Bearing Crutches Activity:: Elevate Remove Dressings/Wound Care:: Do Not Remove Shower/Bathe:: Cover Diet:: Carb Counting DS: Diagnosis Discharge Diagnosis (1) Pes cavus of left foot: Status: Acute (2) Diabetes mellitus with foot ulcer due to multiple causes: Status: Acute (3) Equinus contracture of left ankle: Status: Acute (4) Exostosis: Status: Acute
--- NOTE | 2024-09-11 10:08 | W.PM.OP ---
Operative Note Operative Note PRE-OP DIAGNOSIS: Full-thickness ulcer with fat layer exposed, secondary to bony prominence subfifth metatarsal head secondary to pes cavus/Achilles contracture. POST-OP DIAGNOSIS: same PROCEDURE: Exostectomy/surgical offloading, fifth metatarsal head exostosis, left foot SURGEON: Yue Garland ANESTHESIA TYPE: Local By Surgeon (10 mL 1% lidocaine plain preop) Refer to Anesthesia Record ESTIMATED BLOOD LOSS: 0 PATHOLOGY: none sent TOURNIQUET TIME: 13 COMPLICATIONS: None Patient was transported to: same day Patient's condition: stable Indications: 64-year-old male patient with longstanding nonhealing ulcer subfifth metatarsal head of the left foot. Local wound care has been exhausted. This ulcer is secondary to pes cavus, bony prominence subfifth metatarsal head and Achilles contracture. Surgical offloading was discussed in detail with the patient today consisting of exostectomy with plantar planing of the bony prominence to help allow the ulcer to heal. Patient was advised that this is a minimally invasive procedure and if this fails then we can consider a more aggressive procedure. All risks, benefits, possible complications including but not limited to pain, nerve pain, bleeding, infection, recurrence of ulcer, nonhealing of ulcer, infection, infection to bone, need for further surgery or amputation have been discussed in detail with the patient. No guarantees or warranties were made or implied. Patient consented to the procedure. Consent form signed, reviewed and in chart. Medical clearance in. No contraindications noted to the procedure. Site was marked in preop holding. Procedure Description: The patient was brought to the operating room placed on the operating table in supine position with the anesthesia team. After induction of anesthesia, local analgesia was obtained using 10 mL of 1% lidocaine plain preoperatively. An ankle tourniquet was applied. The left foot was then scrubbed, prepped and draped in the usual aseptic manner. An Esmarch was used for exsanguination and the tourniquet was then inflated to 250 mmHg. Using a sterile #11 blade a full thickness incision was made measuring about 3 mm long to the level of bone care was taken not to violate the neurovascular bundle. Next, a tenex bone probe was used to plane the plantar bony prominence at the fifth metatarsal head. Intraoperative fluoroscopy was used medially throughout the procedure. Upon adequate resection of the bony prominence at the fifth metatarsal head, the site was flushed with copious amounts of sterile saline. The tourniquet was then deflated. The incision site was then reapproximated using 4-0 nylon. Dressings were applied with Xeroform gauze, 4 x 4, Kerlix and an Jose A wrap. Patient tolerated the procedure and anesthesia well other vital signs stable and vascular status intact to the left foot. Patient was transferred to same-day for further monitoring. He will be discharged home once stable. Patient to keep his left foot elevated at all times. May protected weight-bear with a cam boot with a peg assist insert which she has already. Patient has an appointment scheduled in office. Date of Procedure: 09/11/24
[2024-09-11 10:12] VITALS: BP 100/59; PULSE 63; RESP 16; TEMP 36.2; O2SAT 96
--- NOTE | 2024-09-11 10:12 | DI.RAD_ITS ---
Exam(s) XR FOOT LT LIMITED EXAM: XR FOOT LT LIMITED CLINICAL HISTORY: atrophy calf muscle left. TECHNIQUE: 2D digital imaging was performed. COMPARISON: No exams were available for comparison FINDINGS: Fluoroscopy was provided during orthopedic procedure on the foot. See procedure report for details. IMPRESSION: Radiation exposure index/cumulative dose:Carolee,r= 0.0407 mGy DATA REPOSITORY: RADIATION DOSE DELIVERED:
--- NOTE | 2024-09-11 10:15 | W.ANESPOSTOP ---
Postoperative Evaluation Date, Time and Location Date Performed: 09/11/24 Time Performed: 10:16 Patient Location: Day Surgery Unit Vital Signs Most Recent Imported Vital Signs: Most Recent Vital Signs Temp Pulse Resp BP Pulse Ox 36.2 C L 63 16 100/59 L 96 09/11/24 10:12 09/11/24 10:12 09/11/24 10:12 09/11/24 10:12 09/11/24 10:12 Pain Score Most Recent Pain Score: Most Recent Pain Score Pain Level 0 09/11/24 10:12 Assessment Mental Status: Awake (Alert & Oriented to Patient Baseline) Airway and Respiratory Function: Patent airway with normal (patient baseline) respiratory exam Cardiovascular Function: Hemodynamically Stable Hydration Status: Adequately Hydrated Nausea & Vomiting: No Nausea or Vomiting Pain: Pt. Denies Any Pain Peripheral Nerve Block: Patient did not receive a nerve block
[2024-09-11 10:55] VITALS: BP 108/67; PULSE 63; RESP 14; TEMP 36.5; O2SAT 98
== END 2024-09-11 11:15 | disposition home or self-care (01) ==
PROVIDERS: PCP Family Medicine; Visit Provider Podiatrist
PROC: (CPT 28288; principal; 2024-09-11 09:00)
DX: E11.621 Type 2 diabetes mellitus with foot ulcer (principal); Q66.72 Congenital pes cavus, left foot; M67.02 Short Achilles tendon (acquired), left ankle; M24.571 Contracture, right ankle; L97.422 Non-pressure chronic ulcer of left heel and midfoot with fat layer exposed; L97.411 Non-pressure chronic ulcer of right heel and midfoot limited to breakdown of skin; F17.210 Nicotine dependence, cigarettes, uncomplicated; M77.52 Other enthesopathy of left foot and ankle
CPT/HCPCS: 28288; 00123; 76000; 73620; J0690; J2003; J2250; J2405; J2704

== ENCOUNTER 2025-01-12 02:21 | Outpatient (CLI) | payer OTHER, SELFPAY ==
[2025-01-12 07:45] LABS: Hemoglobin A1C 7.1 % (<5.7)
[2025-01-12 07:46] LABS: ALT 92 U/L (10-49); AST 48 U/L (<34); Albumin 4.4 g/dL (3.2-5.0); Alkaline Phosphatase 117 U/L (46-116); Anion Gap 10.6 mmol/L (3-11); BUN 26 mg/dL (9-23); Bilirubin, Total 0.50 mg/dL (0.2-1.2); CO2 21.4 mmol/L (20.0-31.0); Calcium 8.9 mg/dL (8.3-10.6); Chloride 108 mmol/L (98-107); Glucose 142 mg/dL (74-106); Potassium 4.2 mmol/L (3.5-5.1); Sodium 140 mmol/L (136-145); Total Protein 7.7 g/dL (5.7-8.2)
[2025-01-12 07:48] LABS: Vitamin B12 426 pg/mL (211-911)
== END 2025-01-12 02:22 | disposition home or self-care (01) ==
LOC: LBO 02:21
PROVIDERS: PCP Family Medicine; Visit Provider Family Medicine
DX: M50.30 Other cervical disc degeneration, unspecified cervical region (principal); I10 Essential (primary) hypertension; E11.9 Type 2 diabetes mellitus without complications
CPT/HCPCS: 36415; 80053; 82607; 83036